=== PATIENT | female | born 1930 | race Caucasian/White ===

== ENCOUNTER 2017-03-09 13:07 | Inpatient (IN) | payer OTHER ==
[~2017-03-09] VITALS: Ht 162.6 cm; Wt 81.3 kg
[2017-03-09] MEDS ORDERED: OPTIRAY 320 IV PRN (14:15)
[2017-03-09 14:27] LABS: BASO % 0.1 %; BASO ABS # 0.01 K/uL (0-0.2); EOS % 1.8 %; EOS ABS # 0.15 K/uL (0-0.5); HEMATOCRIT 40.3 % (37-47); HEMOGLOBIN 13.8 g/dL (12.0-16.0); IG# 0.06 K/uL (0.00-0.02); LYMPH % 21.3 %; LYMPH ABS # 1.73 K/uL (1.2-3.4); MEAN CORPUSCULAR HEMOGLOBIN 32.9 pg (25-34); MEAN CORPUSCULAR HGB CONC 34.2 g/dl (32-36); MEAN PLATELET VOLUME 10.2 fL (7.4-10.4); MONO % 9.1 %; MONO ABS # 0.74 K/uL (0.11-0.59); NEUT ABS # 5.45 K/uL (1.4-6.5); PLATELET COUNT 154 K/uL (130-400); RED CELL DISTRIBUTION WIDTH CV 12.9 % (11.5-14.5); WHITE BLOOD COUNT 8.14 K/uL (4.8-10.8)
--- NOTE | 2017-03-09 14:28 | DIAGNOSTIC IMAGING REPORT ---
CHEST ONE VIEW PORTABLE CLINICAL HISTORY: 86 years-old Female presenting with CHEST PAIN. TECHNIQUE: Portable upright AP view of the chest was obtained. COMPARISON: None. FINDINGS: Atherosclerosis of aortic arch. Cardiac silhouette enlarged. Lungs and pleural spaces clear. Degenerative changes of the thoracic spine. Upper abdomen normal. IMPRESSION: 1. No acute cardiopulmonary disease. Electronically signed by: Andrew Swan M.D. 03/09/2017 2:27 PM Dictated Date/Time: 03/09/2017 2:25 PM
[2017-03-09 14:38] LABS: INR 1.9 (0.9-1.1)
[2017-03-09 14:44] LABS: ALBUMIN 3.9 gm/dl (3.4-5.0); BLOOD UREA NITROGEN 38 mg/dl (7-18); CALCIUM 9.4 mg/dl (8.5-10.1); CARBON DIOXIDE 21 mmol/L (21-32); CREATININE 1.47 mg/dl (0.60-1.20); GLUCOSE 80 mg/dl (70-99); LIPASE 240 U/L (73-393); POTASSIUM 4.1 mmol/L (3.5-5.1); SODIUM 138 mmol/L (136-145)
[2017-03-09 14:59] LABS: ALKALINE PHOSPHATASE 59 U/L (45-117); ALT/SGPT 23 U/L (12-78); AST/SGOT 19 U/L (15-37); TOTAL PROTEIN 7.1 gm/dl (6.4-8.2)
[2017-03-09] MEDS ORDERED: LORA-741 PO ×2 (15:14→17:49)
[2017-03-09] MEDS ORDERED: MISCTAB78 (15:15)
[2017-03-09] MEDS ORDERED: TPRSR/100 (15:15)
[2017-03-09] MEDS ORDERED: LISI40TA PO (15:15)
[2017-03-09] MEDS ORDERED: AMLO-114 PO (15:15)
[2017-03-09] MEDS ORDERED: METO100T14 PO (15:15)
[2017-03-09] MEDS ORDERED: HYDR12.55 PO (15:15)
[2017-03-09] MEDS ORDERED: WARF4TAB8 PO (15:15)
[2017-03-09] MEDS ORDERED: OMEG10007 PO (15:15)
--- NOTE | 2017-03-09 15:34 | DIAGNOSTIC IMAGING REPORT ---
HEAD CT NONCONTRAST CT DOSE: HISTORY: syncope, TIA left weakness TECHNIQUE: Multiaxial CT images of the head were performed without the use of intravenous contrast. Automated exposure control was utilized for this study. A dose lowering technique was utilized adhering to the principles of ALARA. Comparison: None. Findings: The paranasal sinuses and mastoid air cells are clear. The calvarium and skull base are intact. There is no mass, hematoma, midline shift, acute infarct. White matter hypodensity is nonspecific but suggestive of microvascular ischemic change. The ventricles and sulci demonstrate mild age-related involutional changes. Impression: No acute intracranial abnormality. Atrophy and microvascular ischemic changes. Electronically signed by: Hardeep Moe M.D. 03/09/2017 3:33 PM Dictated Date/Time: 03/09/2017 3:30 PM
--- NOTE | 2017-03-09 15:45 | DIAGNOSTIC IMAGING REPORT ---
CT ANGIOGRAM OF THE BRAIN; CT ANGIOGRAM OF THE NECK CLINICAL HISTORY: Syncope. COMPARISON STUDY: Unenhanced CT scan of the brain dated 03/09/2017. TECHNIQUE: Following the IV administration of 115 of Optiray 320, CT angiogram of the head and neck was performed from the aortic arch to the vertex. Images are reviewed in the axial, sagittal, and coronal planes. 3-D MIPS images are created and assessed. IV contrast was administered without complication. All measurements were calculated based on NASCET criteria. A dose lowering technique was utilized adhering to the principles of ALARA. CT DOSE: 1044.22 mGy.cm FINDINGS: Brain parenchyma: The brain parenchyma is normal in appearance. There is no hemorrhage, mass effect, or evidence of acute territorial ischemia by CT criteria. There is no evidence of enhancing mass lesion on the angiogram phase images. The ventricles, sulci, and cisterns are normal in configuration. Alvarado-white matter differentiation is preserved. No extra-axial fluid collection is seen. Thoracic aorta: Visualized portions of the thoracic aorta are normal in caliber. The aortic arch demonstrates 4-vessel variant anatomy. Right carotid arterial system: The right common carotid artery is widely patent. There is advanced atherosclerotic calcification of the carotid bulb and proximal internal carotid artery. This causes greater than 90% stenosis of the proximal right common carotid artery which extends at least 1.5 cm. The mid to distal portions of the right internal carotid artery are widely patent, as is the right external carotid artery. Left carotid arterial system: The left common carotid artery is widely patent. There is advanced atherosclerotic plaque seen the carotid bulb and proximal left internal carotid artery. This causes greater than 90% stenosis with near complete occlusion of the proximal left internal carotid artery which extends approximately 2 cm. The mid to distal portions of the left internal carotid artery are widely patent, as is the left external carotid artery. Vertebral arteries: Widely patent bilaterally and codominant. Subclavian arteries: Widely patent bilaterally. Intracranial vasculature: There is origin of the right posterior cerebral artery. The internal carotid arteries are patent at the skull base, as are the anterior and middle cerebral arteries bilaterally. The vertebrobasilar system and posterior cerebral arteries are widely patent. The vertebral arteries are codominant. There is no aneurysm, high-grade stenosis, or focal vessel cut off seen throughout the intracranial circulation. There is diminished flow throughout the left MCA territory as compared to the right. Jugular veins: Widely patent bilaterally. Dural sinuses: Patent. Lung apices: Partially visualized upper lobe lung parenchyma appears clear. Soft tissues: The visualized pharyngeal soft tissues are normal in appearance noting angiographic phase technique. The oropharyngeal airway appears widely patent. The salivary and thyroid glands are normal in appearance. No cervical lymphadenopathy is seen. Skeletal structures: The skeletal structures are osteopenic. The calvarium is within normal limits. The cervical spine appears intact noting multilevel spondylosis. Sinuses and mastoids: Mild mucosal thickening is seen within the maxillary antra bilaterally. The remaining paranasal sinuses are clear. The mastoid air cells are well pneumatized. Orbits: The bony orbits appear intact. Orbital contents are normal in appearance noting a right ocular lens implant. IMPRESSION: 1. There is no hemorrhage, mass effect, or evidence of acute territorial ischemia by CT criteria. 2. 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 Both vessels remain patent. This is slightly worse on the left. 3. The vertebral arteries are widely patent. 4. There is globally and asymmetrically diminished perfusion of the left MCA branches as compared to the right. No high-grade stenosis or focal vessel cut off is seen throughout the intracranial circulation. No aneurysm is identified. Electronically signed by: Geoff Cazares M.D. 03/09/2017 3:43 PM Dictated Date/Time: 03/09/2017 3:32 PM
[2017-03-09] MEDS ORDERED: SODIUM CHLORIDE 0.9% 1000ML 1,000 ML IV STA (16:16)
--- NOTE | 2017-03-09 16:33 | EMERGENCY ROOM VISIT NOTE ---
History Report prepared by Candida: Bennie Valera Under the Supervision of: Dr. Edilson Arango M.D. First contact with patient: 13:40 Chief Complaint: OTHER COMPLAINT History of Present Illness The patient is a 86 year old female who presents to the Emergency Room by EMS with complaints of an unresponsive episode occurring one hour ago. She states that she was out shopping today, and ultimately carried all of her groceries up a flight of stairs. Per family, the patient was speaking on the phone with them after she had brought in her groceries, and suddenly stopped responding. Her family went to check on her, and found her to be unresponsive to verbal or painful stimuli. They state that the patient was unresponsive for about 15 minutes. They note that the patient appeared to be exhibiting left hand weakness , and left sided facial droop after waking up. The patient's symptoms resolved around the time EMS arrived. She does not remember the episode. She has no history of similar symptoms. The patient denies nausea, vomiting, chest pain, SOB, fevers or chills. She notes that her 9 years ago yesterday, and states that she feels sad about this. Source of History: patient, family Onset: One hour ago Symptom Intensity: 15 minutes long Quality: other (unresponsive episode) Timing: other (episode) Associated Symptoms: No fevers, No chills, No chest pain, No SOB, No nausea , No vomiting Review of Systems See HPI for pertinent positives and negatives. A total of ten systems were reviewed and were otherwise negative. Past Medical & Surgical Medical Problems: (1) Cataract (2) CKD (chronic kidney disease), stage III (3) DM II (diabetes mellitus, type II), controlled (4) H/O deep venous thrombosis (5) HLD (hyperlipidemia) (6) HTN (hypertension) Family History No pertinent family history stated. Social History Smoking Status: Former Smoker Housing Status: lives alone Current/Historical Medications Scheduled Amlodipine (Norvasc), 10 MG PO DAILY Cholecalciferol (Vitamin D), 1 TAB PO DAILY Fish Oil (Brigantine-3), 1,000 MG PO BID Flaxseed (Linseed) (Flaxseed Oil 1000 mg), 1 TAB PO DAILY Fluticasone Propionate (Fluticasone Propionate), 2 SPRAYS TORIE DAILY Glimepiride (Glimepiride), 1 TAB PO DAILY@1500 Hydrochlorothiazide (Hctz), 1 TAB PO DAILY Latanoprost (Xalatan 0.005% Oph Tasneem), 1 DROPS OP HS Lisinopril (Zestril), 40 MG PO HS Metformin Hcl (Glucophage), 1 TAB PO TIDM Metoprolol Tartrate (Lopressor) (Lopressor), 1 TAB PO BID Warfarin Sod (Coumadin), 1 TAB PO SuMoWeThFr@1600 Warfarin Sod (Coumadin), 0.5 TAB PO TuSa@1600 Scheduled PRN Lorazepam (Ativan), 0.5 MG PO Q6H PRN for Anxiety/Agitation Allergies Coded Allergies: No Known Allergies (Verified , 03/09/17) Physical Exam Vital Signs Date Time Temp Pulse Resp B/P (MAP) Pulse Ox O2 Delivery O2 Flow Rate FiO2 03/09/17 15:01 84 16 149/64 98 Room Air 03/09/17 14:29 78 03/09/17 14:09 98 Room Air 03/09/17 13:13 37.0 80 16 163/65 98 Room Air Physical Exam GENERAL: Awake, alert, well-appearing, in no distress HENT: Normocephalic, atraumatic. Oropharynx unremarkable. Dry mucous membranes. EYES: Normal conjunctiva. Sclera non-icteric. Left eye disconjugate gaze ( consistent with baseline). NECK: Supple. No nuchal rigidity. FROM. No JVD. RESPIRATORY: Clear to auscultation. CARDIAC: Regular rate, normal rhythm. Extremities warm and well perfused. Pulses equal. ABDOMEN: Soft, non-distended. No tenderness to palpation. No rebound or guarding. No masses. RECTAL: Deferred. MUSCULOSKELETAL: Chest examination reveals no tenderness. The back is symmetrical on inspection without obvious abnormality. There is no CVA tenderness to palpation. No joint edema. LOWER EXTREMITIES: Calves are equal size bilaterally and non-tender. No edema. No discoloration. NEURO: Normal sensorium. No sensory or motor deficits noted. Normal cerebellar function with [id number], alternating palms, [id number] SKIN: No rash or jaundice noted. Medical Decision & Procedures ER Provider Diagnostic Interpretation: Radiology results as stated below per my review and radiologist interpretation: HEAD CT NONCONTRAST Findings: The paranasal sinuses and mastoid air cells are clear. The calvarium and skull base are intact. There is no mass, hematoma, midline shift, acute infarct. White matter hypodensity is nonspecific but suggestive of microvascular ischemic change. The ventricles and sulci demonstrate mild age-related involutional changes. Impression: No acute intracranial abnormality. Atrophy and microvascular ischemic changes. Electronically signed by: Hardeep Moe M.D. 03/09/2017 3:[address] ANGIOGRAM OF THE BRAIN; CT ANGIOGRAM OF THE NECK FINDINGS: Brain parenchyma: The brain parenchyma is normal in appearance. There is no hemorrhage, mass effect, or evidence of acute territorial ischemia by CT criteria. There is no evidence of enhancing mass lesion on the angiogram phase images. The ventricles, sulci, and cisterns are normal in configuration. Alvarado-white matter differentiation is preserved. No extra-axial fluid collection is seen. Thoracic aorta: Visualized portions of the thoracic aorta are normal in caliber. The aortic arch demonstrates 4-vessel variant anatomy. Right carotid arterial system: The right common carotid artery is widely patent. There is advanced atherosclerotic calcification of the carotid bulb and proximal internal carotid artery. This causes greater than 90% stenosis of the proximal right common carotid artery which extends at least 1.5 cm. The mid to distal portions of the right internal carotid artery are widely patent, as is the right external carotid artery. Left carotid arterial system: The left common carotid artery is widely patent. There is advanced atherosclerotic plaque seen the carotid bulb and proximal left internal carotid artery. This causes greater than 90% stenosis with near complete occlusion of the proximal left internal carotid artery which extends approximately 2 cm. The mid to distal portions of the left internal carotid artery are widely patent, as is the left external carotid artery. Vertebral arteries: Widely patent bilaterally and codominant. Subclavian arteries: Widely patent bilaterally. Intracranial vasculature: There is origin of the right posterior cerebral artery. The internal carotid arteries are patent at the skull base, as are the anterior and middle cerebral arteries bilaterally. The vertebrobasilar system and posterior cerebral arteries are widely patent. The vertebral arteries are codominant. There is no aneurysm, high-grade stenosis, or focal vessel cut off seen throughout the intracranial circulation. There is diminished flow throughout the left MCA territory as compared to the right. Jugular veins: Widely patent bilaterally. Dural sinuses: Patent. Lung apices: Partially visualized upper lobe lung parenchyma appears clear. Soft tissues: The visualized pharyngeal soft tissues are normal in appearance noting angiographic phase technique. The oropharyngeal airway appears widely patent. The salivary and thyroid glands are normal in appearance. No cervical lymphadenopathy is seen. Skeletal structures: The skeletal structures are osteopenic. The calvarium is within normal limits. The cervical spine appears intact noting multilevel spondylosis. Sinuses and mastoids: Mild mucosal thickening is seen within the maxillary antra bilaterally. The remaining paranasal sinuses are clear. The mastoid air cells are well pneumatized. Orbits: The bony orbits appear intact. Orbital contents are normal in appearance noting a right ocular lens implant. IMPRESSION: 1. There is no hemorrhage, mass effect, or evidence of acute territorial ischemia by CT criteria. 2. 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 Both vessels remain patent. This is slightly worse on the left. 3. The vertebral arteries are widely patent. 4. There is globally and asymmetrically diminished perfusion of the left MCA branches as compared to the right. No high-grade stenosis or focal vessel cut off is seen throughout the intracranial circulation. No aneurysm is identified. Electronically signed by: Geoff Cazares M.D. 03/09/2017 3:[address] ANGIOGRAM OF THE BRAIN; CT ANGIOGRAM OF THE NECK FINDINGS: Brain parenchyma: The brain parenchyma is normal in appearance. There is no hemorrhage, mass effect, or evidence of acute territorial ischemia by CT criteria. There is no evidence of enhancing mass lesion on the angiogram phase images. The ventricles, sulci, and cisterns are normal in configuration. Alvarado-white matter differentiation is preserved. No extra-axial fluid collection is seen. Thoracic aorta: Visualized portions of the thoracic aorta are normal in caliber. The aortic arch demonstrates 4-vessel variant anatomy. Right carotid arterial system: The right common carotid artery is widely patent. There is advanced atherosclerotic calcification of the carotid bulb and proximal internal carotid artery. This causes greater than 90% stenosis of the proximal right common carotid artery which extends at least 1.5 cm. The mid to distal portions of the right internal carotid artery are widely patent, as is the right external carotid artery. Left carotid arterial system: The left common carotid artery is widely patent. There is advanced atherosclerotic plaque seen the carotid bulb and proximal left internal carotid artery. This causes greater than 90% stenosis with near complete occlusion of the proximal left internal carotid artery which extends approximately 2 cm. The mid to distal portions of the left internal carotid artery are widely patent, as is the left external carotid artery. Vertebral arteries: Widely patent bilaterally and codominant. Subclavian arteries: Widely patent bilaterally. Intracranial vasculature: There is origin of the right posterior cerebral artery. The internal carotid arteries are patent at the skull base, as are the anterior and middle cerebral arteries bilaterally. The vertebrobasilar system and posterior cerebral arteries are widely patent. The vertebral arteries are codominant. There is no aneurysm, high-grade stenosis, or focal vessel cut off seen throughout the intracranial circulation. There is diminished flow throughout the left MCA territory as compared to the right. Jugular veins: Widely patent bilaterally. Dural sinuses: Patent. Lung apices: Partially visualized upper lobe lung parenchyma appears clear. Soft tissues: The visualized pharyngeal soft tissues are normal in appearance noting angiographic phase technique. The oropharyngeal airway appears widely patent. The salivary and thyroid glands are normal in appearance. No cervical lymphadenopathy is seen. Skeletal structures: The skeletal structures are osteopenic. The calvarium is within normal limits. The cervical spine appears intact noting multilevel spondylosis. Sinuses and mastoids: Mild mucosal thickening is seen within the maxillary antra bilaterally. The remaining paranasal sinuses are clear. The mastoid air cells are well pneumatized. Orbits: The bony orbits appear intact. Orbital contents are normal in appearance noting a right ocular lens implant. IMPRESSION: 1. There is no hemorrhage, mass effect, or evidence of acute territorial ischemia by CT criteria. 2. 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 Both vessels remain patent. This is slightly worse on the left. 3. The vertebral arteries are widely patent. 4. There is globally and asymmetrically diminished perfusion of the left MCA branches as compared to the right. No high-grade stenosis or focal vessel cut off is seen throughout the intracranial circulation. No aneurysm is identified. Electronically signed by: Geoff Cazares M.D. 03/09/2017 3:43 PM CHEST ONE VIEW PORTABLE FINDINGS: Atherosclerosis of aortic arch. Cardiac silhouette enlarged. Lungs and pleural spaces clear. Degenerative changes of the thoracic spine. Upper abdomen normal. IMPRESSION: 1. No acute cardiopulmonary disease. Electronically signed by: Andrew Swan M.D. 03/09/2017 2:27 PM Laboratory Results Test 03/09/17 14:16 03/09/17 15:24 Immature Granulocyte % (Auto) 0.7 % White Blood Count 8.14 K/uL (4.8-10.8) Red Blood Count 4.20 M/uL (4.2-5.4) Hemoglobin 13.8 g/dL (12.0-16.0) Hematocrit 40.3 % (37-47) Mean Corpuscular Volume 96.0 fL (80-100) Mean Corpuscular Hemoglobin 32.9 pg (25-34) Mean Corpuscular Hemoglobin Concent 34.2 g/dl (32-36) Platelet Count 154 K/uL (130-400) Mean Platelet Volume 10.2 fL (7.4-10.4) Neutrophils (%) (Auto) 67.0 % Lymphocytes (%) (Auto) 21.3 % Monocytes (%) (Auto) 9.1 % Eosinophils (%) (Auto) 1.8 % Basophils (%) (Auto) 0.1 % Neutrophils # (Auto) 5.45 K/uL (1.4-6.5) Lymphocytes # (Auto) 1.73 K/uL (1.2-3.4) Monocytes # (Auto) 0.74 K/uL (0.11-0.59) Eosinophils # (Auto) 0.15 K/uL (0-0.5) Basophils # (Auto) 0.01 K/uL (0-0.2) Immature Granulocyte # (Auto) 0.06 K/uL (0.00-0.02) Magnesium Level 2.2 mg/dl (1.8-2.4) Total Bilirubin 0.5 mg/dl (0.2-1) Direct Bilirubin 0.1 mg/dl (0-0.2) Aspartate Amino Transf (AST/SGOT) 19 U/L (15-37) Alanine Aminotransferase (ALT/SGPT) 23 U/L (12-78) Alkaline Phosphatase 59 U/L (45-117) Total Protein 7.1 gm/dl (6.4-8.2) Albumin 3.9 gm/dl (3.4-5.0) Lipase 240 U/L (73-393) Urine Color YELLOW Urine Appearance CLEAR (CLEAR) Urine pH 5.5 (4.5-7.5) Urine Specific [place] 1.022 (1.000-1.030) Urine Protein NEG (NEG) Urine Glucose (UA) NEG (NEG) Urine Ketones NEG (NEG) Urine Occult Blood NEG (NEG) Urine Nitrite NEG (NEG) Urine Bilirubin NEG (NEG) Urine Urobilinogen NEG (NEG) Urine Leukocyte Esterase NEG (NEG) Laboratory results reviewed by me Medications Administered Medications (Trade) Dose Ordered Sig/Yobani Route Start Time Stop Time Status Last Admin Dose Admin Sodium Chloride 1,000 ml @ 999 mls/hr Q1H1M STAT IV 03/09/17 16:16 03/09/17 17:16 DC 03/09/17 16:16 999 MLS/HR ECG Indication: other (unresponsive episode) Rate (beats per minute): 78 Rhythm: normal sinus Findings: no acute ischemic change, left axis deviation ED Course 1344: The patient was evaluated in room A4B. A complete history and physical exam was performed. 1620: Upon reexamination, the patient was resting comfortably. I discussed the test results and treatment plan with her. The patient will be evaluated for further management. Medical Decision I reviewed the patient's past medical history, medications, and the nursing notes as described above. The patient's presentation and history were concerning for vasovagal event, infection, hypoglycemia, electrolyte abnormalities, cardiac sources, intracerebral event, toxicologic, neurologic, metabolic, as well as other pathologies were entertained. The patient is a 86-year-old woman a past medical history of hypertension, afib on coumadin who presents emergency Department with syncopal episode per hpi. The patient is in no acute distress, afebrile with stable vital signs. Neuro intact. Labs notable for possible ALIA with creatinine of 1.4 with BUN/Cr > 20 suggesting dehydration. WBC within normal limits. Troponin negative. EKG without ischemia. Chest x-ray negative. CT/CTA without any evidence of ischemia however shows significant vascular disease with high-grade bilateral internal carotid stenosis and impaired flow in the left MCA territory without any occlusion. Symptoms possibly related to the patient's dehydration in the setting of her cerebral vascular disease. However, will admit the patient for full stroke/TIA evaluation. Case d/w Edilia Tabor [facility] who will admit the patient for further management. Medication Reconcilliation Current Medication List: was personally reviewed by me Blood Pressure Screening Patient's blood pressure: Elevated blood pressure Blood pressure disposition: Elevated BP felt to be situational Consults Time Called: 1616 Consulting Physician: Fatimah Yeboah Hospitalist Returned Call: [phone] I discussed the patient with Fatimah Yeboah will evaluate the patient for further treatment. Impression Primary Impression: Syncope Additional Impression: Dehydration Scribe Attestation The scribe's documentation has been prepared under my direction and personally reviewed by me in its entirety. I confirm that the note above accurately reflects all work, treatment, procedures, and medical decision making performed by me. Departure Information Dispostion Being Evaluated By Hospitalist Referrals Brian Avendano III, M.D. (PCP) Patient Instructions [facility] Problem Qualifiers
[2017-03-09] MEDS ORDERED: ONDANSETRON INJ 2 MG/ML 2 ML VIAL IV PRN (17:15)
[2017-03-09] MEDS ORDERED: ACETAMINOPHEN 325 MG TAB PO PRN (17:15)
[2017-03-09 17:48] VITALS: O2SAT 96; Ht 162.6 cm; Wt 81.3 kg
[2017-03-09] MEDS ORDERED: CMD4 PO ×2 (17:49)
[2017-03-09] MEDS ORDERED: LATA0.5S OP (17:49)
[2017-03-09] MEDS ORDERED: GLIM1TAB2 PO (17:49)
[2017-03-09] MEDS ORDERED: FLNIN NAE (17:49)
[2017-03-09] MEDS ORDERED: METF500T PO (17:49)
[2017-03-09] MEDS ORDERED: HYDR25TA4 PO (17:49)
[2017-03-09] MEDS ORDERED: CHOL100010 PO (17:49)
[2017-03-09] MEDS ORDERED: FLAX100019 PO (17:49)
[2017-03-09] MEDS ORDERED: LORAZEPAM 0.5 MG TAB PO PRN (18:00)
[2017-03-09] MEDS ORDERED: ASPIRIN 325 MG ECTAB PO ONE (18:21)
[2017-03-09] MEDS ORDERED: LORAZEPAM INJ 0.5 MG in SYRINGE 0.75 ML IV SCH (20:00)
[2017-03-09] MEDS ORDERED: LORAZEPAM 2 MG/ML 1 ML VIAL IV SCH (20:00)
--- NOTE | 2017-03-09 21:03 | History and Physical ---
History & Physical Date & Time of Service: Mar 09, 2017 at 20:59 Chief Complaint: Alia (Acute Kidney Injury), Syncope Primary Care Physician: Brian Avendano III, M.D. History of Present Illness Source: patient, family (at bedside), clinic records, hospital records This is an 86yo F with a PMH of HTN, CKD III, h/o DVT (on coumadin) and DM II who presents after a syncopal event earlier today. Patient went to the grocery store today and brought groceries up a flight of stairs upon returning home. [place] very fatigued and sat down. Called family member and reportedly spoke 1-2 sentences before she stopped responding. Family went directly to patient's home and found her slumped over in her chair, unresponsive but still breathing. Did no respond to verbal or painful stimuli until EMS arrived, approximately 15 minutes after incident began. States that she becomes extremely tired after shopping and may have even fallen asleep while on the phone. Denies confusion about the events surrounding her coming to the hospital but seems unsure about when she takes her BP medications. Admits that she does not drink enough water. Denies fever, chills, lightheadedness, headache, visual changes, facial droop, slurred speech, palpitations, CP, SOB, abd pain, nausea, vomiting, focal weakness, LE swelling. Denies history of syncope or seizures. Past Medical/Surgical History Medical Problems: (1) Cataract Status: Chronic (2) CKD (chronic kidney disease), stage III Status: Chronic (3) DM II (diabetes mellitus, type II), controlled Status: Chronic (4) H/O deep venous thrombosis Permanent Comment: 2008. On Coumadin. Status: Chronic (5) HLD (hyperlipidemia) Status: Chronic (6) HTN (hypertension) Status: Chronic Social History Smoking Status: Former Smoker Alcohol Use: none Marital Status: Housing status: lives alone Occupational Status: retired Multi-Drug Resistant Organisms History of MDRO: No Allergies Coded Allergies: No Known Allergies (Verified , 03/09/17) Home Medications Scheduled Amlodipine (Norvasc), 10 MG PO DAILY Cholecalciferol (Vitamin D), 1 TAB PO DAILY Fish Oil ([place]-3), 1,000 MG PO BID Flaxseed (Linseed) (Flaxseed Oil 1000 mg), 1 TAB PO DAILY Fluticasone Propionate (Fluticasone Propionate), 2 SPRAYS TORIE DAILY Glimepiride (Glimepiride), 1 TAB PO DAILY@1500 Hydrochlorothiazide (Hctz), 1 TAB PO DAILY Latanoprost (Xalatan 0.005% Oph Tasneem), 1 DROPS OP HS Lisinopril (Zestril), 40 MG PO HS Metformin Hcl (Glucophage), 1 TAB PO TIDM Metoprolol Tartrate (Lopressor) (Lopressor), 1 TAB PO BID Warfarin Sod (Coumadin), 1 TAB PO SuMoWeThFr@1600 Warfarin Sod (Coumadin), 0.5 TAB PO TuSa@1600 Scheduled PRN Lorazepam (Ativan), 0.5 MG PO Q6H PRN for Anxiety/Agitation Review of Systems Ten systems reviewed and negative except as noted in the HPI. Physical Exam Vital Signs Date Time Temp Pulse Resp B/P (MAP) Pulse Ox O2 Delivery O2 Flow Rate FiO2 03/09/17 17:48 96 Room Air 03/09/17 17:29 66 18 168/81 96 Room Air 80 175/83 86 176/80 03/09/17 15:01 84 16 149/64 98 Room Air 03/09/17 14:29 78 03/09/17 14:09 98 Room Air 03/09/17 13:13 37.0 80 16 163/65 98 Room Air General Appearance: WD/WN, no apparent distress, + pertinent finding (Sitting up in bed comfortably) Head: normocephalic, atraumatic Eyes: normal inspection, PERRL ENT: normal ENT inspection, hearing grossly normal, pharynx normal (dry mucous membranes ) Neck: supple, thyroid normal, trachea midline Respiratory/Chest: chest non-tender, lungs clear, normal breath sounds, no respiratory distress, no accessory muscle use Cardiovascular: regular rate, rhythm, no murmur, normal peripheral pulses Abdomen/GI: non tender, soft, no organomegaly Back: normal inspection Extremities/Musculoskelatal: normal inspection, no calf tenderness, no pedal edema Neurologic/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 Cerebellar tests normal. Gait intact. ), alert, normal mood/affect, oriented x 3 Skin: normal color, warm/dry Diagnostics Laboratory Results Results Past 24 Hours Test 03/09/17 14:16 03/09/17 15:24 03/09/17 20:22 Range/Units White Blood Count 8.14 4.8-10.8 K/uL Red Blood Count 4.20 4.2-5.4 M/uL Hemoglobin 13.8 12.0-16.0 g/dL Hematocrit 40.3 37-47 % Mean Corpuscular Volume 96.0 80-100 fL Mean Corpuscular Hemoglobin 32.9 25-34 pg Mean Corpuscular Hemoglobin Concent 34.2 32-36 g/dl Platelet Count 154 130-400 K/uL Mean Platelet Volume 10.2 7.4-10.4 fL Neutrophils (%) (Auto) 67.0 % Lymphocytes (%) (Auto) 21.3 % Monocytes (%) (Auto) 9.1 % Eosinophils (%) (Auto) 1.8 % Basophils (%) (Auto) 0.1 % Neutrophils # (Auto) 5.45 1.4-6.5 K/uL Lymphocytes # (Auto) 1.73 1.2-3.4 K/uL Monocytes # (Auto) 0.74 0.11-0.59 K/uL Eosinophils # (Auto) 0.15 0-0.5 K/uL Basophils # (Auto) 0.01 0-0.2 K/uL RDW Standard Deviation 45.0 36.4-46.3 fL RDW Coefficient of Variation 12.9 11.5-14.5 % Immature Granulocyte % (Auto) 0.7 % Immature Granulocyte # (Auto) 0.06 0.00-0.02 K/uL Prothrombin Time 19.9 9.0-12.0 SECONDS Prothromb Time International Ratio 1.9 0.9-1.1 Sodium Level 138 136-145 mmol/L Potassium Level 4.1 3.5-5.1 mmol/L Chloride Level 105 98-107 mmol/L Carbon Dioxide Level 21 21-32 mmol/L Anion Gap 12.0 3-11 mmol/L Blood Urea Nitrogen 38 7-18 mg/dl Creatinine 1.47 0.60-1.20 mg/dl Est Creatinine Clear Calc Drug Dose 30.1 ml/min Estimated GFR () 37.6 Estimated GFR (Non- 32.4 BUN/Creatinine Ratio 25.8 10-20 Random Glucose 80 70-99 mg/dl Calcium Level 9.4 8.5-10.1 mg/dl Magnesium Level 2.2 1.8-2.4 mg/dl Total Bilirubin 0.5 0.2-1 mg/dl Direct Bilirubin 0.1 0-0.2 mg/dl Aspartate Amino Transf (AST/SGOT) 19 15-37 U/L Alanine Aminotransferase (ALT/SGPT) 23 12-78 U/L Alkaline Phosphatase 59 45-117 U/L Troponin I < 0.015 0-0.045 ng/ml Total Protein 7.1 6.4-8.2 gm/dl Albumin 3.9 3.4-5.0 gm/dl Lipase 240 73-393 U/L Urine Color YELLOW Urine Appearance CLEAR CLEAR Urine pH 5.5 4.5-7.5 Urine Specific [place] 1.022 1.000-1.030 Urine Protein NEG NEG Urine Glucose (UA) NEG NEG Urine Ketones NEG NEG Urine Occult Blood NEG NEG Urine Nitrite NEG NEG Urine Bilirubin NEG NEG Urine Urobilinogen NEG NEG Urine Leukocyte Esterase NEG NEG Diagnostic Radiology CT head: Impression: No acute intracranial abnormality. Atrophy and microvascular ischemic changes. CTA brain and neck: IMPRESSION: 1. There is no hemorrhage, mass effect, or evidence of acute territorial ischemia by CT criteria. 2. 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 Both vessels remain patent. This is slightly worse on the left. 3. The vertebral arteries are widely patent. 4. There is globally and asymmetrically diminished perfusion of the left MCA branches as compared to the right. No high-grade stenosis or focal vessel cut off is seen throughout the intracranial circulation. No aneurysm is identified. CXR: IMPRESSION: 1. No acute cardiopulmonary disease. Normal EKG Impression Assessment and Plan This is an 86yo F with a PMH of HTN, CKD III, h/o DVT (on coumadin) and DM II who presents after a syncopal event earlier today. Syncopal event: -Unwitnessed event, likely vasovagal vs possibly just falling asleep -CT head without acute event. Atrophy and microvascular changes noted -CTA head and neck with high grade stenosis L>R, both still patent Decreased perfusion of left MCA branches. -Discussed with neuro who recommended MRI brain without contrast -Full dose aspirin given. Patient intolerant to statin (leg cramps) -Echo with bubble study -Telemetry overnight -IVF resuscitation Mild ALIA on CKD III: -Cr elevated to 1.47 (from baseline ~1.1) -Pre-renal cause 2/2 poor PO intake in combination with diuretics -IVF resuscitation -Held HCTZ and lisinopril in setting of kidney injury -Repeat BMP in AM HTN: -Slightly elevated 2/2 anxiety -Cont home dose amlodipine, metoprolol succinate -Monitor H/o DVT: -On coumadin -INR 1.9 -Cont home dose DM II: -Hgb a1c of 5.9 in Dec 2016 -Hold home meds -SSI while in-patient -Diabetic diet -BG checks AC HS DVT Ppx: On warfarin Code status: DNR per discussion with patient, family PCP: Juan Alberto Dispo: Admitted to telemetry. Discharge planning ordered (patient lives alone and >80yo) Patient seen in collaboration with Dr. Jose. Please see medical progress note. ADDENDUM: I have seen and examined the patient above and have discussed the case with Fatimah Elliott PA-C. I agree with the assessment and plan as stated. Damon, DO Level of Care Telemetry Advanced Directives Existing Living Will: Yes Existing Power of Audio Technician: Yes Resuscitation Status DO NOT RESUSCITATE VTE Prophylaxis VTE Risk Assessment Done? Y/N: Yes Risk Level: Moderate Given or contraindicated: Warfarin (Coumadin) Social Service Consult >80 yr.& Lives Alone
--- NOTE | 2017-03-09 21:17 | Progress Note ---
Medicine Progress Note Date & Time of Visit: Mar 09, 2017 at 21:09. Subjective 86 yo F who reports being very fatigued after her shopping trip today-as she is normally after shopping--sat down to watch TV and became unresponsive to the person on the phone. Family shilpa over and called EMS. Pt was out for 15 minutes slumped over in chair and breathing. Sugar in 150s on EMS arrival per family. Pt was lucid when EMS arrived and workup is normal in ER except for a mild ALIA. Pt lives alone and admits to not knowing her BP meds well and not drinking enough water. No bowel or bladder incontinence. No stoke symptoms. Objective Last 8 Hrs Date Time Temp Pulse Resp B/P (MAP) Pulse Ox O2 Delivery O2 Flow Rate FiO2 03/09/17 17:48 96 Room Air 03/09/17 17:29 66 18 168/81 96 Room Air 80 175/83 86 176/80 03/09/17 15:01 84 16 149/64 98 Room Air 03/09/17 14:29 78 03/09/17 14:09 98 Room Air 03/09/17 13:13 37.0 80 16 163/65 98 Room Air Physical Exam: GEN: obese, in no acute distress, alert and appropriate HEENT: NC/AT, PERRL, normal sclerae CARDIO: reg rate, S1/2 heard without m/g/r LUNGS: CTA bilaterally, no crackles, rales or wheezes, good diaphragmatic excursion ABD: soft, non-tender, non-distended, no rebound or guarding, +BS EXTREMITY: no LE swelling or edema, extremities are warm and well-perfused NEURO: CN 2-12 intact, sensation intact throughout, coordination intact, no gross focal neuro deficits. MUSC: 5/5 strength throughout, no focal deficits SKIN: warm and dry Laboratory Results: 03/09/17 14:16 Red Blood Count 4.20, Mean Corpuscular Volume 96.0, Mean Corpuscular Hemoglobin 32.9, Mean Corpuscular Hemoglobin Concent 34.2, Mean Platelet Volume 10.2, Neutrophils (%) (Auto) 67.0, Lymphocytes (%) (Auto) 21.3, Monocytes (%) (Auto) 9.1, Eosinophils (%) (Auto) 1.8, Basophils (%) (Auto) 0.1, Neutrophils # (Auto) 5.45, Lymphocytes # (Auto) 1.73, Monocytes # (Auto) 0.74, Eosinophils # (Auto) 0.15, Basophils # (Auto) 0.01 03/09/17 14:16 Test 03/09/17 14:16 03/09/17 15:24 03/09/17 20:22 White Blood Count 8.14 K/uL (4.8-10.8) Red Blood Count 4.20 M/uL (4.2-5.4) Hemoglobin 13.8 g/dL (12.0-16.0) Hematocrit 40.3 % (37-47) Mean Corpuscular Volume 96.0 fL (80-100) Mean Corpuscular Hemoglobin 32.9 pg (25-34) Mean Corpuscular Hemoglobin Concent 34.2 g/dl (32-36) Platelet Count 154 K/uL (130-400) Mean Platelet Volume 10.2 fL (7.4-10.4) Neutrophils (%) (Auto) 67.0 % Lymphocytes (%) (Auto) 21.3 % Monocytes (%) (Auto) 9.1 % Eosinophils (%) (Auto) 1.8 % Basophils (%) (Auto) 0.1 % Neutrophils # (Auto) 5.45 K/uL (1.4-6.5) Lymphocytes # (Auto) 1.73 K/uL (1.2-3.4) Monocytes # (Auto) 0.74 K/uL (0.11-0.59) Eosinophils # (Auto) 0.15 K/uL (0-0.5) Basophils # (Auto) 0.01 K/uL (0-0.2) RDW Standard Deviation 45.0 fL (36.4-46.3) RDW Coefficient of Variation 12.9 % (11.5-14.5) Immature Granulocyte % (Auto) 0.7 % Immature Granulocyte # (Auto) 0.06 K/uL (0.00-0.02) Prothrombin Time 19.9 SECONDS (9.0-12.0) Prothromb Time International Ratio 1.9 (0.9-1.1) Anion Gap 12.0 mmol/L (3-11) Est Creatinine Clear Calc Drug Dose 30.1 ml/min Estimated GFR () 37.6 Estimated GFR (Non- 32.4 BUN/Creatinine Ratio 25.8 (10-20) Calcium Level 9.4 mg/dl (8.5-10.1) Magnesium Level 2.2 mg/dl (1.8-2.4) Total Bilirubin 0.5 mg/dl (0.2-1) Direct Bilirubin 0.1 mg/dl (0-0.2) Aspartate Amino Transf (AST/SGOT) 19 U/L (15-37) Alanine Aminotransferase (ALT/SGPT) 23 U/L (12-78) Alkaline Phosphatase 59 U/L (45-117) Total Protein 7.1 gm/dl (6.4-8.2) Albumin 3.9 gm/dl (3.4-5.0) Lipase 240 U/L (73-393) Urine Color YELLOW Urine Appearance CLEAR (CLEAR) Urine pH 5.5 (4.5-7.5) Urine Specific [place] 1.022 (1.000-1.030) Urine Protein NEG (NEG) Urine Glucose (UA) NEG (NEG) Urine Ketones NEG (NEG) Urine Occult Blood NEG (NEG) Urine Nitrite NEG (NEG) Urine Bilirubin NEG (NEG) Urine Urobilinogen NEG (NEG) Urine Leukocyte Esterase NEG (NEG) Last 24 Hours Test 03/09/17 14:16 03/09/17 15:24 03/09/17 20:22 White Blood Count 8.14 K/uL Red Blood Count 4.20 M/uL Hemoglobin 13.8 g/dL Hematocrit 40.3 % Mean Corpuscular Volume 96.0 fL Mean Corpuscular Hemoglobin 32.9 pg Mean Corpuscular Hemoglobin Concent 34.2 g/dl Platelet Count 154 K/uL Mean Platelet Volume 10.2 fL Neutrophils (%) (Auto) 67.0 % Lymphocytes (%) (Auto) 21.3 % Monocytes (%) (Auto) 9.1 % Eosinophils (%) (Auto) 1.8 % Basophils (%) (Auto) 0.1 % Neutrophils # (Auto) 5.45 K/uL Lymphocytes # (Auto) 1.73 K/uL Monocytes # (Auto) 0.74 K/uL Eosinophils # (Auto) 0.15 K/uL Basophils # (Auto) 0.01 K/uL RDW Standard Deviation 45.0 fL RDW Coefficient of Variation 12.9 % Immature Granulocyte % (Auto) 0.7 % Immature Granulocyte # (Auto) 0.06 K/uL Prothrombin Time 19.9 SECONDS Prothromb Time International Ratio 1.9 Sodium Level 138 mmol/L Potassium Level 4.1 mmol/L Chloride Level 105 mmol/L Carbon Dioxide Level 21 mmol/L Anion Gap 12.0 mmol/L Blood Urea Nitrogen 38 mg/dl Creatinine 1.47 mg/dl Est Creatinine Clear Calc Drug Dose 30.1 ml/min Estimated GFR () 37.6 Estimated GFR (Non- 32.4 BUN/Creatinine Ratio 25.8 Random Glucose 80 mg/dl Calcium Level 9.4 mg/dl Magnesium Level 2.2 mg/dl Total Bilirubin 0.5 mg/dl Direct Bilirubin 0.1 mg/dl Aspartate Amino Transf (AST/SGOT) 19 U/L Alanine Aminotransferase (ALT/SGPT) 23 U/L Alkaline Phosphatase 59 U/L Troponin I < 0.015 ng/ml Total Protein 7.1 gm/dl Albumin 3.9 gm/dl Lipase 240 U/L Urine Color YELLOW Urine Appearance CLEAR Urine pH 5.5 Urine Specific [place] 1.022 Urine Protein NEG Urine Glucose (UA) NEG Urine Ketones NEG Urine Occult Blood NEG Urine Nitrite NEG Urine Bilirubin NEG Urine Urobilinogen NEG Urine Leukocyte Esterase NEG Assessment & Plan 86 yo F with episode of syncope versus falling asleep from severe fatigue Loss of consciousness vs falling asleep from fatigue: will err on the side of caution and treat this as a syncope case which occurred in the setting of a diabetic female who was very fatigued and admitted to not drinking enough water. Poss vasovagal vs orthostatic hypotension playing a role. She is elderly with some stroke risk so pursuing stroke workup with MRI. CTA revealed some vascular stenosis which is likely an incidental finding. TTE w/bubble study. Tele overnight. Neuro consult Likely dc tomorrow after workup complete. The case was discussed with Fatimah Arambula PA-C; please see her documentation for further historical data as well as comprehensive assessment and plan. Consultants: Carter Current Inpatient Medications: Current Inpatient Medications Medications (Trade) Dose Ordered Sig/Yobani Route Start Time Stop Time Status Last Admin Dose Admin Ioversol (Optiray 320) 125 ml UD PRN IV 03/09/17 14:15 03/13/17 14:14 Acetaminophen (Tylenol Tab) 650 mg Q4H PRN PO 1/29/18 17:15 04/08/17 17:14 Ondansetron HCl (Zofran Inj) 4 mg Q6H PRN IV 03/09/17 17:15 04/08/17 17:14 Sodium Chloride 1,000 ml @ 125 mls/hr Q8H IV 03/09/17 20:00 04/08/17 17:29 Amlodipine Besylate (Norvasc Tab) 10 mg DAILY PO 03/10/17 09:00 04/09/17 08:59 Cholecalciferol (Vitamin D Tab) 1,000 inter.unit DAILY PO 03/10/17 09:00 04/09/17 08:59 Fluticasone Propionate (Flonase Nasal [place]) 2 sprays DAILY TORIE 03/10/17 09:00 04/09/17 08:59 Lorazepam (Ativan Tab) 0.5 mg Q6H PRN PO 03/09/17 18:00 04/08/17 17:59 Metoprolol Tartrate (Lopressor Tab) 100 mg BID PO 03/09/17 21:00 04/08/17 20:59 Warfarin Sodium (Coumadin Tab) 2 mg TuSa@1600 PO 03/10/17 16:00 04/09/17 15:59 Warfarin Sodium (Coumadin Tab) 4 mg SuMoWeThFr@1600 PO 03/11/17 16:00 04/10/17 15:59 Lorazepam 0.5 mg/ Syringe 1 ml @ 1 mls/min 1999 IV 03/09/17 20:00 03/09/17 23:00
[2017-03-09] MEDS: METOPROLOL TARTRATE 100 MG TAB PO SCH (21:28)
[2017-03-09] MEDS: SODIUM CHLORIDE 0.9% 1000ML 1,000 ML IV SCH (21:29)
[2017-03-09] MEDS ORDERED: GLUCAGON FOR INJ 1 MG VIAL SQ PRN (22:45)
[2017-03-09] MEDS ORDERED: DEXTROSE 50% 50 ML SYR IV PRN (22:45)
[2017-03-09] MEDS ORDERED: GLUCOSE 10 TABS/TUBE PO PRN (22:45)
[2017-03-09] MEDS ORDERED: GLUCOSE 40% GEL 15 GM TUBE PO PRN (22:45)
[2017-03-09] MEDS ORDERED: CLONIDINE HCL 0.1 MG TAB PO PRN (22:45)
[2017-03-09 23:47] VITALS: BP 152/77; PULSE 69; TEMP 36.6; O2SAT 93
[2017-03-10] VITALS (7 sets, daily range): BP systolic 124–164; BP diastolic 66–81; PULSE 61–72; TEMP 36.4–36.7; O2SAT 95–97
[2017-03-10] MEDS ORDERED: INFLUENZA ADMINISTRATION CHARGE ONE (02:30)
[2017-03-10] MEDS ORDERED: INFLUENZA VIRUS QUAD VACCINE 0.5 ML SYR IM. ONE (02:30)
[2017-03-10] MEDS: SODIUM CHLORIDE 0.9% 1000ML 1,000 ML IV SCH ×2 (03:44→11:49)
[2017-03-10 06:20] LABS: HEMATOCRIT 41.4 % (37-47); HEMOGLOBIN 14.2 g/dL (12.0-16.0); MEAN CELL VOLUME 96.7 fL (80-100); MEAN CORPUSCULAR HEMOGLOBIN 33.2 pg (25-34); MEAN CORPUSCULAR HGB CONC 34.3 g/dl (32-36); PLATELET COUNT 149 K/uL (130-400); RED CELL DISTRIBUTION WIDTH CV 12.9 % (11.5-14.5); RED CELL DISTRIBUTION WIDTH SD 44.7 fL (36.4-46.3); WHITE BLOOD COUNT 6.34 K/uL (4.8-10.8)
[2017-03-10 06:31] LABS: INR 1.8 (0.9-1.1)
[2017-03-10 06:50] LABS: CALCIUM 8.7 mg/dl (8.5-10.1); CREATININE 1.17 mg/dl (0.60-1.20); POTASSIUM 4.2 mmol/L (3.5-5.1)
--- NOTE | 2017-03-10 07:13 | DIAGNOSTIC IMAGING REPORT ---
BRAIN WITHOUT CONTRAST CLINICAL HISTORY: 86 years-old Female presenting with Syncopal episode, CTA with decreased perfusion of L MCA branches. TECHNIQUE: Multisequence, multiplanar MR imaging of the brain was performed without the use of intravenous contrast. IV contrast: None. COMPARISON: CT head from 03/09/2017. FINDINGS: Proportional ventricular and sulcal prominence, likely age-related parenchymal volume loss. Periventricular and subcortical white matter T2/FLAIR hyperintensity, nonspecific but likely indicative of chronic small vessel ischemic change. Old lacunar infarct in the left basal ganglia. Slight upper convexity of the pituitary gland though the overall cranial caudal dimension of the pituitary gland is normal. No mass effect or midline shift. No restricted diffusion to suggest acute ischemia. No hemorrhage. No extra-axial fluid collection. T2 skull base flow voids preserved. Degenerative changes of the atlantodental articulation. Mild mucosal thickening in the left maxillary sinus. Right [place] lens absent. Bone marrow signal intensity within the calvarium within normal limits. IMPRESSION: 1. Chronic small vessel ischemic change. No acute intracranial abnormality. Electronically signed by: Andrew Swan M.D. 03/10/2017 7:12 AM Dictated Date/Time: 03/10/2017 7:08 AM
[2017-03-10] MEDS: FLUTICASONE PROPIONATE NA SPR 16 GM BTL NAE SCH (07:37)
[2017-03-10] MEDS: CHOLECALCIFEROL 1000 INTER.UNIT TAB PO SCH (07:37)
[2017-03-10] MEDS: AMLODIPINE BESYLATE 5 MG TAB PO SCH (07:38)
[2017-03-10] MEDS: METOPROLOL TARTRATE 100 MG TAB PO SCH ×2 (07:38→21:06)
[2017-03-10] MEDS: INSULIN ASPART 100 UNITS/ML 3 ML PEN SC SCH ×2 (08:31→11:56)
--- NOTE | 2017-03-10 13:13 | Discharge Instructions ---
Discharge Instructions Date of Service Mar 10, 2017. Admission Reason for Admission: Kevin (Acute Kidney Injury), Syncope Discharge Discharge Diagnosis / Problem: Syncope?, KEVIN Discharge Goals Goal(s): Prevent Disease Progression Activity Recommendations Activity Limitations: per Instructions/Follow-up section . Instructions / Follow-Up Instructions / Follow-Up Please continue all medications as instructed. You have a hospital follow-up appointment with Dr. Nissa Pinto (at Dr. Avendano's office) on 03/16 @ 12:45pm. It was a pleasure taking care of you! Call if you have any questions or problems. You can reach a [facility] hospitalist on duty at [facility] 24 hours a day by calling [phone]. Take care of yourself. Valentine Jose DO [facility] Hospitalist Current Hospital Diet Patient's current hospital diet: Diabetes Type 2 Diet, AHA Diet (Heart Healthy) Discharge Diet Recommended Diet: AHA Diet (Heart Healthy), Diabetes Type 2 Diet Procedures Procedures Performed: Brain MRI TTE with bubble study Pending Studies Studies pending at discharge: no Medical Emergencies . Who to Call and When: Medical Emergencies: If at any time you feel your situation is an emergency, please call 911 immediately. . Non-Emergent Contact Non-Emergency issues call your: Primary Care Provider . . "Provider Documentation" section prepared by Valentine Jose. . VTE Core Measure Inpt VTE Proph given/why not?: Warfarin (Coumadin)
--- NOTE | 2017-03-10 15:06 | ECHOCARDIOGRAM REPORT ---
*NOTICE TO RECEIVING LIBERTARIAN AGENCY This information is strictly Confidential and protected under [place] law. [place] law prohibits you from making any further disclosure of this information unless further disclosure is expressly permitted by the written consent of the person to whom it pertains or is authorized by law. A general authorization for the release of medical or other information is not sufficient for this purpose. Hospital accepts no responsibility if the information is made available to any other person, INCLUDING THE PATIENT. Interpretation Summary * Name: ISABELLA KAT Study Date: 03/10/2017 01:49 PM BP: 158/75 mmHg * Patient Location: [facility]\S\[id number] HR: 68 * : 1930 (M/d/yyyy) Gender: Female Height: 64 in * Age: 86 yrs Ethnicity: [place] Weight: 187 lb * Ordering Physician: Fatimah Elliott * Referring Physician: Self, Referred * Performed By: Sarah Bryant RCS * * Reason For Study: SYNCOPE * BSA: 1.9 m2 * -- Conclusions -- * Aortic valve sclerosis mild, without significant aortic valvular stenosis. * There is moderate concentric left ventricular hypertrophy. * Left ventricular systolic function is normal. * Ejection Fraction = 50-55%. * The right ventricular systolic function is normal. * Grade I diastolic dysfunction, (abnormal relaxation pattern). * The left atrium is moderately dilated. * The right atrium is mildly dilated. * There is mild mitral regurgitation. * There is mild to moderate tricuspid regurgitation. Procedure Details * A complete two-dimensional transthoracic echocardiogram was performed (2D, M-mode, Doppler and color flow Doppler). Left Ventricle * The left ventricle is normal in size. * There is moderate concentric left ventricular hypertrophy. * Ejection Fraction = 50-55%. * Left ventricular systolic function is normal. * The left ventricular wall motion is normal. Right Ventricle * The right ventricle is normal size. * The right ventricular systolic function is normal. Atria * The left atrium is moderately dilated. * The right atrium is mildly dilated. Mitral Valve * There is severe mitral annular calcification. * There is mild mitral regurgitation. Tricuspid Valve * The tricuspid valve is not well visualized, but is grossly normal. * There is mild to moderate tricuspid regurgitation. Aortic Valve * Aortic valve sclerosis mild, without significant aortic valvular stenosis. * There is no significant aortic regurgitation. Pulmonic Valve * The pulmonic valve is not well seen, but is grossly normal. * Trace pulmonic valvular regurgitation. Great Vessels * The aortic root and proximal ascending aorta are normal sized. Pericardium/Pleural * There is no pericardial effusion. Left Ventricular Diastolic Function * Grade I diastolic dysfunction, (abnormal relaxation pattern). MMode 2D Measurements and Calculations IVSd 1.6 cm IVSs 1.9 cm LVIDd 4.2 cm LVIDs 3.1 cm LVPWd 1.4 cm LVPWs 1.8 cm IVS/LVPW 1.1 FS 26.9 % EDV(Teich) 79.3 ml ESV(Teich) 37.3 ml EF(Teich) 52.9 % EDV(cubed) 75.0 ml ESV(cubed) 29.2 ml EF(cubed) 61.0 % % IVS thick 15.6 % % LVPW thick 26.4 % LV mass(C)d 261.1 grams LV mass(C)dI 137.4 grams/m\S\2 LV mass(C)s 237.2 grams LV mass(C)sI 124.8 grams/m\S\2 SV(Teich) 42.0 ml SI(Teich) 22.1 ml/m\S\2 SV(cubed) 45.7 ml SI(cubed) 24.1 ml/m\S\2 Ao root diam 3.0 cm Ao root area 7.1 cm\S\2 ACS 1.8 cm LA dimension 3.6 cm LA/Ao 1.2 LVOT diam 2.0 cm LVOT area 3.2 cm\S\2 LVAd ap4 21.7 cm\S\2 LVLd ap4 6.2 cm EDV(MOD-sp4) 61.9 ml EDV(sp4-el) 64.1 ml LVAs ap4 14.9 cm\S\2 LVLs ap4 5.1 cm ESV(MOD-sp4) 35.5 ml ESV(sp4-el) 36.7 ml EF(MOD-sp4) 42.7 % EF(sp4-el) 42.8 % LVAd ap2 20.6 cm\S\2 LVLd ap2 6.1 cm EDV(MOD-sp2) 58.6 ml EDV(sp2-el) 59.5 ml LVAs ap2 13.0 cm\S\2 LVLs ap2 5.2 cm ESV(MOD-sp2) 27.6 ml ESV(sp2-el) 27.5 ml EF(MOD-sp2) 52.9 % EF(sp2-el) 53.7 % LVLd %diff -2.85 % EDV(MOD-bp) 60.3 ml LVLs %diff 2.2 % ESV(MOD-bp) 31.4 ml EF(MOD-bp) 47.8 % SV(MOD-sp4) 26.4 ml SI(MOD-sp4) 13.9 ml/m\S\2 SV(MOD-sp2) 31.0 ml SI(MOD-sp2) 16.3 ml/m\S\2 SV(MOD-bp) 28.8 ml SI(MOD-bp) 15.2 ml/m\S\2 SV(sp4-el) 27.4 ml SI(sp4-el) 14.4 ml/m\S\2 SV(sp2-el) 31.9 ml SI(sp2-el) 16.8 ml/m\S\2 Doppler Measurements and Calculations MV E max marc 133.2 cm/sec MV A max marc 171.5 cm/sec MV E/A 0.78 MV dec time 0.17 sec Ao V2 max 137.3 cm/sec Ao max PG 7.6 mmHg Ao max PG (full) 5.3 mmHg JANNY(V,A) 1.8 cm\S\2 JANNY(V,D) 1.8 cm\S\2 LV V1 max PG 2.3 mmHg LV V1 max 75.2 cm/sec MR max marc 529.8 cm/sec MR max PG 112.4 mmHg PA V2 max 74.7 cm/sec PA max PG 2.2 mmHg TR max marc 316.9 cm/sec
[2017-03-10] MEDS ORDERED: WARFARIN SOD 2 MG TAB PO SCH (16:00)
--- NOTE | 2017-03-10 16:58 | Progress Note ---
Medicine Progress Note Date & Time of Visit: Mar 10, 2017 at 16:28. Subjective pt has no issues overnight neurologically intact ambulating at her baseline tolerating PO TTE within normal limits-some aortic sclerosis seen and LVH in setting of known HTN telemetry reviewed and she was sinus rhythm overnight brain MRI normal Objective Last 8 Hrs Date Time Temp Pulse Resp B/P (MAP) Pulse Ox O2 Delivery O2 Flow Rate FiO2 03/10/17 12:00 Room Air 03/10/17 11:04 36.7 61 18 124/66 (85) 95 Room Air Physical Exam: GEN: obese, in no acute distress, alert and appropriate HEENT: NC/AT, PERRL, normal sclerae CARDIO: reg rate, S1/2 heard without m/g/r LUNGS: CTA bilaterally, no crackles, rales or wheezes, good diaphragmatic excursion ABD: soft, non-tender, non-distended, no rebound or guarding, +BS EXTREMITY: no LE swelling or edema, extremities are warm and well-perfused NEURO: CN 2-12 intact, sensation intact throughout, coordination intact, no gross focal neuro deficits. MUSC: 5/5 strength throughout, no focal deficits SKIN: warm and dry Laboratory Results: 03/10/17 05:39 03/10/17 05:39 Test 03/09/17 14:16 03/09/17 15:24 03/09/17 20:22 03/10/17 05:39 Immature Granulocyte % (Auto) 0.7 % White Blood Count 8.14 K/uL (4.8-10.8) Red Blood Count 4.20 M/uL (4.2-5.4) 4.28 M/uL (4.2-5.4) Hemoglobin 13.8 g/dL (12.0-16.0) Hematocrit 40.3 % (37-47) Mean Corpuscular Volume 96.0 fL (80-100) 96.7 fL (80-100) Mean Corpuscular Hemoglobin 32.9 pg (25-34) 33.2 pg (25-34) Mean Corpuscular Hemoglobin Concent 34.2 g/dl (32-36) 34.3 g/dl (32-36) Platelet Count 154 K/uL (130-400) Mean Platelet Volume 10.2 fL (7.4-10.4) 10.0 fL (7.4-10.4) Neutrophils (%) (Auto) 67.0 % Lymphocytes (%) (Auto) 21.3 % Monocytes (%) (Auto) 9.1 % Eosinophils (%) (Auto) 1.8 % Basophils (%) (Auto) 0.1 % Neutrophils # (Auto) 5.45 K/uL (1.4-6.5) Lymphocytes # (Auto) 1.73 K/uL (1.2-3.4) Monocytes # (Auto) 0.74 K/uL (0.11-0.59) Eosinophils # (Auto) 0.15 K/uL (0-0.5) Basophils # (Auto) 0.01 K/uL (0-0.2) Immature Granulocyte # (Auto) 0.06 K/uL (0.00-0.02) Magnesium Level 2.2 mg/dl (1.8-2.4) Total Bilirubin 0.5 mg/dl (0.2-1) Direct Bilirubin 0.1 mg/dl (0-0.2) Aspartate Amino Transf (AST/SGOT) 19 U/L (15-37) Alanine Aminotransferase (ALT/SGPT) 23 U/L (12-78) Alkaline Phosphatase 59 U/L (45-117) Total Protein 7.1 gm/dl (6.4-8.2) Albumin 3.9 gm/dl (3.4-5.0) Lipase 240 U/L (73-393) Urine Color YELLOW Urine Appearance CLEAR (CLEAR) Urine pH 5.5 (4.5-7.5) Urine Specific [place] 1.022 (1.000-1.030) Urine Protein NEG (NEG) Urine Glucose (UA) NEG (NEG) Urine Ketones NEG (NEG) Urine Occult Blood NEG (NEG) Urine Nitrite NEG (NEG) Urine Bilirubin NEG (NEG) Urine Urobilinogen NEG (NEG) Urine Leukocyte Esterase NEG (NEG) Troponin I < 0.015 ng/ml (0-0.045) RDW Standard Deviation 44.7 fL (36.4-46.3) RDW Coefficient of Variation 12.9 % (11.5-14.5) Prothrombin Time 19.1 SECONDS (9.0-12.0) Prothromb Time International Ratio 1.8 (0.9-1.1) Anion Gap 4.0 mmol/L (3-11) Est Creatinine Clear Calc Drug Dose 37.8 ml/min Estimated GFR () 49.6 Estimated GFR (Non- 42.8 BUN/Creatinine Ratio 23.8 (10-20) Calcium Level 8.7 mg/dl (8.5-10.1) Test 03/10/17 11:27 Bedside Glucose 107 mg/dl (70-90) Last 24 Hours Test 03/09/17 20:22 03/10/17 05:39 03/10/17 07:42 03/10/17 11:27 Troponin I < 0.015 ng/ml White Blood Count 6.34 K/uL Red Blood Count 4.28 M/uL Hemoglobin 14.2 g/dL Hematocrit 41.4 % Mean Corpuscular Volume 96.7 fL Mean Corpuscular Hemoglobin 33.2 pg Mean Corpuscular Hemoglobin Concent 34.3 g/dl RDW Standard Deviation 44.7 fL RDW Coefficient of Variation 12.9 % Platelet Count 149 K/uL Mean Platelet Volume 10.0 fL Prothrombin Time 19.1 SECONDS Prothromb Time International Ratio 1.8 Sodium Level 138 mmol/L Potassium Level 4.2 mmol/L Chloride Level 107 mmol/L Carbon Dioxide Level 27 mmol/L Anion Gap 4.0 mmol/L Blood Urea Nitrogen 28 mg/dl Creatinine 1.17 mg/dl Est Creatinine Clear Calc Drug Dose 37.8 ml/min Estimated GFR () 49.6 Estimated GFR (Non- 42.8 BUN/Creatinine Ratio 23.8 Random Glucose 112 mg/dl Calcium Level 8.7 mg/dl Bedside Glucose 113 mg/dl 107 mg/dl Assessment & Plan This is an 86yo F with a PMH of HTN, CKD III, h/o DVT (on coumadin) who presents after an episode of unresponsiveness to family. 1. AMS-difficult to arouse at home 2/2 severe fatigue vs syncope vs seizure vs stroke vs other. Pt was dehydrated per personal reports and as evidenced on labs. She was seen to have vascular disease on CTA performed in the ER. She was completed alert and oriented when she awoke and had no loss of bowel or bladder control, demonstrated no seizure activity in front of family and never exhibited any signs or symptoms of stroke after awakening. It is clear that she has vascular disease and her dehydration is improved. She has had no events on telemetry overnight, no signs/symptoms of stroke or seizure and has no history of either. She is on coumadin for a h/o DVT in her leg. She has been lucid since she awoke at her home until now. TTE was completed revealing aortic valve sclerosis without stenosis, concentric LVH, normal EF and Grade I diastolic dysfunction. Brain MRI is without evidence of acute stroke. Awaiting neurology evaluation and recommendations. Likely a combination of dehydration and fatigue in setting of chronic cerebrovascular disease. ASA given last night but will await Neuro recs to continue this in the setting of coumadin. 2. ALIA-resolved, likely 2/2 prerenal azotemia in setting of dehydration. Will cont to hold ACEI and HCTZ one more day. PRP in am. 3. HTN-controlled, cont norvasc and metoprolol. Holding ACEI and HCTZ as above. 4. h/o remote DVT-on coumadin, daily INR 5. DMII-A1C in Dec 2016 was 5.9. Stopping ISS coverage at this time to avoid hypoglycemia. Stopping BSG fingersticks and will monitor daily fasting sugar with labs. Diabetic diet. DVT Ppx: On warfarin Code status: DNR per discussion with patient, family PCP: Juan Alberto Dispo: cont tele DO Edilia Sotelo Hospitalist Consultants: Carter Current Inpatient Medications: Current Inpatient Medications Medications (Trade) Dose Ordered Sig/Yobani Route Start Time Stop Time Status Last Admin Dose Admin Ioversol (Optiray 320) 125 ml UD PRN IV 03/09/17 14:15 03/13/17 14:14 Acetaminophen (Tylenol Tab) 650 mg Q4H PRN PO 03/09/17 17:15 04/08/17 17:14 Ondansetron HCl (Zofran Inj) 4 mg Q6H PRN IV 03/09/17 17:15 04/08/17 17:14 Sodium Chloride 1,000 ml @ 125 mls/hr Q8H IV 03/09/17 20:00 04/08/17 17:29 03/10/17 11:49 125 MLS/HR Amlodipine Besylate (Norvasc Tab) 10 mg DAILY PO 03/10/17 09:00 04/09/17 08:59 03/10/17 07:38 10 MG Cholecalciferol (Vitamin D Tab) 1,000 inter.unit DAILY PO 03/10/17 09:00 04/09/17 08:59 03/10/17 07:37 1,000 INTER.UNIT Fluticasone Propionate (Flonase Nasal [place]) 2 sprays DAILY TORIE 03/10/17 09:00 04/09/17 08:59 Lorazepam (Ativan Tab) 0.5 mg Q6H PRN PO 03/09/17 18:00 04/08/17 17:59 Metoprolol Tartrate (Lopressor Tab) 100 mg BID PO 03/09/17 21:00 04/08/17 20:59 03/10/17 07:38 100 MG Warfarin Sodium (Coumadin Tab) 2 mg TuSa@1600 PO 03/10/17 16:00 04/09/17 15:59 03/10/17 15:55 2 MG Warfarin Sodium (Coumadin Tab) 4 mg SuMoWeThFr@1600 PO 03/11/17 16:00 04/10/17 15:59 Clonidine HCl (Catapres Tab) 0.1 mg Q6 PRN PO 03/09/17 22:45 04/08/17 22:44 Insulin Aspart (novoLOG ASPART) SLIDING SCALE If C... ACHS SC 03/10/17 06:30 04/09/17 06:29 03/10/17 08:31 3 UNITS Glucose (Glucose 40% Gel) 15-30 GRAMS 15 GRAMS... UD PRN PO 03/09/17 22:45 04/08/17 22:44 Glucose (Glucose Chew Tab) 4-8 Tablets 4 Tabl... UD PRN PO 03/09/17 22:45 04/08/17 22:44 Dextrose (Dextrose 50% 50ML Syringe) 25-50ML OF 50% DW IV FOR... UD PRN IV 03/09/17 22:45 04/08/17 22:44 Glucagon (Glucagon Inj) 1 mg UD PRN SQ 03/09/17 22:45 04/08/17 22:44
--- NOTE | 2017-03-10 17:04 | Neurology Consultation ---
Neurology Consultation Date of Consultation: Mar 10, 2017. Attending Physician: Brian Medrano M.D. Primary Care Physician: Brian Avendano III, M.D. Reason for Consultation: syncope History of Present Illness Source: patient Madeline is a 86 year old female with a PMH HTN, CKD III, h/o DVT (on coumadin ) and DM II who presents after a syncopal event earlier today. She went to the grocery store today and brought groceries up a flight of stairs upon returning home. [place] very fatigued and sat down. Her daughter states she was talking to her on the phone she spoke 1-2 sentences before she stopped responding. Her friend went over to check on her and found her slumped over in her chair, unresponsive but still breathing. She continued to stimulate her but she wouldn' t respond this went on for about 15 minutes. EMS arrived and Madeline states she was wondering why all the people were in her house. She has no history of cardiac disease or stroke. She states she has never had a LOC in the past. She does not drink enough water. discussed the vascular issues and she was unaware she had this but was told earlier today. Denies fever, chills, lightheadedness , headache, visual changes, facial droop, slurred speech, palpitations, CP, SOB , abd pain, nausea, vomiting, focal weakness, LE swelling. Denies history of syncope or seizures. Past Medical/Surgical History Medical Problems: (1) Dehydration Status: Acute (2) Syncope Status: Acute Social History Alcohol Use: none Marital Status: Housing Status: lives alone Occupation Status: retired Allergies Coded Allergies: No Known Allergies (Verified , 03/09/17) Current Inpatient Medications Current Inpatient Medications Medications (Trade) Dose Ordered Sig/Yobani Route Start Time Stop Time Status Last Admin Dose Admin Ioversol (Optiray 320) 125 ml UD PRN IV 03/09/17 14:15 03/13/17 14:14 Acetaminophen (Tylenol Tab) 650 mg Q4H PRN PO 03/09/17 17:15 04/08/17 17:14 Ondansetron HCl (Zofran Inj) 4 mg Q6H PRN IV 03/09/17 17:15 04/08/17 17:14 Sodium Chloride 1,000 ml @ 125 mls/hr Q8H IV 03/09/17 20:00 04/08/17 17:29 03/10/17 11:49 125 MLS/HR Amlodipine Besylate (Norvasc Tab) 10 mg DAILY PO 03/10/17 09:00 04/09/17 08:59 03/10/17 07:38 10 MG Cholecalciferol (Vitamin D Tab) 1,000 inter.unit DAILY PO 03/10/17 09:00 04/09/17 08:59 03/10/17 07:37 1,000 INTER.UNIT Fluticasone Propionate (Flonase Nasal [place]) 2 sprays DAILY TORIE 03/10/17 09:00 04/09/17 08:59 Lorazepam (Ativan Tab) 0.5 mg Q6H PRN PO 03/09/17 18:00 04/08/17 17:59 Metoprolol Tartrate (Lopressor Tab) 100 mg BID PO 03/09/17 21:00 04/08/17 20:59 03/10/17 07:38 100 MG Warfarin Sodium (Coumadin Tab) 2 mg TuSa@1600 PO 03/10/17 16:00 04/09/17 15:59 03/10/17 15:55 2 MG Warfarin Sodium (Coumadin Tab) 4 mg SuMoWeThFr@1600 PO 03/11/17 16:00 04/10/17 15:59 Clonidine HCl (Catapres Tab) 0.1 mg Q6 PRN PO 03/09/17 22:45 04/08/17 22:44 Insulin Aspart (novoLOG ASPART) SLIDING SCALE If C... ACHS SC 03/10/17 06:30 04/09/17 06:29 03/10/17 08:31 3 UNITS Glucose (Glucose 40% Gel) 15-30 GRAMS 15 GRAMS... UD PRN PO 03/09/17 22:45 04/08/17 22:44 Glucose (Glucose Chew Tab) 4-8 Tablets 4 Tabl... UD PRN PO 03/09/17 22:45 04/08/17 22:44 Dextrose (Dextrose 50% 50ML Syringe) 25-50ML OF 50% DW IV FOR... UD PRN IV 03/09/17 22:45 04/08/17 22:44 Glucagon (Glucagon Inj) 1 mg UD PRN SQ 03/09/17 22:45 04/08/17 22:44 Physical Exam Vital Signs (Past 24 Hrs): Date Time Temp Pulse Resp B/P (MAP) Pulse Ox O2 Delivery O2 Flow Rate FiO2 03/10/17 16:10 36.7 61 18 95 Room Air 03/10/17 16:00 Room Air 03/10/17 12:00 Room Air 03/10/17 11:04 36.7 61 18 124/66 (85) 95 Room Air 03/10/17 08:00 Room Air 03/10/17 07:14 36.7 68 18 150/81 (104) 97 Room Air 03/10/17 04:22 36.4 66 18 158/75 (102) 97 Room Air 03/10/17 04:00 Room Air 03/10/17 00:05 96 Room Air 03/09/17 23:47 36.6 69 16 152/77 (102) 93 Room Air 03/09/17 17:48 96 Room Air 03/09/17 17:29 66 18 168/81 96 Room Air 80 175/83 86 176/80 Physical Exam: Constitutional: appearance nourished, healthy and obese Ears, Nose, Mouth and Throat: mucous membranes moist, no injection and skin normal, eyes normal Cardiovascular: normal S-1 and S-2 and regular rate and rhythm Respiratory: clear to auscultation (CTA) and no rales, rhonchi or wheeze Musculoskeletal: no peripheral edema and good distal pulses Skin: no stigmata of neurocutaneous disease noted and normal and intact Eyes: extraocular muscles intact (EOMI) and pupils equal, round and reactive to light (PERRL), left lazy eye with decreased corneal response. NEUROLOGIC EXAMINATION: Mental status: Alert and interactive Oriented to full date and location Oriented to person Speech fluent with no evidence of aphasia Cranial Nerves smile eye brow raise symmetric Reflexes: Deep tendon reflexes were symmetrical and graded 2/5. Sensory: no sensory deficits, cool, light touch and vibration Coordination: Romberg positive with eye closed Gait/Stance: Posture normal. Gait normal: with steady with steps, base, turning, tandem gait. Motor: Negative for pronator drift of out stretched arms with eyes closed. 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, hip flex plantar flex ext 5/5 bilaterally Laboratory Results Past 24 Hours: 03/10/17 05:39 03/10/17 05:39 Test 03/09/17 20:22 03/10/17 05:39 03/10/17 11:27 Troponin I < 0.015 ng/ml (0-0.045) Red Blood Count 4.28 M/uL (4.2-5.4) Mean Corpuscular Volume 96.7 fL (80-100) Mean Corpuscular Hemoglobin 33.2 pg (25-34) Mean Corpuscular Hemoglobin Concent 34.3 g/dl (32-36) RDW Standard Deviation 44.7 fL (36.4-46.3) RDW Coefficient of Variation 12.9 % (11.5-14.5) Mean Platelet Volume 10.0 fL (7.4-10.4) Prothrombin Time 19.1 SECONDS (9.0-12.0) Prothromb Time International Ratio 1.8 (0.9-1.1) Anion Gap 4.0 mmol/L (3-11) Est Creatinine Clear Calc Drug Dose 37.8 ml/min Estimated GFR () 49.6 Estimated GFR (Non- 42.8 BUN/Creatinine Ratio 23.8 (10-20) Calcium Level 8.7 mg/dl (8.5-10.1) Bedside Glucose 107 mg/dl (70-90) Imaging MRI brain- Chronic small vessel ischemic change. No acute intracranial abnormality. CTA head and neck-There is no hemorrhage, mass effect, or evidence of acute territorial ischemia by CT criteria. . 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 Both vessels remain patent. This is slightly worse on the left. The vertebral arteries are widely patent. There is globally and asymmetrically diminished perfusion of the left MCA branches as compared to the right. No high-grade stenosis or focal vessel cut off is seen throughout the intracranial circulation. No aneurysm is identified. CT head- No acute intracranial abnormality. Atrophy and microvascular ischemic changes. TTE- * Aortic valve sclerosis mild, without significant aortic valvular stenosis. * There is moderate concentric left ventricular hypertrophy. * Left ventricular systolic function is normal. * Ejection Fraction = 50-55%. * The right ventricular systolic function is normal. * Grade I diastolic dysfunction, (abnormal relaxation pattern). * The left atrium is moderately dilated. * The right atrium is mildly dilated. * There is mild mitral regurgitation. * There is mild to moderate tricuspid regurgitation. Impression 86 year old with significant PMH with episode of unwitness syncope. Plan 1. vascular consult for evaluation of carotid stenosis 2. continue coumadin for DVT prophy 3. aspirin 81 mg added 4. EEG - unclear what precipitated this episode 5. outpatient cardionet to r/o arrhythmia further recommendations to follow I have seen and discussed above patient with Dr Sneha Srivastava, neurology Pt seen and examined, CTA head,neck MRI reviewed. Unwitnessed, protracted LOC without much hx on pt part. Was not incontinent and did not bite tongue. POC glucose was 80, which may be mildly low for pt. Given severe bl carotid stenosis , any event that could cause drop in bp could cause LOC, ie dehydration, anemia , bradycardia, meds. I cannot exclude a sz, although no supportive evidence. REc vasc consult. Pt indicates that she would not have surgery. I explained high risk of disabling stroke or . Agree with addition of asa to coumadin. would avoid hypotension. SARAH Srivastava,
[2017-03-11 00:29] VITALS: BP 149/71; PULSE 66; TEMP 36.6; O2SAT 95
[2017-03-11 05:44] VITALS: BP 145/73; PULSE 65; TEMP 36.6; O2SAT 94
[2017-03-11 07:24] VITALS: BP 161/74; PULSE 73; TEMP 36.8; O2SAT 99
[2017-03-11] MEDS: CHOLECALCIFEROL 1000 INTER.UNIT TAB PO SCH (07:56)
[2017-03-11] MEDS: FLUTICASONE PROPIONATE NA SPR 16 GM BTL NAE SCH (07:56)
[2017-03-11] MEDS: METOPROLOL TARTRATE 100 MG TAB PO SCH (07:57)
[2017-03-11] MEDS: AMLODIPINE BESYLATE 5 MG TAB PO SCH (07:57)
[2017-03-11 09:19] LABS: CALCIUM 8.9 mg/dl (8.5-10.1); CREATININE 1.12 mg/dl (0.60-1.20); POTASSIUM 4.4 mmol/L (3.5-5.1)
--- NOTE | 2017-03-11 11:24 | Surgery Consultation ---
Consultation Date of Service Mar 11, 2017. 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 Pt states she lives independently and felt very fatigued after arriving home with her groceries and sat down in chair. While on phone with family, she "fell asleep" vs having syncopal event. No prior similar episodes, no lateralizing sx. Was brought in by EMS and thought to be dehydrated/orthostatic. Chem panel consistent with dehydration. Pt denies any sx presently and wants to go home. States not interested in having surgery. CTA neck demonstrates high grade (~90%) stenosis of BL ICA. No acute ischemia of brain on MRI or CT. Vitals Vital Signs Past 12 Hours Date Time Temp Pulse Resp B/P (MAP) Pulse Ox O2 Delivery O2 Flow Rate FiO2 03/11/17 08:00 Room Air 03/11/17 07:24 36.8 73 16 161/74 (103) 99 03/11/17 05:44 36.6 65 20 145/73 (97) 94 Room Air 03/11/17 04:00 Room Air 03/11/17 00:29 36.6 66 20 149/71 (97) 95 Room Air 03/11/17 00:00 Room Air Allergies Coded Allergies: No Known Allergies (Verified , 03/09/17) Home Medications Scheduled Amlodipine (Norvasc), 10 MG PO DAILY Cholecalciferol (Vitamin D), 1 TAB PO DAILY Fish Oil ([place]-3), 1,000 MG PO BID Flaxseed (Linseed) (Flaxseed Oil 1000 mg), 1 TAB PO DAILY Fluticasone Propionate (Fluticasone Propionate), 2 SPRAYS TORIE DAILY Glimepiride (Glimepiride), 1 TAB PO DAILY@1500 Hydrochlorothiazide (Hctz), 1 TAB PO DAILY Latanoprost (Xalatan 0.005% Oph Tasneem), 1 DROPS OP HS Lisinopril (Zestril), 40 MG PO HS Metformin Hcl (Glucophage), 1 TAB PO TIDM Metoprolol Tartrate (Lopressor) (Lopressor), 1 TAB PO BID Warfarin Sod (Coumadin), 1 TAB PO SuMoWeThFr@1600 Warfarin Sod (Coumadin), 0.5 TAB PO TuSa@1600 Scheduled PRN Lorazepam (Ativan), 0.5 MG PO Q6H PRN for Anxiety/Agitation Problem List Medical Problems: (1) Cataract (2) CKD (chronic kidney disease), stage III (3) DM II (diabetes mellitus, type II), controlled (4) H/O deep venous thrombosis (5) HLD (hyperlipidemia) (6) HTN (hypertension) Surgical / Medical History Hx Cardiac Surgery: No Hx Abdominal Surgery: No Hx Cancer Surgery: No Hx Thoracic Surgery: No Hx Orthopedic: No Hx Urinary Tract Surgery: No HX Other Surgery: No Past Medical/Surgical History: Diabetes, High Cholesterol, Hypertension, Kidney Disease Family History + HTN, DMII Social History Smoking Status: Former Smoker Hx Alcohol Use - Type & Amnt: No Hx Substance Use -Type & Amnt: No Review of Systems Constitutional: + malaise, No chills, No fever Skin: No change in color Eyes: No visual changes Respiratory: No cough, No HERNANDEZ, No hemoptysis, No short of breath Cardiovascular: + syncope, No chest pain, No edema, No intermittent claudication Gastrointestinal: No abdominal pain, No nausea, No vomiting Neurologic: No dizziness, No headache, No numbness, No tingling Physical Exam Constitutional: General Apperance: well-nourished, well-developed, obese Level of Distress: NAD, chronically ill (mildly) Psychiatric: Mental Status: active & alert, normal mood, abnormal affect (flat) Orientation: oriented except where noted, to time, to place, to person Memory: recent memory normal, remote memory normal Head: normocephalic, atraumatic Eyes: EOM: EOMI ENMT: normal ENT inspection, hearing grossly normal Neck: supple, trachea midline Lungs: Respiratory effort: no dyspnea Auscultation: no rales/crackles, no rhonchi, decreased breath sounds Cardiovascular: Apical Impulse: not displaced Heart Auscultation: RRR, no rubs, no gallops Peripheral Pulses: Pulses: full and equal, in all extremities except if noted Bruits: none appreciated Carotid Pulse: normal on the left, normal on the right Brachial Pulses: normal on the left, normal on the right Radial Pulse: normal on the left, normal on the right Femoral Pulse: normal on the left, normal on the right Posterior Tibialis Pulse: decreased on the left, decreased on the right Dorsalis Pedis Pulse: decreased on the left, decreased on the right Abdomen: Bowel Sounds: normal Inspection & Palpation: soft, non-distended, no tenderness, guarding & rebound Musculoskeletal: normal strength (5/5 throughout), normal tone Extremities: Upper Right: no cyanosis, no edema, no varicosities Upper Left: no cyanosis, no edema, no varicosities Lower Right: no cyanosis, no edema, no varicosities Lower Left: no cyanosis, no edema, no varicosities Neurologic: Cranial Nerves: grossly intact Sensation: grossly intact Assessment and Plan ASSESSMENT and PLAN: BL ICAS, asymptomatic Pt discussed with Dr Fox, recommends pt to consider carotid endarterectomy to prevent CVA. Long discussion had with pt and family regarding surgery, recovery, risks, etc. Pt currently not agreeable and wishes to discuss further with family/physician. Advised pt and family member present that she can be worked up as outpt for this procedure, however, will need to be seen by local general surgeon vs vascular surgeon at [facility] as outpt if pt agrees, d/t pt having [employer] insurance. Please call if needed.
[2017-03-11] MEDS ORDERED: TPRSR100 PO (12:33)
[2017-03-11] MEDS ORDERED: ASPI81TA21 PO (12:39)
[2017-03-11] MEDS ORDERED: ROSU5TAB PO (12:39)
--- NOTE | 2017-03-11 12:51 | Discharge Instructions ---
Discharge Instructions Date of Service Mar 11, 2017. Admission Reason for Admission: loss of consciousness . Discharge Discharge Diagnosis / Problem: loss of consciousness, dehydration Discharge Goals Goal(s): Improve function, Improve disease control Activity Recommendations Activity Limitations: as noted below Lifting Limitations: gradually increase as tolerated . Instructions / Follow-Up Instructions / Follow-Up APPOINTMENTS: FAMILY MEDICINE 03/16/2017 1:00 PM Nissa Pinto DO (covering for Dr. Avendano) OTHER INSTRUCTIONS: You were dehydrated. This can cause weakness and passing out. Stop hydrochlorothiazide (Hydrodiuril). Drink plenty of fluids. CT angiogram showed blockage in your carotid arteries. You will probably feel better if we allow your blood pressure to run higher and get more blood flow to your brain. Stop lisinopril (Prinivil or Zestril). Start coated aspirin (Ecotrin and other brands) 81 mg daily to help prevent strokes and heart attacks. Stop fish oil and flax seed- they may interact with your blood thinners and increase risk of bleeding. Seek medical attention if you have: * temperature above 101 * chest pain or trouble breathing * abdominal pain, nausea, vomiting * diarrhea, dark stools or bloody stools * unusual headache, extreme weakness, weakness on 1 side, trouble seeing, trouble speaking, trouble swallowing, trouble walking * any unanswered questions or concerns Call [phone] if symptoms are severe. Call if you have any questions or problems. My cell # is [phone]. You can also reach a [facility] hospitalist on duty at [facility] 24 hours a day by calling [phone]. Please take good care of yourself. Brian Medrano . Current Hospital Diet Patient's current hospital diet: Diabetes Type 2 Diet, AHA Diet (Heart Healthy) Discharge Diet Recommended Diet: AHA Diet (Heart Healthy), Diabetes Type 2 Diet Procedures Procedures Performed: brain MRI- no sign of stroke echocardiogram- mild / moderate heart murmurs CT angiogram- narrowing of carotid arteries on both sides Pending Studies Studies pending at discharge: yes List of pending studies: EEG- results pending, will call you if any concerns. Laboratory Results Lipid Panel Test 03/11/17 08:18 Range/Units Triglycerides Level 144 0-150 mg/dl Cholesterol Level 194 0-200 mg/dl HDL Cholesterol 40 mg/dl Cholesterol/HDL Ratio 4.9 LDL Cholesterol, Calculated 125 mg/dl Medical Emergencies . Who to Call and When: Medical Emergencies: If at any time you feel your situation is an emergency, please call 911 immediately. . Non-Emergent Contact Non-Emergency issues call your: Primary Care Provider, Hospital Doctor . . "Provider Documentation" section prepared by Brian Medrano. . VTE Core Measure Inpt VTE Proph given/why not?: Warfarin (Coumadin)
--- NOTE | 2017-03-11 12:58 | Progress Note ---
Medicine Progress Note Date & Time of Visit: Mar 11, 2017 at 12:58 . Subjective Feels well. No headache, lightheadedness, focal neurologic symptoms. No CP, cough, SOB, nausea, vomiting. Ambulating without difficulty. . Objective Last 8 Hrs Date Time Temp Pulse Resp B/P (MAP) Pulse Ox O2 Delivery O2 Flow Rate FiO2 03/11/17 08:00 Room Air 03/11/17 07:24 36.8 73 16 161/74 (103) 99 03/11/17 05:44 36.6 65 20 145/73 (97) 94 Room Air Physical Exam: General- lying in bed, no distress Lungs- clear Heart- RRR, no gallop Abdomen- + BS, soft, nontender Extremities- no pretibial edema or calf tendernes Neuro- alert, oriented; PERRL; left exotropia (chronic); no facial palsy; tongue midline; no dysarthria; motor strength upper and lower extremities 5/5; plantar reflexes downgoing; no difficulty with finger to nose or heel to tolentino . Laboratory Results: Last 24 Hours Test 03/10/17 16:26 03/10/17 20:04 03/11/17 07:38 03/11/17 08:18 Bedside Glucose 101 mg/dl 142 mg/dl 130 mg/dl Sodium Level 138 mmol/L Potassium Level 4.4 mmol/L Chloride Level 106 mmol/L Carbon Dioxide Level 24 mmol/L Anion Gap 8.0 mmol/L Blood Urea Nitrogen 22 mg/dl Creatinine 1.12 mg/dl Est Creatinine Clear Calc Drug Dose 38.6 ml/min Estimated GFR () 52.2 Estimated GFR (Non- 45.1 BUN/Creatinine Ratio 19.8 Random Glucose 158 mg/dl Calcium Level 8.9 mg/dl Triglycerides Level 144 mg/dl Cholesterol Level 194 mg/dl HDL Cholesterol 40 mg/dl LDL Cholesterol, Calculated 125 mg/dl VLDL Cholesterol, Calculated 29 mg/dl Cholesterol/HDL Ratio 4.9 Test 03/11/17 11:56 Bedside Glucose 159 mg/dl Assessment & Plan LOSS OF CONSCIOUSNESS Became unresponsive while speaking to daughter on phone. [id number] reports that EMS noted left facial palsy and weakness of LUE when they arrived. Patient was alert and had a nonfocal exam by the time she arrived at the ED. CT and MRI of brain showed chronic small vessel ischemic changes, no acute vascular events. CT angiogram demonstrated high-grade stenoses of bilateral internal carotid arteries; vertebral arteries were patent. Seen in consultation by Neurology and Vascular Surgery. Patient may have had cerebral hypoperfusion secondary to dehydration with associated bilateral carotid artery stenosis. No further neurologic symptoms. Management of specific problems as outlined below. BILATERAL SEVERE CAROTID ARTERY STENOSIS CTA as noted above. Seen on consultation by Vascular Surgery. Elective surgery discussed; patient is not interested at this time. Started on aspirin. Avoid orthostasis. Allow permissive hypertension to optimize cerebral perfusion. Statin therapy as discussed below. DEHYDRATION BUN and creatinine at time of admission 38 and 1.4, respectively. HCTZ discontinued. Received IV fluids. BUN and creatinine today 22 and 1.2, respectively. HYPERTENSION Permissive hypertension in light of severe carotid artery disease. Tentative sys BP goal 140-160. Stopped HCTZ and lisinopril. Continue metoprolol and amlodipine. Follow and titrate Rx. DM TYPE 2 Well-controlled. Hgb A1C in clinic 2 months ago was 5.9. FBS this morning = 130. Discharge on usual regimen. DYSLIPIDEMIA History of intolerance of statins (experienced leg cramps in past). LDL-c = 125. Benefits of aggressive lipid management in light of carotid disease discussed. Try very low dose rosuvastatin- 2.5 mg daily with up-titration as tolerated. VTE PROPHYLAXIS / HISTORY DVT Warfarin continued. DISPOSITION Discharge to home. Family Medicine follow-up with Dr. Avendano. . Consultants: Henok-Carola Current Inpatient Medications: Current Inpatient Medications Medications (Trade) Dose Ordered Sig/Yobani Route Start Time Stop Time Status Last Admin Dose Admin Ioversol (Optiray 320) 125 ml UD PRN IV 03/09/17 14:15 03/13/17 14:14 Acetaminophen (Tylenol Tab) 650 mg Q4H PRN PO 03/09/17 17:15 04/08/17 17:14 Ondansetron HCl (Zofran Inj) 4 mg Q6H PRN IV 03/09/17 17:15 04/08/17 17:14 Amlodipine Besylate (Norvasc Tab) 10 mg DAILY PO 03/10/17 09:00 04/09/17 08:59 03/11/17 07:57 10 MG Cholecalciferol (Vitamin D Tab) 1,000 inter.unit DAILY PO 03/10/17 09:00 04/09/17 08:59 03/11/17 07:56 1,000 INTER.UNIT Fluticasone Propionate (Flonase Nasal [place]) 2 sprays DAILY TORIE 03/10/17 09:00 04/09/17 08:59 03/11/17 07:56 2 SPRAYS Lorazepam (Ativan Tab) 0.5 mg Q6H PRN PO 03/09/17 18:00 04/08/17 17:59 Metoprolol Tartrate (Lopressor Tab) 100 mg BID PO 03/09/17 21:00 04/08/17 20:59 03/11/17 07:57 100 MG Warfarin Sodium (Coumadin Tab) 2 mg TuSa@1600 PO 03/10/17 16:00 04/09/17 15:59 03/10/17 15:55 2 MG Warfarin Sodium (Coumadin Tab) 4 mg SuMoWeThFr@1600 PO 03/11/17 16:00 04/10/17 15:59 Clonidine HCl (Catapres Tab) 0.1 mg Q6 PRN PO 03/09/17 22:45 04/08/17 22:44
[2017-03-11] MEDS ORDERED: WARFARIN SOD 4 MG TAB PO SCH (16:00)
--- NOTE | 2017-03-12 07:55 | ELECTROENCEPHALOGRAPH REPORT ---
REQUESTING PHYSICIAN: Sneha Palmer PA-C, and Sneha Srivastava MD. CLINICAL DIAGNOSIS: Syncopal episodes of uncertain cause, possible seizures. ELECTROENCEPHALOGRAM DIAGNOSIS: Essentially normal during wakefulness. DESCRIPTION OF TRACING: This EEG was done as a bedside recording and is of excellent technical quality with few or no muscle or movement artifacts. Simultaneous video of patient movement and behavior was obtained. Photic stimulation was not performed. Drowsiness and light sleep were not recorded. Under these conditions, there is evidence for normal appearing background rhythm in the alpha range of up to 9-10 Hz of maximum frequency and 30 microvolts of maximum amplitude. This is maximum in posterior head regions and bilaterally symmetrical. Polymorphic mid frequency theta activity is seen over all head regions without clear focal or regional predominance. Anterior head region maximum bilaterally symmetrical low voltage fast activity in the beta range is present. At no time during the waking tracing is there evidence for potentially epileptogenic activity in the form of polyspike or spike wave bursts, focal sharp waves or focal spikes. INTERPRETATION: This EEG is essentially normal during wakefulness without evidence for focal or generalized encephalopathy and without evidence for potentially epileptogenic activity.
--- NOTE | 2017-03-13 05:37 | Discharge Summary ---
Discharge Summary Date of Service Mar 13, 2017. Discharge Summary Admission Date: Mar 09, 2017 at 17:10 Discharge Date: Mar 10, 2017 Discharge Disposition: Home Principal Diagnosis: altered mental status / loss of consciousness OTHER ACUTE / NEW DIAGNOSES: dehydration high-grade stenoses bilateral internal carotid arteries . Secondary Diagnoses/Problems: Chronic and Resolved Medical Problems: (1) Cataract Status: Chronic (2) CKD (chronic kidney disease), stage III Status: Chronic (3) DM II (diabetes mellitus, type II), controlled Status: Chronic (4) H/O deep venous thrombosis Permanent Comment: 2008. On Coumadin. Status: Chronic (5) HLD (hyperlipidemia) Status: Chronic (6) HTN (hypertension) Status: Chronic . Procedures: cardiac monitoring IV fluids CT head CTA head and neck MRI brain echo EEG . Consultations: Neurology Vascular Surgery . Medication Reconciliation New Medications: Aspirin Enteric Coated (Ecotrin Or Generic) 81 Mg Tab 81 MG PO DAILY, #30 TAB 12 Refills No prescription necessary. Rosuvastatin Calcium (Crestor) 5 Mg Tab 2.5 MG PO DAILY, #15 TAB 12 Refills Take 1/2 pill (2.5 mg) daily. Continued Medications: Amlodipine (Norvasc) 10 Mg Tab 10 MG PO DAILY, TAB Cholecalciferol (Vitamin D) 1,000 Unit Tab 1 TAB PO DAILY Fluticasone Propionate (Fluticasone Propionate) 50 Mcg/Act Spr 2 SPRAYS TORIE DAILY Glimepiride (Glimepiride) 1 Mg Tab 1 TAB PO DAILY@1500 for 30 Days, TAB 5 Refills Latanoprost (Xalatan 0.005% Oph Tasneem) 0.005 % Tasneem 1 DROPS OP HS, #7.5 ML 3 Refills Lorazepam (Ativan) 0.5 Mg Tab 0.5 MG PO Q6H PRN for Anxiety/Agitation, TAB Metformin Hcl (Glucophage) 500 Mg Tab 500 MG PO TIDM for 90 Days, TAB 1 Refill Metoprolol Succinate (Toprol Xl) 100 Mg Tabcr 100 MG PO DAILY for 90 Days, #90 TAB 3 Refills Warfarin Sod (Coumadin) 4 Mg Tab 1 TAB PO SuMoWeThFr@1600 Warfarin Sod (Coumadin) 4 Mg Tab 0.5 TAB PO TuSa@1600 Discontinued Medications: Fish Oil ([place]-3) 1 Ea Cap 1000 MG PO BID, CAP Flaxseed (Linseed) (Flaxseed Oil 1000 mg) 1 Cap Cap 1 TAB PO DAILY Hydrochlorothiazide (Hctz) 25 Mg Tab 1 TAB PO DAILY, TAB Lisinopril (Zestril) 40 Mg Tab 40 MG PO HS, TAB Admission Information HPI (per Admitting provider): This is an 86yo F with a PMH of HTN, CKD III, h/o DVT (on coumadin) and DM II who presents after a syncopal event earlier today. Patient went to the grocery store today and brought groceries up a flight of stairs upon returning home. [place] very fatigued and sat down. Called family member and reportedly spoke 1-2 sentences before she stopped responding. Family went directly to patient's home and found her slumped over in her chair, unresponsive but still breathing. Did no respond to verbal or painful stimuli until EMS arrived, approximately 15 minutes after incident began. States that she becomes extremely tired after shopping and may have even fallen asleep while on the phone. Denies confusion about the events surrounding her coming to the hospital but seems unsure about when she takes her BP medications. Admits that she does not drink enough water. Denies fever, chills, lightheadedness, headache, visual changes, facial droop, slurred speech, palpitations, CP, SOB, abd pain, nausea, vomiting, focal weakness, LE swelling. Denies history of syncope or seizures. . Physical Exam (per Admitting): General Appearance: WD/WN, no apparent distress, + pertinent finding ( Sitting up in bed comfortably) Head: normocephalic, atraumatic Eyes: normal inspection, PERRL ENT: normal ENT inspection, hearing grossly normal, pharynx normal (dry mucous membranes ) Neck: supple, thyroid normal, trachea midline Respiratory/Chest: chest non-tender, lungs clear, normal breath sounds, no respiratory distress, no accessory muscle use Cardiovascular: regular rate, rhythm, no murmur, normal peripheral pulses Abdomen/GI: non tender, soft, no organomegaly Back: normal inspection Extremities/Musculoskelatal: normal inspection, no calf tenderness, no pedal edema Neurologic/Psych: 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 Cerebellar tests normal. Gait intact. ), alert, normal mood/affect, oriented x 3 Skin: normal color, warm/dry Hospital Course LOSS OF CONSCIOUSNESS Became unresponsive while speaking to daughter on phone. [id number] reports that EMS noted left facial palsy and weakness of LUE when they arrived. Patient was alert and had a nonfocal exam by the time she arrived at the ED. CT and MRI of brain showed chronic small vessel ischemic changes, no acute vascular events. CT angiogram demonstrated high-grade stenoses of bilateral internal carotid arteries; vertebral arteries were patent. Seen in consultation by Neurology and Vascular Surgery. Patient may have had cerebral hypoperfusion secondary to dehydration with associated bilateral carotid artery stenosis. No further neurologic symptoms. Management of specific problems as outlined below. BILATERAL SEVERE CAROTID ARTERY STENOSIS CTA as noted above. Seen on consultation by Vascular Surgery. Elective surgery discussed; patient is not interested at this time. Started on aspirin. Avoid orthostasis. Allow permissive hypertension to optimize cerebral perfusion. Statin therapy as discussed below. DEHYDRATION BUN and creatinine at time of admission 38 and 1.4, respectively. HCTZ discontinued. Received IV fluids. BUN and creatinine day of discharge 22 and 1.2, respectively. HYPERTENSION Permissive hypertension in light of severe carotid artery disease. Tentative sys BP goal 140-160. Stopped HCTZ and lisinopril. Continue metoprolol and amlodipine. Follow and titrate Rx. DM TYPE 2 Well-controlled. Hgb A1C in clinic 2 months ago was 5.9. FBS day of discharge = 130. Discharge on usual regimen. DYSLIPIDEMIA History of intolerance of statins (experienced leg cramps in past). LDL-c = 125. Benefits of aggressive lipid management in light of carotid disease discussed. Try very low dose rosuvastatin- 2.5 mg daily with up-titration as tolerated. VTE PROPHYLAXIS / HISTORY DVT Warfarin continued. DISPOSITION Discharge to home. Family Medicine follow-up with Dr. Avendano. . Total time spent on discharge = 45 min. This includes examination of the patient, discharge planning, medication reconciliation, and communication with other providers. . Discharge Instructions Date of Service Mar 11, 2017. Admission Reason for Admission: loss of consciousness . Discharge Discharge Diagnosis / Problem: loss of consciousness, dehydration Discharge Goals Goal(s): Improve function, Improve disease control Activity Recommendations Activity Limitations: as noted below Lifting Limitations: gradually increase as tolerated . Instructions / Follow-Up Instructions / Follow-Up APPOINTMENTS: FAMILY MEDICINE 03/16/2017 1:00 PM Nissa Pinto, (covering for Dr. Avendano) OTHER INSTRUCTIONS: You were dehydrated. This can cause weakness and passing out. Stop hydrochlorothiazide (Hydrodiuril). Drink plenty of fluids. CT angiogram showed blockage in your carotid arteries. You will probably feel better if we allow your blood pressure to run higher and get more blood flow to your brain. Stop lisinopril (Prinivil or Zestril). Start coated aspirin (Ecotrin and other brands) 81 mg daily to help prevent strokes and heart attacks. Stop fish oil and flax seed- they may interact with your blood thinners and increase risk of bleeding. Seek medical attention if you have: * temperature above 101 * chest pain or trouble breathing * abdominal pain, nausea, vomiting * diarrhea, dark stools or bloody stools * unusual headache, extreme weakness, weakness on 1 side, trouble seeing, trouble speaking, trouble swallowing, trouble walking * any unanswered questions or concerns Call 911 if symptoms are severe. Call if you have any questions or problems. My cell # is [phone]. You can also reach a [facility] hospitalist on duty at [facility] 24 hours a day by calling [phone]. Please take good care of yourself. Brian Medrano . Current Hospital Diet Patient's current hospital diet: Diabetes Type 2 Diet, AHA Diet (Heart Healthy) Discharge Diet Recommended Diet: AHA Diet (Heart Healthy), Diabetes Type 2 Diet Procedures Procedures Performed: brain MRI- no sign of stroke echocardiogram- mild / moderate heart murmurs CT angiogram- narrowing of carotid arteries on both sides Pending Studies Studies pending at discharge: yes List of pending studies: EEG- results pending, will call you if any concerns. Laboratory Results Lipid Panel Test 03/11/17 08:18 Range/Units Triglycerides Level 144 0-150 mg/dl Cholesterol Level 194 0-200 mg/dl HDL Cholesterol 40 mg/dl Cholesterol/HDL Ratio 4.9 LDL Cholesterol, Calculated 125 mg/dl Medical Emergencies . Who to Call and When: Medical Emergencies: If at any time you feel your situation is an emergency, please call 911 immediately. . Non-Emergent Contact Non-Emergency issues call your: Primary Care Provider, Hospital Doctor . . "Provider Documentation" section prepared by Brian Medrano. . VTE Core Measure Inpt VTE Proph given/why not?: Warfarin (Coumadin) . Additional Copies To Brian Avendano III, M.D.
== END 2017-03-11 14:14 | disposition home or self-care (01) | DRG 641 ==
LOC: EDBD 13:07 → C.EDA 13:08 → C.MED 17:10 → ENRESERV 17:23
PROVIDERS: ADMIT Hospitalist; ATTEND Hospitalist
DX: E86.0 Dehydration (principal); N17.9 Acute kidney failure, unspecified; I65.23 Occlusion and stenosis of bilateral carotid arteries; N18.3 Chronic kidney disease, stage 3 (moderate); E11.9 Type 2 diabetes mellitus without complications; E78.5 Hyperlipidemia, unspecified; I12.9 Hypertensive chronic kidney disease with stage 1 through stage 4 chronic kidney disease, or unspecified chronic kidney disease; Z79.01 Long term (current) use of anticoagulants; Z79.84 Long term (current) use of oral hypoglycemic drugs; Z86.718 Personal history of other venous thrombosis and embolism; Z87.891 Personal history of nicotine dependence; H26.9 Unspecified cataract

== ENCOUNTER 2017-04-05 13:02 | Emergency (ER) | payer OTHER ==
[~2017-04-05] VITALS: Ht 162.6 cm; Wt 83.8 kg
[~2017-04-05 13:02] MED LIST: AMLO-114 PO; ASPI81TA21 PO; CHOL100010 PO; CMD4 PO; FLNIN NAE; GLIM1TAB2 PO; LATA0.5S OP; LORA-741 PO; METF500T PO; ROSU5TAB PO; TPRSR100 PO
[2017-04-05 13:16] VITALS: TEMP 36.7; Ht 162.6 cm; Wt 83.8 kg
[2017-04-05 13:34] VITALS: O2SAT 95
--- NOTE | 2017-04-05 13:51 | EMERGENCY ROOM VISIT NOTE ---
History Report prepared by Candida: Negro Espinosa Under the Supervision of: Dr. Kwadwo Carcamo M.D. First contact with patient: 13:31 Chief Complaint: ARM PAIN Stated Complaint: PAIN IN RIGHT ARM BT SHOULDER AND ELBOW, History of Present Illness The patient is a 86 year old white female with a past medical history of CKD, bilateral ICA stenosis, DM, DVT on Coumadin, HLD, HTN who presents to the ED with a cc of resolved right upper arm pain that started last night. She reports she woke up with the pain, but states the pain resolved at 1200. The patient reports she believes she pulled a muscle. Positive Coumadin use. Negative numbness, tingling, medication use, nausea, vomiting, abdominal pain. She reports she was recently discharged from the ED at the beginning of the month for dehydration. Source of History: patient Onset: last night Position: arm (right) Timing: resolved Associated Symptoms: No nausea, No vomiting, No abdominal pain, No numbness Review of Systems See HPI for pertinent positives and negatives. A total of ten systems were reviewed and were otherwise negative. Past Medical & Surgical Medical Problems: (1) Carotid artery disease (2) Cataract (3) CKD (chronic kidney disease), stage III (4) DM II (diabetes mellitus, type II), controlled (5) H/O deep venous thrombosis (6) HLD (hyperlipidemia) (7) HTN (hypertension) Family History Patient reports no known family medical history. Social History Smoking Status: Never Smoker Marital Status: Housing Status: lives alone Occupation Status: retired Current/Historical Medications Scheduled Amlodipine (Norvasc), 10 MG PO DAILY Aspirin Enteric Coated (Ecotrin Or Generic), 81 MG PO DAILY Cholecalciferol (Vitamin D), 1,000 UNITS PO DAILY Glimepiride (Glimepiride), 1 MG PO DAILY@1500 Latanoprost (Xalatan 0.005% Oph Tasneem), 1 DROPS OP HS Metformin Hcl (Glucophage), 500 MG PO TIDM Metoprolol Succinate (Toprol Xl), 100 MG PO DAILY Rosuvastatin Calcium (Crestor), 2.5 MG PO HS Warfarin Sod (Coumadin), 4 MG PO 5XWK Warfarin Sod (Coumadin), 2 MG PO HS Scheduled PRN Fluticasone Propionate (Fluticasone Propionate), 2 SPRAYS TORIE DAILY PRN for Seasonal Allergies Lorazepam (Ativan), 0.25 MG PO Q6H PRN for Anxiety/Agitation Allergies Coded Allergies: Atorvastatin (Unverified Adverse Reaction, Severe, RIDGID MUSCLES, 04/05/17 ) Ezetimibe (Unverified Adverse Reaction, Severe, RIGID MUSCLES, 04/05/17) Physical Exam Vital Signs Date Time Temp Pulse Resp B/P (MAP) Pulse Ox O2 Delivery O2 Flow Rate FiO2 04/05/17 16:46 68 16 165/84 97 04/05/17 16:00 69 18 168/79 95 Room Air 04/05/17 14:05 73 04/05/17 13:59 71 18 174/83 96 Room Air 04/05/17 13:34 95 Room Air 04/05/17 13:16 36.7 73 20 147/70 96 Room Air Physical Exam GENERAL: Awake, alert, well-appearing, NAD HENT: Normocephalic, atraumatic. EYES: Normal conjunctiva. Sclera non-icteric. NECK: Supple. No nuchal rigidity. FROM. RESPIRATORY: CTAB, no rhonchi, wheezing, crackles CARDIAC: RRR, no MRG ABDOMEN: Soft, NTND, BS+ MSK: No chest wall TTP, no LE edema, Mild pain in mid arm with extension of the elbow. No swelling. Compartment soft. NVI distally. No pain with abduction or adduction of her shoulder. NEURO: GCS 15, CN 2-12 intact, moves all 4s on command SKIN: No rash or jaundice noted. Medical Decision & Procedures ER Provider Diagnostic Interpretation: X-ray: Per my interpretation, radiologist review. R HUMERUS MIN 2 VIEWS ROUTINE CLINICAL HISTORY: Right arm pain COMPARISON: None. DISCUSSION: No fractures or dislocations are visualized. No destructive lesions are visualized. IMPRESSION: No significant bony abnormalities Electronically signed by: Brett Thompson M.D. 04/05/2017 2:40 PM Dictated Date/Time: 04/05/2017 2:40 PM Laboratory Results 04/05/17 13:35 Red Blood Count 4.40, Mean Corpuscular Volume 95.0, Mean Corpuscular Hemoglobin 33.2, Mean Corpuscular Hemoglobin Concent 34.9, Mean Platelet Volume 9.8, Neutrophils (%) (Auto) 67.4, Lymphocytes (%) (Auto) 17.6, Monocytes (%) (Auto) 11.4, Eosinophils (%) (Auto) 3.1, Basophils (%) (Auto) 0.1, Neutrophils # (Auto ) 4.98, Lymphocytes # (Auto) 1.30, Monocytes # (Auto) 0.84, Eosinophils # (Auto ) 0.23, Basophils # (Auto) 0.01 04/05/17 13:35 Test 04/05/17 13:35 04/05/17 15:15 White Blood Count 7.39 K/uL (4.8-10.8) Red Blood Count 4.40 M/uL (4.2-5.4) Hemoglobin 14.6 g/dL (12.0-16.0) Hematocrit 41.8 % (37-47) Mean Corpuscular Volume 95.0 fL (80-100) Mean Corpuscular Hemoglobin 33.2 pg (25-34) Mean Corpuscular Hemoglobin Concent 34.9 g/dl (32-36) Platelet Count 169 K/uL (130-400) Mean Platelet Volume 9.8 fL (7.4-10.4) Neutrophils (%) (Auto) 67.4 % Lymphocytes (%) (Auto) 17.6 % Monocytes (%) (Auto) 11.4 % Eosinophils (%) (Auto) 3.1 % Basophils (%) (Auto) 0.1 % Neutrophils # (Auto) 4.98 K/uL (1.4-6.5) Lymphocytes # (Auto) 1.30 K/uL (1.2-3.4) Monocytes # (Auto) 0.84 K/uL (0.11-0.59) Eosinophils # (Auto) 0.23 K/uL (0-0.5) Basophils # (Auto) 0.01 K/uL (0-0.2) RDW Standard Deviation 44.2 fL (36.4-46.3) RDW Coefficient of Variation 12.9 % (11.5-14.5) Immature Granulocyte % (Auto) 0.4 % Immature Granulocyte # (Auto) 0.03 K/uL (0.00-0.02) Prothrombin Time 21.3 SECONDS (9.0-12.0) Prothromb Time International Ratio 2.1 (0.9-1.1) Anion Gap 11.0 mmol/L (3-11) Est Creatinine Clear Calc Drug Dose 32.0 ml/min Estimated GFR () 40.9 Estimated GFR (Non- 35.3 BUN/Creatinine Ratio 17.7 (10-20) Calcium Level 9.2 mg/dl (8.5-10.1) Phosphorus Level 3.4 mg/dl (2.5-4.9) Magnesium Level 2.1 mg/dl (1.8-2.4) Troponin I < 0.015 ng/ml (0-0.045) Laboratory results reviewed by me ECG Per My Interpretation Indication: other (arm pain) Rate (beats per minute): 70 Rhythm: normal sinus Findings: Q waves (Anterior, Inferior), T-wave inversion (Lead 3), left axis deviation, other (Normal interval) Comparison ECG Date: 03/09/17 Change: no significant change ED Course 1339: The patient was evaluated in room A12B. A complete history and physical exam was performed. 1635: I reevaluated the patient. Discussed results and discharge instructions: She verbalized understanding and agreement. The patient is ready for discharge. Medical Decision Triage Nursing notes reviewed. The patient is a 86 year old white female with a past medical history of CKD, bilateral ICA stenosis, DM, DVT on Coumadin, HLD, HTN who presents to the ED with a cc of resolved upper arm pain that started last night. The patient's presentation and history were concerning for etiologies such as fracture, dislocation, neurovascular compromise, compartment syndrome, soft tissue injury, atypical chest pain as well as others were entertained. Patient was seen and evaluated the bedside. Patient was complaining of some right upper extremity pain. Patient has no deficits and no swelling. Patient has good pulses. Patient did have a humerus film as well as some blood work completed along with an EKG and troponin. Patient troponin negative. Patient EKG fairly unchanged from prior. Patient may have additional Q-wave in the anterior lead. Also was a questionably subtle elevation in V2 however is not present in any contiguous leads. Given that the patient denies any active chest pain, and has negative troponins 2, I believe this less likely to be ACS. I believe this is most likely musculoskeletal or even a strain and not referred atypical chest pain, especially as the patient denies any chest pain and has not had any chest pains only right arm pain. Patient denies any active pains. Patient was informed of all findings. Patient was deemed suitable for outpatient follow-up treatment at this time. Patient's INR is therapeutic. I do not believe that she has a DVT in the upper extremity given her soft compartments and the lack of swelling. Patient was given strict follow-up, discharge, and return precautions. All questions were answered. Patient was deemed suitable for outpatient follow-up at this time. Patient agreed with the plan of care and was safely discharged home. Medication Reconcilliation Current Medication List: was personally reviewed by me Blood Pressure Screening Patient's blood pressure: Elevated blood pressure Blood pressure disposition: Referred to PCP Impression Primary Impression: Arm pain, right Scribe Attestation The scribe's documentation has been prepared under my direction and personally reviewed by me in its entirety. I confirm that the note above accurately reflects all work, treatment, procedures, and medical decision making performed by me. Departure Information Dispostion Home / Self-Care Referrals Brian Avendano III, M.D. (PCP) Patient Instructions ED [facility], ED [facility], [facility] Additional Instructions Please return to the emergency department if you have worsening or recurrent symptoms not amenable to at-home treatment. Please call for a follow-up appointment with her primary care physician. Please take your medications as prescribed. If you have other concerns and/or complaints please feel free to also call your primary care physician's office or return the ED for further evaluation, management, and treatment. You were found to have an elevated blood pressure today (>120 sytolic or >90 diastolic). Per medicare guidelines, you need to follow up with this blood pressure screening with your Primary Care Physician (PCP). For a new PCP call [phone]. You received narcotic or benzodiazepene medication while in the emergency room today. This is an addictive medication that may cause drowziness as well as constipation. Do not drive, operate heavy machinery, or drink alcohol under the influence of this medication. You may take tylenol 650 mg every 6 hours as needed for pain. Your INR was 2.1 today. Take your medications as prescribed. You have been examined and treated today on an emergency basis only. This is not a substitute for, or an effort to provide, complete comprehensive medical care. It is impossible to recognize and treat all injuries or illnesses in a single emergency department visit. It is therefore important that you follow up closely with [facility], your PCP, and/or your specialist(s). Call as soon as possible for an appointment. Thank you for your time and consideration. I look forward to speaking with you again soon. Please don't hesitate to call us if you have any questions.
[2017-04-05 14:03] LABS: BASO % 0.1 %; BASO ABS # 0.01 K/uL (0-0.2); EOS % 3.1 %; EOS ABS # 0.23 K/uL (0-0.5); HEMATOCRIT 41.8 % (37-47); HEMOGLOBIN 14.6 g/dL (12.0-16.0); IG# 0.03 K/uL (0.00-0.02); LYMPH % 17.6 %; MEAN CORPUSCULAR HEMOGLOBIN 33.2 pg (25-34); MEAN CORPUSCULAR HGB CONC 34.9 g/dl (32-36); MEAN PLATELET VOLUME 9.8 fL (7.4-10.4); MONO % 11.4 %; MONO ABS # 0.84 K/uL (0.11-0.59); NEUT % 67.4 %; NEUT ABS # 4.98 K/uL (1.4-6.5); PLATELET COUNT 169 K/uL (130-400); RED CELL DISTRIBUTION WIDTH CV 12.9 % (11.5-14.5); RED CELL DISTRIBUTION WIDTH SD 44.2 fL (36.4-46.3); WHITE BLOOD COUNT 7.39 K/uL (4.8-10.8)
[2017-04-05 14:10] LABS: BLOOD UREA NITROGEN 24 mg/dl (7-18); CALCIUM 9.2 mg/dl (8.5-10.1); CARBON DIOXIDE 21 mmol/L (21-32); CREATININE 1.37 mg/dl (0.60-1.20); GLUCOSE 162 mg/dl (70-99); POTASSIUM 4.2 mmol/L (3.5-5.1); SODIUM 138 mmol/L (136-145)
[2017-04-05 14:15] LABS: PHOSPHORUS 3.4 mg/dl (2.5-4.9)
[2017-04-05 14:21] LABS: INR 2.1 (0.9-1.1)
--- NOTE | 2017-04-05 14:42 | DIAGNOSTIC IMAGING REPORT ---
R HUMERUS MIN 2 VIEWS ROUTINE CLINICAL HISTORY: Right arm pain COMPARISON: None. DISCUSSION: No fractures or dislocations are visualized. No destructive lesions are visualized. IMPRESSION: No significant bony abnormalities Electronically signed by: Brett Thompson M.D. 04/05/2017 2:40 PM Dictated Date/Time: 04/05/2017 2:40 PM
[2017-04-05] MEDS ORDERED: ROSU5TAB PO (16:16)
[2017-04-05 16:46] VITALS: BP 165/84; PULSE 68; O2SAT 97
== END 2017-04-05 16:49 | disposition home or self-care (01) ==
LOC: C.EDB 13:03 → C.EDA 16:49
DX: M79.621 Pain in right upper arm (principal); I65.23 Occlusion and stenosis of bilateral carotid arteries; N18.3 Chronic kidney disease, stage 3 (moderate); I12.9 Hypertensive chronic kidney disease with stage 1 through stage 4 chronic kidney disease, or unspecified chronic kidney disease; E11.22 Type 2 diabetes mellitus with diabetic chronic kidney disease; E78.5 Hyperlipidemia, unspecified; H26.9 Unspecified cataract; Z79.01 Long term (current) use of anticoagulants; Z86.718 Personal history of other venous thrombosis and embolism; Z79.82 Long term (current) use of aspirin; Z79.84 Long term (current) use of oral hypoglycemic drugs

== ENCOUNTER 2018-08-21 11:47 | Inpatient (IN) ==
--- OUTSIDE RECORDS SUMMARY | 2018-08-21 11:51 | External Medical Summary | Continuity of Care Document ---
:1930 External Reference #:[id number] Author Name Jayden Vasques Address Unavailable Unavailable , Care Team Providers Name Role Phone Reagan DOMÍNGUEZ Unavailable [email or web address] Unavailable Unavailable Unavailable Unavailable Unavailable Assessments Assessed Problems:HypertensionDiabetes mellitusBilateral impacted cerumen Problems Hypertension (401.9) (I10) Diabetes mellitus (250.00) (E11.9) Bilateral impacted cerumen (380.4) (H61.23) Allergies and Adverse Reactions No Known Drug Allergies (Allergy) Medications Medications not documented Procedures Procedures not documented Immunizations Immunizations not documented Family History natural daughter Family history of deafness or hearing loss (V19.2) (Z82.2) S tatus: Active Social History - Smoking Status Never smoker Interventions Follow-ups/ReferralsFollow-up as needed; Done: 20 May 2018 Plan of Treatment Planned Observations Planned Goals not documented Results No Known Results Results not documented Encounters Appointment; Nicol Kirk PA-C 20-May-2018 15:20 Encounter Diagnosis: Problem not documented
[2018-08-21] MEDS ORDERED: SODIUM CHLORIDE 0.9% 1000ML 1,000 ML IV SCH ×2 (12:30→18:51)
--- NOTE | 2018-08-21 12:47 | XRay Report ---
XR chest 1V portable CLINICAL HISTORY: 87 years-old Female presenting with weakness. TECHNIQUE: Portable upright AP view of the chest was obtained. COMPARISON: 03/16/2018. FINDINGS: Atherosclerosis of the aortic arch. Cardiac silhouette mildly enlarged. Mitral annular calcification noted. Mildly low lung volumes. Minimal right basilar opacity. No large effusion or pneumothorax. Deg enerative changes of the thoracic spine. Upper abdomen normal. IMPRESSION: 1. Minimal right basilar opacity, either atelectasis or focal infiltrate. PA and lateral views recom mended for better assessment. Electronically signed by: Andrew Swan M.D. 08/21/2018 12:46 PM
[2018-08-21 13:10] LABS: Eosinophils # (auto) 0.13 K/uL (0-0.5); Eosinophils % (auto) 2.1 %; Hematocrit (blood only) 42.2 % (37-47); Hemoglobin 14.5 g/dL (12.0-16.0); Immature Granulocytes # (auto) 0.04 K/uL (0.00-0.02); Immature Granulocytes % (auto) 0.6 %; Lymphocytes # (auto) 0.93 K/uL (1.2-3.4); Mean Corpuscular Hgb Conc 34.4 g/dL (32-36); Mean Corpuscular Volume 94.4 fL (80-100); Mean Platelet Volume 10.7 fL (7.4-10.4); Monocytes # (auto) 0.79 K/uL (0.11-0.59); Monocytes % (auto) 12.7 %; Neutrophils # (auto) 4.33 K/uL (1.4-6.5); Neutrophils % (auto) 69.6 %; Platelet Count 135 K/uL (130-400); RDW Coefficient of Variation 13.5 % (11.5-14.5); RDW Standard Deviation 46.5 fL (36.4-46.3); Red Blood Count 4.47 M/uL (4.2-5.4); White Blood Count 6.22 K/uL (4.8-10.8)
[2018-08-21 13:26] LABS: Alanine Aminotransferase 20 U/L (12-78); Albumin Level 3.5 gm/dl (3.4-5.0); Aspartate Aminotransferase 15 U/L (15-37); BUN Creatinine Ratio 17.6 (10-20); Blood Urea Nitrogen 25 mg/dl (7-18); Calcium 8.9 mg/dl (8.5-10.1); Carbon Dioxide 23 mmol/L (21-32); Chloride 105 mmol/L (98-107); Creatinine Clr Calc Pharmacy 29.1 ml/min; Est GFR (Non-African American) 34.5; Glucose 267 mg/dl (70-99); Magnesium 2.2 mg/dl (1.8-2.4); Potassium 4.8 mmol/L (3.5-5.1); Sodium 136 mmol/L (136-145)
[2018-08-21 13:37] LABS: Albumin Globulin Ratio 1.1 (0.9-2); Alkaline Phosphatase 74 U/L (45-117); Bilirubin,Total 0.6 mg/dl (0.2-1); Globulin 3.2 gm/dl (2.5-4.0); Total Protein 6.7 gm/dl (6.4-8.2); Troponin I < 0.015 ng/ml (0-0.045)
--- NOTE | 2018-08-21 13:45 | CT Scan Report ---
CT head/brain wo con CLINICAL HISTORY: 87 years-old Female presenting with fall, syncope. TECHNIQUE: Multidetector CT imaging of the head was performed without the use of intravenous contrast . IV contrast: None. One or more dose lowering techniques were used consistent with the principles of ALARA (as low as reasonably achievable), including automatic exposure control, mA or kV adjustment t o individual patient size, and/or use of iterative reconstruction. COMPARISON: 03/16/2018. CT DOSE (mGy.cm): The estimated cumulative dose is 537.48 mGy.cm. 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 Proportional ventricular and sulcal prominence, likely age-related parenchymal volume loss. No hemorr anselmo. Periventricular and subcortical white matter hypoattenuation, nonspecific but likely indicative of chronic small vessel ischemic change. No acute territorial infarct. No mass effect or midline jose juan ft. No extra-axial fluid collection. Mucosal thickening in the left maxillary sinus. Calvarium intact . IMPRESSION: 1. Chronic small vessel ischemic change. No acute intracranial abnormality. Electronically signed by: Andrew Swan M.D. 08/21/2018 1:43 PM
[2018-08-21 14:23] LABS: Appearance Urine Clear (Clear); Bacteria Urine Automated Negative (Negative); Bilirubin Urine Negative (Negative); Color Urine Yellow; Glucose Urine UA 3+ (Negative); Ketones Urine Negative (Negative); Leukocyte Esterase Urine Negative (Negative); Nitrite Urine Negative (Negative); Protein Urine Negative (Negative); Specific Gravity Urine 1.019 (1.000-1.030); Urobilinogen Urine Negative (Negative)
--- NOTE | 2018-08-21 15:37 | XRay Report ---
XR chest 2V routine CLINICAL HISTORY: 87 years-old Female presenting with eval for infiltrate on portable. TECHNIQUE: PA and lateral views of the chest were obtained. COMPARISON: 08/21/2018 at 12:34 PM. FINDINGS: Atherosclerosis of the aortic arch. Cardiac silhouette mildly enlarged. Mitral annular calcification. Lungs and pleural spaces clear. Degenerative changes of the thoracic spine. Upper abdomen normal. IMPRESSION: 1. No convincing evidence of an infiltrate at the right lung base. No acute cardiopulmonary disease. 2. Mild cardiomegaly. Electronically signed by: Andrew Swan M.D. 08/21/2018 3:36 PM
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
[2018-08-21] MEDS ORDERED: GLUCAGON FOR INJ 1 MG VIAL SQ PRN (18:51)
[2018-08-21] MEDS ORDERED: GLUCOSE 40% GEL 15 GM TUBE PO PRN (18:51)
[2018-08-21] MEDS ORDERED: DEXTROSE 50% 50 ML SYRINGE IV PRN (18:51)
[2018-08-21] MEDS ORDERED: GLUCOSE 10 TABS/TUBE PO PRN (18:51)
[2018-08-21] MEDS ORDERED: POLYETHYLENE (MIRALAX) 17 GM PACK PO PRN (18:51)
[2018-08-21] MEDS ORDERED: CARBOHYDRATES FOR HYPOGLYCEMIA PO PRN (18:51)
[2018-08-21] MEDS ORDERED: MAGNESIUM HYDROXIDE SUSP 30 ML UDC PO PRN (18:51)
[2018-08-21] MEDS ORDERED: ALUMINUM/MAGNESIUM SUSP 30 ML UDC PO PRN (18:51)
[2018-08-21] MEDS ORDERED: ONDANSETRON INJ 2 MG/ML 2 ML VIAL IV PRN (18:51)
[2018-08-21] MEDS ORDERED: NITROGLYCERIN SL 0.4 MG/TAB TAB SL PRN (18:51)
[2018-08-21] MEDS ORDERED: ACETAMINOPHEN 325 MG TAB PO PRN (18:51)
[2018-08-21] MEDS ORDERED: AMLODIPINE BESYLATE 5 MG TAB PO ONE (18:56)
--- NOTE | 2018-08-21 18:58 | Ultrasound Report ---
US carotid doppler BI CLINICAL HISTORY: 87 years-old Female presenting with syncope /carotid stenosis. TECHNIQUE: Real-time grayscale and color and spectral Doppler ultrasound imaging of the bilateral car otid arteries was performed. Stenosis measurements were based on NASCET-like criteria (distal lumen d iameter as the denominator for stenosis measurement). COMPARISON: None. FINDINGS: RIGHT: Common carotid artery (CCA): Atherosclerosis at the carotid bulb. Peak systolic velocity (PSV) 69 cm/ s. Internal carotid artery (ICA): Atherosclerosis of the proximal ICA with spectral broadening of wavefo tania in the proximal to midportion and parvus et tardus waveforms in the distal portion. PSV 337 cm/s. End diastolic velocity (EDV) 76 cm/s. ICA/CCA (systolic) ratio: 5.7. External carotid artery (ECA): Atherosclerosis. PSV 123 cm/s. LEFT: CCA: Atherosclerosis at the carotid bulb. PSV 74 cm/s. ICA: Severe atherosclerosis of the proximal to mid ICA with spectral broadening of waveforms in the p roximal to midportion and parvus et tardus waveforms in the distal portion. PSV 453 cm/s. EDV 167 cm/ s. ICA/CCA (systolic) ratio: 6.1. ECA: Atherosclerosis. PSV 120 cm/s. Bilateral antegrade flow within the vertebral arteries. Blood pressure: Brachial: Right: 207/87 mmHg, Left: 198/80 mmHg. Reference ranges: Stenosis measurements are compared to reference velocity parameters by the Society of Radiologists in Ultrasound (SRU) consensus and Sonographic NASCET index (S-NASCET). * SRU Primary parameters: ICA PSV <125 cm/s = normal or less than 50% stenosis; ICA PSV 125-230 cm/s = 50-69% stenosis; ICA PSV >230 cm/s = greater than or equal to 70% stenosis. * SRU Additional parameters: ICA/CCA PSV ratio <2 = normal or less than 50% stenosis; ratio 2-4 = 5 0-69% stenosis; ratio >4 = greater than or equal to 70% stenosis. ICA EDV <40 cm/s = normal or less t paredes 50% stenosis; ICA EDV 40-100 cm/s = 50-69% stenosis; ICA EDV >100 cm/s = greater than or equal to 70% stenosis. * S-NASCET parameters: Deceleration spectral broadening + PSV <125 cm/s = less than 50% stenosis; pa nsystolic spectral broadening + PSV <125 cm/s = 16-49% stenosis; pansystolic spectral broadening + PS V >125 cm/s + EDV <110 cm/s or ICA/CCA PSV ratio 2-4 = 50-69% stenosis; pansystolic spectral broadeni ng + PSV >270 cm/s OR EDV >110 cm/s OR ICA/CCA PSV ratio >4 = 70-79% stenosis; EDV >140 cm/s = 80-99% stenosis. IMPRESSION: 1. 70-79% stenosis of the proximal to mid right internal carotid artery. 2. 80-99% stenosis of the proximal to mid left internal carotid artery. 3. Severe systemic hypertension. Electronically signed by: Andrew Swan M.D. 08/21/2018 6:57 PM
[2018-08-21] MEDS: LATANOPROST 0.005% OP SOLN 2.5 ML BTL OPB SCH (19:54)
[2018-08-21 19:58] LABS: Prothrombin Time 19.4 Seconds (9.0-12.0)
[2018-08-21] MEDS ORDERED: Nursing to Pharmacy Communication ONE (20:27)
[2018-08-21] MEDS: INSULIN ASPART 100 UNITS/ML 3 ML PEN SC SCH (20:30)
[2018-08-21] MEDS: WARFARIN SOD 2 MG TAB PO SCH (21:12)
[2018-08-22 05:51] LABS: INR 2.2 (0.9-1.1); Prothrombin Time 20.9 Seconds (9.0-12.0)
[2018-08-22 06:09] LABS: BUN Creatinine Ratio 16.4 (10-20); Calcium 8.5 mg/dl (8.5-10.1); Creatinine Clr Calc Pharmacy 37.8 ml/min; Est GFR (African American) 54.8; Est GFR (Non-African American) 47.3; Potassium 4.5 mmol/L (3.5-5.1)
[2018-08-22] MEDS ORDERED: PERFLUTREN LIPID MICROSPHERE (DEFINITY) IV ONE (07:38)
[2018-08-22] MEDS: AMLODIPINE BESYLATE 5 MG TAB PO SCH (07:40)
[2018-08-22] MEDS: LISINOPRIL 5 MG TAB PO SCH (07:40)
[2018-08-22] MEDS: ASPIRIN 81 MG ECTAB PO SCH (07:41)
[2018-08-22] MEDS: METOPROLOL SUCC 50MG EXT REL TAB PO SCH (07:42)
[2018-08-22] MEDS: ROSUVASTATIN CALCIUM 5 MG TAB PO SCH (07:42)
[2018-08-22] MEDS: CHOLECALCIFEROL 1,000 UNITS TAB PO SCH (07:42)
[2018-08-22] MEDS: INSULIN ASPART 100 UNITS/ML 3 ML PEN SC SCH ×4 (07:48→20:45)
[2018-08-22] MEDS ORDERED: ASPIRIN 81 MG ECTAB PO SCH (09:00)
[2018-08-22] MEDS ORDERED: CLOPIDOGREL BISULFATE 75 MG TAB PO ONE (14:15)
[2018-08-22] MEDS ORDERED: Nursing to Pharmacy Communication ONE (14:15)
[2018-08-22] MEDS ORDERED: LISINOPRIL 5 MG TAB PO ONE (14:30)
[2018-08-22] MEDS: WARFARIN SOD 2 MG TAB PO SCH (15:12)
--- NOTE | 2018-08-22 17:57 | Hospitalist Progress Note ---
Date of Service August 22, 2018 Assessment & Plan (1) Syncope: Presented with recurrent syncope-third episode Cardiac arrhythmia noted on telemetry Echocardiogram shows no evidence of valvular disease Carotid Doppler shows critical carotid stenosis possible reason for syncopal episode Patient initially was reluctant to have a consult with vascular surgery After multiple discussions with family members agreeable for vascular consult Dr. Fox consulted Orthostatic vital signs-shows no change orthostatically Patient will benefit from ZIO Patch as outpatient (2) Skin tear of left hand without complication: Continue local wound care Wound nurse consulted (3) Abrasion of left ear: Continue local wound care Wound nurse consulted (4) Carotid artery disease: Prior CTA of head and neck revealed bilateral severe carotid stenosis On low-dose rosuvastatin/unable to tolerate statin Bilateral carotid ultrasound showed critical area narrowing stenosis possible reason for recurrent syncope /Surgery consulted (5) DM II (diabetes mellitus, type II), controlled: Last A1c 6.6 on 07/03/2018 Currently on metformin Placed on NovoLog sliding scale while inpatient (6) HTN (hypertension): BP remains significantly elevated Lisinopril dose increased Continue Norvasc metoprolol (7) HLD (hyperlipidemia): Heart healthy diet On low-dose rosuvastatin/history of statin intolerance (8) CKD (chronic kidney disease), stage III: Presented with acute renal failure with dehydration with mild elevation of creatinine from baseline Renal function improved with IV fluids, Encouraged for oral intake IV fluid discontinued (9) History of DVT (deep vein thrombosis): Continue warfarin, INR therapy Home regimen is 4 mg Thursday and Thursday, 2 mg all other days Disposition: PT OT evaluation requested Plan of care updated to daughter present at bedside Follow-up: PCP Dr. Mai upon discharge Subjective Episode of syncope no dizzy spells no lightheadedness Arrhythmia noted on telemetry Patient denies of any shortness of breath no fever chills Physical Exam Physical Exam: GENERAL: No sign of distress, HEENT: Sclera nonicteric, pink-purple bilateral equal reactive to light extraocular muscle intact Normal oral mucosa, neck: No JVD, no thyromegaly, trachea midline Lungs: Clear to auscultate, no wheeze or rales Cardiovascular: Regular S1 and S2, no murmur or gallop, no JVD, no lower extremity edema Abdomen: Soft, nontender, bowel sounds active, no hepatosplenomegaly Extremities: No rash or deformity, normal joint, Neuro: No focal neurological deficit, no dysarthria, no facial droop Psych: Alert awake oriented x3: Euthymic Skin: No rash LYMPH NODES: No cervical lymphadenopathy Results & Data Vital Signs (Past 12 Hours) Vital Signs Temp Pulse Resp BP Pulse Ox 08/22/18 15:05 36.5 C 57 L 20 138/78 96 08/22/18 10:20 36.5 C 20 96 08/22/18 07:48 36.5 C 65 18 170/81 H 94 (1) Abrasion of left ear Encounter type: initial encounter Qualified Code(s): S00.412A - Abrasion of left ear, initial encounter (2) Skin tear of left hand without complication Encounter type: initial encounter Qualified Code(s): S61.412A - Laceration without foreign body of left hand, initial encounter (3) Syncope Syncope type: unspecified Qualified Code(s): R55 - Syncope and collapse
[2018-08-22] MEDS: LATANOPROST 0.005% OP SOLN 2.5 ML BTL OPB SCH (20:45)
[2018-08-23 07:07] LABS: INR 2.2 (0.9-1.1); Prothrombin Time 21.4 Seconds (9.0-12.0)
[2018-08-23] MEDS: INSULIN ASPART 100 UNITS/ML 3 ML PEN SC SCH ×4 (07:54→21:01)
[2018-08-23] MEDS: AMLODIPINE BESYLATE 5 MG TAB PO SCH (07:57)
[2018-08-23] MEDS: METOPROLOL SUCC 50MG EXT REL TAB PO SCH (07:57)
[2018-08-23] MEDS: ROSUVASTATIN CALCIUM 5 MG TAB PO SCH (07:58)
[2018-08-23] MEDS: LISINOPRIL 5 MG TAB PO SCH (07:58)
[2018-08-23] MEDS: CHOLECALCIFEROL 1,000 UNITS TAB PO SCH (08:00)
[2018-08-23] MEDS: CLOPIDOGREL BISULFATE 75 MG TAB PO SCH (08:00)
[2018-08-23] MEDS: ASPIRIN 81 MG ECTAB PO SCH (08:00)
[2018-08-23] MEDS ORDERED: PHARMACY GLYCEMIC MGMT CONSULT PRN (11:39)
[2018-08-23] MEDS ORDERED: INSULIN GLARGINE SOLOSTAR 100 UNITS/ML 3 ML PEN SC ONE (12:00)
[2018-08-23 12:27] LABS: Estimated Average Glucose 169 mg/dl
--- NOTE | 2018-08-23 13:13 | Pharmacy Report ---
Glycemic Control Consultation - Date of Service August 23, 2018 - Scope Scope: Glycemic Pharmacist consulted by Dr Sarkar on 08/23/18 for glycemic control and to write orders per [facility] inpatient glycemic control protocol - Objective Weight: 71.7 kg Accuchecks BSG (last 24hrs): 08/22/18 08/22/18 08/23/18 16:03 20:07 07:07 POC Glucose 196 H 177 H 189 H 08/23/18 08/23/18 10:59 11:00 POC Glucose 323 H* 323 H* HbA1c: Hemoglobin A1c 7.5 % (4.5-5.6) H 08/23/18 11:47 - Recent Pertinent Medications Outpatient Anti-diabetic Regimen: * Metformin 500mg BIDM * A1c = 7.5 % 08/23/18 - Assessment & Plan Assessment & Plan: ASSESSMENT: * Ms. Gonzales is an 87yo F p/w recurrent syncopal episodes. PMHx consistent with h/o DVT, HTN, HLD, clinical ASCVD, CKDIII, among others. She is maintained on metformin as an outpt. Today's A1C of 7.5% is within goal range per latest ADA recommendations. A1C of 6.6% back in June. * Consult placed due to some lunch time hyperglycemia, BSGs in the 300s. Likely etiology is carb heavy breakfast this AM. PLAN FOR INPATIENT GLYCEMIC CONTROL: * Holding outpatient oral diabetes medications * Basal insulin * Lantus 12 units STAT then a lantus scale this evening, please see MAR for further details * Bolus insulin - tightened * NovoLog per scale ACHS or Q6hrs while NPO * Goal Range: Low 100 mg/dL - High 140 mg/dL * Correction Factor: 25 mg/dL/unit * Nutritional / Prandial insulin per carb ratio of 1 unit per 8 grams CHO consumed * 00,04 checks * Please note that the plan above was derived based on current level of insulin resistance and hospital stress. These recommendations are appropriate for inpatient admission only. Plan of care upon discharge will need to be reassessed to avoid potential outpatient hypo/hyperglycemia. Thank you.
--- NOTE | 2018-08-23 14:51 | Hospitalist Progress Note ---
Date of Service August 23, 2018 Assessment & Plan (1) Syncope: No further episodes since admission Presented with recurrent syncope-third episode No cardiac arrhythmia noted on telemetry Echocardiogram shows no evidence of valvular disease Carotid Doppler shows critical carotid stenosis possible reason for syncopal episode Patient initially was reluctant to have a consult with vascular surgery After multiple discussions with family members agreeable for vascular consult Vascular surgery consulted, appreciate input Patient can be scheduled for left carotid endarterectomy, on end of this week, patient was to think overnight prior to giving the consent Orthostatic vital signs-shows no change orthostatically Patient will benefit from ZIO Patch as outpatient (2) Skin tear of left hand without complication: Continue local wound care Wound nurse consulted (3) Abrasion of left ear: Continue local wound care Wound nurse consulted (4) Carotid artery disease: Prior CTA of head and neck revealed bilateral severe carotid stenosis On low-dose rosuvastatin/unable to tolerate statin Aspirin 81 mg daily, added Plavix Bilateral carotid ultrasound showed critical area narrowing stenosis possible reason for recurrent syncope Vascular surgery, Input appreciated, (5) Pain of left great toe: Left grade 2 showed marked erythema, swelling increased tenderness and warmth Acute gout arthritis, history of prior gout attack Possible causing hyper glycemic episode NSAIDs could not be ordered secondary to chronic kidney disease/recovering from recent acute renal failure Ordered low-dose prednisone Pharmacy following for glycemic management, will need further titration of basal Lantus and insulin sliding scale: We will update (6) DM II (diabetes mellitus, type II), controlled: Last A1c 6.6 on 07/03/2018 Currently on metformin BSG markedly elevated today-possible secondary to acute gout arthritis of left great toe Added basal Lantus insulin sliding scale, appreciate input from pharmacy glycemic management (7) HTN (hypertension): BP improved after Lisinopril dose increased Continue Norvasc metoprolol (8) HLD (hyperlipidemia): Heart healthy diet On low-dose rosuvastatin/history of statin intolerance (9) CKD (chronic kidney disease), stage III: Presented with acute renal failure with dehydration with mild elevation of cre atinine from baseline Renal function improved with IV fluids, Encouraged for oral intake IV fluid discontinued (10) History of DVT (deep vein thrombosis): Hold Coumadin for anticipation of vascular surgery/left carotid endarterectomy at the end of the week Disposition: PT OT evaluation requested-patient input patient is functionally stable to return home when medically stable Plan of care updated to daughter present at bedside Follow-up: PCP Dr. Mai upon discharge Subjective No further episode of dizzy spell, syncope or lightheadedness Reports of redness swelling of left great toe since yesterday, prior history of gout, last episode of approximately 2 weeks ago No headache, Patient is evaluated at bedside by vascular surgery team, for discussion of possible left carotid endarterectomy Patient was initially reluctant, later wanted to think over for 1 day If patient is agreeable tentative vascular surgery can be scheduled for , 08/26/2018 Physical Exam Constitutional: WD/WN, vitals as above no acute distress Eyes: PERRL, conjunctivae normal, anicteric sclerae ENMT: Ears: + hearing impairment Uses hearing aid Neck: trachea midline, no thyromegaly Ecchymosis/left side of neck secondary to recent fall healing well Respiratory: normal respiratory effort, lungs clear to auscultation Cardiovascular: RRR, no murmur, no edema Gastrointestinal (Abdomen): normal bowel sounds, soft, nontender, no hepatosplenomegaly Musculoskeletal: no cyanosis or clubbing, extremities motor strength 5/5 Skin: Trauma: + evidence of skin trauma (On left arm secondary to recent fall), + abrasion and + laceration Skin tear on left hand elbow and arm secondary to recent fall Neurologic: PERRL, EOMI, accommodation nl, no face palsy, no dysarthria Alert awake and oriented, with forgetfulness, very poor short-term memory Psychiatric: Orientation: alert and oriented x 3 Affect: + flat affect Cognition: + recent memory not intact (Short-term memory loss) Insight: + poor insight Results & Data Vital Signs (Past 12 Hours) Vital Signs Temp Pulse Pulse Resp BP BP Pulse Ox 08/23/18 11:37 36.5 C 65 18 126/78 97 08/23/18 07:59 37.0 C 74 19 139/75 98 08/23/18 07:15 82 08/23/18 03:46 36.4 C L 69 20 162/71 H 98 (1) Syncope Syncope type: unspecified Qualified Code(s): R55 - Syncope and collapse (2) Skin tear of left hand without complication Encounter type: initial encounter Qualified Code(s): S61.412A - Laceration without foreign body of left hand, initial encounter (3) Abrasion of left ear Encounter type: initial encounter Qualified Code(s): S00.412A - Abrasion of left ear, initial encounter
[2018-08-23] MEDS ORDERED: NovoLIN-N (NPH) PER UNIT CHARGE SQ STA (14:57)
[2018-08-23] MEDS: predniSONE 10 MG TABLET PO SCH (15:56)
[2018-08-23] MEDS ORDERED: WARFARIN SOD 4 MG TAB PO SCH (16:00)
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
[2018-08-23] MEDS: LATANOPROST 0.005% OP SOLN 2.5 ML BTL OPB SCH (21:04)
[2018-08-23] MEDS: INSULIN GLARGINE SOLOSTAR 100 UNITS/ML 3 ML PEN SC SCH (21:04)
[2018-08-24] MEDS: INSULIN ASPART 100 UNITS/ML 3 ML PEN SC SCH ×6 (01:06→20:22)
--- NOTE | 2018-08-24 06:25 | Surgery Progress Note ---
Date of Service August 24, 2018 Assessment & Plan (1) Carotid artery disease: 08/24/18 will discuss with family members reg potential car surgery if pt still agreeable will need cardiology evaluation preop tentatively plan surgery for left car syncopal episodes unlikely related to car stenosis INR 2.2 on coumadin on plavix rec stopping coumadin continue plavix bridge with Lovenox 1. 70-79% stenosis of the proximal to mid right internal carotid artery. 2. 80-99% stenosis of the proximal to mid left internal carotid artery. Discussed left carotid endarterectomy and recovery with the patient and her daughter. She is reluctant to proceed, but seems more likely to consider during this admission. She wants to think about it overnight, will see her again tomorrow with Dr. Aguirre. Supervising Physician Co-Signing Physician Notes ATTENDING ADDENDUM : pt seen and examined , care co-ordinated with Iza HOFF this is 87 yo F with past medical hx of HTN , DVT on coumadin, INR theraputic , presented to ER with episode for syncope , unresponsiveness this is pt's 3 rd episode no focal neurological deficit CT head negative for acute change monitor in Tele for possible cardiac arrythmia carotid Doppler ordered please refer to further documentaion by Iza Lund PA-C for dicussion of other chronic issues Gayle Sarkar MD Subjective no complaints now leaning towards carotid surgery No further episode of dizzy spell, syncope or lightheadedness Reports of redness swelling of left great toe since yesterday, prior history of gout, last episode of approximately 2 weeks ago No headache, Patient is evaluated at bedside by vascular surgery team, for discussion of possible left carotid endarterectomy Patient was initially reluctant, later wanted to think over for 1 day If patient is agreeable tentative vascular surgery can be scheduled for , 08/26/2018 Physical Exam Physical Exam: alert coherent extremely hard of hearing Results & Data Vital Signs (Past 12 Hours) Vital Signs Temp Pulse Resp BP Pulse Ox 08/24/18 03:56 36.4 C L 69 18 161/74 H 95 08/23/18 23:43 36.7 C 74 19 131/66 99 08/23/18 19:48 36.6 C 71 18 157/83 H 96
[2018-08-24 06:44] LABS: INR 1.9 (0.9-1.1); Prothrombin Time 18.8 Seconds (9.0-12.0)
[2018-08-24] MEDS: ROSUVASTATIN CALCIUM 5 MG TAB PO SCH (07:51)
[2018-08-24] MEDS: AMLODIPINE BESYLATE 5 MG TAB PO SCH (07:52)
[2018-08-24] MEDS: ASPIRIN 81 MG ECTAB PO SCH (07:52)
[2018-08-24] MEDS: CLOPIDOGREL BISULFATE 75 MG TAB PO SCH (07:53)
[2018-08-24] MEDS: METOPROLOL SUCC 50MG EXT REL TAB PO SCH (07:54)
[2018-08-24] MEDS: CHOLECALCIFEROL 1,000 UNITS TAB PO SCH (07:54)
[2018-08-24] MEDS: predniSONE 10 MG TABLET PO SCH (07:54)
[2018-08-24] MEDS: LISINOPRIL 5 MG TAB PO SCH (07:55)
[2018-08-24] MEDS: INSULIN GLARGINE SOLOSTAR 100 UNITS/ML 3 ML PEN SC SCH ×3 (07:56→20:20)
[2018-08-24] MEDS ORDERED: NovoLIN-N (NPH) PER UNIT CHARGE SQ SCH (09:00)
--- NOTE | 2018-08-24 17:48 | Hospitalist Progress Note ---
Date of Service August 24, 2018 Assessment & Plan (1) Syncope: No further episodes since admission Presented with recurrent syncope-third episode No cardiac arrhythmia noted on telemetry Echocardiogram shows no evidence of valvular disease Carotid Doppler shows critical carotid stenosis possible reason for syncopal episode Patient initially was reluctant to have a consult with vascular surgery After multiple discussions with family members agreeable for vascular consult Vascular surgery consulted, appreciate input Patient is scheduled for left carotid endarterectomy, on end of this week-pt is willing to proceed for the surgery Cardiology consulted for preop cardiac risk evaluation Orthostatic vital signs-shows no change orthostatically Patient will benefit from ZIO Patch as outpatient (2) Skin tear of left hand without complication: Continue local wound care Wound nurse consulted (3) Abrasion of left ear: Continue local wound care Wound nurse consulted (4) Carotid artery disease: Prior CTA of head and neck revealed bilateral severe carotid stenosis On low-dose rosuvastatin/unable to tolerate statin Aspirin 81 mg daily, added Plavix Bilateral carotid ultrasound showed critical area narrowing stenosis possible reason for recurrent syncope Vascular surgery, Input appreciated, Continue to hold Coumadin for possible carotid artery surgery on (5) Pain of left great toe: Left grade 2 showed marked erythema, swelling increased tenderness and warmth Acute gout arthritis, history of prior gout attack Possible causing hyper glycemic episode NSAIDs could not be ordered secondary to chronic kidney disease/recovering from recent acute renal failure Ordered low-dose prednisone Pharmacy following for glycemic management, will need further titration of basal Lantus and insulin sliding scale: We will update (6) DM II (diabetes mellitus, type II), controlled: Last A1c 6.6 on 07/03/2018 Currently on metformin BSG markedly elevated today-possible secondary to acute gout arthritis of left great toe Added basal Lantus insulin sliding scale, appreciate input from pharmacy glycemic management (7) HTN (hypertension): BP improved after Lisinopril dose increased Continue Norvasc metoprolol (8) HLD (hyperlipidemia): Heart healthy diet On low-dose rosuvastatin/history of statin intolerance (9) CKD (chronic kidney disease), stage III: Presented with acute renal failure with dehydration with mild elevation of creatinine from baseline Renal function improved with IV fluids, Encouraged for oral intake IV fluid discontinued (10) History of DVT (deep vein thrombosis): Hold Coumadin for anticipation of vascular surgery/left carotid endarterectomy on 08/26/18 Disposition: PT OT evaluation requested-patient input patient is functionally stable to return home when medically stable Plan of care updated to daughter present at bedside Follow-up: PCP Dr. Mai upon discharge Subjective No further episode of syncope no dizzy spell, no arrhythmia noted on telemetry Evaluated by vascular surgery, Patient will benefit with left carotid endarterectomy which is tentatively scheduled for , 08/26/2018 Patient is willing to proceed for the surgery cont to hold Coumadin Cardiology consulted for pre op eval -high risk surgery with multiple risk factors Physical Exam Constitutional: WD/WN, vitals as above no acute distress Eyes: PERRL, conjunctivae normal, anicteric sclerae ENMT: Ears: + hearing impairment Neck: trachea midline, no thyromegaly Respiratory: normal respiratory effort, lungs clear to auscultation Cardiovascular: RRR, no murmur, no edema Gastrointestinal (Abdomen): normal bowel sounds, soft, nontender, no hepatosplenomegaly Musculoskeletal: no cyanosis or clubbing, extremities motor strength 5/5 Skin: Trauma: + evidence of skin trauma (On left arm secondary to recent fall), + abrasion and + laceration Neurologic: PERRL, EOMI, accommodation nl, no face palsy, no dysarthria Psychiatric: Orientation: alert and oriented x 3 Affect: + flat affect Cognition: + recent memory not intact (Short-term memory loss) Insight: + poor insight Results & Data Vital Signs (Past 12 Hours) Vital Signs Temp Pulse Pulse Resp BP BP Pulse Ox 08/24/18 16:22 61 08/24/18 15:30 36.6 C 63 18 128/71 98 08/24/18 11:42 36.6 C 61 18 132/70 95 08/24/18 07:35 36.3 C L 74 18 193/88 H 185/78 H 92 08/24/18 07:25 66 (1) Abrasion of left ear Encounter type: initial encounter Qualified Code(s): S00.412A - Abrasion of left ear, initial encounter (2) Skin tear of left hand without complication Encounter type: initial encounter Qualified Code(s): S61.412A - Laceration w ithout foreign body of left hand, initial encounter (3) Syncope Syncope type: unspecified Qualified Code(s): R55 - Syncope and collapse
[2018-08-24] MEDS: LATANOPROST 0.005% OP SOLN 2.5 ML BTL OPB SCH (20:15)
[2018-08-25] MEDS: INSULIN ASPART 100 UNITS/ML 3 ML PEN SC SCH ×6 (00:07→20:55)
[2018-08-25 07:01] LABS: INR 1.6 (0.9-1.1); Prothrombin Time 16.1 Seconds (9.0-12.0)
--- NOTE | 2018-08-25 07:12 | Surgery Progress Note ---
Date of Service August 25, 2018 Assessment & Plan (1) Carotid artery disease: 08/25/18 plan for left car endarterectomy with angioplasty for tomorrow(pt marked) r and c including possible stroke explained to pt and wants to proceed all questions answered including whether or not it will help her dizziness(unlikely but hope so) cardiology to see preop permit in chart will talk to daughter today to surgical ICU post op 08/24/18 will discuss with family members reg potential car surgery if pt still agreeable will need cardiology evaluation preop tentatively plan surgery for left car syncopal episodes unlikely related to car stenosis INR 2.2 on coumadin on plavix rec stopping coumadin continue plavix bridge with Lovenox 1. 70-79% stenosis of the proximal to mid right internal carotid artery. 2. 80-99% stenosis of the proximal to mid left internal carotid artery. Discussed left carotid endarterectomy and recovery with the patient and her daughter. She is reluctant to proceed, but seems more likely to consider during this admission. She wants to think about it overnight, will see her again tomorrow with Dr. Aguirre. Subjective 08/25/18 no complaints No further episode of syncope no dizzy spell, no arrhythmia noted on telemetry Evaluated by vascular surgery, Patient will benefit with left carotid endarterectomy which is tentatively scheduled for , 08/26/2018 Patient is willing to proceed for the surgery cont to hold Coumadin Cardiology consulted for pre op eval -high risk surgery with multiple risk factors Physical Exam Physical Exam: alert coherent asking pily questions wants to proceed with surgery on carotid neuro grossly intact slight ecchymotic area 2cm x 4 cm no hematoma left supraclavicular area Results & Data Vital Signs (Past 12 Hours) Vital Signs Temp Pulse Pulse Resp BP BP Pulse Ox 08/25/18 04:00 36.5 C 64 18 160/70 H 97 08/25/18 00:00 62 08/24/18 23:20 36.5 C 63 18 146/78 H 97 08/24/18 19:30 36.2 C L 63 20 147/75 H 96
[2018-08-25 07:16] LABS: BUN Creatinine Ratio 24.7 (10-20); Calcium 8.8 mg/dl (8.5-10.1); Creatinine Clr Calc Pharmacy 37.3 ml/min; Est GFR (African American) 51.3; Est GFR (Non-African American) 44.3; Potassium 3.9 mmol/L (3.5-5.1)
[2018-08-25] MEDS: ROSUVASTATIN CALCIUM 5 MG TAB PO SCH (08:01)
[2018-08-25] MEDS: ASPIRIN 81 MG ECTAB PO SCH (08:02)
[2018-08-25] MEDS: AMLODIPINE BESYLATE 5 MG TAB PO SCH (08:02)
[2018-08-25] MEDS: LISINOPRIL 5 MG TAB PO SCH (08:02)
[2018-08-25] MEDS: predniSONE 5 MG TAB PO SCH (08:03)
[2018-08-25] MEDS: CLOPIDOGREL BISULFATE 75 MG TAB PO SCH (08:03)
[2018-08-25] MEDS: METOPROLOL SUCC 50MG EXT REL TAB PO SCH (08:03)
[2018-08-25] MEDS: CHOLECALCIFEROL 1,000 UNITS TAB PO SCH (08:03)
[2018-08-25] MEDS: INSULIN GLARGINE SOLOSTAR 100 UNITS/ML 3 ML PEN SC SCH ×2 (08:06→20:53)
[2018-08-25] MEDS ORDERED: NovoLIN-N (NPH) PER UNIT CHARGE SQ SCH ×2 (09:00)
--- NOTE | 2018-08-25 15:05 | Cardiology Consultation ---
Date of Consultation August 25, 2018 Assessment & Plan (1) Preoperative cardiovascular examination: 87-year-old female seen in preoperative assessment prior to left carotid endarterectomy. She has a history of hypertension and dyslipidemia. Her telemetry reveals sinus rhythm in the 60 bpm range, and I see no arrhythmia to explain her presentation with syncope. When she had been seen as an outpatient in 2018, this was in the setting of exertional shortness of breath as well as a loss of consciousness episode. Patient describes unchanged chronic shortness of breath without recent angina. She does have an abnormal EKG, but this is unchanged compared to February 2017. At this time I would estimate that she is at moderate to high risk of perioperative cardiac complication given her age and comorbidities, but she is well optimized without any unstable cardiac signs or symptoms necessitating further work-up or delay in her vascular surgery. I agree with that which is already been documented in her chart that I am not very optimistic that carotid enterectomy will prevent further loss of consciousness episodes, and it is being performed for the purpose of stroke prophylaxis. Will follow the patient with you. Thank you for the consultation. History of Present Illness Attending Physician: Nickolas Hollis MD History of Present Illness Madeline Gonzales is an 87 year old female seen in preoperative cardiology consultation per the request of Dr Sarkar for cardiac risk stratification prior to proposed left carotid endarterectomy. The patient was initially admitted on 08/21/2018 after a loss of consciousness event. This is her third such event over the last few years. Carotid duplex revealed evidence of a 70-79% stenosis of the proximal to mid right internal carotid artery and an 80-99% stenosis of the proximal to mid left internal carotid artery. Left carotid endarterectomy is tentatively planned for tomorrow. The patient is on chronic anticoagulation with Coumadin due to a history of DVT. In July, she had been seen in outpatient cardiology consultation by Dr. Palomino of our practice for complaint of exertional shortness of breath. An echocardiogram had been performed as an outpatient on March 10, 2017 revealing normal LVEF in the range of 50 to 55%, moderate concentric left ventricular hypertrophy with mild aortic valve sclerosis without stenosis. Grade 1 diastolic dysfunction was noted. Mild mitral regurgitation was present and mild to moderate tricuspid regurgitation. 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 Ongoing surveillance was recommended. The patient states that she has ongoing stable exertional shortness of breath which is unchanged compared to 2018. She denies any recent chest pain symptoms. Allergies Allergy/AdvReac Type Severity Reaction Status Date / Time atorvastatin AdvReac Severe RIDGID Unverified 08/21/18 12:13 MUSCLES ezetimibe AdvReac Severe RIGID Unverified 08/21/18 12:13 MUSCLES Home Medications Home Medications Medication Instructions Recorded Confirmed Type amlodipine 10 mg PO DAILY 03/16/18 08/21/18 History aspirin [Aspir-81] 81 mg PO DAILY 03/16/18 08/21/18 History lisinopril 5 mg PO DAILY 03/16/18 08/21/18 History metformin 500 mg PO BID 03/16/18 08/21/18 History metoprolol succinate 100 mg PO DAILY 03/16/18 08/21/18 History rosuvastatin 2.5 mg PO DAILY 03/16/18 08/21/18 History warfarin 4 mg PO MOFR 03/16/18 08/21/18 History cholecalciferol (vitamin D3) 1,000 unit PO DAILY 08/21/18 08/21/18 History latanoprost 1 drp OPB HS 08/21/18 08/21/18 History warfarin 2 mg PO SUTUWETHSA 08/21/18 08/21/18 History Patient History Medical History History of DVT (deep vein thrombosis) (Chronic) Glaucoma (Chronic) Blind left eye (Chronic) HTN (hypertension) (Chronic) Cataract (Chronic) HLD (hyperlipidemia) (Chronic) DM II (diabetes mellitus, type II), controlled (Chronic) CKD (chronic kidney disease), stage III (Chronic) Carotid artery disease (Chronic) "CTA 03/09/17: high-grade stenoses bilat ICA's" H/O deep venous thrombosis (Chronic) "2008. On Coumadin. " DM type 2 (diabetes mellitus, type 2) (Chronic) HTN (hypertension) (Chronic) Surgical History History of appendectomy (Chronic) History of (Chronic) History of colonoscopy (Chronic) Family History Mother Diabetes Parkinson disease Father , age 94 CHF (congestive heart failure) Brother Myocardial infarction Social History Preferred Language: Ukrainian Communication Ability: Effective Communication Ability Comment: [place], h/a are not charged Color Printer Operator Required: No Beliefs That Will Affect Care: Hoahaoism Hoahaoism Beliefs: Scientologist marital status: / Current Living Situation: Alone Feels Safe at Home: Yes Safety Concerns: Feels Safe At This Time Smoking Status: Never smoker Do You Dip or Chew Tobacco: No Hx Alcohol Use: No Hx Substance Use: No Review of Systems Review of Systems: All systems reviewed & are unremarkable except as noted in HPI & below Physical Exam Physical Exam: Temp Pulse Resp BP Pulse Ox 36.3 C L 59 L 22 146/70 H 98 08/25/18 10:58 08/25/18 10:58 08/25/18 10:58 08/25/18 10:58 08/25/18 10:58 Constitutional: WD/WN, vitals as above Respiratory: normal respiratory effort, lungs clear to auscultation Cardiovascular: RRR, no murmur, no edema Heart Sounds: + murmur (1/6 systolic murmur) Vessels: no JVD Extremities: no edema Gastrointestinal (Abdomen): normal bowel sounds, soft, nontender, no hepatosplenomegaly Neurologic: PERRL, EOMI, accommodation nl, no face palsy, no dysarthria Results & Data Vital Signs (Past 12 Hours) Vital Signs Temp Pulse Resp BP BP Pulse Ox 08/25/18 10:58 36.3 C L 59 L 22 146/70 H 98 08/25/18 08:00 67 20 96 08/25/18 07:54 36.4 C L 64 18 169/74 H 95 08/25/18 04:00 36.5 C 64 18 160/70 H 97 Diagnostic Findings EKG performed 08/23/2018 revealed normal sinus rhythm at 63 bpm feels poor R wave progression in lead V2 and V3. This is relatively unchanged compared to prior tracings dating back to 03/09/2017 Medications Administered Current Inpatient Medications Acetaminophen (Tylenol) 650 mg PO Q4H PRN PRN Reason: Pain or Fever Stop: 09/20/18 18:50 Al Hydrox/Mg Hydrox/Simethicone (Maalox) 15 ml PO Q4H PRN PRN Reason: Dyspepsia Stop: 09/20/18 18:50 Amlodipine Besylate (Norvasc) 10 mg PO DAILY [facility] Stop: 09/21/18 08:59 Last Admin: 08/25/18 08:02 Dose: 10 mg Documented by: Aspirin (Ecotrin Ectab) 81 mg PO DAILY [facility] Stop: 09/21/18 08:59 Last Admin: 08/25/18 08:02 Dose: 81 mg Documented by: Clopidogrel Bisulfate (Plavix) 75 mg PO QAM [facility] Stop: 09/22/18 08:59 Last Admin: 08/25/18 08:03 Dose: 75 mg Documented by: Dextrose (Dextrose 50%) 25 - 50 ml IV UD PRN; Protocol PRN Reason: Hypoglycemia Protocol Stop: 09/20/18 18:50 Glucagon (Glucagen) 1 mg SQ UD PRN; Protocol PRN Reason: Hypoglycemia Protocol Stop: 09/20/18 18:50 Glucose (Dex4 Glucose) 4 - 8 tabs PO UD PRN; Protocol PRN Reason: Hypoglycemia Protocol Stop: 09/20/18 18:50 Glucose (Glucose 40%) 15 - 30 gm PO UD PRN; Protocol PRN Reason: Hypoglycemia Protocol Stop: 09/20/18 18:50 Insulin Aspart (Novolog Flexpen) 0 units SC ACHS [facility]; Protocol Stop: 09/20/18 20:59 Last Admin: 08/25/18 12:16 Dose: 6 units Documented by: Insulin Glargine (Lantus Solostar Pen) 0 units SC BID [facility]; Protocol Stop: 09/22/18 20:59 Last Admin: 08/25/18 08:06 Dose: 5 units Documented by: Latanoprost (Xalatan Oph) 1 drops OPB HS [facility] Stop: 09/20/18 20:59 Last Admin: 08/24/18 20:15 Dose: 1 drops Documented by: Lisinopril (Zestril) 5 mg PO DAILY [facility] Stop: 09/21/18 08:59 Last Admin: 08/25/18 08:02 Dose: 5 mg Documented by: Magnesium Hydroxide (Milk Of Magnesia) 30 ml PO Q12H PRN PRN Reason: Constipation Stop: 09/20/18 18:50 Metoprolol Succinate (Toprol Xl) 100 mg PO DAILY [facility] Stop: 09/21/18 08:59 Last Admin: 08/25/18 08:03 Dose: 100 mg Documented by: Miscellaneous (Carbohydrates For Hypoglycemia) 15 - 30 gm PO UD PRN PRN Reason: Hypoglycemia Treatment Stop: 09/20/18 18:50 Miscellaneous Information (Consult Glycemic Management Pharmacy) 1 ea N/A UD PRN PRN Reason: Consult Stop: 09/22/18 11:38 Nitroglycerin (Nitrostat) 0.4 mg SL UD PRN PRN Reason: Chest Pain Stop: 09/20/18 18:50 Ondansetron HCl (Zofran) 4 mg IV Q6H PRN PRN Reason: Nausea Stop: 09/20/18 18:50 Polyethylene Glycol (Miralax Powder Packet) 17 gm PO DAILY PRN PRN Reason: Constipation Stop: 09/20/18 18:50 Prednisone (Prednisone) 5 mg PO DAILY [facility] Stop: 08/26/18 09:01 Last Admin: 08/25/18 08:03 Dose: 5 mg Documented by: Rosuvastatin Calcium (Crestor) 2.5 mg PO DAILY [facility] Stop: 09/21/18 08:59 Last Admin: 08/25/18 08:01 Dose: 2.5 mg Documented by: Vitamin D (Vitamin D3) 1,000 units PO DAILY [facility] Stop: 09/21/18 08:59 Last Admin: 08/25/18 08:03 Dose: 1,000 units Documented by:
--- NOTE | 2018-08-25 15:06 | Pharmacy Report ---
Pharmacy Glycemic Short Note 2 - Date of Service August 25, 2018 - Glycemic Short BSG Results (Last 24 hours): 08/24/18 08/24/18 08/24/18 16:26 20:21 23:54 Glucose POC Glucose 212 H 176 H 183 H 08/25/18 08/25/18 08/25/18 03:48 04:09 06:37 Glucose 98 POC Glucose 72 84 08/25/18 08/25/18 07:37 11:13 Glucose POC Glucose 87 208 H OUTPATIENT ANTIDIABETIC REGIMEN: * METFORMIN 500mg BID ASSESSMENT: * Patient with hyperglycemia, likely contributed by steroids. BSGs, much improved today. Total basal dose was decreased ~30% this morning given prednisone dose was decreased from 10mg to 5mg. A lantus scale is ordered for this evening. PLAN FOR INPATIENT GLYCEMIC CONTROL: * Hold outpatient oral diabetes medications * Basal insulin * Lantus 5 units SQ this morning * Lantus scale this evening (5,12,18 units based on BSG-see MAR for details) * NPH 10 units X 1 this morning with prednisone * Bolus insulin * NovoLog per scale ACHS or Q6hrs while NPO * Goal Range: Low 110 mg/dL - High 140 mg/dL * Correction Factor: 25 mg/dL/unit * Nutritional / Prandial insulin per carb ratio of 1 unit per 7 grams CHO consumed
--- NOTE | 2018-08-25 16:16 | Anesthesiology Consultation ---
Date of Service August 25, 2018 Assessment & Plan (1) Encounter for pre-operative examination: Chart Review Chart Review: Acceptable Risk for Surgery and Patient NOT seen in Pre Admission Testing Consults Requested none patient is being followed by medicine and cardiology History Surgery Operation Date: 08/26/18 08:15 Proposed Procedures p Left Carotid Endarterectomy - Farhad Aguirre MD Height/Weight Height: 5 ft 4 in Weight: 67 kg Allergies Allergy/AdvReac Type Severity Reaction Status Date / Time atorvastatin AdvReac Severe RIDGID Unverified 08/21/18 12:13 MUSCLES ezetimibe AdvReac Severe RIGID Unverified 08/21/18 12:13 MUSCLES Medications Home Medications Medication Instructions Recorded Confirmed Last Taken amlodipine 10 mg PO DAILY 03/16/18 08/21/18 08/20/18 aspirin [Aspir-81] 81 mg PO DAILY 03/16/18 08/21/18 08/21/18 lisinopril 5 mg PO DAILY 03/16/18 08/21/18 08/21/18 metformin 500 mg PO BID 03/16/18 08/21/18 08/20/18 metoprolol succinate 100 mg PO DAILY 03/16/18 08/21/18 08/20/18 rosuvastatin 2.5 mg PO DAILY 03/16/18 08/21/18 08/20/18 warfarin 4 mg PO MOFR 03/16/18 08/21/18 08/20/18 cholecalciferol (vitamin D3) 1,000 unit PO DAILY 08/21/18 08/21/18 Unknown latanoprost 1 drp OPB HS 08/21/18 08/21/18 08/21/18 warfarin 2 mg PO SUTUWETHSA 08/21/18 08/21/18 Unknown Active Medications Generic Name Dose Route Start Last Admin Trade Name Freq PRN Reason Stop Dose Admin Amlodipine Besylate 10 mg 08/22/18 09:00 08/25/18 08:02 Norvasc PO 09/21/18 08:59 10 mg DAILY ESTEBAN Administration Aspirin 81 mg 08/22/18 09:00 08/25/18 08:02 Ecotrin Ectab PO 09/21/18 08:59 81 mg DAILY ESTEBAN Administration Clopidogrel Bisulfate 75 mg 08/23/18 09:00 08/25/18 08:03 Plavix PO 09/22/18 08:59 75 mg QAM ESTEBAN Administration Insulin Aspart 0 units 08/21/18 21:00 08/25/18 12:16 Novolog Flexpen SC 09/20/18 20:59 6 units ACHS ESTEBAN Administration Protocol Insulin Glargine 0 units 08/23/18 21:00 08/25/18 08:06 Lantus Solostar Pen SC 09/22/18 20:59 5 units BID ESTEBAN Administration Protocol Latanoprost 1 drops 08/21/18 21:00 08/24/18 20:15 Xalatan Oph OPB 09/20/18 20:59 1 drops HS ESTEBAN Administration Lisinopril 5 mg 08/22/18 09:00 08/25/18 08:02 Zestril PO 09/21/18 08:59 5 mg DAILY ESTEBAN Administration Metoprolol Succinate 100 mg 08/22/18 09:00 08/25/18 08:03 Toprol Xl PO 09/21/18 08:59 100 mg DAILY ESTEBAN Administration Prednisone 5 mg 08/25/18 09:00 08/25/18 08:03 Prednisone PO 08/26/18 09:01 5 mg DAILY ESTEBAN Administration Rosuvastatin Calcium 2.5 mg 08/22/18 09:00 08/25/18 08:01 Crestor PO 09/21/18 08:59 2.5 mg DAILY ESTEBAN Administration Vitamin D 1,000 units 08/22/18 09:00 08/25/18 08:03 Vitamin D3 PO 09/21/18 08:59 1,000 units DAILY ESTEBAN Administration Past Medical History Medical History History of DVT (deep vein thrombosis) (Chronic) Glaucoma (Chronic) Blind left eye (Chronic) HTN (hypertension) (Chronic) Cataract (Chronic) HLD (hyperlipidemia) (Chronic) DM II (diabetes mellitus, type II), controlled (Chronic) CKD (chronic kidney disease), stage III (Chronic) Carotid artery disease (Chronic) "CTA 03/09/17: high-grade stenoses bilat ICA's" H/O deep venous thrombosis (Chronic) "2008. On Coumadin. " DM type 2 (diabetes mellitus, type 2) (Chronic) HTN (hypertension) (Chronic) Past Family History Family History Mother Diabetes Parkinson disease Father , age 94 CHF (congestive heart failure) Brother Myocardial infarction Past Surgical History Surgical History History of appendectomy (Chronic) History of (Chronic) History of colonoscopy (Chronic) Social History Smoking Status: Never smoker Do You Dip or Chew Tobacco: No Hx Alcohol Use: No Hx Substance Use: No Physical Exam Vital Signs Last Vital Signs Temp 36.3 C L 08/25/18 10:58 Pulse 59 L 08/25/18 10:58 Resp 22 08/25/18 10:58 BP 146/70 H 08/25/18 10:58 Pulse Ox 98 08/25/18 10:58 Testing Laboratory Results 08/21/18 13:00 08/25/18 06:37 PT 16.1 Seconds (9.0-12.0) H 08/25/18 06:36 INR 1.6 (0.9-1.1) H 08/25/18 06:36 Hemoglobin A1c 7.5 % (4.5-5.6) H 08/23/18 11:47 Urine Color Yellow 08/21/18 13:50 Urine Appearance Clear (Clear) 08/21/18 13:50 Urine pH 5.0 (4.5-7.5) 08/21/18 13:50 Ur Specific [place] 1.019 (1.000-1.030) 08/21/18 13:50 Urine Protein Negative (Negative) 08/21/18 13:50 Urine Glucose (UA) 3+ (Negative) H 08/21/18 13:50 Urine Ketones Negative (Negative) 08/21/18 13:50 Urine Nitrite Negative (Negative) 08/21/18 13:50 Ur Leukocyte Esterase Negative (Negative) 08/21/18 13:50 Urine WBC (Auto) 1-5 /hpf (0-5) 08/21/18 13:50 Urine RBC (Auto) 0-4 /hpf (0-4) 08/21/18 13:50 U Hyaline Cast (Auto) 1-5 /lpf (0-5) 08/21/18 13:50 U Epithel Cells (Auto) 5-10 /lpf (0-5) H 08/21/18 13:50 Urine Bacteria (Auto) Negative (Negative) 08/21/18 13:50 Blood Type A Negative 08/25/18 14:31 Antibody Screen NEGATIVE 08/25/18 14:31 08/25/18 08/25/18 08/25/18 16:08 11:13 07:37 POC Glucose 210 H 208 H 87 Electrocardiogram Date: 08/23/18 Findings: + NSR @ (63), + poor R wave progression, + RBBB (incomplete) and + FL (anterior) Chest X-Ray Date: 08/21/18 XR chest 2V routine CLINICAL HISTORY: 87 years-old Female presenting with eval for infiltrate on por table. TECHNIQUE: PA and lateral views of the chest were obtained. COMPARISON: 08/21/2018 at 12:34 PM. FINDINGS: Atherosclerosis of the aortic arch. Cardiac silhouette mildly enlarged. Mitral annular calcification. Lungs and pleural spaces clear. Degenerative changes of the thoracic spine. Upper abdomen normal. IMPRESSION: 1. No convincing evidence of an infiltrate at the right lung base. No acute cardiopulmonary disease. 2. Mild cardiomegaly. Electronically signed by: Andrew Swan M.D. 08/21/2018 3:36 PM Echocardiogram Date: 08/22/18 EF: 60-65 Other Findings: + atrial enlargement (L atrium) and + diastolic dysfunction (gra de 1) Valvular Disease: + MR (mild) Other Testing [place] [phone] Ultrasound Report Patient: ZULY KATdmkevin Date: 08/21/18 MR#: [id number] Acct ID:[id number]: Date: 1930ity Zip: [place] [address] Age: 87Location: 2S Sex: F Room/Bed: [facility] Att Phy: Gayle Sarkar, MDDiagnosis: SYNCOPE Mariam Phy: Samir Mai, DOService Date: 08/21/18 Fam Phy: Interpreting Phy: Andrew Swan MD Admit Phy: Gayle Sarkar MD Ordering Phy: Gayle Sarkar MD cc: ~ US carotid doppler BI CLINICAL HISTORY: 87 years-old Female presenting with syncope /carotid stenosis. TECHNIQUE: Real-time grayscale and color and spectral Doppler ultrasound imaging of the bilateral carotid arteries was performed. Stenosis measurements were based on NASCET-like criteria (distal lumen diameter as the denominator for stenosis measurement). COMPARISON: None. FINDINGS: RIGHT: Common carotid artery (CCA): Atherosclerosis at the carotid bulb. Peak systolic velocity (PSV) 69 cm/s. Internal carotid artery (ICA): Atherosclerosis of the proximal ICA with spectral broadening of waveforms in the proximal to midportion and parvus et tardus waveforms in the distal portion. PSV 337 cm/s. End diastolic velocity (EDV) 76 cm/s. ICA/CCA (systolic) ratio: 5.7. External carotid artery (ECA): Atherosclerosis. PSV 123 cm/s. LEFT: CCA: Atherosclerosis at the carotid bulb. PSV 74 cm/s. ICA: Severe atherosclerosis of the proximal to mid ICA with spectral broadening of waveforms in the proximal to midportion and parvus et tardus waveforms in the distal portion. PSV 453 cm/s. EDV 167 cm/s. ICA/CCA (systolic) ratio: 6.1. ECA: Atherosclerosis. PSV 120 cm/s. Bilateral antegrade flow within the vertebral arteries. Blood pressure: Brachial: Right: 207/87 mmHg, Left: 198/80 mmHg. Reference ranges: Stenosis measurements are compared to reference velocity parameters by the Society of Radiologists in Ultrasound (SRU) consensus and Sonographic NASCET index (S-NASCET). * SRU Primary parameters: ICA PSV <125 cm/s = normal or less than 50% stenosis; ICA PSV 125-230 cm/s = 50-69% stenosis; ICA PSV >230 cm/s = greater than or equal to 70% stenosis. * SRU Additional parameters: ICA/CCA PSV ratio <2 = normal or less than 50% stenosis; ratio 2-4 = 50-69% stenosis; ratio >4 = greater than or equal to 70% stenosis. ICA EDV <40 cm/s = normal or less than 50% stenosis; ICA EDV 40-100 cm/s = 50-69% stenosis; ICA EDV >100 cm/s = greater than or equal to 70% stenosis. * S-NASCET parameters: Deceleration spectral broadening + PSV <125 cm/s = less than 50% stenosis; pansystolic spectral broadening + PSV <125 cm/s = 16-49% stenosis; pansystolic spectral broadening + PSV >125 cm/s + EDV <110 cm/s or IC A/CCA PSV ratio 2-4 = 50-69% stenosis; pansystolic spectral broadening + PSV >270 cm/s OR EDV >110 cm/s OR ICA/CCA PSV ratio >4 = 70-79% stenosis; EDV >140 cm/s = 80-99% stenosis. IMPRESSION: 1. 70-79% stenosis of the proximal to mid right internal carotid artery. 2. 80-99% stenosis of the proximal to mid left internal carotid artery. 3. Severe systemic hypertension. Electronically signed by: Andrew Swan M.D. 08/21/2018 6:57 PM Dictated: 08/21/181852 Transcribed: 08/21/181852
--- NOTE | 2018-08-25 17:37 | Hospitalist Progress Note ---
Date of Service August 25, 2018 Assessment & Plan (1) Syncope: Present on admission with syncope (third events) No cardiac arrhythmia noted on telemetry Echocardiogram shows no evidence of valvular disease Carotid Doppler showed 70-79% stenosis of the proximal to mid right internal carotid artery. 80-99% stenosis of the proximal to mid left internal carotid artery. CT head showed no intracranial abnormality Vascular on board plan for left carotid endarterectomy tomorrow Cardiology consulted for preop cardiac risk evaluation Continue monitor in tele (2) Skin tear of left hand without complication: (3) Abrasion of left ear: Continue local wound care Wound nurse consulted Stable (4) Carotid artery disease: Carotid Doppler showed 70-79% stenosis of the proximal to mid right internal carotid artery. 80-99% stenosis of the proximal to mid left internal carotid artery. On low-dose rosuvastatin since pt unable to tolerate statin Continue Aspirin 81 mg and Plavix Continue holding Coumadin for procedure in am NPO after midnight (5) Pain of left great toe: Possible related to acute gout was starting on prednisone 5 mg Pain improves Stable (6) DM II (diabetes mellitus, type II), controlled: Last A1c 6.6 on 07/03/2018 Metformin on hold Pharmacy on board for glycemic management (7) HTN (hypertension): BP stable Continue Norvasc, Lisinopril and metoprolol (8) HLD (hyperlipidemia): Heart healthy diet On low-dose rosuvastatin/history of statin intolerance (9) CKD (chronic kidney disease), stage III: Presented with acute renal failure with dehydration with mild elevation of creatinine from baseline Renal function improved with IV fluids, Monitor BMP Stable (10) History of DVT (deep vein thrombosis): Coumadin on hold for anticipation of vascular surgery/left carotid endarterectomy on Thrus08/26/18 Disposition Continue monitor in tele Subjective Pt was seen and examined Sitting in chair with no distress Pt said that she feels fine Denies any chest pain, palpitation, dizziness and SOB Physical Exam Physical Exam: General- No acute distress Head- atraumatic Eyes- PERRL, EOMI, ENT- oropharynx clear, decrease hearing function Neck- supple, no JVD Lungs- clear to auscultation Heart- regular rhythm; +murmur Abdomen- normal bowel sounds, soft, nontender Extremities- no calf tenderness Neuro- alert, oriented x 3; PERRL, EOMI; no facial palsy; no dysarthria Skin- warm & dry Results & Data Vital Signs (Past 12 Hours) Vital Signs Temp Pulse Resp BP BP Pulse Ox 08/25/18 16:00 65 08/25/18 15:59 36.6 C 59 L 18 137/86 95 08/25/18 15:00 63 08/25/18 10:58 36.3 C L 59 L 22 146/70 H 98 08/25/18 08:00 67 20 96 08/25/18 07:54 36.4 C L 64 18 169/74 H 95 (1) Abrasion of left ear Encounter type: initial encounter Qualified Code(s): S00.412A - Abrasion of left ear, initial encounter (2) Skin tear of left hand without complication Encounter type: initial encounter Qualified Code(s): S61.412A - Laceration without foreign body of left hand, initial encounter (3) Syncope Syncope type: unspecified Qualified Code(s): R55 - Syncope and collapse
[2018-08-25] MEDS: LATANOPROST 0.005% OP SOLN 2.5 ML BTL OPB SCH (20:58)
[2018-08-26 06:48] LABS: INR 1.3 (0.9-1.1); Prothrombin Time 13.2 Seconds (9.0-12.0)
[2018-08-26] MEDS ORDERED: HEPARIN (PORCINE) 1000 UNIT/ML 10 ML (CATH LAB USE ONLY) ONE (06:53)
[2018-08-26] MEDS ORDERED: BACITRACIN INJ 50,000 UNIT VIAL ONE (06:54)
[2018-08-26] MEDS ORDERED: LIDOCAINE/EPINEPHRINE 1% 20 ML VIAL ONE (06:54)
[2018-08-26 07:11] LABS: BUN Creatinine Ratio 24.7 (10-20); Calcium 8.7 mg/dl (8.5-10.1); Creatinine Clr Calc Pharmacy 33.4 ml/min; Est GFR (African American) 48.2; Est GFR (Non-African American) 41.6; Potassium 4.1 mmol/L (3.5-5.1)
[2018-08-26] MEDS ORDERED: SUCCINYLCHOLINE CHLORIDE 20 MG/ML 10 ML VIAL ONE (07:26)
[2018-08-26] MEDS ORDERED: ePHEDrine sulfate 50 MG/ML AMP ONE (07:26)
[2018-08-26] MEDS ORDERED: PHENYLEPHRINE HCL 10 MG/ML VIAL ONE ×2 (07:26→07:28)
[2018-08-26] MEDS ORDERED: GLYCOPYRROLATE 0.2 MG/ML VIAL ONE (07:26)
[2018-08-26] MEDS ORDERED: ONDANSETRON INJ 2 MG/ML 2 ML VIAL ONE (07:26)
[2018-08-26] MEDS ORDERED: PROPOFOL IV EMULSION 10 MG/ML 20 ML VIAL IV ONE (07:26)
[2018-08-26] MEDS ORDERED: LIDOCAINE HCL 2% 2 ML VIAL/AMP(20MG/ML) INFIL ONE (07:26)
[2018-08-26] MEDS ORDERED: DEXAMETHASONE SOD INJ 4 MG/ML VIAL ONE (07:26)
[2018-08-26] MEDS ORDERED: NEOSTIGMINE METHYLSULFATE 5 MG/5 ML SYR ONE (07:26)
[2018-08-26] MEDS ORDERED: fentaNYL citrate 100 MCG/2 ML VIAL ONE (07:26)
[2018-08-26] MEDS ORDERED: NITROGLYCERIN 5 MG/ML 10 ML VIAL ONE (07:28)
--- NOTE | 2018-08-26 08:10 | History & Physical Bridge Note ---
Date of Service August 26, 2018 History & Physical Bridge Note I have examined the patient, reviewed the History & Physical and in the interval since the performance of the History & Physical I have noted the following changes of clinical significance: no changes noted pt marked again all questions answered
[2018-08-26] MEDS ORDERED: ePHEDrine sulfate 50 MG/ML AMP IV PRN (08:43)
[2018-08-26] MEDS ORDERED: fentaNYL citrate 100 MCG/2 ML VIAL IV PRN (08:43)
[2018-08-26] MEDS ORDERED: ONDANSETRON INJ 2 MG/ML 2 ML VIAL IV PRN (08:43)
[2018-08-26] MEDS ORDERED: ATROPINE SULFATE 0.1 MG/ML 10ML SYR IV PRN (08:43)
[2018-08-26] MEDS ORDERED: PROTAMINE SULFATE 10 MG/ML 5 ML VIAL ONE ×2 (10:10→10:16)
--- NOTE | 2018-08-26 10:16 | Post Operative Brief Note ---
Immediate Post Op Note v1 Date of Surgery August 26, 2018 Pre & Post Diagnosis Operation Date: 08/26/18 08:15 Pre-Op Diagnosis: Carotid Artery Disease Post-Op Diagnosis: Carotid Artery Disease Procedure Operation Date: 08/26/18 08:15 Actual Procedures p Left Carotid Endarterectomy with Patch(Left) - Farhad Aguirre MD Surgeon Farhad Aguirre MD [employer] zach sparks Estimated Blood Loss 100 Findings Consistent with Post-Op Diagnosis Drains [place] Catheter and [place] Drain (1/4in)
--- NOTE | 2018-08-26 10:48 | Critical Care Consultation ---
Date of Consultation August 26, 2018 Assessment & Plan (1) Carotid artery disease: Reason critically ill: 87yo female with PMHx of HTN, HLD, DMII, > 70% bilateral carotid artery stenosis and recurrent syncopal events who is s/p left carotid endarterectomy 08/26. PLAN: NEURO: -[facility] ICU NEGATIVE -Hx of recurrent syncopal episodes, likely secondary to significant carotid stenosis. -S/p LEFT carotid endarterectomy 08/26. Will monitor overnight in ICU -Continue pain medications per primary team CARDS/VASCULAR -Pt with Hx of HTN, HLD, DMII, DVT Hx currently on warfarin. Carotid occlusion -Doppler shows >80% on left, >70% on right. -s/p left endarterectomy 08/26. will monitor overnight in ICU -continue aspirin, plavix, restart warfarin >12hrs postop HTN -continue home norvasc, lisinopril, toprol HLD -Pt with Hx of statin intolerance -continue home crestor 2.5mg History of DVT -In 2008, currently on warfarin though held for surgery. -INR currently 1.3, consider restart >12hrs postop. RESPIRATORY -currently on 3L nasal cannula, saturating well. -no Hx of home use of O2. -chest xray with no evidence of lung infection -will continue to wean off oxygen and monitor GI -will advance diet as tolerated -Heart healthy, diabetic diet -continue PRN Zofran, maalox, milk of mag, miralax RENAL//LYTES -Pt with Hx of CKD -however, normal cr function currently -no electrolyte abnormalities -urine cath culture pending from primary team -will continue to monitor postop ENDO -PT with Hx of DMII -Hgba1c on 08/23 >7, sugars elevated -hold home metformin -Appreciate pharmacy consult already placed for glycemic control -ICU protocol for hyperglycemia otherwise HEME -No concerns, hematology labs unremarkable -will continue to monitor postop ID -No concerns currently -urine cath culture pending -will continue to monitor postop PIVs intact DVT Prophylaxis: SCDs, consider restart of warfarin Code status: FULL Dispo: ICU for postop monitoring Supervising Physician Co-Signing Physician Notes Dr. Stephens was resident physician during care of patient. I separately evaluated patient for salomon portions of the history and the exam. I was present during the critical portion of medical decision making, and I discussed the case with the resident. I generally agree with the findings and plan. Left carotid endarterectomy for symptomatic stenosis. Patient speaking in full sentences no difficulty swallowing, equal electrician locomotive strength. History of Present Illness Attending Physician: Nickolas Hollis MD History of Present Illness Pt is an 87yo with a PMHx significant for DMII, HTN, HLD, bilateral carotid stenosis >70% and recurrent syncopal episodes who is s/p left carotid endarterectomy 08/26. Pt is currently being monitored post-op in the ICU. States she feels her pain is well controlled currently but has a dry mouth. Denies current RICHARDS, dizziness, blurry vision, chest pain, SOB, abd pain, N/V, diarrhea or constipation. Allergies Allergy/AdvReac Type Severity Reaction Status Date / Time atorvastatin AdvReac Severe RIDGID Verified 08/26/18 07:27 MUSCLES ezetimibe AdvReac Severe RIGID Verified 08/26/18 07:27 MUSCLES Home Medications Home Medications Medication Instructions Recorded Confirmed Type amlodipine 10 mg PO DAILY 03/16/18 08/21/18 History aspirin [Aspir-81] 81 mg PO DAILY 03/16/18 08/21/18 History lisinopril 5 mg PO DAILY 03/16/18 08/21/18 History metformin 500 mg PO BID 03/16/18 08/21/18 History metoprolol succinate 100 mg PO DAILY 03/16/18 08/21/18 History rosuvastatin 2.5 mg PO DAILY 03/16/18 08/21/18 History warfarin 4 mg PO MOFR 03/16/18 08/21/18 History cholecalciferol (vitamin D3) 1,000 unit PO DAILY 08/21/18 08/21/18 History latanoprost 1 drp OPB HS 08/21/18 08/21/18 History warfarin 2 mg PO SUTUWETHSA 08/21/18 08/21/18 History Patient History Medical History History of DVT (deep vein thrombosis) (Chronic) Glaucoma (Chronic) Blind left eye (Chronic) HTN (hypertension) (Chronic) Cataract (Chronic) HLD (hyperlipidemia) (Chronic) DM II (diabetes mellitus, type II), controlled (Chronic) CKD (chronic kidney disease), stage III (Chronic) Carotid artery disease (Chronic) "CTA 03/09/17: high-grade stenoses bilat ICA's" H/O deep venous thrombosis (Chronic) "2009. On Coumadin. " DM type 2 (diabetes mellitus, type 2) (Chronic) HTN (hypertension) (Chronic) Surgical History History of appendectomy (Chronic) History of (Chronic) History of colonoscopy (Chronic) Family History Mother Diabetes Parkinson disease Father , age 94 CHF (congestive heart failure) Brother Myocardial infarction Social History Preferred Language: Hebrew Communication Ability: Effective Communication Ability Comment: [place], h/a are not charged Noc Analyst Required: No Beliefs That Will Affect Care: Religion Religion Beliefs: Hinduism marital status: / Current Living Situation: Alone Feels Safe at Home: Yes Safety Concerns: Feels Safe At This Time Smoking Status: Never smoker Do You Dip or Chew Tobacco: No Hx Alcohol Use: No Hx Substance Use: No Review of Systems Review of Systems: All systems reviewed & are unremarkable except as noted in HPI & below Physical Exam Physical Exam: General: Alert, resting comfortably in bed. HEENT: NC/AT, NC in nares. Chest: Nontender to palpation. CV: RRR, Normal s1, s2. Resp: Breath sounds clear bilaterally on front, no increased effort of breathing. Abdomen: Soft, nontender. No guarding. Extremities: SCDs on lower extremities. Results & Data Vital Signs (Past 12 Hours) Vital Signs Temp Pulse Resp BP Pulse Ox 08/26/18 07:41 36.5 C 64 20 180/77 H 96 08/26/18 04:00 36.5 C 61 18 165/75 H 96 08/25/18 23:30 36.8 C 67 19 149/71 H 98 Laboratory Results Laboratory Results - last 24 hr 08/25/18 08/25/18 08/25/18 14:31 16:08 20:30 PT INR Sodium Potassium Chloride Carbon Dioxide Anion Gap BUN Creatinine Est Cr Clr Drug Dosing Est GFR ( Amer) Est GFR (Non-Af Amer) BUN/Creatinine Ratio Glucose POC Glucose 210 H 207 H Calcium Blood Type A Negative Antibody Screen NEGATIVE 08/26/18 08/26/18 08/26/18 06:01 06:01 08:05 PT 13.2 H INR 1.3 H Sodium 141 Potassium 4.1 Chloride 109 H Carbon Dioxide 27 Anion Gap 5.0 BUN 29 H Creatinine 1.19 Est Cr Clr Drug Dosing 33.4 Est GFR ( Amer) 48.2 Est GFR (Non-Af Amer) 41.6 BUN/Creatinine Ratio 24.7 H Glucose 120 H POC Glucose 124 H Calcium 8.7 Blood Type Antibody Screen 08/26/18 10:55 PT INR Sodium Potassium Chloride Carbon Dioxide Anion Gap BUN Creatinine Est Cr Clr Drug Dosing Est GFR ( Amer) Est GFR (Non-Af Amer) BUN/Creatinine Ratio Glucose POC Glucose 144 H Calcium Blood Type Antibody Screen Medications Administered Home Medications amlodipine 10 mg PO DAILY 03/16/18 [History Confirmed 08/21/18] aspirin [Aspir-81] 81 mg PO DAILY 03/16/18 [History Confirmed 08/21/18] lisinopril 5 mg PO DAILY 03/16/18 [History Confirmed 08/21/18] metformin 500 mg PO BID 03/16/18 [History Confirmed 08/21/18] metoprolol succinate 100 mg PO DAILY 03/16/18 [History Confirmed 08/21/18] rosuvastatin 2.5 mg PO DAILY 03/16/18 [History Confirmed 08/21/18] warfarin 4 mg PO MOFR 03/16/18 [History Confirmed 08/21/18] cholecalciferol (vitamin D3) 1,000 unit PO DAILY 08/21/18 [History Confirmed 08/21/18] latanoprost 1 drp OPB HS 08/21/18 [History Confirmed 08/21/18] warfarin 2 mg PO SUTUWETHSA 08/21/18 [History Confirmed 08/21/18] Active Medications Acetaminophen (Tylenol) 650 mg PO Q4H PRN PRN Reason: Pain or Fever Stop: 09/20/18 18:50 Al Hydrox/Mg Hydrox/Simethicone (Maalox) 15 ml PO Q4H PRN PRN Reason: Dyspepsia Stop: 09/20/18 18:50 Amlodipine Besylate (Norvasc) 10 mg PO DAILY ESTEBAN Stop: 09/21/18 08:59 Last Admin: 08/25/18 08:02 Dose: 10 mg Documented by: Aspirin (Ecotrin Ectab) 81 mg PO DAILY [facility] Stop: 09/21/18 08:59 Last Admin: 08/25/18 08:02 Dose: 81 mg Documented by: Clopidogrel Bisulfate (Plavix) 75 mg PO QAM [facility] Stop: 09/22/18 08:59 Last Admin: 08/25/18 08:03 Dose: 75 mg Documented by: Dextrose (Dextrose 50%) 25 - 50 ml IV UD PRN; Protocol PRN Reason: Hypoglycemia Protocol Stop: 09/20/18 18:50 Glucagon (Glucagen) 1 mg SQ UD PRN; Protocol PRN Reason: Hypoglycemia Protocol Stop: 09/20/18 18:50 Glucose (Dex4 Glucose) 4 - 8 tabs PO UD PRN; Protocol PRN Reason: Hypoglycemia Protocol Stop: 09/20/18 18:50 Glucose (Glucose 40%) 15 - 30 gm PO UD PRN; Protocol PRN Reason: Hypoglycemia Protocol Stop: 09/20/18 18:50 Lactated Ringer's (Lr) 1,000 mls @ 50 mls/hr IV .Q20H ESTEBAN Stop: 09/25/18 11:49 Nitroglycerin/Dextrose (Nitroglycerin/D5w 100 Mcg/Ml) 250 mls @ 3 mls/hr IV .Q24H [facility]; Protocol Stop: 09/25/18 11:49 Insulin Aspart (Novolog Flexpen) 0 units SC ACHS [facility]; Protocol Stop: 09/20/18 20:59 Last Admin: 08/25/18 20:55 Dose: 3 units Documented by: Insulin Glargine (Lantus Solostar Pen) 0 units SC BID [facility]; Protocol Stop: 09/22/18 20:59 Last Admin: 08/25/18 20:53 Dose: 12 units Documented by: Latanoprost (Xalatan Oph) 1 drops OPB HS [facility] Stop: 09/20/18 20:59 Last Admin: 08/25/18 20:58 Dose: 1 drops Documented by: Lisinopril (Zestril) 5 mg PO DAILY [facility] Stop: 09/21/18 08:59 Last Admin: 08/25/18 08:02 Dose: 5 mg Documented by: Magnesium Hydroxide (Milk Of Magnesia) 30 ml PO Q12H PRN PRN Reason: Constipation Stop: 09/20/18 18:50 Metoprolol Succinate (Toprol Xl) 100 mg PO DAILY [facility] Stop: 09/21/18 08:59 Last Admin: 08/25/18 08:03 Dose: 100 mg Documented by: Miscellaneous (Carbohydrates For Hypoglycemia) 15 - 30 gm PO UD PRN PRN Reason: Hypoglycemia Treatment Stop: 09/20/18 18:50 Miscellaneous Information (Consult Glycemic Management Pharmacy) 1 ea N/A UD PRN PRN Reason: Consult Stop: 09/22/18 11:38 Morphine Sulfate (Morphine Sulfate) 2 mg IV Q2H PRN PRN Reason: Pain Stop: 09/09/18 11:49 Nitroglycerin (Nitrostat) 0.4 mg SL UD PRN PRN Reason: Chest Pain Stop: 09/20/18 18:50 Ondansetron HCl (Zofran) 4 mg IV Q6H PRN PRN Reason: Nausea Stop: 09/20/18 18:50 Polyethylene Glycol (Miralax Powder Packet) 17 gm PO DAILY PRN PRN Reason: Constipation Stop: 09/20/18 18:50 Rosuvastatin Calcium (Crestor) 2.5 mg PO DAILY [facility] Stop: 09/21/18 08:59 Last Admin: 08/25/18 08:01 Dose: 2.5 mg Documented by: Vitamin D (Vitamin D3) 1,000 units PO DAILY ESTEBAN Stop: 09/21/18 08:59 Last Admin: 08/25/18 08:03 Dose: 1,000 units Documented by: PG Care Time/CCT Total # of Minutes Spent Total Time Spent with Patient: Total time spent is greater than 50% in coordination of care (as documented) at patient's floor/unit and/or counseling patient:
--- NOTE | 2018-08-26 10:55 | Operative Report ---
Post Operative Report Pre & Post Diagnosis Operation Date: 08/26/18 08:15 Pre-Op Diagnosis: Carotid Artery Disease Post-Op Diagnosis: Carotid Artery Disease Procedure Operation Date: 08/26/18 08:15 Actual Procedures p Left Carotid Endarterectomy with Patch(Left) - Farhad Aguirre MD Surgeon Farhad Aguirre MD Patient was brought into the operating theater supine position roll placed underneath her shoulders left neck and chest was prepped Betadine solution properly draped general endotracheal anesthesia systemic antibiotics given a timeout was had patient has been percent Xylocaine with epi was used to infiltrate anterior to the sternocleido muscle approximately 3-1/2 to 4 inches incision was made deepened to subcutaneous tissue on to through the platysma onto the medial aspect of the sternocleido which was retracted laterally we then identified the facial vein which was low with doubly ligated divided the carotid was deep in his neck there was quite significant and could not be limited over operating extended the common carotid was then identified first we encircled that with a vessel loop in a Mihir fashion that we would probably try to put a shunt in the patient. We then continued up the superior thyroid which was encircled Mihir tie of 2-0 silk the external carotid was identified which was small and vessel loop was placed the internal carotid was carried out dissection we actually needed to extend the incision rubber process hand significant amount of subcutaneous fat was appreciated onto the before we got deep into the neck we identified some fibers which was initially thought that it was the hypoglossal nerve but as we dissected up and needed more exposure since the internal carotid as we dissected more more had about an inch and a half of plaque still going into the internal area we then identified the structure that was more in the capacity hypoglossal nerve and at that the initial fibers were again sent. A vessel loop was placed on the hypoglossal nerve I did not need to divide the digastric but we were certainly underneath the once we would immobilize this we placed the Mihir vessel loop around the internal carotid with the idea that we would probably need to shunt the patient due to critical stenosis here and on the similar side at this point once we had enough satisfactory mobilization I did divide this up suspensory ligament across for about another centimeter or so bringing the carotid down towards the operative field we have placed a Familia retractor for the exposure. We gave 9000 units of heparin waiting approximately 5 minutes and then we closed clamped the internal carotid with a bulldog clamp internal and the common while we are waiting for the heparin to take effect we have prepped the bovine patch on the field the common carotid was then opened no significant plaque was appreciated but most of the need to be at the takeoff of the internal carotid we cannot find a lumen for we used a knife to go onto the internal carotid area well beyond this plaque we can enter the lumen what artery appeared to be grossly normal once we had performed a history the patient was dated endarterectomy taken her all the way up to the internal carotid for the intima was quite adherent but it stated we were at least 2 inches into the internal carotid by from its takeoff before we found normal vessel we then proximally continue the endarterectomy of the common carotid and inversion endarterectomy through the external carotid at this point the bulldog clamp was taken off and we had feared bleeding retrograde from the internal carotid I placed an [place] shunt small to try to pass into the internal carotid area but that was difficulty it seemed like it was hanging up higher well beyond where we had finished the endarterectomy therefore with this I elected not to force the issue. We then did an ultrasound the patient we took the clamp off again and inferior better perfusion at this time with retrograde bleeding. The patch was brought onto the field and only completed later done with 6-0 Prolene suture prior to completing the patch then I was able to place a #3 bakes dilator and the internal carotid area prior to that backbleeding was excellent again with #3 went up to stop approximately an inch from the end of the patch and I felt some resistant to livestock. Flush the external and the common section on the endarterectomy site and tied down. The wound was then once the patch had been tied down the lead reversed the heparin with 45 mg of protamine waited and allocated time the area appeared quite satisfactory just a few areas along the suture line were oversewn 6-0 Prolene suture. Elected to drain the area with 1/4 inch [place] drain that came in incision but printed certain heads of sternocleido is in place along the artery. We placed some Surgicel temporarily hemostasis was excellent. Once we reestablish the flow we then checked the distal to the patch and the internal carotid area there was no thrill appreciated. Hemostasis satisfactorily was closed with 2-0 Dexon interrupted and eladio for skin edges there is still a little bit of oozing by the time we were down there another 25 mg of protamine. The end of procedure the patient was moving all extremities and was coherent there was no neuro deficit. Estimated blood loss approximately 100 cc. Addendum Hernan sparks present throughout the procedure and help with exposure and wound closure and traction on the suture throughout the procedure Sandstone Inspector Repairer majo sparks Estimated Blood Loss 100 Findings Consistent with Post-Op Diagnosis Specimens plaque Description of Procedure merda I attest to the content of the Intraoperative Record and any orders documented therein. Any exceptions are noted below.
--- NOTE | 2018-08-26 11:27 | Anesthesiology Progress Note ---
Date of Service August 26, 2018 Anesthesia Post Procedure Vital Signs Vital Signs: Temp Pulse Pulse Pulse Resp BP BP 08/26/18 11:21 36.1 C L 08/26/18 11:20 58 L 14 135/58 L 08/26/18 11:15 59 L 13 128/63 08/26/18 11:10 57 L 18 128/61 08/26/18 11:05 58 L 19 135/65 08/26/18 11:00 58 L 17 151/70 H 08/26/18 10:58 58 L 18 160/74 H 08/26/18 10:55 59 L 18 08/26/18 10:50 60 14 08/26/18 10:45 62 17 154/69 H 08/26/18 10:43 36.0 C L 59 L 61 17 156/64 H 08/26/18 07:41 36.5 C 64 20 180/77 H 08/26/18 04:00 36.5 C 61 18 165/75 H 08/25/18 23:30 36.8 C 67 19 149/71 H 08/25/18 20:00 36.9 C 66 18 157/75 H 08/25/18 16:00 65 08/25/18 15:59 36.6 C 59 L 18 137/86 08/25/18 15:00 63 BP BP Pulse Ox 08/26/18 11:21 99 08/26/18 11:20 99 08/26/18 11:15 100 08/26/18 11:10 97 08/26/18 11:05 98 08/26/18 11:00 99 08/26/18 10:58 99 08/26/18 10:55 99 08/26/18 10:50 99 08/26/18 10:45 100 08/26/18 10:43 158/50 H 156/69 H 99 08/26/18 07:41 96 08/26/18 04:00 96 08/25/18 23:30 98 08/25/18 20:00 95 08/25/18 16:00 08/25/18 15:59 95 08/25/18 15:00 Pain Intensity Left Neck: Pain Intensity: 0 Transfer of Care Handoff Completed per policy Notes Mental Status: alert / awake / arousable Patient Amnestic to Procedure: Yes Nausea / Vomiting: adequately controlled Pain: adequately controlled Airway Patency, RR, SpO2: stable & adequate BP & HR: stable & adequate Hydration State: stable & adequate Anesthetic Complications: no major complications apparent
[2018-08-26] MEDS: INSULIN ASPART 100 UNITS/ML 3 ML PEN SC SCH ×4 (12:07→21:40)
[2018-08-26] MEDS: AMLODIPINE BESYLATE 5 MG TAB PO SCH ×2 (12:08→17:34)
[2018-08-26] MEDS: ASPIRIN 81 MG ECTAB PO SCH (12:08)
[2018-08-26] MEDS: LACTATED RINGER'S 1,000 ML IV SCH (12:09)
[2018-08-26] MEDS: CHOLECALCIFEROL 1,000 UNITS TAB PO SCH (12:09)
[2018-08-26] MEDS: LISINOPRIL 5 MG TAB PO SCH (12:09)
[2018-08-26] MEDS: INSULIN GLARGINE SOLOSTAR 100 UNITS/ML 3 ML PEN SC SCH ×2 (12:12→21:39)
[2018-08-26] MEDS: METOPROLOL SUCC 50MG EXT REL TAB PO SCH (12:29)
[2018-08-26] MEDS: CLOPIDOGREL BISULFATE 75 MG TAB PO SCH (14:34)
[2018-08-26] MEDS: ROSUVASTATIN CALCIUM 5 MG TAB PO SCH (14:34)
[2018-08-26] MEDS: predniSONE 5 MG TAB PO SCH ×2 (14:34→17:34)
[2018-08-26] MEDS: NITROGLYCERIN/D5W 100MCG/ML 250 ML IV SCH (17:21)
--- NOTE | 2018-08-26 17:45 | Cardiology Progress Note ---
Date of Service August 26, 2018 Assessment & Plan (1) Carotid artery disease: Status post left carotid endarterectomy 08/26/2018. Continue aspirin, clopidogrel, oral lisinopril and oral metoprolol. Agree with IV nitroglycerin as needed to keep systolic blood pressure ideally in the 009432 range. SCDs for DVT prophylaxis. Reassess candidacy for pharmacologic prophylaxis as postoperative course progresses. (2) Syncope: Stable sinus rhythm in the mid 70 be per minute range noted. Continue to monitor cardiac rhythm given history of recurrent syncope. Subjective Chief complaint: Postoperative follow-up Subjective: Patient seen in ICU room 111 post left carotid endarterectomy. She has a radial arterial line in place. Systolic blood pressure has inched up to the upper 150 to lower 160 range and low-dose IV nitroglycerin was recently initiated. She is comfortable. No complaints. She follows commands and moves all 4 extremities. Non-saturated left neck dressing in place. Review of Systems Review of Systems: All systems reviewed & are unremarkable except as noted in HPI & below Physical Exam Physical Exam: Temp Pulse Resp BP Pulse Ox 36.7 C 75 18 147/64 H 97 08/26/18 16:00 08/26/18 17:30 08/26/18 17:30 08/26/18 16:00 08/26/18 17:30 Constitutional: WD/WN, vitals as above Respiratory: normal respiratory effort, lungs clear to auscultation Cardiovascular: RRR, no murmur, no edema Gastrointestinal (Abdomen): normal bowel sounds, soft, nontender, no hepatosplenomegaly Neurologic: PERRL, EOMI, accommodation nl, no face palsy, no dysarthria Results & Data Laboratory Results Coagulation 08/26/18 Range/Units 06:01 PT 13.2 H (9.0-12.0) Seconds Comprehensive Metabolic Panel 08/26/18 Range/Units 06:01 Sodium 141 (136-145) mmol/L Potassium 4.1 (3.5-5.1) mmol/L Chloride 109 H (98-107) mmol/L Carbon Dioxide 27 (21-32) mmol/L BUN 29 H (7-18) mg/dl Creatinine 1.19 (0.6-1.2) mg/dl Glucose 120 H (70-99) mg/dl Calcium 8.7 (8.5-10.1) mg/dl Intake and Output 08/26/18 08/26/18 08/26/18 06:59 14:59 22:59 Intake Total 1300 / 1584.167 284.167 / 1584.167 Output Total 600 / 1000 325 / 400 75 / 400 Balance -600 / 425 975 / 1184.167 209.167 / 1184.167 Intake: IV 184.167 / 184.167 Lr 1,000 ml @ 50 mls/hr IV . 184.167 / 184.167 [facility] Rx#:[id number] IV Perioperative 1300 / 1300 Oral 100 / 100 Output: Urine 600 / 1000 Urine Amount (Catheter) 325 / 400 75 / 400 [place]/Indwelling 325 / 400 75 / 400 Other: Other Intake Source NPO Weight 71 kg 71 kg Patient Weight 08/27/18 06:59 Weight 71 kg (1) Syncope Syncope type: unspecified Qualified Code(s): R55 - Syncope and collapse
--- NOTE | 2018-08-26 20:08 | Hospitalist Progress Note ---
Date of Service August 26, 2018 Assessment & Plan (1) Syncope: Present on admission with syncope (third events) No cardiac arrhythmia noted on telemetry Echocardiogram shows no evidence of valvular disease Carotid Doppler showed 70-79% stenosis of the proximal to mid right internal carotid artery. 80-99% stenosis of the proximal to mid left internal carotid artery. CT head showed no intracranial abnormality Vascular on board S/P left carotid endarterectomy performed today by Dr. Aguirre No Post op complication Hold coumadin for now Monitor in the ICU (2) Skin tear of left hand without complication: Continue local wound care Wound nurse consulted (3) Abrasion of left ear: Continue local wound care Wound nurse consulted Stable (4) Carotid artery disease: Carotid Doppler showed 70-79% stenosis of the proximal to mid right internal carotid artery. 80-99% stenosis of the proximal to mid left internal carotid artery. S/P left carotid endarterectomy performed today by Dr. Aguirre No Post op complication Continue Aspirin 81 mg and Plavix and low dose statin Will resume coumadin tomorrow (5) Pain of left great toe: Possible related to acute gout was starting on prednisone 5 mg Pain improves Stable (6) DM II (diabetes mellitus, type II), controlled: Last A1c 6.6 on 07/03/2018 Metformin on hold Pharmacy on board for glycemic management (7) HTN (hypertension): BP stable Continue Norvasc, Lisinopril and metoprolol (8) HLD (hyperlipidemia): Heart healthy diet On low-dose rosuvastatin/history of statin intolerance (9) CKD (chronic kidney disease), stage III: Presented with acute renal failure with dehydration with mild elevation of creatinine from baseline Renal function improved with IV fluids, Monitor BMP Stable (10) History of DVT (deep vein thrombosis): Coumadin on hold recent left carotid endarterectomy done today Disposition Continue monitor in ICU Subjective Pt was seen and examined Lying in bed with no distress Pt said that she having pain in her left side neck area around the incision area Denies any chest pain, palpitation, dizziness and SOB Physical Exam Physical Exam: General- No acute distress Head- atraumatic Eyes- PERRL, EOMI, ENT- oropharynx clear Neck- supple, no JVD, Left-sided CEA surgical dressing Lungs- clear to auscultation Heart- regular rhythm; no murmur Abdomen- normal bowel sounds, soft, nontender Extremities- no calf tenderness Neuro- alert, oriented x 3; PERRL, EOMI; no facial palsy; no dysarthria Skin- warm & dry Results & Data Vital Signs (Past 12 Hours) Vital Signs Temp Pulse Pulse Resp BP BP BP 08/26/18 18:00 68 12 146/69 H 08/26/18 17:30 75 18 08/26/18 17:00 67 14 08/26/18 16:30 66 16 08/26/18 16:27 58 L 08/26/18 16:00 36.7 C 58 L 12 147/64 H 08/26/18 15:30 57 L 14 08/26/18 15:00 57 L 18 08/26/18 14:30 52 L 14 08/26/18 14:01 58 L 15 08/26/18 14:00 36.7 C 63 16 135/66 08/26/18 13:30 59 L 15 08/26/18 13:00 57 L 14 08/26/18 12:30 56 L 14 08/26/18 12:00 36.4 C L 54 L 12 122/67 08/26/18 11:30 56 L 16 08/26/18 11:25 57 L 12 128/62 08/26/18 11:21 36.1 C L 08/26/18 11:20 58 L 14 135/58 L 08/26/18 11:15 59 L 13 128/63 08/26/18 11:10 57 L 18 128/61 08/26/18 11:05 58 L 19 135/65 08/26/18 11:00 58 L 17 151/70 H 08/26/18 10:58 58 L 18 160/74 H 08/26/18 10:55 59 L 18 08/26/18 10:50 60 14 08/26/18 10:45 62 17 154/69 H 08/26/18 10:43 36.0 C L 59 L 61 17 156/64 H 158/50 H 156/69 H Pulse Ox 08/26/18 18:00 96 08/26/18 17:30 97 08/26/18 17:00 97 08/26/18 16:30 97 08/26/18 16:27 08/26/18 16:00 94 08/26/18 15:30 100 08/26/18 15:00 99 08/26/18 14:30 99 08/26/18 14:01 98 08/26/18 14:00 98 08/26/18 13:30 97 08/26/18 13:00 98 08/26/18 12:30 98 08/26/18 12:00 97 08/26/18 11:30 97 08/26/18 11:25 97 08/26/18 11:21 99 08/26/18 11:20 99 08/26/18 11:15 100 08/26/18 11:10 97 08/26/18 11:05 98 08/26/18 11:00 99 08/26/18 10:58 99 08/26/18 10:55 99 08/26/18 10:50 99 08/26/18 10:45 100 08/26/18 10:43 99 (1) Abrasion of left ear Encounter type: initial encounter Qualified Code(s): S00.412A - Abrasion of left ear, initial encounter (2) Skin tear of left hand without complication Encounter type: initial encounter Qualified Code(s): S61.412A - Laceration without foreign body of left hand, initial encounter (3) Syncope Syncope type: unspecified Qualified Code(s): R55 - Syncope and collapse
[2018-08-26] MEDS: MoRPHine SULFATE 2 MG/ML CARP IV PRN (21:34)
[2018-08-26] MEDS: LATANOPROST 0.005% OP SOLN 2.5 ML BTL OPB SCH (21:36)
[2018-08-27] MEDS: MoRPHine SULFATE 2 MG/ML CARP IV PRN (03:53)
[2018-08-27 04:48] LABS: Basophils # (auto) 0.01 K/uL (0-0.2); Basophils % (auto) 0.1 %; Hematocrit (blood only) 38.5 % (37-47); Hemoglobin 12.8 g/dL (12.0-16.0); Immature Granulocytes # (auto) 0.05 K/uL (0.00-0.02); Immature Granulocytes % (auto) 0.5 %; Lymphocytes # (auto) 1.08 K/uL (1.2-3.4); Lymphocytes % (auto) 11.6 %; Mean Corpuscular Hgb Conc 33.2 g/dL (32-36); Mean Corpuscular Volume 95.5 fL (80-100); Mean Platelet Volume 10.1 fL (7.4-10.4); Monocytes # (auto) 0.95 K/uL (0.11-0.59); Monocytes % (auto) 10.2 %; Neutrophils # (auto) 7.26 K/uL (1.4-6.5); Neutrophils % (auto) 77.6 %; Platelet Count 141 K/uL (130-400); RDW Coefficient of Variation 13.5 % (11.5-14.5); RDW Standard Deviation 47.4 fL (36.4-46.3); Red Blood Count 4.03 M/uL (4.2-5.4); White Blood Count 9.35 K/uL (4.8-10.8)
[2018-08-27 05:06] LABS: INR 1.2 (0.9-1.1); Prothrombin Time 12.5 Seconds (9.0-12.0)
[2018-08-27 05:09] LABS: BUN Creatinine Ratio 22.2 (10-20); Calcium 8.4 mg/dl (8.5-10.1); Creatinine Clr Calc Pharmacy 44.2 ml/min; Est GFR (African American) 67.6; Est GFR (Non-African American) 58.3; Potassium 4.6 mmol/L (3.5-5.1)
--- NOTE | 2018-08-27 06:23 | Surgery Progress Note ---
Date of Service August 27, 2018 Assessment & Plan (1) Carotid artery disease: 08/27/18 POD #1 left carotid endarterectomy will d/c lima, hopefully get off nitro drip harry from incision removed increase activity leave a- line in until off drip suspect keep in hospital another 24-48 hours 08/25/18 plan for left car endarterectomy with angioplasty for tomorrow(pt marked) r and c including possible stroke explained to pt and wants to proceed all questions answered including whether or not it will help her dizziness(unlikely but hope so) cardiology to see preop permit in chart will talk to daughter today to surgical ICU post op 08/24/18 will discuss with family members reg potential car surgery if pt still agreeable will need cardiology evaluation preop tentatively plan surgery for left car syncopal episodes unlikely related to car stenosis INR 2.2 on coumadin on plavix rec stopping coumadin continue plavix bridge with Lovenox 1. 70-79% stenosis of the proximal to mid right internal carotid artery. 2. 80-99% stenosis of the proximal to mid left internal carotid artery. Discussed left carotid endarterectomy and recovery with the patient and her daughter. She is reluctant to proceed, but seems more likely to consider during this admission. She wants to think about it overnight, will see her again tomorrow with Dr. Aguirre. Subjective feels fine no nausea minimal pain Physical Exam Physical Exam: alert coherent neuro intact incision without hematoma minimal bruising good left sup temp pulse Results & Data Vital Signs (Past 12 Hours) bp under control with low drip nitro
[2018-08-27] MEDS ORDERED: OXYCODONE/ACETAMINOPHEN 5mg/325mg TAB PO PRN (06:27)
[2018-08-27] MEDS: ASPIRIN 81 MG ECTAB PO SCH (08:02)
[2018-08-27] MEDS: ROSUVASTATIN CALCIUM 5 MG TAB PO SCH (08:03)
[2018-08-27] MEDS: METOPROLOL SUCC 50MG EXT REL TAB PO SCH (08:06)
[2018-08-27] MEDS: CHOLECALCIFEROL 1,000 UNITS TAB PO SCH (08:06)
[2018-08-27] MEDS: CLOPIDOGREL BISULFATE 75 MG TAB PO SCH (08:06)
[2018-08-27] MEDS: LISINOPRIL 5 MG TAB PO SCH (08:07)
[2018-08-27] MEDS: AMLODIPINE BESYLATE 5 MG TAB PO SCH (08:07)
[2018-08-27] MEDS: INSULIN GLARGINE SOLOSTAR 100 UNITS/ML 3 ML PEN SC SCH ×2 (08:08→21:44)
[2018-08-27] MEDS: INSULIN ASPART 100 UNITS/ML 3 ML PEN SC SCH ×4 (08:13→21:45)
[2018-08-27] MEDS: LACTATED RINGER'S 1,000 ML IV SCH (08:16)
--- NOTE | 2018-08-27 08:54 | Critical Care Progress Note ---
Date of Service August 27, 2018 Assessment & Plan (1) Carotid artery disease: Reason critically ill: 87yo female with PMHx of HTN, HLD, DMII, > 70% bilateral carotid artery stenosis and recurrent syncopal events who is s/p left carotid endarterectomy 08/26. PLAN: NEURO: -[facility] NEGATIVE -Hx of recurrent syncopal episodes, likely secondary to significant carotid stenosis. -S/p LEFT carotid endarterectomy 08/26. -Continue pain medications per primary team CARDS/VASCULAR -Pt with Hx of HTN, HLD, DMII, DVT Hx currently on warfarin. Carotid occlusion -Doppler shows >80% on left, >70% on right. -s/p left endarterectomy 08/26. will monitor overnight in ICU -continue aspirin, plavix, restart warfarin 08/28 HTN -weaning off of nitroglycerin -continue home norvasc, lisinopril, toprol HLD -Pt with Hx of statin intolerance -continue home crestor 2.5mg History of DVT -In 2008, currently on warfarin though held for surgery. -INR currently 1.2, consider restart 08/27 RESPIRATORY -currently on room air, saturating well. -no Hx of home use of O2. -chest xray with no evidence of lung infection -will continue to wean off oxygen and monitor GI -will advance diet as tolerated -Heart healthy, diabetic diet -continue PRN Zofran, maalox, milk of mag, miralax RENAL//LYTES -Pt with Hx of CKD -however, normal cr function currently -no electrolyte abnormalities -urine cath culture pending from primary team -will continue to monitor postop ENDO -PT with Hx of DMII -Hgba1c on 08/23 >7, sugars elevated -hold home metformin -Appreciate pharmacy consult already placed for glycemic control -ICU protocol for hyperglycemia otherwise HEME -No concerns, hematology labs unremarkable -will continue to monitor postop ID -No concerns currently -urine cath culture pending -will continue to monitor postop PIVs intact DVT Prophylaxis: SCDs, consider restart of warfarin Code status: FULL Dispo: stable for downgrade from ICU Supervising Physician Co-Signing Physician Notes Dr. Stephens was resident physician during care of patient. I separately evaluated patient for salomon portions of the history and the exam. I was present during the critical portion of medical decision making, and I discussed the case with the resident. I generally agree with the findings and plan. History of DVT, this was in 2008, unclear patient had subsequent DVT or if this was provoked DVT, as the evidence is not clear that she requires extended anticoagulation will defer Coumadin 1 additional day cover with regular DVT p rophylaxis and start Coumadin tomorrow. Decreasing nitroglycerin requirement, restarting antihypertensive home meds. Stable for downgrade out of ICU later today. Subjective Ms. Gonzales states she has some mild pain in her neck that she received pain medication for this AM. Otherwise feels she's doing well. Currently denies RICHARDS, dizziness, chest pain, SOB, palps, abd pain. Review of Systems Review of Systems: All systems reviewed & are unremarkable except as noted in HPI & below Physical Exam Physical Exam: General: Alert, resting comfortably in bed. HEENT: NC/AT, NC in nares. Left sided surgical scar stapled, no evidence of drainage. Chest: Nontender to palpation. CV: RRR, Normal s1, s2. Resp: Breath sounds clear bilaterally , no increased effort of breathing. Abdomen: Soft, nontender. No guarding. Extremities: SCDs on lower extremities. Results & Data Vital Signs (Past 12 Hours) Vital Signs Temp Pulse Resp BP Pulse Ox 08/27/18 06:01 69 9 L 94 08/27/18 06:00 73 10 L 140/61 94 08/27/18 05:30 67 19 92 08/27/18 05:01 72 6 L 95 08/27/18 05:00 78 4 L 157/71 H 93 08/27/18 04:30 81 4 L 92 08/27/18 04:00 36.7 C 84 4 L 134/64 95 08/27/18 03:30 71 2 L 93 08/27/18 03:01 82 12 182/76 H 96 08/27/18 03:00 86 15 08/27/18 02:30 73 16 94 08/27/18 02:01 71 13 95 08/27/18 02:00 75 12 143/65 H 92 08/27/18 01:30 77 6 L 96 08/27/18 01:01 68 16 96 08/27/18 01:00 74 18 147/67 H 95 08/27/18 00:30 73 15 94 08/27/18 00:01 36.4 C L 72 4 L 96 08/27/18 00:00 73 3 L 151/70 H 94 08/26/18 23:30 74 8 L 95 08/26/18 23:01 64 2 L 94 08/26/18 23:00 70 8 L 134/66 94 08/26/18 22:30 71 5 L 95 08/26/18 22:01 77 0 L 96 08/26/18 22:00 73 0 L 143/62 H 96 08/26/18 21:30 77 9 L 95 08/26/18 21:01 76 0 L 95 08/26/18 21:00 77 0 L 132/70 94 Laboratory Results Laboratory Results - last 24 hr 08/26/18 08/26/18 08/26/18 10:55 11:45 12:01 WBC RBC Hgb Hct MCV MCH MCHC RDW Std Deviation RDW Coeff of Basil Plt Count MPV Immature Gran % (Auto) Neut % (Auto) Lymph % (Auto) [place] % (Auto) Eos % (Auto) Baso % (Auto) Immature Gran # (Auto) Neut # (Auto) Lymph # (Auto) [place] # (Auto) Eos # (Auto) Baso # (Auto) PT INR Sodium Potassium Chloride Carbon Dioxide Anion Gap BUN Creatinine Est Cr Clr Drug Dosing Est GFR ( Amer) Est GFR (Non-Af Amer) BUN/Creatinine Ratio Glucose POC Glucose 144 H 163 H Calcium Nasal Screen MRSA (PCR) Negative 08/26/18 08/26/18 08/27/18 17:10 21:38 04:31 WBC 9.35 RBC 4.03 L Hgb 12.8 Hct 38.5 MCV 95.5 MCH 31.8 MCHC 33.2 RDW Std Deviation 47.4 H RDW Coeff of Basil 13.5 Plt Count 141 MPV 10.1 Immature Gran % (Auto) 0.5 Neut % (Auto) 77.6 Lymph % (Auto) 11.6 [place] % (Auto) 10.2 Eos % (Auto) 0.0 Baso % (Auto) 0.1 Immature Gran # (Auto) 0.05 H Neut # (Auto) 7.26 H Lymph # (Auto) 1.08 L [place] # (Auto) 0.95 H Eos # (Auto) 0.00 Baso # (Auto) 0.01 PT INR Sodium Potassium Chloride Carbon Dioxide Anion Gap BUN Creatinine Est Cr Clr Drug Dosing Est GFR ( Amer) Est GFR (Non-Af Amer) BUN/Creatinine Ratio Glucose POC Glucose 208 H 207 H Calcium Nasal Screen MRSA (PCR) 08/27/18 08/27/18 08/27/18 04:31 04:31 07:30 WBC RBC Hgb Hct MCV MCH MCHC RDW Std Deviation RDW Coeff of Basil Plt Count MPV Immature Gran % (Auto) Neut % (Auto) Lymph % (Auto) [place] % (Auto) Eos % (Auto) Baso % (Auto) Immature Gran # (Auto) Neut # (Auto) Lymph # (Auto) [place] # (Auto) Eos # (Auto) Baso # (Auto) PT 12.5 H INR 1.2 H Sodium 137 Potassium 4.6 Chloride 106 Carbon Dioxide 25 Anion Gap 6.0 BUN 20 H Creatinine 0.90 Est Cr Clr Drug Dosing 44.2 Est GFR ( Amer) 67.6 Est GFR (Non-Af Amer) 58.3 BUN/Creatinine Ratio 22.2 H Glucose 156 H POC Glucose 124 H Calcium 8.4 L Nasal Screen MRSA (PCR) Medications Administered Home Medications amlodipine 10 mg PO DAILY 03/16/18 [History Confirmed 08/21/18] aspirin [Aspir-81] 81 mg PO DAILY 03/16/18 [History Confirmed 08/21/18] lisinopril 5 mg PO DAILY 03/16/18 [History Confirmed 08/21/18] metformin 500 mg PO BID 03/16/18 [History Confirmed 08/21/18] metoprolol succinate 100 mg PO DAILY 03/16/18 [History Confirmed 08/21/18] rosuvastatin 2.5 mg PO DAILY 03/16/18 [History Confirmed 08/21/18] warfarin 4 mg PO MOFR 03/16/18 [History Confirmed 08/21/18] cholecalciferol (vitamin D3) 1,000 unit PO DAILY 08/21/18 [History Confirmed 08/21/18] latanoprost 1 drp OPB HS 08/21/18 [History Confirmed 08/21/18] warfarin 2 mg PO SUTUWETHSA 08/21/18 [History Confirmed 08/21/18] Active Medications Acetaminophen (Tylenol) 650 mg PO Q4H PRN PRN Reason: Pain or Fever Stop: 09/20/18 18:50 Al Hydrox/Mg Hydrox/Simethicone (Maalox) 15 ml PO Q4H PRN PRN Reason: Dyspepsia Stop: 09/20/18 18:50 Amlodipine Besylate (Norvasc) 10 mg PO DAILY [facility] Stop: 09/21/18 08:59 Last Admin: 08/27/18 08:07 Dose: 10 mg Documented by: Aspirin (Ecotrin Ectab) 81 mg PO DAILY [facility] Stop: 09/21/18 08:59 Last Admin: 08/27/18 08:02 Dose: 81 mg Documented by: Clopidogrel Bisulfate (Plavix) 75 mg PO QAM [facility] Stop: 09/22/18 08:59 Last Admin: 08/27/18 08:06 Dose: 75 mg Documented by: Dextrose (Dextrose 50%) 25 - 50 ml IV UD PRN; Protocol PRN Reason: Hypoglycemia Protocol Stop: 09/20/18 18:50 Enoxaparin Sodium (Lovenox) [facility] [place] Stop: 09/26/18 10:29 Last Admin: 08/27/18 10:58 Dose: 40 mg Documented by: Glucagon (Glucagen) 1 mg SQ UD PRN; Protocol PRN Reason: Hypoglycemia Protocol Stop: 09/20/18 18:50 Glucose (Dex4 Glucose) 4 - 8 tabs PO UD PRN; Protocol PRN Reason: Hypoglycemia Protocol Stop: 09/20/18 18:50 Glucose (Glucose 40%) 15 - 30 gm PO UD PRN; Protocol PRN Reason: Hypoglycemia Protocol Stop: 09/20/18 18:50 Lactated Ringer's (Lr) 1,000 mls @ 50 mls/hr IV .Q20H [facility] Stop: 09/25/18 11:49 Last Admin: 08/27/18 08:16 Dose: 50 mls/hr Documented by: Nitroglycerin/Dextrose (Nitroglycerin/D5w 100 Mcg/Ml) 250 mls @ 3 mls/hr IV .Q24H [facility]; Protocol Stop: 09/25/18 11:49 Last Titration: 08/26/18 21:20 Dose: 5 mcg/min, 3 mls/hr Documented by: Insulin Aspart (Novolog Flexpen) 0 units SC ACHS [facility]; Protocol Stop: 09/20/18 20:59 Last Admin: 08/27/18 08:13 Dose: 6 units Documented by: Insulin Glargine (Lantus Solostar Pen) 0 units SC BID [facility]; Protocol Stop: 09/22/18 20:59 Last Admin: 08/27/18 08:08 Dose: 12 units Documented by: Latanoprost (Xalatan Oph) 1 drops OPB HS [facility] Stop: 09/20/18 20:59 Last Admin: 08/26/18 21:36 Dose: 1 drops Documented by: Lisinopril (Zestril) 5 mg PO DAILY [facility] Stop: 09/21/18 08:59 Last Admin: 08/27/18 08:07 Dose: 5 mg Documented by: Magnesium Hydroxide (Milk Of Magnesia) 30 ml PO Q12H PRN PRN Reason: Constipation Stop: 09/20/18 18:50 Metoprolol Succinate (Toprol Xl) 100 mg PO DAILY [facility] Stop: 09/21/18 08:59 Last Admin: 08/27/18 08:06 Dose: 100 mg Documented by: Miscellaneous (Carbohydrates For Hypoglycemia) 15 - 30 gm PO UD PRN PRN Reason: Hypoglycemia Treatment Stop: 09/20/18 18:50 Miscellaneous Information (Consult Glycemic Management Pharmacy) 1 ea N/A UD PRN PRN Reason: Consult Stop: 09/22/18 11:38 Nitroglycerin (Nitrostat) 0.4 mg SL UD PRN PRN Reason: Chest Pain Stop: 09/20/18 18:50 Ondansetron HCl (Zofran) 4 mg IV Q6H PRN PRN Reason: Nausea Stop: 09/20/18 18:50 Last Admin: 08/26/18 12:51 Dose: 4 mg Documented by: Oxycodone/Acetaminophen (Percocet 5mg/325mg) 1 tab PO Q4H PRN PRN Reason: Pain Stop: 09/10/18 06:26 Polyethylene Glycol (Miralax Powder Packet) 17 gm PO DAILY PRN PRN Reason: Constipation Stop: 09/20/18 18:50 Rosuvastatin Calcium (Crestor) 2.5 mg PO DAILY [facility] Stop: 09/21/18 08:59 Last Admin: 08/27/18 08:03 Dose: 2.5 mg Documented by: Vitamin D (Vitamin D3) 1,000 units PO DAILY [facility] Stop: 09/21/18 08:59 Last Admin: 08/27/18 08:06 Dose: 1,000 units Documented by:
--- NOTE | 2018-08-27 09:04 | Anesthesiology Progress Note ---
Date of Service August 27, 2018 Anesthesia Post Procedure Vital Signs Vital Signs: Temp Pulse Pulse Resp BP BP BP 08/27/18 06:01 69 9 L 08/27/18 06:00 73 10 L 140/61 08/27/18 05:30 67 19 08/27/18 05:01 72 6 L 08/27/18 05:00 78 4 L 157/71 H 08/27/18 04:30 81 4 L 08/27/18 04:00 36.7 C 84 4 L 134/64 08/27/18 03:30 71 2 L 08/27/18 03:01 82 12 182/76 H 08/27/18 03:00 86 15 08/27/18 02:30 73 16 08/27/18 02:01 71 13 08/27/18 02:00 75 12 143/65 H 08/27/18 01:30 77 6 L 08/27/18 01:01 68 16 08/27/18 01:00 74 18 147/67 H 08/27/18 00:30 73 15 08/27/18 00:01 36.4 C L 72 4 L 08/27/18 00:00 73 3 L 151/70 H 08/26/18 23:30 74 8 L 08/26/18 23:01 64 2 L 08/26/18 23:00 70 8 L 134/66 08/26/18 22:30 71 5 L 08/26/18 22:01 77 0 L 08/26/18 22:00 73 0 L 143/62 H 08/26/18 21:30 77 9 L 08/26/18 21:01 76 0 L 08/26/18 21:00 77 0 L 132/70 08/26/18 20:30 82 17 08/26/18 20:01 80 18 08/26/18 20:00 36.5 C 87 17 172/75 H 08/26/18 19:30 62 15 08/26/18 19:00 67 12 08/26/18 18:45 75 11 L 08/26/18 18:00 68 12 146/69 H 08/26/18 17:30 75 18 08/26/18 17:00 67 14 08/26/18 16:30 66 16 08/26/18 16:27 58 L 08/26/18 16:00 36.7 C 58 L 12 147/64 H 07/18/19 15:30 57 L 14 08/26/18 15:00 57 L 18 08/26/18 14:30 52 L 14 08/26/18 14:01 58 L 15 08/26/18 14:00 36.7 C 63 16 135/66 08/26/18 13:30 59 L 15 08/26/18 13:00 57 L 14 08/26/18 12:30 56 L 14 08/26/18 12:00 36.4 C L 54 L 12 122/67 08/26/18 11:30 56 L 16 08/26/18 11:25 57 L 12 128/62 08/26/18 11:21 36.1 C L 08/26/18 11:20 58 L 14 135/58 L 08/26/18 11:15 59 L 13 128/63 08/26/18 11:10 57 L 18 128/61 08/26/18 11:05 58 L 19 135/65 08/26/18 11:00 58 L 17 151/70 H 08/26/18 10:58 58 L 18 160/74 H 08/26/18 10:55 59 L 18 08/26/18 10:50 60 14 08/26/18 10:45 62 17 154/69 H 08/26/18 10:43 36.0 C L 59 L 61 17 156/64 H 158/50 H 156/69 H Pulse Ox 08/27/18 06:01 94 08/27/18 06:00 08/27/18 05:30 08/27/18 05:01 08/27/18 05:00 08/27/18 04:30 92 08/27/18 04:00 08/27/18 03:30 93 08/27/18 03:01 96 08/27/18 03:00 08/27/18 02:30 94 08/27/18 02:01 08/27/18 02:00 08/27/18 01:30 96 08/27/18 01:01 96 08/27/18 01:00 08/27/18 00:30 94 08/27/18 00:01 08/27/18 00:00 94 08/26/18 23:30 95 08/26/18 23:01 94 08/26/18 23:00 94 08/26/18 22:30 95 08/26/18 22:01 96 08/26/18 22:00 96 08/26/18 21:30 95 08/26/18 21:01 95 08/26/18 21:00 94 08/26/18 20:30 96 08/26/18 20:01 97 08/26/18 20:00 97 08/26/18 19:30 96 08/26/18 19:00 97 08/26/18 18:45 97 08/26/18 18:00 96 08/26/18 17:30 97 08/26/18 17:00 97 08/26/18 16:30 97 08/26/18 16:27 08/26/18 16:00 94 08/26/18 15:30 100 08/26/18 15:00 99 08/26/18 14:30 99 08/26/18 14:01 98 08/26/18 14:00 98 08/26/18 13:30 97 08/26/18 13:00 98 08/26/18 12:30 98 08/26/18 12:00 97 08/26/18 11:30 97 08/26/18 11:25 97 08/26/18 11:21 99 08/26/18 11:20 99 08/26/18 11:15 100 08/26/18 11:10 97 08/26/18 11:05 98 08/26/18 11:00 99 08/26/18 10:58 99 08/26/18 10:55 99 08/26/18 10:50 99 08/26/18 10:45 100 08/26/18 10:43 99 Pain Intensity Left Neck: Pain Intensity: 0 Notes Mental Status: alert / awake / arousable and participated in evaluation Nausea / Vomiting: adequately controlled Pain: adequately controlled Airway Patency, RR, SpO2: stable & adequate BP & HR: stable & adequate Hydration State: stable & adequate
[2018-08-27] MEDS: ENOXAPARIN INJ 40 MG/0.4 ML SYR SQ SCH (10:58)
--- NOTE | 2018-08-27 11:45 | Pharmacy Report ---
Pharmacy Glycemic Short Note 2 - Date of Service August 27, 2018 - Glycemic Short BSG Results (Last 24 hours): 08/26/18 08/26/18 08/26/18 12:01 17:10 21:38 Glucose POC Glucose 163 H 208 H 207 H 08/27/18 08/27/18 04:31 07:30 Glucose 156 H POC Glucose 124 H OUTPATIENT ANTIDIABETIC REGIMEN: * Metformin 500 mg po BID * HbA1c 7.5% on 08/23/18 Stressors * Steroids: Prednisone 5 mg po daily discontinued (last dose on 08/26), and dexamethasone 4 mg IV x1 overridden in OR on 08/26 * IVF: nitroglycerin in D5W @ 3 mL/hr (attempting to wean/discontinue today) * Surgery: POD 1 s/p carotid endarterectomy * Diet ASSESSMENT: * 87 yo F admitted on 08/21 for syncopal event(s) who is s/p left carotid endarterectomy 08/26. * BSG's ranged 124-208 mg/dL yesterday, with two BSG's >180 mg/dL which both occurred in the post-op period * AM fasting BSG in goal range today at 124 mg/dL - will continue Lantus this AM as effects of dexamethasone from yesterday will likely persist 24-48 hours. However, will adjust dose this PM based on BSG. Patient will likely require a reduction in dose either tonight or tomorrow AM and will therefore refrain from scheduling dose for 08/28 AM at this time * Patient with minimal po intake yesterday, but ate 40 g CHO with breakfast this AM - current Novolog parameters managing BSG's well as BSG trended 124 to 152 mg/dL from breakfast to lunch. Will not loosen now 2nd persistent effects of dexamethasone on post-prandial elevations today, but will loosen starting at HS tonight to prevent overnight/AM hypoglycemia as effects wear off PLAN FOR INPATIENT GLYCEMIC CONTROL: * Hold outpatient oral diabetes medications * Basal insulin: Lantus 12 units this AM then x1 this PM based on BSG as follows: * 0 units for BSG < 140 mg/dL * 5 units for BSG 140-180 mg/dL * 10 units for BSG greater than 180 mg/dL * Bolus insulin * NovoLog per scale ACHS or Q6hrs while NPO * Goal Range: Low 110 mg/dL - High 140 mg/dL * Correction Factor: 25 mg/dL/unit (loosen to 30 mg/dL/unit at HS) * CHO ratio: 7 g CHO/unit (loosen to 10 g CHO/unit at HS)
--- NOTE | 2018-08-27 12:49 | Cardiology Progress Note ---
Date of Service August 27, 2018 Assessment & Plan (1) Carotid artery disease: Status post left carotid endarterectomy 08/26/2018. Intravenous nitroglycerin weaned off. Continue aspirin, clopidogrel, lisinopril, amlodipine, and oral metoprolol. Patient may be transferred to the progressive care unit. SCDs for DVT prophylaxis. Reassess candidacy for pharmacologic prophylaxis as postoperative course progresses. (2) Syncope: No dysrhythmias on telemetry. Continue to monitor. Subjective Patient seen and examined at the bedside. Mild left sided neck discomfort improving. Blood pressure improved. Controlled overnight via arterial line. Mildly elevated systolic blood pressures into the 150 to 160 mmHg range noted with minimal activity. Denies headache or chest discomfort. No slurred speech, visual changes, or focal weakness. Received a.m. oral antihypertensive medications. IV nitroglycerin weaned off. Daughter present at bedside. She offers no additional concerns/complaints at this time. Review of Systems Review of Systems: All systems reviewed & are unremarkable except as noted in HPI & below Physical Exam Physical Exam: General: NAD, AAO x3, well nourished. HEENT: Normocephalic. Atraumatic. Conjunctiva pink, no scleral icterus. Neck: Left-sided CEA surgical eladio intact, mildly swollen. No drainage or significant erythema. Heart: Regular normal S-1 and S-2 no S-3 or S-4 gallop. No murmurs or rub appreciated. PMI is not displaced. No RV heave. Lungs: Clear bilateral without rales , rhonchi, or wheeze. Abdomen: Normal bowel sounds. Soft. Nontender. No masses or organomegaly. No abdominal bruits. Extremities: No clubbing, cyanosis, or edema. Pulses: radial=2/4. Neuro: Cranial nerves grossly intact. No focal motor deficit. Results & Data Vital Signs (Past 12 Hours) Vital Signs Temp Pulse Resp BP Pulse Ox 08/27/18 12:01 81 19 137/72 96 08/27/18 12:00 85 16 84 L 08/27/18 11:30 72 9 L 93 08/27/18 11:01 76 23 96 08/27/18 11:00 74 17 134/97 96 08/27/18 10:30 78 7 L 94 08/27/18 10:00 74 19 143/63 H 94 08/27/18 09:30 90 15 97 07/19/19 09:01 91 H 12 102/86 93 08/27/18 09:00 95 H 13 94 08/27/18 08:30 105 H 19 94 08/27/18 08:01 110 H 23 103/83 94 08/27/18 08:00 113 H 21 93 08/27/18 07:30 36.7 C 85 17 94 08/27/18 07:01 77 0 L 92 08/27/18 07:00 77 16 151/66 H 90 08/27/18 06:01 69 9 L 94 08/27/18 06:00 73 10 L 140/61 94 08/27/18 05:30 67 19 92 08/27/18 05:01 72 6 L 95 08/27/18 05:00 78 4 L 157/71 H 93 08/27/18 04:30 81 4 L 92 08/27/18 04:00 36.7 C 84 4 L 134/64 95 08/27/18 03:30 71 2 L 93 08/27/18 03:01 82 12 182/76 H 96 08/27/18 03:00 86 15 08/27/18 02:30 73 16 94 08/27/18 02:01 71 13 95 08/27/18 02:00 75 12 143/65 H 92 08/27/18 01:30 77 6 L 96 08/27/18 01:01 68 16 96 08/27/18 01:00 74 18 147/67 H 95 (1) Syncope Syncope type: unspecified Qualified Code(s): R55 - Syncope and collapse
[2018-08-27] MEDS: NITROGLYCERIN/D5W 100MCG/ML 250 ML IV SCH (18:28)
--- NOTE | 2018-08-27 18:58 | Hospitalist Progress Note ---
Date of Service August 27, 2018 Assessment & Plan (1) Syncope: Present on admission with syncope (third events) No cardiac arrhythmia noted on telemetry Echocardiogram shows no evidence of valvular disease Carotid Doppler showed 70-79% stenosis of the proximal to mid right internal carotid artery. 80-99% stenosis of the proximal to mid left internal carotid artery. CT head showed no intracranial abnormality Vascular on board S/P left carotid endarterectomy performed yesterday by Dr. Aguirre No Post op complication Will resume coumadin today Stable (2) Skin tear of left hand without complication: (3) Abrasion of left ear: Continue local wound care Wound nurse consulted Stable (4) Carotid artery disease: Carotid Doppler showed 70-79% stenosis of the proximal to mid right internal carotid artery. 80-99% stenosis of the proximal to mid left internal carotid artery. S/P day #1 left carotid endarterectomy performed by Dr. Aguirre No Post op complication Continue Aspirin 81 mg and Plavix and low dose statin Case discussed with Surgery Dr. Aguirre and ok to resume coumadin today (5) Pain of left great toe: Possible related to acute gout Received 3 days prednisone Resolved (6) DM II (diabetes mellitus, type II), controlled: Last A1c 6.6 on 07/03/2018 Metformin on hold Pharmacy on board for glycemic management Stable (7) HTN (hypertension): Nitro drip discontinued Continue Norvasc, Lisinopril and metoprolol Continue monitor BP (8) HLD (hyperlipidemia): Heart healthy diet On low-dose rosuvastatin/history of statin intolerance (9) CKD (chronic kidney disease), stage III: Presented with acute renal failure with dehydration with mild elevation of creatinine from baseline Renal function improved with IV fluids, Monitor BMP Stable (10) History of DVT (deep vein thrombosis): On Lovenox sub Coumadin resumed today Disposition Will transfer to telemetry Will discharge once stable from surgery standpoint Subjective Pt was seen and examined Sitting in bed with no distress Pt said that she feels much better She said that she does not have any pain in her neck today Denies any chest pain, palpitation, dizziness and SOB Physical Exam Physical Exam: General- No acute distress Head- atraumatic Eyes- PERRL, EOMI, ENT- oropharynx clear, decrease hearing function Neck- supple, no JVD, Left sided surgical scar stapled with no drainage. Lungs- clear to auscultation Heart- regular rhythm; +murmur Abdomen- normal bowel sounds, soft, nontender Extremities- no calf tenderness Neuro- alert, oriented x 3; PERRL, EOMI; no facial palsy; no dysarthria Skin- warm & dry Results & Data Vital Signs (Past 12 Hours) Vital Signs Temp Pulse Resp BP Pulse Ox 08/27/18 18:00 79 16 165/82 H 91 08/27/18 17:30 78 17 94 08/27/18 17:19 82 16 164/76 H 96 08/27/18 17:01 82 16 164/76 H 94 08/27/18 17:00 81 26 H 90 08/27/18 16:30 80 16 93 08/27/18 16:01 76 16 166/71 H 93 08/27/18 16:00 36.7 C 78 22 170/78 H 94 08/27/18 15:30 74 19 94 08/27/18 15:01 75 2 L 91 08/27/18 15:00 75 9 L 160/80 H 93 08/27/18 14:30 94 H 13 93 08/27/18 14:01 69 4 L 91 08/27/18 14:00 67 15 150/82 H 92 08/27/18 13:30 72 16 93 08/27/18 13:00 69 23 143/58 H 94 08/27/18 12:30 74 17 96 08/27/18 12:02 82 20 96 08/27/18 12:01 81 19 137/72 96 08/27/18 12:00 85 16 84 L 08/27/18 11:30 72 9 L 93 08/27/18 11:01 76 23 96 08/27/18 11:00 74 17 134/97 96 08/27/18 10:30 78 7 L 94 08/27/18 10:00 74 19 143/63 H 94 08/27/18 09:30 90 15 97 08/27/18 09:01 91 H 12 102/86 93 08/27/18 09:00 95 H 13 94 08/27/18 08:30 105 H 19 94 08/27/18 08:01 110 H 23 103/83 94 08/27/18 08:00 113 H 21 93 08/27/18 07:30 36.7 C 85 17 94 08/27/18 07:01 77 0 L 92 08/27/18 07:00 77 16 151/66 H 90 (1) Abrasion of left ear Encounter type: initial encounter Qualified Code(s): S00.412A - Abrasion of left ear, initial encounter (2) Skin tear of left hand without complication Encounter type: initial encounter Qualified Code(s): S61.412A - Laceration without foreign body of left hand, initial encounter (3) Syncope Syncope type: unspecified Qualified Code(s): R55 - Syncope and collapse
[2018-08-27] MEDS ORDERED: WARFARIN SOD 5 MG TAB PO ONE (19:15)
[2018-08-27] MEDS: LATANOPROST 0.005% OP SOLN 2.5 ML BTL OPB SCH (21:46)
[2018-08-28 07:31] LABS: INR 1.2 (0.9-1.1); Prothrombin Time 12.6 Seconds (9.0-12.0)
[2018-08-28] MEDS ORDERED: cloNIDine HCl 0.1 MG TAB PO ONE (07:44)
[2018-08-28] MEDS: CHOLECALCIFEROL 1,000 UNITS TAB PO SCH (08:47)
[2018-08-28] MEDS: ROSUVASTATIN CALCIUM 5 MG TAB PO SCH (08:47)
[2018-08-28] MEDS: CLOPIDOGREL BISULFATE 75 MG TAB PO SCH (08:47)
[2018-08-28] MEDS: ASPIRIN 81 MG ECTAB PO SCH (08:47)
[2018-08-28] MEDS: METOPROLOL SUCC 50MG EXT REL TAB PO SCH (08:48)
[2018-08-28] MEDS: INSULIN GLARGINE SOLOSTAR 100 UNITS/ML 3 ML PEN SC SCH (08:49)
[2018-08-28] MEDS: INSULIN ASPART 100 UNITS/ML 3 ML PEN SC SCH ×4 (08:50→21:25)
[2018-08-28] MEDS: LISINOPRIL 10 MG TAB PO SCH (09:19)
--- NOTE | 2018-08-28 10:05 | Surgery Progress Note ---
Date of Service August 28, 2018 Assessment & Plan (1) Carotid artery disease: 08/28/2018 POD #2 s/p Left Carotid Endarterectomy. Pt seen and examined with Dr. Aguirre. Patient doing well- incision with eladio in place. Tolerating heart healthy diet. Encouraged to increase activity. Voiding without issue. Doing well from surgical standpoint. Ok for discharge from surgical standpoint. Discharge per primary team- home medications to be finalized by hospitalist. Patient to follow-up with Dr. Aguirre in the General Surgery clinic in 1 week. 08/27/18 POD #1 left carotid endarterectomy will d/c lima, hopefully get off nitro drip harry from incision removed increase activity leave a- line in until off drip suspect keep in hospital another 24-48 hours Subjective Patient sitting at side of bed- doing well. Tolerating heart healthy diet. Denies pain. Would like to go home today. Physical Exam Skin: surgical incision with eladio in place- clean, dry, intact. Bruising near incision site as expected. Results & Data Vital Signs (Past 12 Hours) Vital Signs Temp Pulse Resp BP Pulse Ox 08/28/18 08:41 37.0 C 86 18 95 08/28/18 04:00 36.8 C 90 18 181/69 H 95 08/27/18 23:55 37.1 C 85 18 174/69 H 96
[2018-08-28] MEDS: ENOXAPARIN INJ 40 MG/0.4 ML SYR SQ SCH (10:43)
[2018-08-28] MEDS: AMLODIPINE BESYLATE 5 MG TAB PO SCH (10:43)
--- NOTE | 2018-08-28 14:44 | Cardiology Progress Note ---
Date of Service August 28, 2018 Assessment & Plan (1) Carotid artery disease: Status post left carotid endarterectomy 08/26/2018. Intravenous nitroglycerin weaned off. Blood pressure intermittently elevated. Agree with titration of lisinopril to 10 mg daily. Continue aspirin, clopidogrel, amlodipine, and oral metoprolol. Patient stable from a cardiovascular perspective for rehab. SCDs for DVT prophylaxis. (2) Syncope: No dysrhythmias on telemetry. Continue to monitor. Subjective Patient seen and examined at the bedside. Denies chest pain or shortness of breath. Leg pressure elevated this morning however trending downward. Lisinopril titrated to 10 mg daily. Tolerating diet and medications. Offers no concerns/complaints at this time. Review of Systems Review of Systems: All systems reviewed & are unremarkable except as noted in HPI & below Physical Exam 2 Physical Exam: General: NAD, AAO x3, well nourished. HEENT: Normocephalic. Atraumatic. Conjunctiva pink, no scleral icterus. Neck: Left-sided CEA surgical eladio intact, mildly swollen. No drainage. + Erythema. Heart: Regular normal S-1 and S-2 no S-3 or S-4 gallop. No murmurs or rub appreciated. PMI is not displaced. No RV heave. Lungs: Clear bilateral without rales , rhonchi, or wheeze. Abdomen: Normal bowel sounds. Soft. Nontender. No masses or organomegaly. No abdominal bruits. Extremities: No clubbing, cyanosis, or edema. Pulses: radial=2/4. Neuro: Cranial nerves grossly intact. No focal motor deficit. Results & Data Vital Signs (Past 12 Hours) Vital Signs Temp Pulse Pulse Resp BP Pulse Ox 08/28/18 13:05 36.8 C 68 18 152/77 H 98 08/28/18 12:00 79 08/28/18 08:41 37.0 C 86 18 95 08/28/18 08:00 79 08/28/18 04:00 36.8 C 90 18 181/69 H 95 (1) Syncope Syncope type: unspecified Qualified Code(s): R55 - Syncope and collapse
[2018-08-28] MEDS: WARFARIN SOD 4 MG TAB PO SCH (17:21)
--- NOTE | 2018-08-28 19:44 | Hospitalist Progress Note ---
Date of Service August 28, 2018 Assessment & Plan (1) Syncope: Present on admission with syncope (third events) No cardiac arrhythmia noted on telemetry Echocardiogram shows no evidence of valvular disease Carotid Doppler showed 70-79% stenosis of the proximal to mid right internal carotid artery. 80-99% stenosis of the proximal to mid left internal carotid artery. CT head showed no intracranial abnormality Vascular on board S/P day#2 left carotid endarterectomy performed by Dr. Aguirre No Post op complication Stable (2) Carotid artery disease: Carotid Doppler showed 70-79% stenosis of the proximal to mid right internal carotid artery. 80-99% stenosis of the proximal to mid left internal carotid artery. S/P day #2 left carotid endarterectomy performed by Dr. Aguirre No Post op complication Continue Aspirin 81 mg and Plavix and low dose statin Coumadin resumed Ok from surgery standpoint to discharge home Follow up with surgery Dr. Aguirre in the General Surgery clinic in 1 week. (3) Weakness: Ambulatory dysfunction Lives alone OT recommended inpatient rehab Fall precaution Waiting for placement to rehab (4) Skin tear of left hand without complication: (5) Abrasion of left ear: Continue local wound care Wound nurse consulted Stable (6) Pain of left great toe: Possible related to acute gout Received 3 days prednisone Resolved (7) DM II (diabetes mellitus, type II), controlled: Last A1c 6.6 on 07/03/2018 Metformin on hold Pharmacy on board for glycemic management Stable (8) HTN (hypertension): Nitro drip discontinued BP improved Continue Norvasc and metoprolol Lisinopril increased to 10mg daily Continue monitor BP (9) HLD (hyperlipidemia): Heart healthy diet On low-dose rosuvastatin/history of statin intolerance (10) CKD (chronic kidney disease), stage III: Presented with acute renal failure with dehydration with mild elevation of creatinine from baseline Renal function improved with IV fluids Monitor BMP Stable (11) History of DVT (deep vein thrombosis): On Lovenox sub Continue Coumadin Disposition OK from surgery standpoint to discharge Waiting for placement to rehab Subjective Pt was seen and examined Lying in bed with no distress with family at bedside Pt said that she feels good She wants to discharge home family said that pt lives alone and not safe to go back home to stay alone She is very weak to transfer herself from the bed to chair She said that she feels fine She said that she does not have any pain in her neck area Denies any chest pain, palpitation, dizziness and SOB Physical Exam Physical Exam: General- No acute distress Head- atraumatic Eyes- PERRL, EOMI, ENT- oropharynx clear, decrease hearing function Neck- supple, no JVD, Left sided surgical scar stapled with no drainage. Lungs- clear to auscultation Heart- regular rhythm; +murmur Abdomen- normal bowel sounds, soft, nontender Extremities- no calf tenderness Neuro- alert, oriented x 3; PERRL, EOMI; no facial palsy; no dysarthria Skin- warm & dry Results & Data Vital Signs (Past 12 Hours) Vital Signs Temp Pulse Pulse Resp BP BP Pulse Ox 08/28/18 16:00 79 08/28/18 15:40 36.8 C 67 17 132/72 96 08/28/18 13:05 36.8 C 68 18 152/77 H 98 08/28/18 12:00 79 08/28/18 08:41 37.0 C 86 18 95 08/28/18 08:00 79 (1) Abrasion of left ear Encounter type: initial encounter Qualified Code(s): S00.412A - Abrasion of left ear, initial encounter (2) Skin tear of left hand without complication Encounter type: initial encounter Qualified Code(s): S61.412A - Laceration without foreign body of left hand, initial encounter (3) Syncope Syncope type: unspecified Qualified Code(s): R55 - Syncope and collapse
[2018-08-28] MEDS: LATANOPROST 0.005% OP SOLN 2.5 ML BTL OPB SCH (21:24)
[2018-08-29 07:17] LABS: INR 1.3 (0.9-1.1); Prothrombin Time 12.8 Seconds (9.0-12.0)
[2018-08-29 07:25] LABS: BUN Creatinine Ratio 17.7 (10-20); Calcium 8.8 mg/dl (8.5-10.1); Creatinine Clr Calc Pharmacy 40.8 ml/min; Est GFR (African American) 56.7; Potassium 4.2 mmol/L (3.5-5.1)
--- NOTE | 2018-08-29 08:37 | Surgery Progress Note ---
Date of Service August 29, 2018 Assessment & Plan (1) Carotid artery disease: POD 3 left CEA seen with Dr. Aguirre no new issues d/c planning Subjective tolerating diet, anxious for discharge Physical Exam Neck: incision dry, ecchymosis expected Results & Data Vital Signs (Past 12 Hours) Vital Signs Temp Pulse Resp BP Pulse Ox 08/29/18 06:37 36.5 C 72 16 148/71 H 98 08/29/18 04:03 36.8 C 69 16 145/69 H 93 08/28/18 23:00 36.9 C 66 16 148/77 H 96
[2018-08-29] MEDS: CHOLECALCIFEROL 1,000 UNITS TAB PO SCH (08:57)
[2018-08-29] MEDS: AMLODIPINE BESYLATE 5 MG TAB PO SCH (08:57)
[2018-08-29] MEDS: CLOPIDOGREL BISULFATE 75 MG TAB PO SCH (08:57)
[2018-08-29] MEDS: ENOXAPARIN INJ 40 MG/0.4 ML SYR SQ SCH (08:57)
[2018-08-29] MEDS: METOPROLOL SUCC 50MG EXT REL TAB PO SCH (08:57)
[2018-08-29] MEDS: ROSUVASTATIN CALCIUM 5 MG TAB PO SCH (08:58)
[2018-08-29] MEDS: ASPIRIN 81 MG ECTAB PO SCH (08:58)
[2018-08-29] MEDS: LISINOPRIL 10 MG TAB PO SCH (08:59)
[2018-08-29] MEDS: INSULIN GLARGINE SOLOSTAR 100 UNITS/ML 3 ML PEN SC SCH (09:01)
[2018-08-29] MEDS: INSULIN ASPART 100 UNITS/ML 3 ML PEN SC SCH ×4 (09:05→20:10)
--- NOTE | 2018-08-29 13:51 | Pharmacy Report ---
Pharmacy Glycemic Short Note 2 - Date of Service August 29, 2018 - Glycemic Short BSG Results (Last 24 hours): 08/28/18 08/28/18 08/29/18 16:29 20:45 06:43 Glucose 134 H POC Glucose 158 H 201 H 08/29/18 08/29/18 07:44 11:04 Glucose POC Glucose 137 H 246 H OUTPATIENT ANTIDIABETIC REGIMEN: * Metformin 500 mg po BID * HbA1c 7.5% on 08/23/18 Stressors * Steroids: Prednisone 5 mg po daily discontinued (last dose on 08/26), and dexamethasone 4 mg IV x1 overridden in OR on 08/26 * Surgery: POD 3 carotid endarterectomy * Diet: PO ASSESSMENT: 08/29/18 * Blood sugars rising with meals, tighten CF and CR further (slight tightening already done yesterday) * Started patient on once daily Lantus AM yesterday, fasting BSG at goal, continue. 08/27/18 * 87 yo F admitted on 08/21 for syncopal event(s) who is s/p left carotid endarterectomy 08/26. * BSG's ranged 124-208 mg/dL yesterday, with two BSG's >180 mg/dL which both occurred in the post-op period * AM fasting BSG in goal range today at 124 mg/dL - will continue Lantus this AM as effects of dexamethasone from yesterday will likely persist 24-48 hours. However, will adjust dose this PM based on BSG. Patient will likely require a reduction in dose either tonight or tomorrow AM and will therefore refrain from scheduling dose for 08/28 AM at this time * Patient with minimal po intake yesterday, but ate 40 g CHO with breakfast this AM - current Novolog parameters managing BSG's well as BSG trended 124 to 152 mg/dL from breakfast to lunch. Will not loosen now 2nd persistent effects of dexamethasone on post-prandial elevations today, but will loosen starting at HS tonight to prevent overnight/AM hypoglycemia as effects wear off PLAN FOR INPATIENT GLYCEMIC CONTROL: * Hold outpatient oral diabetes medications * Basal insulin: Lantus 15 units daily * Bolus insulin * NovoLog per scale ACHS or Q6hrs while NPO * Goal Range: Low 110 mg/dL - High 140 mg/dL * tighten: Correction Factor: 20 mg/dL/unit * tighten: CHO ratio: 7 g CHO/unit
--- NOTE | 2018-08-29 14:29 | Cardiology Progress Note ---
Date of Service August 29, 2018 Assessment & Plan (1) Carotid artery disease: Status post left carotid endarterectomy 08/26/2018. Blood pressure control improved with titration of lisinopril to 10 mg daily. Continue aspirin, clopidogrel, amlodipine, and oral metoprolol. Patient stable from a cardiovascular perspective for rehab. SCDs for DVT prophylaxis. (2) Syncope: Subjective Patient seen and examined at the bedside. Blood pressure improved with titration of lisinopril. Denies chest pain or shortness of breath. Mild post surgical neck discomfort noted. No purulent drainage. Mild erythema unchanged. Denies orthopnea or PND. Review of Systems Review of Systems: All systems reviewed & are unremarkable except as noted in HPI & below Physical Exam Physical Exam: General: NAD, AAO x3, well nourished. HEENT: Normocephalic. Atraumatic. Conjunctiva pink, no scleral icterus. Neck: Left-sided CEA surgical eladio intact, mildly swollen. No drainage. + Erythema. Heart: Regular normal S-1 and S-2 no S-3 or S-4 gallop. No murmurs or rub appreciated. PMI is not d isplaced. No RV heave. Lungs: Clear bilateral without rales , rhonchi, or wheeze. Abdomen: Normal bowel sounds. Soft. Nontender. No masses or organomegaly. No abdominal bruits. Extremities: No clubbing, cyanosis, or edema. Pulses: radial=2/4. Neuro: Cranial nerves grossly intact. No focal motor deficit. Results & Data Vital Signs (Past 12 Hours) Vital Signs Temp Pulse Pulse Resp BP Pulse Ox 08/29/18 12:00 79 08/29/18 08:00 79 08/29/18 06:37 36.5 C 72 16 148/71 H 98 08/29/18 04:03 36.8 C 69 16 145/69 H 93 (1) Syncope Syncope type: unspecified Qualified Code(s): R55 - Syncope and collapse
[2018-08-29] MEDS: WARFARIN SOD 4 MG TAB PO SCH (17:00)
--- NOTE | 2018-08-29 19:03 | Hospitalist Progress Note ---
Date of Service August 29, 2018 Assessment & Plan (1) Syncope: Present on admission with syncope (third events) No cardiac arrhythmia noted on telemetry Echocardiogram shows no evidence of valvular disease Carotid Doppler showed 70-79% stenosis of the proximal to mid right internal carotid artery. 80-99% stenosis of the proximal to mid left internal carotid artery. CT head showed no intracranial abnormality Vascular on board S/P day#3 left carotid endarterectomy performed by Dr. Aguirre No Post op complication Stable (2) Carotid artery disease: Carotid Doppler showed 70-79% stenosis of the proximal to mid right internal carotid artery. 80-99% stenosis of the proximal to mid left internal carotid artery. S/P day #2 left carotid endarterectomy performed by Dr. Aguirre No Post op complication Continue Aspirin 81 mg and Plavix and low dose statin Coumadin resumed Ok from surgery standpoint to discharge home Follow up with surgery Dr. Aguirre in the General Surgery clinic in 1 week. (3) Weakness: Ambulatory dysfunction Lives alone OT recommended inpatient rehab Fall precaution Waiting for placement to rehab (4) Skin tear of left hand without complication: (5) Abrasion of left ear: Continue local wound care Wound nurse consulted Stable (6) Pain of left great toe: Possible related to acute gout Received 3 days prednisone Resolved (7) DM II (diabetes mellitus, type II), controlled: Last A1c 6.6 on 07/03/2018 Metformin on hold Pharmacy on board for glycemic management Stable (8) HTN (hypertension): Nitro drip discontinued BP improved Continue Norvasc and metoprolol Continue Lisinopril 10mg daily Continue monitor BP (9) HLD (hyperlipidemia): Heart healthy diet On low-dose rosuvastatin/history of statin intolerance (10) CKD (chronic kidney disease), stage III: Presented with acute renal failure with dehydration with mild elevation of creatinine from baseline Renal function improved with IV fluids Monitor BMP Stable (11) History of DVT (deep vein thrombosis): On Lovenox sub Continue Coumadin (INR 1.3 today) Disposition OK from surgery standpoint to discharge Waiting for placement to rehab Subjective Pt was seen and examined Lying in bed with no distress Physical Exam Physical Exam: General- No acute distress Head- atraumatic Eyes- PERRL, EOMI, ENT- oropharynx clear, decrease hearing function Neck- supple, no JVD, Left sided surgical scar stapled with no drainage. Lungs- clear to auscultation Heart- regular rhythm; +murmur Abdomen- normal bowel sounds, soft, nontender Extremities- no calf tenderness Neuro- alert, oriented x 3; PERRL, EOMI; no facial palsy; no dysarthria Skin- warm & dry Results & Data Vital Signs (Past 12 Hours) Vital Signs Temp Pulse Pulse Resp BP Pulse Ox 08/29/18 15:48 36.6 C 80 18 149/63 H 96 08/29/18 12:00 79 08/29/18 08:00 79 (1) Abrasion of left ear Encounter type: initial encounter Qualified Code(s): S00.412A - Abrasion of left ear, initial encounter (2) Skin tear of left hand without complication Encounter type: initial encounter Qualified Code(s): S61.412A - Laceration without foreign body of left hand, initial encounter (3) Syncope Syncope type: unspecified Qualified Code(s): R55 - Syncope and collapse
[2018-08-29] MEDS: LATANOPROST 0.005% OP SOLN 2.5 ML BTL OPB SCH (20:11)
[2018-08-30 05:49] LABS: Hematocrit (blood only) 38.3 % (37-47); Hemoglobin 12.5 g/dL (12.0-16.0); Mean Corpuscular Hgb Conc 32.6 g/dL (32-36); Mean Corpuscular Volume 96.5 fL (80-100); Mean Platelet Volume 10.6 fL (7.4-10.4); Platelet Count 126 K/uL (130-400); RDW Coefficient of Variation 13.8 % (11.5-14.5); RDW Standard Deviation 48.9 fL (36.4-46.3); Red Blood Count 3.97 M/uL (4.2-5.4); White Blood Count 6.98 K/uL (4.8-10.8)
[2018-08-30 05:53] LABS: INR 1.5 (0.9-1.1); Prothrombin Time 14.8 Seconds (9.0-12.0)
[2018-08-30 06:13] LABS: Creatinine Clr Calc Pharmacy 40.5 ml/min; Est GFR (African American) 56.1; Est GFR (Non-African American) 48.4
[2018-08-30] MEDS: INSULIN ASPART 100 UNITS/ML 3 ML PEN SC SCH ×4 (07:51→21:00)
[2018-08-30] MEDS: ROSUVASTATIN CALCIUM 5 MG TAB PO SCH (07:55)
[2018-08-30] MEDS: LISINOPRIL 10 MG TAB PO SCH (07:57)
[2018-08-30] MEDS: AMLODIPINE BESYLATE 5 MG TAB PO SCH (07:58)
[2018-08-30] MEDS: CHOLECALCIFEROL 1,000 UNITS TAB PO SCH (07:58)
[2018-08-30] MEDS: CLOPIDOGREL BISULFATE 75 MG TAB PO SCH (07:58)
[2018-08-30] MEDS: ASPIRIN 81 MG ECTAB PO SCH (07:59)
[2018-08-30] MEDS: ENOXAPARIN INJ 40 MG/0.4 ML SYR SQ SCH (07:59)
[2018-08-30] MEDS: METOPROLOL SUCC 50MG EXT REL TAB PO SCH (07:59)
[2018-08-30] MEDS: INSULIN GLARGINE SOLOSTAR 100 UNITS/ML 3 ML PEN SC SCH (09:02)
[2018-08-30] MEDS: WARFARIN SOD 4 MG TAB PO SCH (16:23)
--- NOTE | 2018-08-30 18:25 | Hospitalist Progress Note ---
Date of Service August 30, 2018 Assessment & Plan (1) Syncope: Present on admission with syncope (third events) No cardiac arrhythmia noted on telemetry Echocardiogram shows no evidence of valvular disease Carotid Doppler showed 70-79% stenosis of the proximal to mid right internal carotid artery. 80-99% stenosis of the proximal to mid left internal carotid artery. CT head showed no intracranial abnormality Vascular on board S/P day#4 left carotid endarterectomy performed by Dr. Aguirre No Post op complication Stable (2) Carotid artery disease: Carotid Doppler showed 70-79% stenosis of the proximal to mid right internal carotid artery. 80-99% stenosis of the proximal to mid left internal carotid artery. S/P day 4 left carotid endarterectomy performed by Dr. Aguirre No Post op complication Continue Aspirin 81 mg and Plavix and low dose statin Coumadin resumed Ok from surgery standpoint to discharge home Follow up with surgery Dr. Aguirre in the General Surgery clinic in 1 week. (3) Weakness: Ambulatory dysfunction Lives alone OT recommended inpatient rehab Fall precaution Waiting for placement to rehab (4) Skin tear of left hand without complication: (5) Abrasion of left ear: Continue local wound care Wound nurse consulted Stable (6) Pain of left great toe: Possible related to acute gout Received 3 days prednisone Resolved (7) DM II (diabetes mellitus, type II), controlled: Last A1c 6.6 on 07/03/2018 Metformin on hold Pharmacy on board for glycemic management Stable (8) HTN (hypertension): Nitro drip discontinued BP improved Continue Norvasc and metoprolol Continue Lisinopril 10mg daily Continue monitor BP (9) HLD (hyperlipidemia): Heart healthy diet On low-dose rosuvastatin/history of statin intolerance (10) CKD (chronic kidney disease), stage III: Presented with acute renal failure with dehydration with mild elevation of creatinine from baseline Renal function improved with IV fluids Monitor BMP Stable (11) History of DVT (deep vein thrombosis): On Lovenox sub Continue Coumadin (INR 1.5 today) Disposition OK from surgery standpoint to discharge Waiting for placement to rehab Subjective Pt was seen and examined Lying in bed with no distress Pt said that she feels OK Denies any chest pain, palpitation and SOB Physical Exam Physical Exam: General- No acute distress Head- atraumatic Eyes- PERRL, EOMI, ENT- oropharynx clear, decrease hearing function Neck- supple, no JVD, Left sided surgical scar stapled with no drainage. Lungs- clear to auscultation Heart- regular rhythm; +murmur Abdomen- normal bowel sounds, soft, nontender Extremities- no calf tenderness Neuro- alert, oriented x 3; PERRL, EOMI; no facial palsy; no dysarthria Skin- warm & dry Results & Data Vital Signs (Past 12 Hours) Vital Signs Temp Pulse Pulse Resp BP BP Pulse Ox 08/30/18 15:53 36.4 C L 71 18 156/72 H 96 08/30/18 14:50 82 08/30/18 11:22 36.4 C L 65 18 144/73 H 97 08/30/18 07:22 77 08/30/18 07:14 37.0 C 19 94 (1) Abrasion of left ear Encounter type: initial encounter Qualified Code(s): S00.412A - Abrasion of left ear, initial encounter (2) Skin tear of left hand without complication Encounter type: initial encounter Qualified Code(s): S61.412A - Laceration without foreign body of left hand, initial encounter (3) Syncope Syncope type: unspecified Qualified Code(s): R55 - Syncope and collapse
[2018-08-30] MEDS: LATANOPROST 0.005% OP SOLN 2.5 ML BTL OPB SCH (19:18)
[2018-08-31 07:34] LABS: INR 1.7 (0.9-1.1); Prothrombin Time 16.7 Seconds (9.0-12.0)
[2018-08-31] MEDS: INSULIN ASPART 100 UNITS/ML 3 ML PEN SC SCH ×4 (08:02→20:19)
[2018-08-31] MEDS: INSULIN GLARGINE SOLOSTAR 100 UNITS/ML 3 ML PEN SC SCH (08:03)
[2018-08-31] MEDS: ROSUVASTATIN CALCIUM 5 MG TAB PO SCH (08:18)
[2018-08-31] MEDS: ASPIRIN 81 MG ECTAB PO SCH (08:19)
[2018-08-31] MEDS: AMLODIPINE BESYLATE 5 MG TAB PO SCH (08:19)
[2018-08-31] MEDS: CLOPIDOGREL BISULFATE 75 MG TAB PO SCH (08:20)
[2018-08-31] MEDS: LISINOPRIL 10 MG TAB PO SCH (08:20)
[2018-08-31] MEDS: CHOLECALCIFEROL 1,000 UNITS TAB PO SCH (08:20)
[2018-08-31] MEDS: METOPROLOL SUCC 50MG EXT REL TAB PO SCH (08:21)
[2018-08-31] MEDS: ENOXAPARIN INJ 40 MG/0.4 ML SYR SQ SCH (09:31)
[2018-08-31] MEDS: WARFARIN SOD 4 MG TAB PO SCH (17:16)
--- NOTE | 2018-08-31 19:21 | Hospitalist Progress Note ---
Date of Service August 31, 2018 Assessment & Plan (1) Syncope: Present on admission with syncope (third events) No cardiac arrhythmia noted on telemetry Echocardiogram shows no evidence of valvular disease Carotid Doppler showed 70-79% stenosis of the proximal to mid right internal carotid artery. 80-99% stenosis of the proximal to mid left internal carotid artery. CT head showed no intracranial abnormality Vascular on board S/P day#5 left carotid endarterectomy performed by Dr. Aguirre No Post op complication Stable (2) Carotid artery disease: Carotid Doppler showed 70-79% stenosis of the proximal to mid right internal carotid artery. 80-99% stenosis of the proximal to mid left internal carotid artery. S/P day 5 left carotid endarterectomy performed by Dr. Aguirre No Post op complication Continue Aspirin 81 mg and Plavix and low dose statin Coumadin resumed Ok from surgery standpoint to discharge home Follow up with surgery Dr. Aguirre in the General Surgery clinic in 1 week. (3) Weakness: Ambulatory dysfunction Lives alone OT recommended inpatient rehab Fall precaution Insurance denied inpatient rehab to [facility], but approved for SNF (4) Skin tear of left hand without complication: (5) Abrasion of left ear: Continue local wound care Wound nurse consulted Stable (6) Pain of left great toe: Possible related to acute gout Received 3 days prednisone Resolved (7) DM II (diabetes mellitus, type II), controlled: Last A1c 6.6 on 07/03/2018 Metformin on hold Pharmacy on board for glycemic management Stable (8) HTN (hypertension): Nitro drip discontinued BP improved Continue Norvasc and metoprolol Continue Lisinopril 10mg daily Continue monitor BP (9) HLD (hyperlipidemia): Heart healthy diet On low-dose rosuvastatin/history of statin intolerance (10) CKD (chronic kidney disease), stage III: Presented with acute renal failure with dehydration with mild elevation of creatinine from baseline Renal function improved with IV fluids Monitor BMP Stable (11) History of DVT (deep vein thrombosis): On Lovenox sub Continue Coumadin (INR 1.7 today) Disposition OK from surgery standpoint to discharge Approved for SNF, but family will rather him to go to [facility] waiting for placement Will transfer to medical Subjective Pt was seen and examined Lying in bed with no distress Pt said that he feels much better Insurance denied inpatient rehab to [facility] Denies any chest pain, palpitation and SOB Physical Exam Physical Exam: General- No acute distress Head- atraumatic Eyes- PERRL, EOMI, ENT- oropharynx clear, decrease hearing function Neck- supple, no JVD, Left sided surgical scar stapled with no drainage. Lungs- clear to auscultation Heart- regular rhythm; +murmur Abdomen- normal bowel sounds, soft, nontender Extremities- no calf tenderness Neuro- alert, oriented x 3; PERRL, EOMI; no facial palsy; no dysarthria Skin- warm & dry Results & Data Vital Signs (Past 12 Hours) Vital Signs Temp Pulse Pulse Resp BP BP BP 08/31/18 15:42 37.1 C 69 18 144/75 H 08/31/18 11:20 36.7 C 61 20 117/67 08/31/18 07:35 65 08/31/18 07:33 36.7 C 77 20 183/74 H Pulse Ox 08/31/18 15:42 97 08/31/18 11:20 98 08/31/18 07:35 08/31/18 07:33 96 (1) Syncope Syncope type: unspecified Qualified Code(s): R55 - Syncope and collapse (2) Skin tear of left hand without complication Encounter type: initial encounter Qualified Code(s): S61.412A - Laceration without foreign body of left hand, initial encounter (3) Abrasion of left ear Encounter type: initial encounter Qualified Code(s): S00.412A - Abrasion of left ear, initial encounter
[2018-08-31] MEDS: LATANOPROST 0.005% OP SOLN 2.5 ML BTL OPB SCH (20:19)
[2018-09-01 06:21] LABS: INR 1.8 (0.9-1.1); Prothrombin Time 17.7 Seconds (9.0-12.0)
[2018-09-01] MEDS: CLOPIDOGREL BISULFATE 75 MG TAB PO SCH (08:28)
[2018-09-01] MEDS: CHOLECALCIFEROL 1,000 UNITS TAB PO SCH (08:28)
[2018-09-01] MEDS: AMLODIPINE BESYLATE 5 MG TAB PO SCH (08:28)
[2018-09-01] MEDS: LISINOPRIL 10 MG TAB PO SCH (08:32)
[2018-09-01] MEDS: INSULIN GLARGINE SOLOSTAR 100 UNITS/ML 3 ML PEN SC SCH (08:33)
[2018-09-01] MEDS: ASPIRIN 81 MG ECTAB PO SCH (08:33)
[2018-09-01] MEDS: ROSUVASTATIN CALCIUM 5 MG TAB PO SCH (08:33)
[2018-09-01] MEDS: ENOXAPARIN INJ 40 MG/0.4 ML SYR SQ SCH (08:34)
[2018-09-01] MEDS: INSULIN ASPART 100 UNITS/ML 3 ML PEN SC SCH ×2 (08:36→13:02)
[2018-09-01] MEDS: METOPROLOL SUCC 50MG EXT REL TAB PO SCH (08:57)
--- NOTE | 2018-09-01 14:41 | Hospitalist Progress Note ---
Date of Service September 01, 2018 Assessment & Plan (1) Syncope: Present on admission with syncope (third events) No cardiac arrhythmia noted on telemetry Echocardiogram shows no evidence of valvular disease Carotid Doppler showed 70-79% stenosis of the proximal to mid right internal carotid artery. 80-99% stenosis of the proximal to mid left internal carotid artery. CT head showed no intracranial abnormality Vascular on board S/P day#6 left carotid endarterectomy performed by Dr. Aguirre No Post op complication Stable To be transferred to [facility] for rehab Follow-up with vascular surgery Dr. Bales in 1 week (2) Carotid artery disease: Carotid Doppler showed 70-79% stenosis of the proximal to mid right internal carotid artery. 80-99% stenosis of the proximal to mid left internal carotid artery. S/P day 5 left carotid endarterectomy performed by Dr. Aguirre No Post op complication Continue Aspirin 81 mg and low dose statin Crestor 2.5 mg daily(History of statin intolerance) Coumadin resumed Ok from surgery standpoint to discharge home Follow up with surgery Dr. Aguirre in the General Surgery clinic in 1 week. (3) Weakness: Ambulatory dysfunction Lives alone OT recommended inpatient rehab Fall precaution Patient approved for SNF at [facility], stable to be transferred to rehab (4) Skin tear of left hand without complication: Continue local wound care Wound nurse consulted (5) Abrasion of left ear: Continue local wound care Wound nurse consulted Stable (6) Pain of left great toe: Possible related to acute gout Received 3 days prednisone Resolved (7) DM II (diabetes mellitus, type II), controlled: Last A1c 6.6 on 07/03/2018 Metformin Resumed on discharge Pharmacy on board for glycemic management Stable (8) HTN (hypertension): Continue Norvasc and metoprolol Continue Lisinopril 10mg daily BP improved after adjustment of meds (9) HLD (hyperlipidemia): Heart healthy diet On low-dose rosuvastatin/history of statin intolerance (10) CKD (chronic kidney disease), stage III: Renal function stable at baseline Presented with acute renal failure with dehydration with mild elevation of creatinine from baseline Renal function improved with IV fluids Monitor BMP Stable (11) History of DVT (deep vein thrombosis): Continue Coumadin/Lovenox bridge, INR 1.8 today Disposition Stable to be discharged to skilled rehab at [facility] today Subjective Patient sitting up on chair, denies of any dizzy spell, no lightheadedness No pain or discomfort on left carotid artery surgery site No shortness of breath, no cough no fever chills Stable to be transferred to [facility] for rehab today Physical Exam Constitutional: WD/WN, vitals as above no acute distress Eyes: PERRL, conjunctivae normal, anicteric sclerae ENMT: Ears: + hearing impairment Neck: Neck:Left carotid endarterectomy done: Surgical eladio present, no drainage, no erythema noted Respiratory: normal respiratory effort, lungs clear to auscultation Cardiovascular: RRR, no murmur, no edema Gastrointestinal (Abdomen): normal bowel sounds, soft, nontender, no hepatosplenomegaly Musculoskeletal: no cyanosis or clubbing, extremities motor strength 5/5 Skin: Trauma: + evidence of skin trauma (On left arm secondary to recent fall), + abrasion and + laceration Neurologic: PERRL, EOMI, accommodation nl, no face palsy, no dysarthria Psychiatric: Orientation: alert and oriented x 3 Affect: + flat affect Cognition: + recent memory not intact (Short-term memory loss) Insight: + poor insight Results & Data Vital Signs (Past 12 Hours) Vital Signs Temp Pulse Resp BP BP Pulse Ox 09/01/18 14:15 71 101/64 09/01/18 07:06 37.1 C 77 19 182/90 H 95 (1) Abrasion of left ear Encounter type: initial encounter Qualified Code(s): S00.412A - Abrasion of left ear, initial encounter (2) Skin tear of left hand without complication Encounter type: initial encounter Qualified Code(s): S61.412A - Laceration without foreign body of left hand, initial encounter (3) Syncope Syncope type: unspecified Qualified Code(s): R55 - Syncope and collapse
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
== END 2018-09-01 15:28 | DRG 39 ==
LOC: 2S 11:47 → ED 11:47 → 2S 17:49 → SUATTDRO 08-23 14:51 → 1E 08-26 11:43 → 2S 08-27 19:54 → 4W 08-31 19:28
DX: S61.402A Unspecified open wound of left hand, initial encounter; N18.3 Chronic kidney disease, stage 3 (moderate); I65.23 Occlusion and stenosis of bilateral carotid arteries; E11.9 Type 2 diabetes mellitus without complications; E78.5 Hyperlipidemia, unspecified; I12.9 Hypertensive chronic kidney disease with stage 1 through stage 4 chronic kidney disease, or unspecified chronic kidney disease; Z86.718 Personal history of other venous thrombosis and embolism; S00.412A Abrasion of left ear, initial encounter; R55 Syncope and collapse; M1A.9XX0 Chronic gout, unspecified, without tophus (tophi)

== ENCOUNTER 2018-11-04 16:16 | Observation (INO) ==
--- NOTE | 2018-11-04 17:29 | XRay Report ---
XR knee RT 2V routine CLINICAL HISTORY: Right knee pain. COMPARISON: None FINDINGS: Alignment of the right knee is anatomic. No acute fracture is present. There is moderate l ateral compartment joint space narrowing with osteophytosis. There is also osteophytosis within the m edial patellofemoral compartment. No osseous lesion is noted. A moderate joint effusion is present. T here is extensive vascular calcification. IMPRESSION: 1. No acute fracture. 2. Moderate right knee osteoarthritis, most severe within the lateral compartment. 3. Moderate right knee joint effusion. Electronically signed by: Maximino Larson M.D. 11/04/2018 5:27 PM
--- NOTE | 2018-11-04 17:31 | XRay Report ---
XR chest 1V portable CLINICAL HISTORY: 87 years-old Female presenting with Sepsis. TECHNIQUE: Portable upright AP view of the chest was obtained. COMPARISON: 08/21/2018. FINDINGS: Atherosclerosis of the aortic arch. Cardiac silhouette enlarged. No focal opacity. No large effusion or pneumothorax. Degenerative changes of the thoracic spine. Upper abdomen normal. IMPRESSION: 1. Cardiomegaly. No other convincing evidence of acute cardiopulmonary disease. Electronically signed by: Andrew Swan M.D. 11/04/2018 5:30 PM
[2018-11-04 18:21] LABS: Basophils # (auto) 0.01 K/uL (0-0.2); Basophils % (auto) 0.2 %; Eosinophils # (auto) 0.11 K/uL (0-0.5); Eosinophils % (auto) 1.7 %; Hemoglobin 12.5 g/dL (12.0-16.0); Immature Granulocytes # (auto) 0.04 K/uL (0.00-0.02); Immature Granulocytes % (auto) 0.6 %; Lymphocytes # (auto) 1.55 K/uL (1.2-3.4); Lymphocytes % (auto) 23.8 %; Mean Corpuscular Hemoglobin 31.2 pg (25-34); Mean Corpuscular Hgb Conc 32.9 g/dL (32-36); Mean Corpuscular Volume 94.8 fL (80-100); Mean Platelet Volume 10.8 fL (7.4-10.4); Monocytes # (auto) 0.98 K/uL (0.11-0.59); Neutrophils # (auto) 3.83 K/uL (1.4-6.5); Neutrophils % (auto) 58.7 %; Platelet Count 129 K/uL (130-400); RDW Coefficient of Variation 13.9 % (11.5-14.5); RDW Standard Deviation 48.4 fL (36.4-46.3); Red Blood Count 4.01 M/uL (4.2-5.4); White Blood Count 6.52 K/uL (4.8-10.8)
[2018-11-04 18:26] LABS: Appearance Urine Clear (Clear); Bacteria Urine Automated Negative (Negative); Bilirubin Urine Negative (Negative); Blood Urine Negative (Negative); Color Urine Yellow; Glucose Urine UA Negative (Negative); Ketones Urine Trace (Negative); Leukocyte Esterase Urine Negative (Negative); Nitrite Urine Negative (Negative); Protein Urine Trace (Negative); RBC Urine Automated 0-4 /hpf (0-4); Specific Gravity Urine 1.023 (1.000-1.030); Urobilinogen Urine Negative (Negative)
[2018-11-04 18:39] LABS: Albumin Level 3.3 gm/dl (3.4-5.0); BUN Creatinine Ratio 20.7 (10-20); Calcium 9.2 mg/dl (8.5-10.1); Creatinine Clr Calc Pharmacy 31.3 ml/min; Est GFR (African American) 39.3; Est GFR (Non-African American) 33.9
[2018-11-04 18:40] LABS: Partial Thromboplastin Ratio 1.7; Prothrombin Time 36.1 Seconds (9.0-12.0)
[2018-11-04 18:42] LABS: Albumin Globulin Ratio 0.9 (0.9-2); Bilirubin,Total 0.5 mg/dl (0.2-1); C Reactive Protein 12.5 mg/dl (0-0.29); Globulin 3.7 gm/dl (2.5-4.0)
--- NOTE | 2018-11-04 18:47 | CT Scan Report ---
CT OF THE HEAD WITHOUT CONTRAST CLINICAL HISTORY: altered loc COMPARISON STUDY: Head CT August 21, 2018. CT DOSE: 537.48 mGy.cm TECHNIQUE: Helical axial images of the head were obtained without IV contrast. Automated exposure con trol was utilized for the study. A dose lowering technique was utilized adhering to the principles o f ALARA. FINDINGS: No acute intracranial hemorrhage, midline shift or mass effect is present. The ventricular system is unremarkable. The basilar cisterns are patent. No extra-axial collections are present. Ther e are no findings to suggest acute dural sinus thrombosis or acute territorial infarct. No significan t calvarial abnormalities are present. Visualized portions of the sinuses and mastoid air cells are c lear. White matter hypodensities are unchanged. These suggest small vessel disease. 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 This is unchanged. IMPRESSION: No acute intracranial findings. No change in appearance of the brain. Electronically signed by: Maximino Larson M.D. 11/04/2018 6:46 PM
--- NOTE | 2018-11-04 19:17 | Ultrasound Report ---
RIGHT LOWER EXTREMITY VENOUS DOPPLER CLINICAL HISTORY: Right leg pain. COMPARISON STUDY: No previous studies for comparison. TECHNIQUE: Sonography of the deep venous system of the right lower extremity was performed. Compress ion and augmentation were evaluated. FINDINGS: The right common femoral, superficial femoral and popliteal veins were compressible. Augme ntation was normal. Flow was shown within the deep calf vessels. Note is made of a 7.3 x 4.4 x 1.4 cm complex the long gated abnormality within the right popliteal fossa without color flow. IMPRESSION: 1. No evidence of deep venous thrombus within the right lower extremity. 2. 7.3 x 4.4 x 1.4 cm complex elongated abnormality within the right popliteal fossa which may reflec t a complex popliteal cyst or hematoma. A mass is considered much less likely however a follow-up ult rasound in 3 months is recommended. Electronically signed by: Maximino Larson M.D. 11/04/2018 7:16 PM
[2018-11-04 19:49] LABS: INR 3.9 (0.9-1.1)
[2018-11-04 19:50] LABS: Partial Thromboplastin Time 47.1 Seconds (21.0-31.0)
[2018-11-04] MEDS ORDERED: SODIUM CHLORIDE 0.9% 1000ML 1,000 ML IV ONE (19:57)
[2018-11-04 21:53] LABS: Hematocrit (blood only) 38.7 % (37-47); Hemoglobin 12.8 g/dL (12.0-16.0)
--- NOTE | 2018-11-04 21:53 | History & Physical Report ---
Date of Service November 04, 2018 Assessment & Plan (1) Effusion of right knee: (2) Supratherapeutic INR: This is an 87 old female from [facility] with a past medical history of DM II, hypertension, CKD III, carotid stenosis s/p left endarterectomy in August 2018, history of DVT on chronic anticoagulation, HLD and other medical problems listed below who presents with right knee pain and swelling x3 days and was found to have a joint effusion and supratherapeutic INR. -R knee painful, with edema and ambulatory dysfunction x 3 days -Seen in clinic yesterday- XR with evidence of joint effusion, uric acic normal, started on 5 day prednisone 20mg course -In ED, R XR with moderate joint effusion. RLE venous doppler with 7.3 x 4.4 x 1.4 cm complex elongated abnormality within the right popliteal fossa which may reflect a complex popliteal cyst or hematoma -In setting of supratherapeutic INR of 3.9, likely a hematoma -Orthopedics consult (3) Altered mental status: Disoriented to situation since yesterday -CT head without acute abnormality, urinalysis normal -Possibly due to prednisone, although likely only received 1 dose today -Patient is only received Tylenol for pain control -Continue to monitor closely (4) HTN (hypertension): Currently elevated at 180/86 in setting of acute pain -Optimize pain control -Continue amlodipine, lisinopril (5) DM type 2 (diabetes mellitus, type 2): A1c of 6.6 in June 2018 -Hold home agents -SSI while in-patient -BSG AC HS (6) History of DVT (deep vein thrombosis): History of DVT in 2008, has been on Coumadin since -Holding Coumadin in setting of supratherapeutic INR (7) Carotid artery disease: S/p left endarterectomy by Dr. Aguirre in August 2018 -Has been taking baby aspirin, plavix, statin (8) CKD (chronic kidney disease), stage III: Cr upper limit of normal at 1.4 (baseline Cr recently ~ 1.2, per outpatient records) -Continue to monitor with daily INR (9) HLD (hyperlipidemia): Continue statin DVT Ppx: Holding coumadin in setting of supratherapeutic INR PCP: Derick Mai Patient seen in collaboration with Dr. Antoine. Please see addendum. History of Present Illness Chief Complaint: Knee pain, altered mental status Primary Care Provider: Kerri Cueva at [facility] This is an 87 old female from [facility] with a past medical history of DM II, hypertension, CKD III, carotid stenosis s/p left endarterectomy in August 2018, history of DVT on chronic anticoagulation, HLD and other medical problems listed below who presents with right knee pain and swelling x3 days. At baseline, patient ambulates with walker and can transfer independently. History primarily obtained by daughter at bedside due to patient's altered mental status. Daughter states that as of Thursday, patient was unable to bear weight on right leg and required wheelchair for ambulation. Was seen by SANG Baldwin and x-rays were performed as well as uric acid level. Knee x-ray revealed joint ef fusion without acute osseous abnormality. Uric acid level is normal. Today, patient was started on 5-day course of 20 mg prednisone daily due to continued pain. According to daughter, patient also became disoriented since yesterday. Is forgetting that she is requiring a wheelchair to ambulate and seems to be forgetful about situation regarding knee pain. Still oriented to person, place and time. Denies any fever, chills, lightheadedness, visual changes, chest pain, shortness of breath, nausea, vomiting, abdominal pain, dysuria, diarrhea or constipation. Right knee is painful with bending or any type of ambulation but pain is resolved at rest. Allergies Allergy/AdvReac Type Severity Reaction Status Date / Time bacitracin Allergy Unknown Unknown Verified 11/04/18 18:08 [From Neosporin ([id number])] neomycin Allergy Unknown Unknown Verified 11/04/18 18:08 [From Neosporin ([id number])] polymyxin B Allergy Unknown Unknown Verified 11/04/18 18:08 [From Neosporin ([id number])] atorvastatin AdvReac Severe RIGID Verified 11/04/18 18:08 MUSCLES ezetimibe AdvReac Severe RIGID Verified 11/04/18 18:08 MUSCLES Home Medications Home Medications Medication Instructions Recorded Confirmed Type amlodipine 10 mg PO QAM 03/16/18 11/04/18 History metoprolol succinate 100 mg PO QAM 03/16/18 11/04/18 History rosuvastatin 2.5 mg PO QAM 03/16/18 11/04/18 History warfarin 4 mg PO HS 03/16/18 11/04/18 History cholecalciferol (vitamin D3) 1,000 unit PO QAM 08/21/18 11/04/18 History latanoprost 1 drp OPB HS 08/21/18 11/04/18 History acetaminophen 650 mg PO Q4H PRN MDD 3 GM APAP/11/04/18 11/04/18 History HOURS aspirin 81 mg PO QAM 11/04/18 11/04/18 History clopidogrel 75 mg PO QAM 11/04/18 11/04/18 History lisinopril 30 mg PO QAM 11/04/18 11/04/18 History menthol [[place] Cough Drops] 7 mg PO Q4H PRN 11/04/18 11/04/18 History metformin 1,000 mg PO QAM 11/04/18 11/04/18 History metformin 500 mg PO QPM 11/04/18 11/04/18 History prednisone 20 mg PO DAILY 11/04/18 11/04/18 History sertraline 25 mg PO DAILY 11/04/18 11/04/18 History sodium chloride [[place] Nasal] 2 spray INTRANASAL Q8H PRN 11/04/18 11/04/18 History Past Med/Surg History Surgical History History of appendectomy (Chronic) History of (Chronic) History of colonoscopy (Chronic) Family History Mother Diabetes Parkinson disease Father , age 94 CHF (congestive heart failure) Brother Myocardial infarction Social History Preferred Language: Monegasque Communication Ability: Effective Medical Advisor Required: No Beliefs That Will Affect Care: None marital status: / Current Living Situation: Personal Care Facility Current Living Situation Comment: [facility] Other Information That Helps Us Care for You: No Feels Safe at Home: Yes Safety Concerns: Feels Safe At This Time Smoking Status: Never smoker Hx Alcohol Use: No Hx Substance Use: No Review of Systems Review of Systems: At least ten systems reviewed and negative except as noted in the HPI. 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 Normal insp/exp effort, no accessory muscle use Cardiovascular: regular rate, rhythm, no murmur appreciated, normal peripheral pulses. Vessels: no JVD or carotid bruit Chest: normal inspection of chest Abdomen/GI: normal bowel sounds, soft, nontender, no hepatosplenomegaly Extremities/Musculoskelatal: no cyanosis or clubbing, extremities motor strength 5/5 . R knee tender to palpation of patella. Painful to move. Surrounding edema Neurologic: PERRL, EOMI, accommodation nl, no face palsy, no dysarthria, CN's II-XI intact bilaterally and moves all extremities Psychiatric: A+Ox person, place & time but not to situation, euthymic affect Skin: no rashes, normal color, warm/dry Results & Data Vital Signs (Past 12 Hours) Vital Signs Temp Pulse Pulse Resp BP BP Pulse Ox 11/04/18 21:00 79 15 180/86 H 95 11/04/18 20:30 71 19 159/75 H 93 11/04/18 20:00 73 18 160/72 H 96 11/04/18 19:30 74 14 156/78 H 94 11/04/18 19:19 71 72 17 149/75 H 96 11/04/18 19:15 72 20 149/79 H 94 11/04/18 18:05 36.7 C 75 20 139/75 96 11/04/18 16:56 97 11/04/18 16:29 36.7 C 70 20 158/80 H 97 Laboratory Results Short CBC 11/04/18 Range/Units 18:00 WBC 6.52 (4.8-10.8) K/uL Hgb 12.5 (12.0-16.0) g/dL Hct 38.0 (37-47) % Plt Count 129 L (130-400) K/uL BMP 11/04/18 18:00 Sodium 136 Potassium 4.0 Chloride 104 Carbon Dioxide 26 BUN 29 H Creatinine 1.41 H Glucose 136 H Calcium 9.2 Liver Function 11/04/18 Range/Units 18:00 Total Bilirubin 0.5 (0.2-1) mg/dl AST 13 L (15-37) U/L ALT 19 (12-78) U/L Alkaline Phosphatase 67 (45-117) U/L Albumin 3.3 L (3.4-5.0) gm/dl Urine 11/04/18 Range/Units 18:00 Urine Color Yellow Urine Appearance Clear (Clear) Urine pH 5.0 (4.5-7.5) Ur Specific [place] 1.023 (1.000-1.030) Urine Protein Trace H (Negative) Urine Glucose (UA) Negative (Negative) Diagnostic Findings Head CT: IMPRESSION: No acute intracranial findings. No change in appearance of the brain. CXR: IMPRESSION: 1. Cardiomegaly. No other convincing evidence of acute cardiopulmonary disease. R knee XR: IMPRESSION: 1. No acute fracture. 2. Moderate right knee osteoarthritis, most severe within the lateral compartmen t. 3. Moderate right knee joint effusion. Venous doppler RLE: IMPRESSION: 1. No evidence of deep venous thrombus within the right lower extremity. 2. 7.3 x 4.4 x 1.4 cm complex elongated abnormality within the right popliteal fossa which may reflect a complex popliteal cyst or hematoma. A mass is considered much less likely however a follow-up ultrasound in 3 months is re commended. Supervising Physician Co-Signing Physician Notes IM ATTENDING : Patient seen and examined. History obtained from patient, family, and records. Patient is a fair historian. Preceding documentation by Ms. Fatimah Elliott PA-C reviewed. FINAL ASSESSMENT AND PLAN as follows : RLE hematoma/R knee hemarthrosis secondary to Coumadin coagulopathy, hx anticoagulation for one episode of extensive superficial thrombus LLE 06/2008 Antiplatelet Rx, hx bilateral carotid artery disease status post L CEA 08/2018 Episodic confusion as per family account Multifactorial : ARF, clinical dehydration Recent outpatient prednisone Rx for RLE swelling Uncontrolled BP DM2, on oral meds, reasonable control as of recent inpatient hemoglobin A1c of 7.5 last August 2018 OBS Medical telemetry given uncontrolled BP Vitamin K to reverse coagulopathy, stop Coumadin on discharge given absence of indication for lifetime anti-coagulation Appropriate to hold antiplatelet Rx for now given RLE hematoma Trend H&H, transfuse PRBC if hemoglobin less than 8 (hx PVD) Orthopedics consult RE RLE hematoma continue home BP meds except for lisinopril given kidney dysfunction, may need dose titration monitor creatinine response to IV fluids ISS BG goal 1 40-1 80 PT OT eval DVT prophylaxis. SCDs while Coumadin on hold RE RLE hematoma Full code as per son/POA, Mr. Judah Gonzales. Patient's [id number] requesting updates from providers. Lesley Terence, contact #[phone]. (1) Altered mental status Altered mental status type: unspecified Qualified Code(s): R41.82 - Altered mental status, unspecified
--- NOTE | 2018-11-04 22:04 | Emergency Department Note ---
Entered by Kalli Strange acting as a scribe for Ramon Aguilar MD History of Present Illness General Chief complaint: Knee Injury/Pain Time Seen by Provider: 11/04/18 16:44 Source: patient and family Mode of arrival: wheelchair Limitations: altered mental status History of Present Illness Provider complaint: Confusion Onset (ago): day(s) 3 Location: head Severity: moderate Pain Consistency: + intermittent Relieved By: + none Exacerbated By: + other (Standing) Associated symptoms: + weakness; no chest pain, no fever/chills, no headaches and no shortness of breath Treatments prior to arrival: none The patient is an 87 year old female who presents to the Emergency Department with her family having confusion this morning. Per the patients family, symptoms began 3 days ago when she could not stand, the family then had her using a wheelchair. The patient denies headache, fever, chills, shortness of breath, chest pain, or abdominal pain. She is diabetic, and is also on blood thinners. Per the family, the patient still seems confused. Home Medications Home Medications Medication Instructions Recorded Confirmed Type amlodipine 10 mg PO QAM 03/16/18 11/04/18 History metoprolol succinate 100 mg PO QAM 03/16/18 11/04/18 History rosuvastatin 2.5 mg PO QAM 03/16/18 11/04/18 History warfarin 4 mg PO HS 03/16/18 11/04/18 History cholecalciferol (vitamin D3) 1,000 unit PO QAM 08/21/18 11/04/18 History latanoprost 1 drp OPB 08/21/18 11/04/18 History acetaminophen 650 mg PO Q4H PRN MDD 3 GM APAP/11/04/18 11/04/18 History HOURS aspirin 81 mg PO QAM 11/04/18 11/04/18 History clopidogrel 75 mg PO QAM 11/04/18 11/04/18 History lisinopril 30 mg PO QAM 11/04/18 11/04/18 History menthol [Mcgregor Cough Drops] 7 mg PO Q4H PRN 11/04/18 11/04/18 History metformin 1,000 mg PO QAM 11/04/18 11/04/18 History metformin 500 mg PO QPM 11/04/18 11/04/18 History prednisone 20 mg PO DAILY 11/04/18 11/04/18 History sertraline 25 mg PO DAILY 11/04/18 11/04/18 History sodium chloride [[place] Nasal] 2 spray INTRANASAL Q8H PRN 11/04/18 11/04/18 History Allergies Allergy/AdvReac Type Severity Reaction Status Date / Time bacitracin Allergy Unknown Unknown Verified 11/04/18 18:08 [From Neosporin ([id number])] neomycin Allergy Unknown Unknown Verified 11/04/18 18:08 [From Neosporin ([id number])] polymyxin B Allergy Unknown Unknown Verified 11/04/18 18:08 [From Neosporin ([id number])] atorvastatin AdvReac Severe RIGID Verified 11/04/18 18:08 MUSCLES ezetimibe AdvReac Severe RIGID Verified 11/04/18 18:08 MUSCLES Past Med/Surg History Medical History HTN (hypertension) (Chronic) DM type 2 (diabetes mellitus, type 2) (Chronic) History of DVT (deep vein thrombosis) (Chronic) Glaucoma (Chronic) Blind left eye (Chronic) Cataract (Chronic) HLD (hyperlipidemia) (Chronic) CKD (chronic kidney disease), stage III (Chronic) Carotid artery disease (Chronic) "CTA 03/09/17: high-grade stenoses bilat ICA's" S/p L endarterectomy in August 2018 at [facility] Surgical History History of appendectomy (Chronic) History of (Chronic) History of colonoscopy (Chronic) Family History Mother Diabetes Parkinson disease Father , age 94 CHF (congestive heart failure) Brother Myocardial infarction Social History Preferred Language: Rwandan Communication Ability: Effective Manager Office Required: No Beliefs That Will Affect Care: Yazdanism Yazdanism Beliefs: Yarsanism marital status: / Current Living Situation: [facility] Feels Safe at Home: Yes Smoking Status: Never smoker Hx Alcohol Use: No Hx Substance Use: No Review of Systems See HPI for pertinent positives & negatives. and A total of 10 systems reviewed and were otherwise negative Physical Exam Vital Signs Vital Signs - 24 hr 11/04/18 16:29 11/04/18 16:56 11/04/18 18:05 Temperature 36.7 C 36.7 C Temperature Source Oral Oral Sepsis Recent Fever Within 48 Hours No Sepsis New/Unexplained Change in Mental Status No Sepsis Action Taken by Nursing No Action Required Pulse Rate 70 Pulse Rate [Apical] 75 Pulse Rate from SpO2 Sensor Pulse Rhythm [Apical] Regular Pulse Strength [Apical] Normal Respiratory Rate 20 20 Respiratory Effort / Characteristics Non-Labored Spontaneous Respiratory Depth Normal Respiratory Pattern Regular Blood Pressure 158/80 H Blood Pressure [Right Arm] 139/75 Blood Pressure Mean 106 Blood Pressure Mean [Right Arm] 96 Pulse Oximetry 97 97 96 Oxygen Delivery Method Room Air Room Air Room Air 11/04/18 19:15 11/04/18 19:19 11/04/18 19:30 Temperature Temperature Source Sepsis Recent Fever Within 48 Hours Sepsis New/Unexplained Change in Mental Status Sepsis Action Taken by Nursing Pulse Rate 72 71 74 Pulse Rate [Apical] 72 Pulse Rate from SpO2 Sensor 73 71 74 Pulse Rhythm [Apical] Regular Pulse Strength [Apical] Normal Respiratory Rate 20 17 14 Respiratory Effort / Characteristics Non-Labored Spontaneous Respiratory Depth Normal Respiratory Pattern Regular Blood Pressure 149/79 H 156/78 H Blood Pressure [Right Arm] 149/75 H Blood Pressure Mean 102 104 Blood Pressure Mean [Right Arm] 99 Pulse Oximetry 94 96 94 Oxygen Delivery Method Room Air 11/04/18 20:00 11/04/18 20:30 11/04/18 21:00 Temperature Temperature Source Sepsis Recent Fever Within 48 Hours Sepsis New/Unexplained Change in Mental Status Sepsis Action Taken by Nursing Pulse Rate 73 71 79 Pulse Rate [Apical] Pulse Rate from SpO2 Sensor 73 71 81 Pulse Rhythm [Apical] Pulse Strength [Apical] Respiratory Rate 18 19 15 Respiratory Effort / Characteristics Respiratory Depth Respiratory Pattern Blood Pressure 160/72 H 159/75 H 180/86 H Blood Pressure [Right Arm] Blood Pressure Mean 101 103 117 Blood Pressure Mean [Right Arm] Pulse Oximetry 96 93 95 Oxygen Delivery Method 11/04/18 21:30 11/04/18 22:00 11/04/18 22:30 Temperature Temperature Source Sepsis Recent Fever Within 48 Hours Sepsis New/Unexplained Change in Mental Status Sepsis Action Taken by Nursing Pulse Rate 75 73 72 Pulse Rate [Apical] Pulse Rate from SpO2 Sensor Pulse Rhythm [Apical] Pulse Strength [Apical] Respiratory Rate 26 H 16 18 Respiratory Effort / Characteristics Respiratory Depth Respiratory Pattern Blood Pressure 174/88 H 158/83 H 169/54 H Blood Pressure [Right Arm] Blood Pressure Mean 116 108 92 Blood Pressure Mean [Right Arm] Pulse Oximetry Oxygen Delivery Method General: Non-ill appearing older female in no acute distress. Alert x3, seems to answer questions appropriately but her family thinks she has mild confusion at times. HEENT: Normal cephalic atraumatic. Pupils are round and reactive to light. Baseline disconjugate gaze. Extraocular movements are intact. Oropharynx is pink with moist mucous membranes. No swelling of the mouth lips or tongue. Neck: Supple with a midline trachea. No meningeal signs or stiffness, no JVD or bruits. No Stridor. Chest: Clear to auscultation bilaterally. No wheezes or rhonchi. No increased work of breathing. Heart: regular rate and rhythm. Abdomen: Soft nontender, nondistended without rebound guarding or rigidity. Extremities: No cyanosis clubbing. No calf tenderness or asymmetry Brace on right knee. Spine/Back. Non tender to palpation. No CVA tenderness Skin: Good turgor without rashes. Neurologic exam: Cranial nerves two through 12 are intact. Motor and sensation are intact and symmetrical throughout. Course 1650: Medical records reviewed. The patient was seen in room B3A, a physical examination was performed. 1815: I spoke with the patient's family, she is going to get a CT scan. 1944: I reevaluated the patient who is feeling better, I ordered her more IV fluids. She will be observed. 2027: I spoke with Dr. Antoine, [facility] Hospitalist, about the patients case and he agreed to accept the patient for further evaluation. 2036: The patient was admitted for further evaluation. Administered Medications Discontinued Medications Sodium Chloride (Nss 1000ml) 1,000 mls @ 999 mls/hr IV .Q1H1M ONE Stop: 11/04/18 20:57 Last Infusion: 11/04/18 21:07 Dose: 0 mls/hr Documented by: [id number] Admin: 11/04/18 20:05 Dose: 999 mls/hr Documented by: [id number] Phytonadione 10 mg/ Sodium (Chloride) 51 mls @ 102 mls/hr IV ONE ONE Stop: 11/04/18 23:13 Last Admin: 11/04/18 23:19 Dose: 102 mls/hr Documented by: [id number] Medical Decision Making Differential Diagnosis Differential Diagnosis: UTI, sepsis, intracranial processes, infection, DVT, joint arthritis. Medical Records Attestation: I reviewed the patient's medical records. Home Medications Current Medication List: was personally reviewed by me Laboratory Data Attestation: I reviewed the patient's lab results. Result diagrams: 11/04/18 21:13 11/04/18 18:00 Lab Results 11/04/18 11/04/18 11/04/18 Range/Units 18:00 18:00 18:00 WBC 6.52 (4.8-10.8) K/uL RBC 4.01 L (4.2-5.4) M/uL Hgb 12.5 (12.0-16.0) g/dL Hct 38.0 (37-47) % MCV 94.8 (80-100) fL MCH 31.2 (25-34) pg MCHC 32.9 (32-36) g/dL RDW Std Deviation 48.4 H (36.4-46.3) fL RDW Coeff of Basil 13.9 (11.5-14.5) % Plt Count 129 L (130-400) K/uL MPV 10.8 H (7.4-10.4) fL Immature Gran % (Auto) 0.6 % Neut % (Auto) 58.7 % Lymph % (Auto) 23.8 % Harvey % (Auto) 15.0 % Eos % (Auto) 1.7 % Baso % (Auto) 0.2 % Immature Gran # (Auto) 0.04 H (0.00-0.02) K/uL Neut # (Auto) 3.83 (1.4-6.5) K/uL Lymph # (Auto) 1.55 (1.2-3.4) K/uL Harvey # (Auto) 0.98 H (0.11-0.59) K/uL Eos # (Auto) 0.11 (0-0.5) K/uL Baso # (Auto) 0.01 (0-0.2) K/uL ESR 58 H (0-21) mm/hr PT (9.0-12.0) Seconds INR (0.9-1.1) APTT (21.0-31.0) Seconds PTT Ratio Sodium (136-145) mmol/L Potassium (3.5-5.1) mmol/L Chloride (98-107) mmol/L Carbon Dioxide (21-32) mmol/L Anion Gap (3-11) BUN (7-18) mg/dl Creatinine (0.6-1.2) mg/dl Est Cr Clr Drug Dosing ml/min Est GFR ( Amer) Est GFR (Non-Af Amer) BUN/Creatinine Ratio (10-20) Glucose (70-99) mg/dl Lactate (0.4-2.0) mmol/L Calcium (8.5-10.1) mg/dl Total Bilirubin (0.2-1) mg/dl AST (15-37) U/L ALT (12-78) U/L Alkaline Phosphatase (45-117) U/L C-Reactive Protein (0-0.29) mg/dl Total Protein (6.4-8.2) gm/dl Albumin (3.4-5.0) gm/dl Globulin (2.5-4.0) gm/dl Albumin/Globulin Ratio (0.9-2) Procalcitonin < 0.05 (0-0.5) ng/ml Urine Color Urine Appearance (Clear) Urine pH (4.5-7.5) Ur Specific Mahomet (1.000-1.030) Urine Protein (Negative) Urine Glucose (UA) (Negative) Urine Ketones (Negative) Urine Blood (Negative) Urine Nitrite (Negative) Urine Bilirubin (Negative) Urine Urobilinogen (Negative) Ur Leukocyte Esterase (Negative) Urine WBC (Auto) (0-5) /hpf Urine RBC (Auto) (0-4) /hpf U Hyaline Cast (Auto) (0-5) /lpf U Epithel Cells (Auto) (0-5) /lpf Urine Bacteria (Auto) (Negative) Granular Casts (0) /lpf Blood Type Antibody Screen 11/04/18 11/04/18 11/04/18 Range/Units 18:00 18:00 18:00 WBC (4.8-10.8) K/uL RBC (4.2-5.4) M/uL Hgb (12.0-16.0) g/dL Hct (37-47) % MCV (80-100) fL MCH (25-34) pg MCHC (32-36) g/dL RDW Std Deviation (36.4-46.3) fL RDW Coeff of Basil (11.5-14.5) % Plt Count (130-400) K/uL MPV (7.4-10.4) fL Immature Gran % (Auto) % Neut % (Auto) % Lymph % (Auto) % Harvey % (Auto) % Eos % (Auto) % Baso % (Auto) % Immature Gran # (Auto) (0.00-0.02) K/uL Neut # (Auto) (1.4-6.5) K/uL Lymph # (Auto) (1.2-3.4) K/uL Harvey # (Auto) (0.11-0.59) K/uL Eos # (Auto) (0-0.5) K/uL Baso # (Auto) (0-0.2) K/uL ESR (0-21) mm/hr PT 36.1 H (9.0-12.0) Seconds INR 3.9 H (0.9-1.1) APTT 47.1 H* (21.0-31.0) Seconds PTT Ratio 1.7 Sodium 136 (136-145) mmol/L Potassium 4.0 (3.5-5.1) mmol/L Chloride 104 (98-107) mmol/L Carbon Dioxide 26 (21-32) mmol/L Anion Gap 6.0 (3-11) BUN 29 H (7-18) mg/dl Creatinine 1.41 H (0.6-1.2) mg/dl Est Cr Clr Drug Dosing 31.3 ml/min Est GFR ( Amer) 39.3 Est GFR (Non-Af Amer) 33.9 BUN/Creatinine Ratio 20.7 H (10-20) Glucose 136 H (70-99) mg/dl Lactate (0.4-2.0) mmol/L Calcium 9.2 (8.5-10.1) mg/dl Total Bilirubin 0.5 (0.2-1) mg/dl AST 13 L (15-37) U/L ALT 19 (12-78) U/L Alkaline Phosphatase 67 (45-117) U/L C-Reactive Protein 12.50 H (0-0.29) mg/dl Total Protein 7.0 (6.4-8.2) gm/dl Albumin 3.3 L (3.4-5.0) gm/dl Globulin 3.7 (2.5-4.0) gm/dl Albumin/Globulin Ratio 0.9 (0.9-2) Procalcitonin (0-0.5) ng/ml Urine Color Yellow Urine Appearance Clear (Clear) Urine pH 5.0 (4.5-7.5) Ur Specific Mahomet 1.023 (1.000-1.030) Urine Protein Trace H (Negative) Urine Glucose (UA) Negative (Negative) Urine Ketones Trace H (Negative) Urine Blood Negative (Negative) Urine Nitrite Negative (Negative) Urine Bilirubin Negative (Negative) Urine Urobilinogen Negative (Negative) Ur Leukocyte Esterase Negative (Negative) Urine WBC (Auto) 1-5 (0-5) /hpf Urine RBC (Auto) 0-4 (0-4) /hpf U Hyaline Cast (Auto) 10-30 H (0-5) /lpf U Epithel Cells (Auto) 10-20 H (0-5) /lpf Urine Bacteria (Auto) Negative (Negative) Granular Casts 1-5 H (0) /lpf Blood Type Antibody Screen 11/04/18 11/04/18 11/04/18 Range/Units 18:10 21:13 21:13 WBC (4.8-10.8) K/uL RBC (4.2-5.4) M/uL Hgb 12.8 (12.0-16.0) g/dL Hct 38.7 (37-47) % MCV (80-100) fL MCH (25-34) pg MCHC (32-36) g/dL RDW Std Deviation (36.4-46.3) fL RDW Coeff of Basil (11.5-14.5) % Plt Count (130-400) K/uL MPV (7.4-10.4) fL Immature Gran % (Auto) % Neut % (Auto) % Lymph % (Auto) % Harvey % (Auto) % Eos % (Auto) % Baso % (Auto) % Immature Gran # (Auto) (0.00-0.02) K/uL Neut # (Auto) (1.4-6.5) K/uL Lymph # (Auto) (1.2-3.4) K/uL Harvey # (Auto) (0.11-0.59) K/uL Eos # (Auto) (0-0.5) K/uL Baso # (Auto) (0-0.2) K/uL ESR (0-21) mm/hr PT (9.0-12.0) Seconds INR (0.9-1.1) APTT (21.0-31.0) Seconds PTT Ratio Sodium (136-145) mmol/L Potassium (3.5-5.1) mmol/L Chloride (98-107) mmol/L Carbon Dioxide (21-32) mmol/L Anion Gap (3-11) BUN (7-18) mg/dl Creatinine (0.6-1.2) mg/dl Est Cr Clr Drug Dosing ml/min Est GFR ( Amer) Est GFR (Non-Af Amer) BUN/Creatinine Ratio (10-20) Glucose (70-99) mg/dl Lactate 1.4 (0.4-2.0) mmol/L Calcium (8.5-10.1) mg/dl Total Bilirubin (0.2-1) mg/dl AST (15-37) U/L ALT (12-78) U/L Alkaline Phosphatase (45-117) U/L C-Reactive Protein (0-0.29) mg/dl Total Protein (6.4-8.2) gm/dl Albumin (3.4-5.0) gm/dl Globulin (2.5-4.0) gm/dl Albumin/Globulin Ratio (0.9-2) Procalcitonin (0-0.5) ng/ml Urine Color Urine Appearance (Clear) Urine pH (4.5-7.5) Ur Specific Mahomet (1.000-1.030) Urine Protein (Negative) Urine Glucose (UA) (Negative) Urine Ketones (Negative) Urine Blood (Negative) Urine Nitrite (Negative) Urine Bilirubin (Negative) Urine Urobilinogen (Negative) Ur Leukocyte Esterase (Negative) Urine WBC (Auto) (0-5) /hpf Urine RBC (Auto) (0-4) /hpf U Hyaline Cast (Auto) (0-5) /lpf U Epithel Cells (Auto) (0-5) /lpf Urine Bacteria (Auto) (Negative) Granular Casts (0) /lpf Blood Type A Negative Antibody Screen NEGATIVE Imaging Data Radiologist's Impression: Radiology results as stated below per my review and the radiologist's interpretation: XR chest 1V portable CLINICAL HISTORY: 87 years-old Female presenting with Sepsis. TECHNIQUE: Portable upright AP view of the chest was obtained. COMPARISON: 08/21/2018. FINDINGS: Atherosclerosis of the aortic arch. Cardiac silhouette enlarged. No focal opacity. No large effusion or pneumothorax. Degenerative changes of the thoracic spine. Upper abdomen normal. IMPRESSION: 1. Cardiomegaly. No other convincing evidence of acute cardiopulmonary disease. Electronically signed by: Andrew Swan M.D. 11/04/2018 5:30 PM RIGHT LOWER EXTREMITY VENOUS DOPPLER CLINICAL HISTORY: Right leg pain. COMPARISON STUDY: No previous studies for comparison. TECHNIQUE: Sonography of the deep venous system of the right lower extremity was performed. Compression and augmentation were evaluated. FINDINGS: The right common femoral, superficial femoral and popliteal veins were compressible. Augmentation was normal. Flow was shown within the deep calf vessels. Note is made of a 7.3 x 4.4 x 1.4 cm complex the long gated abnormality within the right popliteal fossa without color flow. IMPRESSION: 1. No evidence of deep venous thrombus within the right lower extremity. 2. 7.3 x 4.4 x 1.4 cm complex elongated abnormality within the right popliteal fossa which may reflect a complex popliteal cyst or hematoma. A mass is c onsidered much less likely however a follow-up ultrasound in 3 months is recommended. Electronically signed by: Maximino Larson M.D. 11/04/2018 7:16 PM XR knee RT 2V routine CLINICAL HISTORY: Right knee pain. COMPARISON: None FINDINGS: Alignment of the right knee is anatomic. No acute fracture is present. There is moderate lateral compartment joint space narrowing with osteophytosis. There is also osteophytosis within the medial patellofemoral co mpartment. No osseous lesion is noted. A moderate joint effusion is present. There is extensive vascular calcification. IMPRESSION: 1. No acute fracture. 2. Moderate right knee osteoarthritis, most severe within the lateral compartment. 3. Moderate right knee joint effusion. Electronically signed by: Maximino Larson M.D. 11/04/2018 5:[address] OF THE HEAD WITHOUT CONTRAST CLINICAL HISTORY: altered loc COMPARISON STUDY: Head CT August 21, 2018. CT DOSE: 537.48 mGy.cm TECHNIQUE: Helical axial images of the head were obtained without IV contrast. Automated exposure control was utilized for the study. A dose lowering technique was utilized adhering to the principles of ALARA. FINDINGS: No acute intracranial hemorrhage, midline shift or mass effect is present. The ventricular system is unremarkable. The basilar cisterns are patent. No extra-axial collections are present. There are no findings to suggest acute dural sinus thrombosis or acute territorial infarct. No significant calvarial abnormalities are present. Visualized portions of the sinuses and mastoid air cells are clear. White matter hypodensities are unchanged. These suggest small vessel disease. 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 This is unchanged. IMPRESSION: No acute intracranial findings. No change in appearance of the brain. Electronically signed by: Maximino Larson M.D. 11/04/2018 6:46 PM ECG Data Attestation: I personally reviewed and interpreted this ECG as follows: Indication: other (Knee injury) Rate (beats per minute): 70 Rhythm: normal sinus Findings: + other (+poor R wave progression) and + left axis deviation; no acute ischemic change and no ectopy Comparison ECG Date: from (August 23, 2018) Change: no significant change Blood Pressure Blood Pressure Findings: Elevated blood pressure Blood Pressure Disposition: further management by hospitalist [facility] Narrative This patient comes in as described above. She has been having knee pain with that got acutely worse over the last couple days. She saw her regular doctor was started on prednisone for presumed arthritis. she is also on Coumadin and they held the dose yesterday. Her daughter feels that she is much more confused than normal. she is forgetful and this is all atypical for her. she has not fallen. She has had no fever or chills. No chest pain or shortness of breath. No focal numbness or weakness. On exam, the knee is mildly swollen but is not red or warm. she has full range of motion clinically and she does not examine like a septic knee. She has normal distal pulses. IV access established and blood work was obtained. She was reassessed frequently. She has no white count or fever to suggest infection. Her lactic acid and procalcitonin are also negative which would also go against sepsis. Her CRP and sed rate are elevated which are nonspecific inflammatory markers which could be from arthritis or other etiologies. EKG was unremarkable nonischemic appearing. she was given a liter IV fluid bolus while she was in the ER. Her BUN and creatinine are mildly elevated and I think she could be a little dry. CAT scan of her head is unremarkable. Ultrasound of her leg shows no DVT. she does however have a Mccann's cyst. Given the fact that if she is more confused than normal and is on Coumadin and has ambulatory dysfunction, I do think she should be admitted/observed. I have discussed this with the family and the hospitalist and she will be admitted/observed. Impression & Plan Altered mental status, Effusion of right knee, Knee pain, right, Supratherapeut ic INR, Mccann's cyst Discharge Plan Visit Data Chief Complaint: Knee Injury/Pain ED Provider: Ramon Aguilar Discharge Problem: Altered mental status, Effusion of right knee, Knee pain, right, Supratherapeutic INR, Mccann's cyst Patient Disposition: Being Evaluated by Hospitalist Discharge Instructions Interventions: ED Discharge Assessment Last Done: 11/04/18 23:21 Discharge Problem: Altered mental status Qualifiers: Altered mental status type: unspecified Qualified Code(s): R41.82 - Altered mental status, unspecified Knee pain, right Qualifiers: Chronicity: unspecified Qualified Code(s): M25.561 - Pain in right knee Mccann's cyst Qualifiers: Laterality: right Qualified Code(s): M71.21 - Synovial cyst of popliteal space [Mccann], right knee The scribe's documentation has been prepared under my direction and personally reviewed by me in its entirety. I confirm that the note above accurately reflects all work, treatment, procedures, and medical decision making performed by me.
[2018-11-04] MEDS ORDERED: PHYTONADIONE 10 MG in SODIUM CHLORIDE 0.9% 50 ML IV ONE (22:44)
[2018-11-04] MEDS ORDERED: AMLODIPINE BESYLATE 5 MG TAB PO SCH (23:41)
[2018-11-04] MEDS ORDERED: GLUCAGON FOR INJ 1 MG VIAL SQ PRN (23:55)
[2018-11-04] MEDS ORDERED: SODIUM CHLORIDE 0.9% 1000ML 1,000 ML IV STA (23:55)
[2018-11-04] MEDS ORDERED: CARBOHYDRATES FOR HYPOGLYCEMIA PO PRN (23:55)
[2018-11-04] MEDS ORDERED: GLUCOSE 10 TABS/TUBE PO PRN (23:55)
[2018-11-04] MEDS ORDERED: DEXTROSE 50% 50 ML SYRINGE IV PRN (23:55)
[2018-11-04] MEDS ORDERED: ACETAMINOPHEN 325 MG TAB PO PRN ×2 (23:55)
[2018-11-04] MEDS ORDERED: NITROGLYCERIN SL 0.4 MG/TAB TAB SL PRN (23:55)
[2018-11-04] MEDS ORDERED: GLUCOSE 40% GEL 15 GM TUBE PO PRN (23:55)
[2018-11-05] MEDS: INSULIN ASPART 100 UNITS/ML 3 ML PEN SC SCH ×5 (00:43→17:23)
[2018-11-05] MEDS ORDERED: INSULIN GLARGINE SOLOSTAR 100 UNITS/ML 3 ML PEN SQ STA (01:56)
[2018-11-05 06:06] LABS: Eosinophils # (auto) 0.03 K/uL (0-0.5); Eosinophils % (auto) 0.3 %; Hematocrit (blood only) 35.9 % (37-47); Hemoglobin 11.8 g/dL (12.0-16.0); Immature Granulocytes # (auto) 0.08 K/uL (0.00-0.02); Immature Granulocytes % (auto) 0.8 %; Lymphocytes # (auto) 0.84 K/uL (1.2-3.4); Lymphocytes % (auto) 8.8 %; Mean Corpuscular Hemoglobin 31.7 pg (25-34); Mean Corpuscular Hgb Conc 32.9 g/dL (32-36); Mean Corpuscular Volume 96.5 fL (80-100); Mean Platelet Volume 10.7 fL (7.4-10.4); Monocytes # (auto) 0.85 K/uL (0.11-0.59); Monocytes % (auto) 8.9 %; Neutrophils # (auto) 7.71 K/uL (1.4-6.5); Neutrophils % (auto) 81.2 %; Platelet Count 130 K/uL (130-400); RDW Coefficient of Variation 13.8 % (11.5-14.5); RDW Standard Deviation 47.6 fL (36.4-46.3); Red Blood Count 3.72 M/uL (4.2-5.4); White Blood Count 9.51 K/uL (4.8-10.8)
[2018-11-05 06:19] LABS: INR 1.6 (0.9-1.1); Prothrombin Time 15.6 Seconds (9.0-12.0)
[2018-11-05 06:40] LABS: BUN Creatinine Ratio 24.2 (10-20); Calcium 8.2 mg/dl (8.5-10.1); Creatinine Clr Calc Pharmacy 38.9 ml/min; Est GFR (African American) 54.2; Est GFR (Non-African American) 46.8; Potassium 4.2 mmol/L (3.5-5.1)
[2018-11-05] MEDS ORDERED: INFLUENZA ADMINISTRATION CHARGE ONE (08:00)
[2018-11-05] MEDS ORDERED: INFLUENZA VIRUS QUAD VACCINE 0.5 ML SYR IM ONE (08:00)
[2018-11-05] MEDS ORDERED: PNEUMOCOCCAL POLYSACCHARIDES 25 MCG/0.5 ML VIAL/SYR IM ONE (08:30)
[2018-11-05] MEDS ORDERED: PNEUMOCOCCAL ADMINISTRATION CHARGE ONE (08:30)
[2018-11-05] MEDS ORDERED: SERTRALINE HCL 50 MG TABLET PO SCH (09:00)
[2018-11-05] MEDS ORDERED: METOPROLOL SUCC 50MG EXT REL TAB PO SCH (09:00)
[2018-11-05] MEDS ORDERED: ROSUVASTATIN CALCIUM 5 MG TAB PO SCH (09:00)
[2018-11-05] MEDS ORDERED: [UNRECOGNIZED DRUG - OTHER] PRN (09:05)
--- NOTE | 2018-11-05 13:10 | Orthopedic Consultation ---
Date of Consultation November 05, 2018 Assessment & Plan (1) Osteoarthritis of right knee: Discussed the findings with the patient and her gaqiqunr-vw-vuf. At this time, we will continue her conservative tx. Will continue to monitor her INR and if she has persistent pain and her INR is normal (if her coumadin has been stopped), we may consider corticosteroid injection vs. viscosupplement injections in the right knee. We also discussed possible MRI of the right knee if what appears to be a Mccann's cyst becomes symptomatic. WBAT RLE F/U in 2-[address] Denise's clinic for re-evaluation and possible injection. We also discussed possible bracing to off load her lateral c ompartment, particularly if she would like to continue conservative management of the knee DJD. Thank you for the consultation. (2) Acquired genu valgum of right knee: (3) Effusion of right knee: (4) Mccann's cyst: History of Present Illness Reason for Consultation: right knee pain Attending Physician: Valentine Jose, History of Present Illness This is a patient who has had a multi-year hx of right knee pain that was controlled with conservative care. She was ambulating well up until 3-4 days ago. Then, she started having significant increase in pain in the right knee and she was unable to bear weight on the right lower extremity. She was brought to [facility] ER and eventually admitted for gait abnormality and pain. Her INR was noted to be elevated. She was kept NWB. X-rays of the right knee and U/S of the RLE was performed. We were consulted to evaluate the cause of her knee pain and to recommend tx options. The patient and her subrepqi-gy-nlm state she's been on coumadin since a DVT in 2008. She does not recall any other reason to be on the medication. 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 The coumadin is currently being held. Allergies Allergy/AdvReac Type Severity Reaction Status Date / Time bacitracin Allergy Unknown Unknown Verified 11/04/18 18:08 [From Neosporin ([id number])] neomycin Allergy Unknown Unknown Verified 11/04/18 18:08 [From Neosporin ([id number])] polymyxin B Allergy Unknown Unknown Verified 11/04/18 18:08 [From Neosporin ([id number])] atorvastatin AdvReac Severe RIGID Verified 11/04/18 18:08 MUSCLES ezetimibe AdvReac Severe RIGID Verified 11/04/18 18:08 MUSCLES Home Medications Home Medications Medication Instructions Recorded Confirmed Type amlodipine 10 mg PO QAM 03/16/18 11/04/18 History metoprolol succinate 100 mg PO QAM 03/16/18 11/04/18 History rosuvastatin 2.5 mg PO QAM 03/16/18 11/04/18 History warfarin 4 mg PO HS 03/16/18 11/04/18 History cholecalciferol (vitamin D3) 1,000 unit PO QAM 08/21/18 11/04/18 History latanoprost 1 drp OPB HS 08/21/18 11/04/18 History acetaminophen 650 mg PO Q4H PRN MDD 3 GM APAP/11/04/18 11/04/18 History HOURS aspirin 81 mg PO QAM 11/04/18 11/04/18 History clopidogrel 75 mg PO QAM 11/04/18 11/04/18 History lisinopril 30 mg PO QAM 11/04/18 11/04/18 History menthol [[place] Cough Drops] 7 mg PO Q4H PRN 11/04/18 11/04/18 History metformin 1,000 mg PO QAM 11/04/18 11/04/18 History metformin 500 mg PO QPM 11/04/18 11/04/18 History prednisone 20 mg PO DAILY 11/04/18 11/04/18 History sertraline 25 mg PO DAILY 11/04/18 11/04/18 History sodium chloride [[place] Nasal] 2 spray INTRANASAL Q8H PRN 11/04/18 11/04/18 History Patient History Surgical History History of appendectomy (Chronic) History of (Chronic) History of colonoscopy (Chronic) Family History Mother Diabetes Parkinson disease Father , age 94 CHF (congestive heart failure) Brother Myocardial infarction Social History Preferred Language: Fijian Communication Ability: Effective Wine Maker Required: No Beliefs That Will Affect Care: None marital status: / Current Living Situation: Personal Care Facility Current Living Situation Comment: [facility] Other Information That Helps Us Care for You: No Feels Safe at Home: Yes Safety Concerns: Feels Safe At This Time Smoking Status: Never smoker Hx Alcohol Use: No Hx Substance Use: No Physical Exam Constitutional: WD/WN, vitals as above ENMT: external ear and nose normal, oropharynx normal Neck: trachea midline, no thyromegaly Musculoskeletal: Gait: + antalgic gait (right side) Knee: + effusion (mild right knee effusion), + joint line tenderness (right lateral joint line mild. No obvious tenderness posteriorly.) and + valgus alignment (right knee on x-ray); no skin erythema and no ecchymosis Right knee: ROM -5 degrees to 95 degrees. Pain at the terminal flexion point. Skin: no rashes, warm and dry Neurologic: normal touch/pain/proprioception Psychiatric: A+Ox3, euthymic affect Results & Data Vital Signs (Past 12 Hours) Vital Signs Temp Pulse Pulse Resp BP BP Pulse Ox 11/05/18 11:09 36.7 C 69 17 128/71 96 11/05/18 07:37 69 11/05/18 07:23 36.7 C 77 16 123/70 94 11/05/18 02:24 69 Laboratory Results INR was 3.9 yesterday, today is 1.6. Diagnostic Findings 2 views of the right knee: No fx's noted. Severe lateral joint space narrowing, DJD, of the right knee with near complete joint space loss. Valgus deformity noted. 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
--- NOTE | 2018-11-05 16:27 | Discharge Summary ---
Date of Service November 05, 2018 Admission HPI Per Admitting Provider This is an 87 old female from [facility] with a past medical history of DM II, hypertension, CKD III, carotid stenosis s/p left endarterectomy in August 2018, history of DVT on chronic anticoagulation, HLD and other medical problems listed below who presents with right knee pain and swelling x3 days. At baseline, patient ambulates with walker and can transfer independently. History primarily obtained by daughter at bedside due to patient's altered mental status. Daughter states that as of Thursday, patient was unable to bear weight on right leg and required wheelchair for ambulation. Was seen by SANG Baldwin and x-rays were performed as well as uric acid level. Knee x-ray revealed joint effusion without acute osseous abnormality. Uric acid level is normal. Today, patient was started on 5-day course of 20 mg prednisone daily due to continued pain. According to daughter, patient also became disoriented since yesterday. Is forgetting that she is requiring a wheelchair to ambulate and seems to be forgetful about situation regarding knee pain. Still oriented to person, place and time. Denies any fever, chills, lightheadedness, visual changes, chest pain, shortness of breath, nausea, vomiting, abdominal pain, dysuria, diarrhea or constipation. Right knee is painful with bending or any type of ambulation but pain is resolved at rest. 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 Normal insp/exp effort, no accessory muscle use Cardiovascular: regular rate, rhythm, no murmur appreciated, normal peripheral pulses. Vessels: no JVD or carotid bruit Chest: normal inspection of chest Abdomen/GI: normal bowel sounds, soft, nontender, no hepatosplenomegaly Extremities/Musculoskelatal: no cyanosis or clubbing, extremities motor strength 5/5 . R knee tender to palpation of patella. Painful to move. Surrounding edema Neurologic: PERRL, EOMI, accommodation nl, no face palsy, no dysarthria, CN's II-XI intact bilaterally and moves all extremities Psychiatric: A+Ox person, place & time but not to situation, euthymic affect Skin: no rashes, normal color, warm/dry Principal Diagnosis Osteoarthritis of right knee Supratherapeutic INR Discharge Data Allergies Allergy/AdvReac Type Severity Reaction Status Date / Time bacitracin Allergy Unknown Unknown Verified 11/04/18 18:08 [From Neosporin ([id number])] neomycin Allergy Unknown Unknown Verified 11/04/18 18:08 [From Neosporin ([id number]-qrk-[id number])] polymyxin B Allergy Unknown Unknown Verified 11/04/18 18:08 [From Neosporin ([id number]-wxm-gzrzg)] atorvastatin AdvReac Severe RIGID Verified 11/04/18 18:08 MUSCLES ezetimibe AdvReac Severe RIGID Verified 11/04/18 18:08 MUSCLES Consultations 11/04/18 22:35 ED Decision to Admit Stat 11/04/18 23:55 Consult Case Management - Discharge Planning Routine Consult Orthopedic Surgery Routine Ordered Studies 11/04/18 16:55 CT head/brain wo con Stat US venous doppler LE RT Stat Hospital Course (1) Effusion of right knee: (2) Mccann's cyst of knee: (3) Supratherapeutic INR: 87[facility] in [facility] right [facility] and difficulty ambulating for the last 3 days. She was seen in the clinic one day prior to arrival with an x-ray showing evidence of joint effusion. A short course of prednisone 20mg daily was prescribed. In the ER, INR was supratherapeutic at 3.9. She was on coumadin for h/o DVT in 2008, and took ASA and Plavix regularly for h/o peripheral vascular disease. A right lower extremity venous Doppler revealed a 7.3 x 4.4 x 1.4 cm complex elongated abnormality within the right popliteal fossa which was thought to possibly reflect a complex popliteal cyst versus hematoma. She was admitted to the Hospitalist service and Orthopedics was consulted. Findings were consistent with osteoarthritis of the right knee and conservative treatment was recommended. Outpatient corticosteroid injection versus viscosupplement injections to the right knee were considered and discussed with the patient and her family. MRI of the right knee was also considered if the cyst became symptomatic, which was not the case during this hospitalization. The cyst was consistent with a Mccann's cyst. She was cleared to ambulate weightbearing as tolerated on the right lower extremity and a close follow-up in 2 to 4 weeks as outpatient and Dr. Simon Troncoso's clinic at [facility] was recommended. At that time they will perform reevaluation and possible injection therapy. At time of discharge a fxxj-zz-lgto examination was performed reve aling a hemodynamically stable and afebrile patient who was in minimal pain. There was a clear right knee effusion present however, the patient had full range of motion of her knee was able to bear weight and ambulate. Physical exam was otherwise unremarkable revealing an oriented patient with normal respiratory effort and clear lungs auscultation. Cardiac exam was normal. Strength and sensation were intact to lower extremities bilaterally. She was discharged with Coumadin discontinued as the indication for Coumadin was a one time history of DVT which was several years ago. Further use of Coumadin should be discussed with her primary care doctor moving forward. If Coumadin is not on board she is able to use NSAIDs such as ibuprofen for her clear issues with arthritis, currently recommended for any pain or swelling. Additionally of note she was reversed with vitamin K during this admission. She was discharged in stable condition with close primary care follow-up recommended. Total Time Total Time Spent Total Time Spent (In Minutes): 60 Discharge Plan Discharge Items Patient Disposition: Personal Residential Reason For Visit: HTN URGENCY,COAGULOPATHY Discharge Diagnosis: Osteoarthritis of right knee Supratherapeutic INR Condition on Discharge: Good Health Concerns: Need to follow-up with primary care physician regarding the need for continued coumadin at this point. If you are off the coumadin, you may use Ibuprofen regularly for your chronic knee pain. Activity: Resume your previous activity Non-emergency contact: Primary Care Provider Call non-emergency contact if: you have any medication questions, your symptoms worsen, your pain is not controlled, your pain is worsening, your pain is unusual for you, your pain is concerning for you and you have a fever Follow-up/Referrals: Gab Denise DO [Surgeon] - (Call to follow up with Dr. Denise's clinic in 2-4 weeks for re-evaluation of the right knee.) Samir Mai DO [Physician] - [facility]ay [facility] [Primary Care Provider] - Diet: Carb Consistent or DM2 and Heart Healthy Addtl Attending Provider Instructions: Please continue all medications as instructed on discharge list below. Continue to take the steroid course that was recently prescribed to you until this is complete. A new prescription is being sent for continued physical therapy and occupational therapy for you at home. Your coumadin has been stopped, and the need for further coumadin should be di scussed with your primary care physician (PCP) at follow-up. Please continue Tylenol use intermittently for knee pain. It can be helpful to schedule this to stay ahead of pain, for example, taking 500mg every 6-8 hours for a few days until pain improves. Alternatively, it would be appropriate to use Ibuprofen products such as Advil, Aleve, Naproxen or Motrin for symptoms as these are anti-inflammatory drugs and you are now off the coumadin for the time being. As recommended by Orthopedics, please follow-up with them in the clinic in 2-4 weeks for re-evaluation of your knee. At that time, they may take additional x- rays of your knee. They will also discuss further treatment options with you at this visit. Please contact [facility] to set this up if not already scheduled. Please follow-up with your PCP within one week of discharge. You are scheduled as follows: 11/10/2018 1:20 PM Samir Mai DO [facility] A repeat right lower extremity venous Doppler is recommended in 3 months time to evaluate the complex cystic area in the posterior right knee. This can be ordered by your primary care doctor. It was a pleasure taking care of you! Please call if you have any questions or problems. You can reach a [facility] hospitalist on duty at [facility] 24 hours a day by calling [phone]. Take care of yourself. Valentine Jose DO [facility] Hospitalist Pending Studies at Discharge: No Stand-Alone Forms: My [facility] Skilled Items Patient informed of condition?: Yes DNR: No Discharge Level of Care: Other Communicable Disease: No Discharge Prognosis: Stable Lines: None Urinary Catheter: No Medications and DC Order Prescriptions: Continued metformin 500 mg Tablet 500 mg PO QPM RF: 0 metformin 500 mg Tablet 1,000 mg PO QAM RF: 0 acetaminophen 325 mg Tablet 650 mg PO Q4H MDD 3 GM APAP/24 HOURS PRN (Reason: Fever Or Pain) RF: 0 prednisone 10 mg Tablet 20 mg PO DAILY RF: 0 clopidogrel 75 mg Tablet 75 mg PO QAM RF: 0 aspirin 81 mg Tablet,Delayed Release (Dr/Ec) 81 mg PO QAM RF: 0 lisinopril 10 mg Tablet 30 mg PO QAM RF: 0 sertraline 25 mg Tablet 25 mg PO DAILY RF: 0 sodium chloride [[place] Nasal] 0.65 % Aerosol,[place] 2 spray INTRANASAL Q8H PRN (Reason: Nasal Dryness) RF: 0 [place] Cough Drops 7.5 mg Lozenge 7 mg PO Q4H PRN (Reason: Laryngitis) RF: 0 metoprolol succinate 100 mg tablet extended release 24 hr 100 mg PO QAM RF: 0 amlodipine 10 mg tablet 10 mg PO QAM RF: 0 rosuvastatin 5 mg tablet 2.5 mg PO QAM RF: 0 latanoprost 0.005 % drops 1 drp OPB HS RF: 0 cholecalciferol (vitamin D3) 1,000 unit Tablet 1,000 unit PO QAM RF: 0 Discontinued warfarin 4 mg tablet 4 mg PO HS RF: 0 Discharge Orders: Discharge Order (Routine); Ordered 11/05/18 Ordered By: Valentine Jose Admission Data Admit Date/Time: 11/04/18 22:31 Attending Provider: Valentine Jose Admit Provider: Raheel Antoine Primary Care Provider: Anay Manning Gilmer Other Interventions: Discharge Summary Assessment (RN) Last Done: 11/05/18 16:51 DC Date/Time DO NOT enter until pt leaves facility: 11/05/18 18:11
[2018-11-05] MEDS ORDERED: LATANOPROST 0.005% OP SOLN 2.5 ML BTL OPB SCH (21:00)
[2018-11-06] MEDS ORDERED: INSULIN GLARGINE SOLOSTAR 100 UNITS/ML 3 ML PEN SQ SCH (09:00)
== END 2018-11-05 18:11 | disposition home or self-care (01) ==
LOC: ED 16:16 → 2N 16:16 → SUATTDRO 22:31 → 2N 23:21

== ENCOUNTER 2020-05-24 08:49 | Inpatient (IN) ==
[2020-05-24 09:36] LABS: Basophils # (auto) 0.01 K/uL (0-0.2); Basophils % (auto) 0.1 %; Eosinophils # (auto) 0.18 K/uL (0-0.5); Hematocrit (blood only) 39.2 % (37-47); Immature Granulocytes # (auto) 0.04 K/uL (0.00-0.02); Immature Granulocytes % (auto) 0.4 %; Lymphocytes # (auto) 1.23 K/uL (1.2-3.4); Lymphocytes % (auto) 13.8 %; Mean Corpuscular Hemoglobin 30.7 pg (25-34); Mean Corpuscular Hgb Conc 33.2 g/dL (32-36); Mean Corpuscular Volume 92.7 fL (80-100); Mean Platelet Volume 9.8 fL (7.4-10.4); Monocytes # (auto) 0.28 K/uL (0.11-0.59); Monocytes % (auto) 3.1 %; Neutrophils # (auto) 7.16 K/uL (1.4-6.5); Neutrophils % (auto) 80.6 %; Platelet Count 197 K/uL (130-400); RDW Coefficient of Variation 14.9 % (11.5-14.5); RDW Standard Deviation 50.2 fL (36.4-46.3); Red Blood Count 4.23 M/uL (4.2-5.4)
--- NOTE | 2020-05-24 09:45 | XRay Report ---
XR chest 1V portable CLINICAL HISTORY: Sepsis. COMPARISON STUDY: Chest radiograph November 04, 2018. FINDINGS: Lung volumes are normal. There is no pneumothorax. There are small bilateral pleural effusi ons with bibasilar opacities. Left midlung opacity is noted. There is also interstitial thickening. C ardiomegaly is noted with mitral annular calcification. IMPRESSION: 1. Small bilateral pleural effusions with bibasilar opacities, greater on the left. The findings may reflect pneumonia or atelectasis. Left midlung opacity favors an infectious process. 2. Suspected pulmonary edema. ACT 112: Negative or not required by law. Electronically signed by: Maximino Larson M.D. 05/24/2020 9:44 AM
[2020-05-24 09:50] LABS: Partial Thromboplastin Ratio 0.9; Partial Thromboplastin Time 24.7 Seconds (21.0-31.0); Prothrombin Time 10.2 Seconds (9.0-12.0)
[2020-05-24 09:55] LABS: Alanine Aminotransferase 18 U/L (12-78); Albumin Level 3.3 gm/dl (3.4-5.0); Aspartate Aminotransferase 11 U/L (15-37); BUN Creatinine Ratio 21.5 (10-20); Bilirubin Direct 0.3 mg/dl (0-0.2); Blood Urea Nitrogen 23 mg/dl (7-18); Calcium 8.5 mg/dl (8.5-10.1); Carbon Dioxide 28 mmol/L (21-32); Chloride 105 mmol/L (98-107); Creatinine Clr Calc Pharmacy 40.6 ml/min; Est GFR (African American) 55.3; Est GFR (Non-African American) 47.7; Glucose 280 mg/dl (70-99); Potassium 4.7 mmol/L (3.5-5.1); Sodium 138 mmol/L (136-145)
[2020-05-24] MEDS ORDERED: OPTIRAY 320 125ml IV ONE (10:01)
[2020-05-24 10:09] LABS: Albumin Globulin Ratio 0.9 (0.9-2); Alkaline Phosphatase 66 U/L (45-117); Bilirubin,Total 0.8 mg/dl (0.2-1); Globulin 3.5 gm/dl (2.5-4.0); NT Pro B Type Natriuretic Pept 1036 pg/ml (0-1800); Phosphorus 3.4 mg/dl (2.5-4.9); Total Protein 6.8 gm/dl (6.4-8.2); Troponin I < 0.015 ng/ml (0-0.045)
[2020-05-24 10:20] LABS: Base Excess VBG -1.5 mEq/L; Oxygen Saturation VBG 76.9 %; pH VBG 7.38 (7.36-7.41)
--- NOTE | 2020-05-24 10:27 | CT Scan Report ---
CHEST CTA for PULMONARY ARTERIES CT DOSE: 574.68 mGy.cm HISTORY: hypoxia, h/o dvt, r/o PE TECHNIQUE: Multiaxial CT images of the chest were performed following the intravenous administration of contrast to evaluate the pulmonary arteries. Maximal intensity projection images were also obtaine d. A dose lowering technique was utilized adhering to the principles of ALARA. COMPARISON STUDY: None. FINDINGS: Normal caliber thoracic aorta with no evidence for dissection. The heart is mildly enlarged . There are small bilateral pleural effusions. Nondiagnostic evaluation of the subsegmental branches of the bilateral lower lobes and right upper lobe due to the respiratory motion artifact. Otherwise, no filling defects within the remaining pulmonary arteries to suggest pulmonary embolus. Retrograde o pacification of the hepatic veins. Limited views the upper abdomen demonstrate a normal liver and spl een. Tiny hiatus hernia. There are few mildly enlarged right hilar lymph nodes and a single enlarged upper right paratracheal lymph node. The upper right paratracheal lymph node measures 15 x 10 mm. Dom inant right hilar lymph node measures 2.3 x 1.5 cm. There are small bilateral pleural effusions. No s uspicious lytic or blastic osseous lesions. No pneumothorax. The central airways are patent. A few sc attered patchy groundglass airspace opacities seen within the lungs. There are areas of consolidation within the lower lobes likely represent a combination of atelectasis and pneumonia. Scattered nodula r densities also likely represent an infectious process. Dominant nodule within the right upper lobe on image 130 measures 7 mm. IMPRESSION: 1. No evidence for pulmonary embolus with limitations as described above. 2. Small bilateral pleural effusions. 3. Scattered patchy groundglass and consolidative airspace opacities consistent with a mild multifoca l pneumonia. 4. Mild right paratracheal and right hilar lymphadenopathy. This could be reactive. 5. Additional findings as described above. ACT 112: Negative or not required by law. Electronically signed by: Hardeep Moe M.D. 05/24/2020 10:25 AM
[2020-05-24 10:28] LABS: Influenza A virus by PCR Negative (Neg); Influenza B virus by PCR Negative (Neg); RSV by PCR Negative (Neg); SARS CoV2 RNA(COVID-19) InHosp NEGATIVE (Negative)
[2020-05-24] MEDS ORDERED: ALBUTEROL HFA 8 GM INHALER INH ONE (10:51)
[2020-05-24] MEDS ORDERED: SODIUM CHLORIDE 0.9% 500 ML IV ONE (10:51)
[2020-05-24] MEDS ORDERED: PIPERACILL/TAZOBAC CONSULT ACTIVE PRN (10:51)
[2020-05-24] MEDS ORDERED: PIPERACILLIN/TAZOBACTAM 4.5 GM/120 ML BAG IV ONE (10:51)
--- NOTE | 2020-05-24 12:12 | History & Physical Report ---
Date of Service May 24, 2020 Assessment & Plan (1) Acute respiratory failure with hypoxia: (2) Multifocal pneumonia: (3) Diabetic ulcer of right heel: (4) Venous stasis ulcers of both lower extremities: (5) Peripheral arterial disease: (6) HTN (hypertension): (7) DM type 2 (diabetes mellitus, type 2): (8) CKD (chronic kidney disease), stage III: (9) Carotid artery disease: This is an 89yo F resident from [facility] with PMH of DM II, HTN, CKD III, carotid stenosis s/p left endarterectomy in August 2018, HLD, chronic venous stasis wounds following with wound care and vascular and other medical problems listed below who presents from wound care clinic with acute hypoxic respiratory failure and evidence of mild multifocal pneumonia. Acute respiratory failure with hypoxia Multifocal pneumonia Lactic acidosis Acute dyspnea on exertion and hypoxia 81% on room air since morning. Now saturating at 95% on 2 L Chest CTA without evidence of pulmonary embolus. Small bilateral pleural effusions. Scattered patchy groundglass and consolidative airspace opacities consistent with a mild multifocal pneumonia Does not meet sepsis criteria and is nontoxic in appearance. Initial lactic acid elevated at 2.6, likely due to Metformin use. Repeat lactic acid within normal limits Negative Covid, flu A/B and RSV test Continue empiric Zosyn. Added doxycycline. MRSA nasal screen pending Follow blood culture Repeat TTE to evaluate for CHF due to atypical clinical presentation for pneumonia, presence of small bilateral pleural effusions on chest CTA Speech evaluation for possible component of aspiration Albuterol nebulizer as needed Continue supplemental oxygen as needed Chronic venous stasis ulcers of bilateral lower extremity Diabetic ulcer right heel Follows with wound care. Place wound care nurse consult during admission Hypertension Continue amlodipine, lisinopril, metoprolol succinate Type 2 diabetes Hold home agents. SSI while in-patient. BSG AC HS Peripheral arterial disease Follows with Dr. Gautam. Continue aspirin, Plavix CKD III Renal function at baseline. Continue monitoring with daily BMP Carotid artery disease S/p left endarterectomy in August 2018. Continue aspirin, plavix DVT Ppx: SQ heparin Code status: DNR per daughter/POA at bedside PCP: Kerri Cueva Dispo: Admitted to [facility]. Discharge planning ordered Patient seen in collaboration with Dr. Galo. Please see addendum. History of Present Illness Primary Care Provider: [facility] This is an 89yo F resident from [facility] with PMH of DM II, HTN, CKD III, carotid stenosis s/p left endarterectomy in August 2018, HLD, chronic venous stasis wounds following with wound care and vascular and other medical problems listed below who presents from wound care clinic with acute hypoxia. Patient began feeling short of breath today. Denies fever, chills, cough or chest pain. No nausea, vomiting, abdominal pain, dysuria, diarrhea or constipation. Denies history of lung disease of chronic oxygen use. Was found to be hypoxic at 81% at wound clinic after walking a short distance from [place]. Was sent to ED for further evaluation. Denies recent aspiration or choking episode. Has remote history of DVT in RLE. Allergies Allergy/AdvReac Type Severity Reaction Status Date / Time bacitracin Allergy Unknown Unknown Verified 05/24/20 09:32 [From Neosporin ([id number])] neomycin Allergy Unknown Unknown Verified 05/24/20 09:32 [From Neosporin ([id number])] polymyxin B Allergy Unknown Unknown Verified 05/24/20 09:32 [From Neosporin ([id number])] atorvastatin AdvReac Severe RIGID Verified 05/24/20 09:32 MUSCLES ezetimibe AdvReac Severe RIGID Verified 05/24/20 09:32 MUSCLES Home Medications Medication Instructions Recorded Confirmed Type amlodipine 10 mg PO QAM 03/16/18 05/24/20 History metoprolol succinate 100 mg PO QAM 03/16/18 05/24/20 History rosuvastatin 2.5 mg PO QAM 03/16/18 05/24/20 History cholecalciferol (vitamin D3) 1,000 unit PO QAM 08/21/18 05/24/20 History latanoprost 1 drp OPB HS 08/21/18 05/24/20 History Hunters Cough Drops 7 mg PO Q4H PRN 11/04/18 05/24/20 History acetaminophen 650 mg PO Q4H PRN MDD 3 GM APAP/11/04/18 05/24/20 History HOURS aspirin 81 mg PO QAM 11/04/18 05/24/20 History clopidogrel 75 mg PO QAM 11/04/18 05/24/20 History sertraline 25 mg PO DAILY 11/04/18 05/24/20 History sodium chloride [Prentiss Nasal] 2 spray INTRANASAL Q8H PRN 11/04/18 05/24/20 History metformin 500 mg tablet 500 mg PO BID tab 01/05/19 05/24/20 History glipizide 5 mg tablet 5 mg PO DAILY 02/06/20 05/24/20 History lisinopril 10 mg tablet 20 mg PO QAM tab 02/17/20 05/24/20 History insulin glargine 100 unit/mL 10 unit SUBCUT HS ml 03/15/20 05/24/20 History subcutaneous solution cadexomer iodine 0.9 % topical gel 10 g TOPICAL Q3D #10 g 04/03/20 05/24/20 Rx Past Med/Surg History Medical History (Updated 05/24/20 @ 13:09 by Fatimah Elliott PA-C) Blind left eye Carotid artery disease "CTA 03/09/17: high-grade stenoses bilat ICA's" S/p L endarterectomy in August 2018 at [facility] Cataract CKD (chronic kidney disease), stage III DM type 2 (diabetes mellitus, type 2) Glaucoma History of DVT (deep vein thrombosis) HLD (hyperlipidemia) HTN (hypertension) Surgical History History of appendectomy History of History of colonoscopy Family History Mother Diabetes Parkinson disease Father , age 94 CHF (congestive heart failure) Brother Myocardial infarction Social History Smoking Status: Never smoker Hx Alcohol Use: No Hx Substance Use: No Preferred Language: Chinese Communication Ability: Effective Drill Rig Operator Required: No Beliefs That Will Affect Care: None marital status: / Current Living Situation: Snf Current Living Situation Comment: daysi Feels Safe at Home: Yes Assistive Devices: Glasses, Hearing Aid - Bilateral and Walker Review of Systems Review of Systems: At least ten systems reviewed and negative except as noted in the HPI. Physical Exam Physical Exam: General Appearance: WD/WN, vitals as above, NAD, sitting up in bed, pleasant, conversing easily Head: normocephalic, atraumatic Eyes: + blind L eye, conjunctivae normal, anicteric sclerae ENT: hard of hearing, external ear and nose normal, oropharynx normal Neck: normal visual inspection, trachea midline, no thyromegaly Respiratory: normal respiratory effort, bibasilar crackles, diminished breath sounds at bases. No wheeze or rhonchi. No accessory muscle use Cardiovascular: regular rate, rhythm, no murmur appreciated, normal peripheral pulses. Vessels: no JVD Chest: normal inspection of chest Abdomen/GI: normal bowel sounds, soft, nontender, no hepatosplenomegaly Extremities/Musculoskeletal: no cyanosis or clubbing, extremities motor strength 5/5. + BLE with multiple small well-circumscribed venous stasis lesions on medial aspect of BLE. No purulent drainage. Erythema and trace edema noted bilaterally Neurologic: PERRL, EOMI, accommodation nl, no face palsy, no dysarthria, CN's II-XI intact bilaterally and moves all extremities Psychiatric: A+Ox3, euthymic affect Skin: no rashes, normal color, warm/dry Results & Data Results & Data ([facility]) Vital Signs (Past 12 Hours) Vital Signs Temp Pulse Pulse Resp BP BP Pulse Ox 05/24/20 10:51 72 30 H 149/85 H 95 05/24/20 09:23 76 24 141/62 H 97 05/24/20 09:15 81 L 05/24/20 09:14 76 28 H 96 05/24/20 08:58 36.9 C 80 24 170/77 H 81 L Laboratory Results Short CBC 05/24/20 05/24/20 05/24/20 Range/Units 09:11 09:11 09:11 WBC 8.90 (4.8-10.8) K/uL Hgb 13.0 (12.0-16.0) g/dL Hct 39.2 (37-47) % Plt Count 197 (130-400) K/uL INR 1.0 (0.9-1.1) Creatinine 1.05 (0.6-1.2) mg/dl BMP 05/24/20 09:11 Sodium 138 Potassium 4.7 Chloride 105 Carbon Dioxide 28 BUN 23 H Creatinine 1.05 Glucose 280 H Calcium 8.5 Cardiac Enzymes 05/24/20 Range/Units 09:11 Troponin I < 0.015 (0-0.045) ng/ml Liver Function 05/24/20 Range/Units 09:11 Total Bilirubin 0.8 (0.2-1) mg/dl Direct Bilirubin 0.3 H (0-0.2) mg/dl AST 11 L (15-37) U/L ALT 18 (12-78) U/L Alkaline Phosphatase 66 (45-117) U/L Albumin 3.3 L (3.4-5.0) gm/dl Diagnostic Findings CXR: IMPRESSION: 1. Small bilateral pleural effusions with bibasilar opacities, greater on the left. The findings may reflect pneumonia or atelectasis. Left midlung opacity favors an infectious process. 2. Suspected pulmonary edema. Chest CTA: IMPRESSION: 1. No evidence for pulmonary embolus with limitations as described above. 2. Small bilateral pleural effusions. 3. Scattered patchy groundglass and consolidative airspace opacities consistent with a mild multifocal pneumonia. 4. Mild right paratracheal and right hilar lymphadenopathy. This could be reactive. 5. Additional findings as described above. Code Status & VTE Plan VTE Prophylaxis Plan VTE Prophylaxis will be ordered: Yes Supervising Physician Co-Signing Physician Notes Patient is an 89-year-old female with history of hypertension, diabetes mellitus, CKD stage III, carotid artery stenosis, chronic venous stasis wounds and other medical problems presents with history of shortness of breath on exertion and was found to be hypoxic while visiting wound clinic today. She denies any cough, fever, chills, chest pain, sick contact, aspiration issues. Her Covid screen is negative while in ED. Please review HPI for complete details of presentation. CTA showed no evidence of pulmonary embolism but showed findings suggestive of small bilateral pleural effusions, patchy groundglass and consolidative airspace opacities consistent with mild multifocal pneumonia associated with right paratracheal and right hilar lymphadenopathy. Her saturations improved with 2 L of supplemental oxygen. Also noted lactic acidosis which normalized with IV fluids. Normal procalcitonin levels noted. Prior echo on old records suggestive of normal EF with grade 1 diastolic dysfunction. On exam patient is obese, no apparent distress, normocephalic atraumatic,+ left eye blindness, lungs--decreased breath sounds at bases, bilateral basal crackles noted. S1-S2, no murmur, trace pedal edema with bilateral multiple small lower extremity wounds with erythema, abdomen soft, nontender, normal bowel sounds, alert, awake, oriented, grossly no focal neurological deficits. Patient is admitted for management of acute respiratory failure with hypoxia secondary to multifocal pneumonia, lactic acidosis. Also to rule out diastolic heart failure. Agree with broad-spectrum antibiotics, nebs as needed, blood cultures obtained. Check MRSA screen. Will obtain echo as well. Monitor I's and O's, daily weight. Urine analysis currently pending. Will consult wound care nurse for management of bilateral chronic venous stasis wounds. Aspiration, fall precautions, speech therapy eval. Hold metformin and utilize insulin therapy while hospitalized. I personally reviewed the record. Patient is interviewed and examined at bedside. Patient's care is coordinated with Fatimah Elliott PA-C. Please refer to the documentation above for details of patient's presentation and for discussion of other issues.
[2020-05-24] MEDS ORDERED: SODIUM CHLORIDE 0.65% NA SOLN 45 ML (OCEAN) NAE PRN (13:23)
[2020-05-24] MEDS ORDERED: ACETAMINOPHEN 325 MG TAB PO PRN ×2 (13:23→14:52)
[2020-05-24] MEDS ORDERED: GLUCOSE 40% GEL 15 GM TUBE PO PRN (14:52)
[2020-05-24] MEDS ORDERED: DEXTROSE 50% 50 ML SYRINGE IV PRN (14:52)
[2020-05-24] MEDS ORDERED: GLUCAGON FOR INJ 1 MG VIAL SQ PRN (14:52)
[2020-05-24] MEDS ORDERED: ALBUTEROL 0.083% NEBU SOLN 3 ML VIAL NEB PRN (14:52)
[2020-05-24] MEDS ORDERED: CARBOHYDRATES FOR HYPOGLYCEMIA PO PRN (14:52)
[2020-05-24] MEDS ORDERED: POLYETHYLENE (MIRALAX) 17 GM PACK PO PRN (14:52)
[2020-05-24] MEDS ORDERED: ONDANSETRON INJ 2 MG/ML 2 ML VIAL IV PRN (14:52)
[2020-05-24] MEDS ORDERED: GLUCOSE 10 TABS/TUBE PO PRN (14:52)
[2020-05-24] MEDS ORDERED: COUGH DROP (SUGAR FREE) LOZ 24 LOZ/1 BOX BUCCAL PRN (15:19)
--- NOTE | 2020-05-24 15:24 | Emergency Department Note ---
Impression & Plan Multifocal pneumonia, Acute respiratory failure with hypoxia, Elevated lactic acid level ED Provider Note NAME: ISABELLA KAT AGE: 89 SEX: F ARRIVES VIA: Ambulance INFORMANT: Patient, ED PROVIDER(S): Edilson Arango MD CHIEF COMPLAINT: Shortness of breath, hypoxia. PLAN: Disposition: Home. MEDICAL DECISION MAKING: The patient is a pleasant 89 y/o woman [facility] resident with a pmhx of dementia, CKD, CAD, IDDM2, HTN, HLD, chronic venous insufficiency who presents to the emergency department accompanied by her beyyozrm-ys-bmq from the wound clinic for evaluation after she presented to her routine weekly visit for radha chaidez of lower extremity ulcers and was found to be SOB with hypoxia to 81% on RA improved to low-mid 90s with 2L NC by EMS. Patient is a poor historian in the setting of her dementia as she stated initially that she was surprised they wanted her to come to the ED as she felt fine an had no shortness of breath, however after several minutes she states that she "could not believe how short of breath she was". The patient's migsipbc-iw-mim also reported that the patient was much more short of breath than she had ever been before and was only noticed today. They deny fevers, cough, nausea, vomiting, diarrhea, urinary sx. They report her ulcers having been making progress/improving. They report a report history of DVT but is no longer on warfarin/AC. On arrival the patient is mildly dyspneic but in NAD, AF, hypoxic to 81%RA improving to low-mid 90s on 2L NC and otherwise VSS. Abdomen is benign. Lungs with wheezes and rhonchi of lower lung humphrey bilaterally. Abdomen is benign. EKG without overt acute ischemia. CXR most c/w multifocal pna with bibasilar opacities left > right, further characterized on CTA of the chest. No PE. WBC, H/H, platelets wnl. VBG unremarkable. Chemistry without acidosis. Electrolytes unremarkable. LFTs without significant abnormality. Troponin negative/undetectable. BNP wnl. Procalcitonin is not elevated. TSH wnl. Covid-19 PCR negative. Influenza and RSV PCR negative. Given hypoxia related to multi- focal PNA reasonable to admit for further management. The patient and tifehjav-un-qzx were in agreement. Treatment initiated with Zosyn given possibility for aspiration given h/o dementia. Case was discussed with Edilia Tabor PAC, with Dr. Iraj Yeboah hospitalist who will evaluate the patient for admission. Triage Nursing notes reviewed and agree them. Additional history obtained from EMS Prior medical records reviewed Vital Signs: reviewed and remarkable for Hypoxia. Differential diagnosis: Reactive airway disease, pneumonia, pneumothorax, COPD, CHF, infections, cardiac ischemia, pulmonary embolism, musculoskeletal, gastrointestinal, as well as other pathologies. ER treatment provided: See below. Diagnostics interpreted by me: ECG: Sinus rhythm, 75 bpm, PACs, no overt ST elevation or depression. Cardiac Monitoring: An order for continuous cardiac monitoring was placed and demonstrated Sinus rhythm, 75 bpm, PACs. Laboratory studies: See below Imaging studies: See below Consultation(s): Case was discussed with Edilia Tabor PAC, with Dr. Iraj Yeboah hospitalist who will evaluate the patient for admission. HPI: The patient is a pleasant 89 y/o woman [facility] resident with a pmhx of dementia, CKD, CAD, IDDM2, HTN, HLD, chronic venous insufficiency who presents to the emergency department accompanied by her btzhxvba-bq-jat from the wound clinic for evaluation after she presented to her routine weekly visit for management of lower extremity ulcers and was found to be SOB with hypoxia to 81% on RA improved to low-mid 90s with 2L NC by EMS. Patient is a poor historian in the setting of her dementia as she stated initially that she was surprised they wanted her to come to the ED as she felt fine an had no shortness of breath, however after several minutes she states that she "could not believe how short of breath she was". The patient's dpqaucqg-pp-jus also reported that the patient was much more short of breath than she had ever been before and was only noticed today. They deny fevers, cough, nausea, vomiting, diarrhea, urinary sx. They report her ulcers having been making progress/improving. They report a report history of DVT but is no longer on warfarin/AC. ROS: See above HPI for pertinent positives & negatives. A total of 10 systems reviewed and were otherwise negative. PAST MEDICAL HISTORY:See Below PAST SURGICAL HISTORY:See Below FAMILY HISTORY:See Below SOCIAL HISTORY:See Below HOME MEDICATIONS:See Below ALLERGIES:See Below VITALS:See Below PHYSICAL EXAMINATION: GENERAL: Awake, alert, mildly dyspneic-appearing, in no distress. BMI 33.5 HENT: Normocephalic, atraumatic. Oropharynx with dry mucous membranes and otherwise unremarkable. EYES: Normal conjunctiva. Sclera non-icteric. NECK: Supple. No nuchal rigidity. FROM. No JVD. RESPIRATORY: Wheezes and rhonchi of lower lung humphrey bilaterally. Mild increased WOB, in NAD. CARDIAC: Regular rate, normal rhythm. Extremities warm and well perfused. Pulses equal. ABDOMEN: Soft, non-distended. No tenderness to palpation. No rebound or guarding. No masses. RECTAL: Deferred. MUSCULOSKELETAL: Chest examination reveals no tenderness. The back is symmetrical on inspection without obvious abnormality. There is no CVA tenderness to palpation. No joint edema. LOWER EXTREMITIES: Calves are equal size bilaterally and non-tender. 1+ BLE edema. Mild erythema without significant warmth or tenderness. Superficial ulcerations of right lateral hind foot, bilateral anterior distal lower leg without overt infection. NEURO: Normal sensorium. No sensory or motor deficits noted. SKIN: No rash or jaundice noted. ED COURSE: Critical Care: I have personally spent greater than 35 minutes of critical care time in the direct management of this patient. This includes bedside care, interpretation of diagnostic studies, and testing, discussion with consultants, patient, and family members, and other required patient management activities. This 35 minutes is in excess of all separately billable procedures. Edilson Arango MD Past Med/Surg History Medical History Blind left eye Carotid artery disease "CTA 03/09/17: high-grade stenoses bilat ICA's" S/p L endarterectomy in August 2018 at [facility] Cataract Chronic venous insufficiency CKD (chronic kidney disease), stage III DM type 2 (diabetes mellitus, type 2) Glaucoma History of DVT (deep vein thrombosis) HLD (hyperlipidemia) HTN (hypertension) Surgical History History of appendectomy History of History of colonoscopy Family History Mother Diabetes Parkinson disease Father , age 94 CHF (congestive heart failure) Brother Myocardial infarction Social History Smoking Status: Never smoker Hx Alcohol Use: No Hx Substance Use: No Preferred Language: German Communication Ability: Effective Pole Cutter Required: No Beliefs That Will Affect Care: None marital status: / Current Living Situation: Personal Care Facility Current Living Situation Comment: [facility] Other Information That Helps Us Care for You: No Feels Safe at Home: Yes Safety Concerns: Feels Safe At This Time Assistive Devices: Oxygen - Continuous and Walker Allergies Allergies Allergy/AdvReac Type Severity Reaction Status Date / Time bacitracin Allergy Unknown Unknown Verified 05/24/20 09:32 [From Neosporin ([id number])] neomycin Allergy Unknown Unknown Verified 05/24/20 09:32 [From Neosporin ([id number])] polymyxin B Allergy Unknown Unknown Verified 05/24/20 09:32 [From Neosporin ([id number])] atorvastatin AdvReac Severe RIGID Verified 05/24/20 09:32 MUSCLES ezetimibe AdvReac Severe RIGID Verified 05/24/20 09:32 MUSCLES Home Meds Home Medications Medication Instructions Recorded Confirmed amlodipine 10 mg PO QAM 03/16/18 05/24/20 metoprolol succinate 100 mg PO QAM 03/16/18 05/24/20 rosuvastatin 2.5 mg PO 03/16/18 05/24/20 cholecalciferol (vitamin D3) 1,000 unit PO QAM 08/21/18 05/24/20 latanoprost 1 drp OPB 08/21/18 05/24/20 [place] Cough Drops 7 mg PO Q4H PRN 11/04/18 05/24/20 acetaminophen 650 mg PO Q4H PRN MDD 3 GM APAP/11/04/18 05/24/20 HOURS aspirin 81 mg PO QAM 11/04/18 05/24/20 clopidogrel 75 mg PO QAM 11/04/18 05/24/20 sertraline 25 mg PO DAILY 11/04/18 05/24/20 sodium chloride [[place] Nasal] 2 spray INTRANASAL Q8H PRN 11/04/18 05/24/20 metformin 500 mg tablet 500 mg PO BID tab 01/05/19 05/24/20 glipizide 5 mg tablet 5 mg PO DAILY 02/06/20 05/24/20 lisinopril 10 mg tablet 20 mg PO QAM tab 02/17/20 05/24/20 insulin glargine 100 unit/mL 10 unit SUBCUT HS ml 03/15/20 05/24/20 subcutaneous solution Previous Rx's Medication Instructions Recorded cadexomer iodine 0.9 % topical gel 10 g TOPICAL Q3D #10 g 04/03/20 Results & Data (ED) Vital Signs Vital Signs - 24 hr 05/24/20 08:58 05/24/20 09:14 05/24/20 09:15 Temperature 36.9 C Temperature Source Oral Pulse Rate 80 76 Pulse Rate [Right Finger] Pulse Rate from SpO2 Sensor Respiratory Rate 24 28 H Respiratory Pattern Blood Pressure 170/77 H Blood Pressure [Right Arm] Blood Pressure Mean 108 Blood Pressure Mean [Right Arm] Pulse Oximetry 81 L 96 81 L Oxygen Delivery Method Room Air Nasal Cannula Nasal Cannula Oxygen Flow Rate 2 0 Sepsis Recent Fever Within 48 Hours No Sepsis New/Unexplained Change in Mental Status N/A Sepsis Action Taken by Nursing No Action Required Oxygen Flow Rate - Titration 2 Pulse Oximetry Post Tiitration 97 05/24/20 09:23 05/24/20 09:25 05/24/20 10:51 Temperature Temperature Source Pulse Rate Pulse Rate [Right Finger] 76 72 Pulse Rate from SpO2 Sensor Respiratory Rate 24 30 H Respiratory Pattern Regular Blood Pressure Blood Pressure [Right Arm] 141/62 H 149/85 H Blood Pressure Mean Blood Pressure Mean [Right Arm] 88 106 Pulse Oximetry 97 95 Oxygen Delivery Method Nasal Cannula Nasal Cannula Oxygen Flow Rate 2 2 Sepsis Recent Fever Within 48 Hours Sepsis New/Unexplained Change in Mental Status Sepsis Action Taken by Nursing Oxygen Flow Rate - Titration Pulse Oximetry Post Tiitration 05/24/20 11:00 05/24/20 11:30 Temperature Temperature Source Pulse Rate 72 70 Pulse Rate [Right Finger] Pulse Rate from SpO2 Sensor 71 70 Respiratory Rate 25 H 24 Respiratory Pattern Blood Pressure 142/70 H 136/70 Blood Pressure [Right Arm] Blood Pressure Mean 94 92 Blood Pressure Mean [Right Arm] Pulse Oximetry 96 96 Oxygen Delivery Method Oxygen Flow Rate Sepsis Recent Fever Within 48 Hours Sepsis New/Unexplained Change in Mental Status Sepsis Action Taken by Nursing Oxygen Flow Rate - Titration Pulse Oximetry Post Tiitration Laboratory Data Attestation: I reviewed the patient's lab results. Result diagrams: 05/24/20 09:11 05/24/20 09:11 Lab Results 05/24/20 05/24/20 05/24/20 Range/Units 09:11 09:11 09:11 WBC 8.90 (4.8-10.8) K/uL RBC 4.23 (4.2-5.4) M/uL Hgb 13.0 (12.0-16.0) g/dL Hct 39.2 (37-47) % MCV 92.7 (80-100) fL MCH 30.7 (25-34) pg MCHC 33.2 (32-36) g/dL RDW Std Deviation 50.2 H (36.4-46.3) fL RDW Coeff of Basil 14.9 H (11.5-14.5) % Plt Count 197 (130-400) K/uL MPV 9.8 (7.4-10.4) fL Immature Gran % (Auto) 0.4 % Neut % (Auto) 80.6 % Lymph % (Auto) 13.8 % Coles % (Auto) 3.1 % Eos % (Auto) 2.0 % Baso % (Auto) 0.1 % Neut # (Auto) 7.16 H (1.4-6.5) K/uL Lymph # (Auto) 1.23 (1.2-3.4) K/uL Coles # (Auto) 0.28 (0.11-0.59) K/uL Eos # (Auto) 0.18 (0-0.5) K/uL Baso # (Auto) 0.01 (0-0.2) K/uL Immature Gran # (Auto) 0.04 H (0.00-0.02) K/uL PT (9.0-12.0) Seconds INR (0.9-1.1) APTT (21.0-31.0) Seconds PTT Ratio VBG pH (7.36-7.41) VBG pCO2 (38-50) mmHg VBG pO2 mmHg VBG HCO3 mmol/L VBG O2 Saturation % VBG Base Excess mEq/L Barometric Pressure mm/Hg Sodium 138 (136-145) mmol/L Potassium 4.7 (3.5-5.1) mmol/L Chloride 105 (98-107) mmol/L Carbon Dioxide 28 (21-32) mmol/L Anion Gap 5.0 (3-11) BUN 23 H (7-18) mg/dl Creatinine 1.05 (0.6-1.2) mg/dl Est Cr Clr Drug Dosing 40.6 ml/min Est GFR ( Amer) 55.3 Est GFR (Non-Af Amer) 47.7 BUN/Creatinine Ratio 21.5 H (10-20) Glucose 280 H (70-99) mg/dl Lactate (0.4-2.0) mmol/L Calcium 8.5 (8.5-10.1) mg/dl Phosphorus 3.4 (2.5-4.9) mg/dl Magnesium 2.0 (1.8-2.4) mg/dl Total Bilirubin 0.8 (0.2-1) mg/dl Direct Bilirubin 0.3 H (0-0.2) mg/dl AST 11 L (15-37) U/L ALT 18 (12-78) U/L Alkaline Phosphatase 66 (45-117) U/L Troponin I < 0.015 (0-0.045) ng/ml NT-Pro-B Natriuret Pep 1036 (0-1800) pg/ml Total Protein 6.8 (6.4-8.2) gm/dl Albumin 3.3 L (3.4-5.0) gm/dl Globulin 3.5 (2.5-4.0) gm/dl Albumin/Globulin Ratio 0.9 (0.9-2) Procalcitonin < 0.05 (0-0.5) ng/ml TSH 1.560 (0.300-4.500) uIu/ml COVID-19 Eval Order SARS-CoV-2 (PCR) (Negative) Influenza Type A (PCR) (Neg) Influenza Type B (PCR) (Neg) RSV (RT-PCR) (Neg) 05/24/20 05/24/20 05/24/20 Range/Units 09:11 09:11 09:11 WBC (4.8-10.8) K/uL RBC (4.2-5.4) M/uL Hgb (12.0-16.0) g/dL Hct (37-47) % MCV (80-100) fL MCH (25-34) pg MCHC (32-36) g/dL RDW Std Deviation (36.4-46.3) fL RDW Coeff of Basil (11.5-14.5) % Plt Count (130-400) K/uL MPV (7.4-10.4) fL Immature Gran % (Auto) % Neut % (Auto) % Lymph % (Auto) % Coles % (Auto) % Eos % (Auto) % Baso % (Auto) % Neut # (Auto) (1.4-6.5) K/uL Lymph # (Auto) (1.2-3.4) K/uL Coles # (Auto) (0.11-0.59) K/uL Eos # (Auto) (0-0.5) K/uL Baso # (Auto) (0-0.2) K/uL Immature Gran # (Auto) (0.00-0.02) K/uL PT 10.2 (9.0-12.0) Seconds INR 1.0 (0.9-1.1) APTT 24.7 (21.0-31.0) Seconds PTT Ratio 0.9 VBG pH (7.36-7.41) VBG pCO2 (38-50) mmHg VBG pO2 mmHg VBG HCO3 mmol/L VBG O2 Saturation % VBG Base Excess mEq/L Barometric Pressure mm/Hg Sodium (136-145) mmol/L Potassium (3.5-5.1) mmol/L Chloride (98-107) mmol/L Carbon Dioxide (21-32) mmol/L Anion Gap (3-11) BUN (7-18) mg/dl Creatinine (0.6-1.2) mg/dl Est Cr Clr Drug Dosing ml/min Est GFR ( Amer) Est GFR (Non-Af Amer) BUN/Creatinine Ratio (10-20) Glucose (70-99) mg/dl Lactate (0.4-2.0) mmol/L Calcium (8.5-10.1) mg/dl Phosphorus (2.5-4.9) mg/dl Magnesium (1.8-2.4) mg/dl Total Bilirubin (0.2-1) mg/dl Direct Bilirubin (0-0.2) mg/dl AST (15-37) U/L ALT (12-78) U/L Alkaline Phosphatase (45-117) U/L Troponin I (0-0.045) ng/ml NT-Pro-B Natriuret Pep (0-1800) pg/ml Total Protein (6.4-8.2) gm/dl Albumin (3.4-5.0) gm/dl Globulin (2.5-4.0) gm/dl Albumin/Globulin Ratio (0.9-2) Procalcitonin (0-0.5) ng/ml TSH (0.300-4.500) uIu/ml COVID-19 Eval Order CovFluRsv at [facility] SARS-CoV-2 (PCR) NEGATIVE (Negative) Influenza Type A (PCR) Negative (Neg) Influenza Type B (PCR) Negative (Neg) RSV (RT-PCR) Negative (Neg) 05/24/20 05/24/20 05/24/20 Range/Units 09:59 09:59 11:54 WBC (4.8-10.8) K/uL RBC (4.2-5.4) M/uL Hgb (12.0-16.0) g/dL Hct (37-47) % MCV (80-100) fL MCH (25-34) pg MCHC (32-36) g/dL RDW Std Deviation (36.4-46.3) fL RDW Coeff of Basil (11.5-14.5) % Plt Count (130-400) K/uL MPV (7.4-10.4) fL Immature Gran % (Auto) % Neut % (Auto) % Lymph % (Auto) % Coles % (Auto) % Eos % (Auto) % Baso % (Auto) % Neut # (Auto) (1.4-6.5) K/uL Lymph # (Auto) (1.2-3.4) K/uL Coles # (Auto) (0.11-0.59) K/uL Eos # (Auto) (0-0.5) K/uL Baso # (Auto) (0-0.2) K/uL Immature Gran # (Auto) (0.00-0.02) K/uL PT (9.0-12.0) Seconds INR (0.9-1.1) APTT (21.0-31.0) Seconds PTT Ratio VBG pH 7.38 (7.36-7.41) VBG pCO2 41 (38-50) mmHg VBG pO2 43 mmHg VBG HCO3 24 mmol/L VBG O2 Saturation 76.9 % VBG Base Excess -1.5 mEq/L Barometric Pressure 727.1 mm/Hg Sodium (136-145) mmol/L Potassium (3.5-5.1) mmol/L Chloride (98-107) mmol/L Carbon Dioxide (21-32) mmol/L Anion Gap (3-11) BUN (7-18) mg/dl Creatinine (0.6-1.2) mg/dl Est Cr Clr Drug Dosing ml/min Est GFR ( Amer) Est GFR (Non-Af Amer) BUN/Creatinine Ratio (10-20) Glucose (70-99) mg/dl Lactate 2.6 H* 1.4 (0.4-2.0) mmol/L Calcium (8.5-10.1) mg/dl Phosphorus (2.5-4.9) mg/dl Magnesium (1.8-2.4) mg/dl Total Bilirubin (0.2-1) mg/dl Direct Bilirubin (0-0.2) mg/dl AST (15-37) U/L ALT (12-78) U/L Alkaline Phosphatase (45-117) U/L Troponin I (0-0.045) ng/ml NT-Pro-B Natriuret Pep (0-1800) pg/ml Total Protein (6.4-8.2) gm/dl Albumin (3.4-5.0) gm/dl Globulin (2.5-4.0) gm/dl Albumin/Globulin Ratio (0.9-2) Procalcitonin (0-0.5) ng/ml TSH (0.300-4.500) uIu/ml COVID-19 Eval Order SARS-CoV-2 (PCR) (Negative) Influenza Type A (PCR) (Neg) Influenza Type B (PCR) (Neg) RSV (RT-PCR) (Neg) Administered Medications Heparin Sodium (Porcine) (Heparin Sod 5,000 Unit/0.5 Ml Vial) 5,000 units SQ Q8 [facility] Stop: 06/23/20 15:29 Last Admin: 05/24/20 21:02 Dose: 5,000 units Documented by: [id number] Admin: 05/24/20 16:40 Dose: 5,000 units Documented by: [id number] Doxycycline Hyclate 100 mg/ (Dextrose) 110 mls @ 50 mls/hr IV Q12H [facility] Stop: 05/31/20 11:59 Last Infusion: 05/24/20 18:57 Dose: 0 mls/hr Documented by: [id number] Admin: 05/24/20 16:40 Dose: 50 mls/hr Documented by: [id number] Insulin Aspart (Insulin Aspart 100 Units/Ml 3 Ml Pen) 0 units SC [facility] Stop: 06/23/20 16:29 Last Admin: 05/24/20 20:54 Dose: 1 units Documented by: [id number] Cosigned by: [id number] Admin: 05/24/20 17:16 Dose: 4 units Documented by: [id number] Cosigned by: [id number] Insulin Glargine (Insulin Glargine Solostar 100 Units/Ml 3 Ml Pen) 5 units SC [facility] Stop: 06/23/20 20:59 Last Admin: 05/24/20 20:53 Dose: 5 units Documented by: [id number] Cosigned by: [id number] Latanoprost (Latanoprost 0.005% Op Soln 2.5 Ml Btl) 1 drops OPB [facility] Stop: 06/23/20 20:59 Last Admin: 05/24/20 20:47 Dose: 1 drops Documented by: [id number] Rosuvastatin Calcium (Rosuvastatin Calcium 5 Mg Tab) 2.5 mg PO [facility] Stop: 06/23/20 20:59 Last Admin: 05/24/20 20:46 Dose: 2.5 mg Documented by: [id number] Discontinued Medications Albuterol (Albuterol Hfa 8 Gm Inhaler) 2 puffs INH NOW ONE Stop: 05/24/20 10:52 Last Admin: 05/24/20 11:16 Dose: 2 puffs Documented by: [id number] Piperacillin Sod/Tazobactam Sod (Zosyn) 4.5 gm in 120 mls @ 240 mls/hr IV NOW ONE Stop: 05/24/20 11:20 Last Infusion: 05/24/20 12:35 Dose: 0 mls/hr Documented by: [id number] Admin: 05/24/20 11:16 Dose: 240 mls/hr Documented by: [id number] Sodium Chloride (Nss) 500 mls @ 999 mls/hr IV .Q31M ONE Stop: 05/24/20 11:21 Last Infusion: 05/24/20 12:34 Dose: 0 mls/hr Documented by: [id number] Admin: 05/24/20 11:16 Dose: 999 mls/hr Documented by: [id number] Piperacillin Sod/Tazobactam Sod (Zosyn) 4.5 gm in 120 mls @ 240 mls/hr IV NOW STA Stop: 05/24/20 21:02 Last Infusion: 05/24/20 21:14 Dose: 0 mls/hr Documented by: [id number] Admin: 05/24/20 20:44 Dose: 240 mls/hr Documented by: [id number] Ioversol (Optiray 320 125ml) 120 ml IV ONCE ONE Stop: 05/24/20 10:02 Last Admin: 05/24/20 10:02 Dose: 120 ml Documented by: [id number] Non-Formulary Medication (Cadexomer Iodine [Iodosorb]) 10 gm TOP Q3D [facility] Stop: 06/23/20 13:29 Last Admin: 05/24/20 16:49 Dose: Not Given Documented by: [id number] Imaging Data Radiologist's Impression: Chest CTA 05/24/20 09:15 CHEST CTA for PULMONARY ARTERIES CT DOSE: 574.68 mGy.cm HISTORY: hypoxia, h/o dvt, r/o PE TECHNIQUE: Multiaxial CT images of the chest were performed following the intravenous administration of contrast to evaluate the pulmonary arteries. Maximal intensity projection images were also obtained. A dose lowering technique was utilized adhering to the principles of ALARA. COMPARISON STUDY: None. FINDINGS: Normal caliber thoracic aorta with no evidence for dissection. The heart is mildly enlarged. There are small bilateral pleural effusions. Nondiagnostic evaluation of the subsegmental branches of the bilateral lower lobes and right upper lobe due to the respiratory motion artifact. Otherwise, no filling defects within the remaining pulmonary arteries to suggest pulmonary embolus. Retrograde opacification of the hepatic veins. Limited views the upper abdomen demonstrate a normal liver and spleen. Tiny hiatus hernia. There are few mildly enlarged right hilar lymph nodes and a single enlarged upper right paratracheal lymph node. The upper right paratracheal lymph node measures 15 x 10 mm. Dominant right hilar lymph node measures 2.3 x 1.5 cm. There are small bilateral pleural effusions. No suspicious lytic or blastic osseous lesions. No pneumothorax. The central airways are patent. A few scattered patchy groundglass airspace opacities seen within the lungs. There are areas of consolidation within the lower lobes likely represent a combination of atelectasis and pneumonia. Scattered nodular densities also likely represent an infectious process. Dominant nodule within the right upper lobe on image 130 measures 7 mm. IMPRESSION: 1. No evidence for pulmonary embolus with limitations as described above. 2. Small bilateral pleural effusions. 3. Scattered patchy groundglass and consolidative airspace opacities consistent with a mild multifocal pneumonia. 4. Mild right paratracheal and right hilar lymphadenopathy. This could be reactive. 5. Additional findings as described above. ACT 112: Negative or not required by law. Electronically signed by: Hardeep Moe M.D. 05/24/2020 10:25 AM Chest X-Ray 05/24/20 09:16 XR chest 1V portable CLINICAL HISTORY: Sepsis. COMPARISON STUDY: Chest radiograph November 04, 2018. FINDINGS: Lung volumes are normal. There is no pneumothorax. There are small bilateral pleural effusions with bibasilar opacities. Left midlung opacity is noted. There is also interstitial thickening. Cardiomegaly is noted with mitral annular calcification. IMPRESSION: 1. Small bilateral pleural effusions with bibasilar opacities, greater on the left. The findings may reflect pneumonia or atelectasis. Left midlung opacity favors an infectious process. 2. Suspected pulmonary edema. ACT 112: Negative or not required by law. Electronically signed by: Maximino Larson M.D. 05/24/2020 9:44 AM Discharge Plan Visit Data Chief Complaint: Respiratory Problems Stated Complaint: SOB ED Provider: Edilson Arango Discharge Problem: Multifocal pneumonia, Acute respiratory failure with hypoxia, Elevated lactic acid level Patient Disposition: Admitted As Inpatient Discharge Instructions Interventions: ED Discharge Assessment Last Done: 05/24/20 14:19
[2020-05-24] MEDS: DOXYCYCLINE HYCLATE 100 MG in DEXTROSE 5% 100 ML IV SCH ×2 (16:40→23:13)
[2020-05-24] MEDS: HEPARIN SOD 5,000 UNIT/0.5 ML VIAL SQ SCH ×2 (16:40→21:02)
[2020-05-24] MEDS: INSULIN ASPART 100 UNITS/ML 3 ML PEN SC SCH ×2 (17:16→20:54)
[2020-05-24] MEDS ORDERED: PIPERACILLIN/TAZOBACTAM 4.5 GM/120 ML BAG IV STA (20:33)
[2020-05-24] MEDS: ROSUVASTATIN CALCIUM 5 MG TAB PO SCH (20:46)
[2020-05-24] MEDS: LATANOPROST 0.005% OP SOLN 2.5 ML BTL OPB SCH (20:47)
[2020-05-24] MEDS: INSULIN GLARGINE SOLOSTAR 100 UNITS/ML 3 ML PEN SC SCH (20:53)
[2020-05-25] MEDS: PIPERACILLIN/TAZOBACTAM 3.375 GM in DEXTROSE 5% 100 ML IV SCH ×2 (01:21→10:41)
[2020-05-25] MEDS: HEPARIN SOD 5,000 UNIT/0.5 ML VIAL SQ SCH ×3 (05:01→20:28)
--- NOTE | 2020-05-25 06:28 | Electrocardiogram Report ---
Test Reason : Blood Pressure : / mmHG Vent. Rate : 075 BPM Atrial Rate : 075 BPM P-R Int : 166 ms QRS Dur : 080 ms QT Int : 416 ms P-R-T Axes : 047 -16 046 degrees QTc Int : 464 ms Poor data quality, interpretation may be adversely affected Sinus rhythm with Premature atrial complexes Low voltage QRS Septal infarct (cited on or before 04-NOV-2018) Abnormal ECG When compared with ECG of 04-NOV-2018 20:00, Premature atrial complexes are now Present Questionable change in initial forces of Anterior leads Confirmed by Neo Mackenzie ([id number]) on 05/25/2020 6:28:31 AM Referred By: Anay stauffer [facility] Confirmed By:Neo Mackenzie
[2020-05-25 07:15] LABS: Hematocrit (blood only) 36.6 % (37-47); Hemoglobin 12.3 g/dL (12.0-16.0); Mean Corpuscular Hemoglobin 31.2 pg (25-34); Mean Corpuscular Hgb Conc 33.6 g/dL (32-36); Mean Corpuscular Volume 92.9 fL (80-100); Mean Platelet Volume 9.7 fL (7.4-10.4); Platelet Count 168 K/uL (130-400); RDW Coefficient of Variation 14.8 % (11.5-14.5); RDW Standard Deviation 50.4 fL (36.4-46.3); Red Blood Count 3.94 M/uL (4.2-5.4); White Blood Count 5.93 K/uL (4.8-10.8)
[2020-05-25 08:05] LABS: BUN Creatinine Ratio 17.5 (10-20); Calcium 8.3 mg/dl (8.5-10.1); Creatinine Clr Calc Pharmacy 46.7 ml/min; Est GFR (African American) 66.6; Est GFR (Non-African American) 57.5; Potassium 4.3 mmol/L (3.5-5.1)
[2020-05-25] MEDS ORDERED: FUROSEMIDE 40 MG in SYRINGE 0 ML IV ONE (08:30)
[2020-05-25 08:43] LABS: Estimated Average Glucose 143 mg/dl; Hemoglobin A1C 6.6 % (4.5-5.6)
[2020-05-25] MEDS: amLODIPine BESYLATE 5 MG TAB PO SCH (08:53)
[2020-05-25] MEDS: SERTRALINE HCL 50 MG TABLET PO SCH (08:54)
[2020-05-25] MEDS: METOPROLOL SUCC 50MG EXT REL TAB PO SCH (08:54)
[2020-05-25] MEDS: CHOLECALCIFEROL 1,000 UNITS 25 MCG TAB PO SCH (08:54)
[2020-05-25] MEDS: ASPIRIN 81 MG ECTAB PO SCH (08:55)
[2020-05-25] MEDS: CLOPIDOGREL BISULFATE 75 MG TAB PO SCH (08:55)
[2020-05-25] MEDS: lisinopril 20 MG TAB PO SCH (08:55)
[2020-05-25] MEDS: INSULIN ASPART 100 UNITS/ML 3 ML PEN SC SCH ×4 (08:57→20:27)
[2020-05-25 09:09] LABS: Appearance Urine Clear (Clear); Bacteria Urine Automated Negative (Negative); Bilirubin Urine Negative (Negative); Blood Urine Negative (Negative); Cast Urine Automated 0 /lpf (0-5); Color Urine Yellow; Glucose Urine UA Negative (Negative); Ketones Urine Negative (Negative); Leukocyte Esterase Urine Negative (Negative); Nitrite Urine Negative (Negative); Protein Urine Trace (Negative); RBC Urine Automated 0-4 /hpf (0-4); Specific Gravity Urine 1.029 (1.000-1.030); Urobilinogen Urine Negative (Negative)
--- NOTE | 2020-05-25 09:40 | Hospitalist Progress Note ---
Date of Service May 25, 2020 Assessment & Plan (1) Acute respiratory failure with hypoxia: (2) Multifocal pneumonia: (3) Diabetic ulcer of right heel: (4) Venous stasis ulcers of both lower extremities: (5) Peripheral arterial disease: (6) HTN (hypertension): (7) DM type 2 (diabetes mellitus, type 2): (8) CKD (chronic kidney disease), stage III: (9) Carotid artery disease: 89yo F resident from [facility] with PMH of DM II, HTN, CKD III, carotid stenosis s/p left endarterectomy in August 2018, HLD, chronic venous stasis wounds following with wound care and vascular and other medical problems listed below who presents from wound care clinic with acute hypoxic respiratory failure Acute respiratory failure with hypoxia Lactic acidosis Acute dyspnea on exertion and hypoxia 81% on room air on admission Chest CTA without evidence of pulmonary embolus. Small bilateral pleural effusions. Scattered patchy groundglass and consolidative airspace opacities consistent with a mild multifocal pneumonia Does not meet sepsis criteria and is nontoxic in appearance. Initial lactic acid elevated at 2.6, likely due to Metformin use. Repeat lactic acid within normal limits Negative Covid, flu A/B and RSV test Differentials for acute hypoxic respiratory failure include -Acute diastolic heart failure based on history of exertional dyspnea for the past month; CT findings of small bilateral pleural effusion; echo show EF of 60 to 65%, mild concentric LVH, moderate MS, mild to moderate mitral regurgitation, mild TR, estimated systolic pulmonary pressure of 65 and BNP of 1036 -Possible pneumonia CT chest does show scattered patchy groundglass and consolidative opacities with paratracheal lymphadenopathy Initial procalcitonin yesterday was negative. Will check again tomorrow. No fevers, cough per history. No leukocytosis Continue antibiotics for now. However, will change from Zosyn and doxycycline to ceftriaxone and doxycycline Follow blood culture Initial speech eval does not suggest aspiration but planned for vid study Spoke with speech therapist who reports significant esophageal dysmotility on video study and recommends barium swallow Will need to be NPO PMN on thursday for that on thursday Albuterol nebulizer as needed Continue supplemental oxygen as needed and wean as tolerated Incentive spirometry Chronic venous stasis ulcers of bilateral lower extremity Diabetic ulcer right heel Follows with wound care. 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 SSI while in-patient. BSG AC HS Peripheral arterial disease Follows with Dr. Gautam. Continue aspirin, Plavix CKD III Renal function at baseline. Carotid artery disease S/p left endarterectomy in August 2018. Continue aspirin, plavix DVT Ppx: SQ heparin Code status: DNR per daughter/POA PCP: Kerri [facility] Admission and Anticipated Discharge Date Admission Date: May 24, 2020 Subjective Patient seen and examined. Patient reported she has been having exertional dyspnea for the past month. Denied any cough, fevers, chills Reported episodes of shortness of breath at wound care clinic yesterday. Was not on oxygen at home. Patient sleeps in a chair stating it is more comfortable. Denied chest pain Review of Systems Constitutional: no fever, no chills, no body aches and no malaise Eyes: no problem reported Ear, Nose, Mouth, Throat: + hearing loss Respiratory: + dyspnea on exertion; no cough Cardiovascular: + dyspnea on exertion; no chest pain, no paroxysmal nocturnal dyspnea, no palpitations and no edema Gastrointestinal: no abdominal pain, no nausea, no vomiting, no constipation and no diarrhea/loose stools Genitourinary: no dysuria, no urinary frequency, no urinary urgency and no hematuria Musculoskeletal: no body aches Integumentary: Leg wounds Neurologic: no dizziness, no syncope, no headache(s) and no confusion Psychiatric: no depression and no anxiety Physical Exam Constitutional: + well hydrated and + obese; no acute distress Eyes: PERRL, conjunctivae normal, anicteric sclerae ENMT: Ears: + hearing impairment (Hearing deficit) Respiratory: normal respiratory effort Auscultation: + diminished lung sounds (Lung bases); no crackles and no wheezes Patient got short of breath when bed was flattened to adjust position Cardiovascular: Rate/Rhythm: regular rate and regular rhythm S1-S2 Gastrointestinal (Abdomen): normal bowel sounds, soft, nontender, no hepatosplenomegaly Musculoskeletal: 2 wounds on anterior right leg in different stages of healing one on anterior left leg Trace pedal edema Neurologic: PERRL, EOMI, accommodation nl, no face palsy, no dysarthria Psychiatric: A+Ox3, euthymic affect Results & Data Results & Data ([facility]) Vital Signs (Past 12 Hours) Vital Signs Temp Pulse Pulse Resp BP Pulse Ox 05/25/20 07:28 36.4 C L 69 16 179/85 H 93 05/25/20 04:19 36.7 C 68 18 156/79 H 92 05/24/20 23:00 36.7 C 64 18 150/79 H 92 05/24/20 22:20 60 Laboratory Results Laboratory Results - last 24 hr 05/24/20 05/24/20 05/24/20 09:11 09:11 09:11 WBC RBC Hgb Hct MCV MCH MCHC RDW Std Deviation RDW Coeff of Basil Plt Count MPV VBG pH VBG pCO2 VBG pO2 VBG HCO3 VBG O2 Saturation VBG Base Excess Barometric Pressure Sodium 138 Potassium 4.7 Chloride 105 Carbon Dioxide 28 Anion Gap 5.0 BUN 23 H Creatinine 1.05 Est Cr Clr Drug Dosing 40.6 Est GFR ( Amer) 55.3 Est GFR (Non-Af Amer) 47.7 BUN/Creatinine Ratio 21.5 H Glucose 280 H POC Glucose Estimat Average Glucose Hemoglobin A1c Lactate Calcium 8.5 Phosphorus 3.4 Magnesium 2.0 Total Bilirubin 0.8 Direct Bilirubin 0.3 H AST 11 L ALT 18 Alkaline Phosphatase 66 Troponin I < 0.015 NT-Pro-B Natriuret Pep 1036 Total Protein 6.8 Albumin 3.3 L Globulin 3.5 Albumin/Globulin Ratio 0.9 Procalcitonin < 0.05 TSH 1.560 Urine Color Urine Appearance Urine pH Ur Specific [place] Urine Protein Urine Glucose (UA) Urine Ketones Urine Blood Urine Nitrite Urine Bilirubin Urine Urobilinogen Ur Leukocyte Esterase Urine WBC (Auto) Urine RBC (Auto) U Hyaline Cast (Auto) U Epithel Cells (Auto) Urine Bacteria (Auto) Nasal Screen MRSA (PCR) SARS-CoV-2 (PCR) NEGATIVE Influenza Type A (PCR) Negative Influenza Type B (PCR) Negative RSV (RT-PCR) Negative 05/24/20 05/24/20 05/24/20 09:59 09:59 11:54 WBC RBC Hgb Hct MCV MCH MCHC RDW Std Deviation RDW Coeff of Basil Plt Count MPV VBG pH 7.38 VBG pCO2 41 VBG pO2 43 VBG HCO3 24 VBG O2 Saturation 76.9 VBG Base Excess -1.5 Barometric Pressure 727.1 Sodium Potassium Chloride Carbon Dioxide Anion Gap BUN Creatinine Est Cr Clr Drug Dosing Est GFR ( Amer) Est GFR (Non-Af Amer) BUN/Creatinine Ratio Glucose POC Glucose Estimat Average Glucose Hemoglobin A1c Lactate 2.6 H* 1.4 Calcium Phosphorus Magnesium Total Bilirubin Direct Bilirubin AST ALT Alkaline Phosphatase Troponin I NT-Pro-B Natriuret Pep Total Protein Albumin Globulin Albumin/Globulin Ratio Procalcitonin TSH Urine Color Urine Appearance Urine pH Ur Specific [place] Urine Protein Urine Glucose (UA) Urine Ketones Urine Blood Urine Nitrite Urine Bilirubin Urine Urobilinogen Ur Leukocyte Esterase Urine WBC (Auto) Urine RBC (Auto) U Hyaline Cast (Auto) U Epithel Cells (Auto) Urine Bacteria (Auto) Nasal Screen MRSA (PCR) SARS-CoV-2 (PCR) Influenza Type A (PCR) Influenza Type B (PCR) RSV (RT-PCR) 05/24/20 05/24/20 05/24/20 16:51 17:00 20:36 WBC RBC Hgb Hct MCV MCH MCHC RDW Std Deviation RDW Coeff of Basil Plt Count MPV VBG pH VBG pCO2 VBG pO2 VBG HCO3 VBG O2 Saturation VBG Base Excess Barometric Pressure Sodium Potassium Chloride Carbon Dioxide Anion Gap BUN Creatinine Est Cr Clr Drug Dosing Est GFR ( Amer) Est GFR (Non-Af Amer) BUN/Creatinine Ratio Glucose POC Glucose 210 H 181 H Estimat Average Glucose Hemoglobin A1c Lactate Calcium Phosphorus Magnesium Total Bilirubin Direct Bilirubin AST ALT Alkaline Phosphatase Troponin I NT-Pro-B Natriuret Pep Total Protein Albumin Globulin Albumin/Globulin Ratio Procalcitonin TSH Urine Color Urine Appearance Urine pH Ur Specific [place] Urine Protein Urine Glucose (UA) Urine Ketones Urine Blood Urine Nitrite Urine Bilirubin Urine Urobilinogen Ur Leukocyte Esterase Urine WBC (Auto) Urine RBC (Auto) U Hyaline Cast (Auto) U Epithel Cells (Auto) Urine Bacteria (Auto) Nasal Screen MRSA (PCR) Negative SARS-CoV-2 (PCR) Influenza Type A (PCR) Influenza Type B (PCR) RSV (RT-PCR) 05/25/20 05/25/20 05/25/20 06:55 06:55 06:55 WBC 5.93 RBC 3.94 L Hgb 12.3 Hct 36.6 L MCV 92.9 MCH 31.2 MCHC 33.6 RDW Std Deviation 50.4 H RDW Coeff of Basil 14.8 H Plt Count 168 MPV 9.7 VBG pH VBG pCO2 VBG pO2 VBG HCO3 VBG O2 Saturation VBG Base Excess Barometric Pressure Sodium 137 Potassium 4.3 Chloride 106 Carbon Dioxide 25 Anion Gap 6.0 BUN 16 Creatinine 0.90 Est Cr Clr Drug Dosing 46.7 Est GFR ( Amer) 66.6 Est GFR (Non-Af Amer) 57.5 BUN/Creatinine Ratio 17.5 Glucose 147 H POC Glucose Estimat Average Glucose 143 Hemoglobin A1c 6.6 H Lactate Calcium 8.3 L Phosphorus Magnesium 2.0 Total Bilirubin Direct Bilirubin AST ALT Alkaline Phosphatase Troponin I NT-Pro-B Natriuret Pep Total Protein Albumin Globulin Albumin/Globulin Ratio Procalcitonin TSH Urine Color Urine Appearance Urine pH Ur Specific [place] Urine Protein Urine Glucose (UA) Urine Ketones Urine Blood Urine Nitrite Urine Bilirubin Urine Urobilinogen Ur Leukocyte Esterase Urine WBC (Auto) Urine RBC (Auto) U Hyaline Cast (Auto) U Epithel Cells (Auto) Urine Bacteria (Auto) Nasal Screen MRSA (PCR) SARS-CoV-2 (PCR) Influenza Type A (PCR) Influenza Type B (PCR) RSV (RT-PCR) 05/25/20 05/25/20 07:51 08:45 WBC RBC Hgb Hct MCV MCH MCHC RDW Std Deviation RDW Coeff of Basil Plt Count MPV VBG pH VBG pCO2 VBG pO2 VBG HCO3 VBG O2 Saturation VBG Base Excess Barometric Pressure Sodium Potassium Chloride Carbon Dioxide Anion Gap BUN Creatinine Est Cr Clr Drug Dosing Est GFR ( Amer) Est GFR (Non-Af Amer) BUN/Creatinine Ratio Glucose POC Glucose 169 H Estimat Average Glucose Hemoglobin A1c Lactate Calcium Phosphorus Magnesium Total Bilirubin Direct Bilirubin AST ALT Alkaline Phosphatase Troponin I NT-Pro-B Natriuret Pep Total Protein Albumin Globulin Albumin/Globulin Ratio Procalcitonin TSH Urine Color Yellow Urine Appearance Clear Urine pH 5.0 Ur Specific [place] 1.029 Urine Protein Trace H Urine Glucose (UA) Negative Urine Ketones Negative Urine Blood Negative Urine Nitrite Negative Urine Bilirubin Negative Urine Urobilinogen Negative Ur Leukocyte Esterase Negative Urine WBC (Auto) 1-5 Urine RBC (Auto) 0-4 U Hyaline Cast (Auto) 0 U Epithel Cells (Auto) 10-20 H Urine Bacteria (Auto) Negative Nasal Screen MRSA (PCR) SARS-CoV-2 (PCR) Influenza Type A (PCR) Influenza Type B (PCR) RSV (RT-PCR)
[2020-05-25] MEDS: cefTRIAXone SODIUM 2,000 MG in DEXTROSE 5% 50 ML IV SCH (10:41)
[2020-05-25] MEDS: DOXYCYCLINE HYCLATE 100 MG in DEXTROSE 5% 100 ML IV SCH (11:21)
--- NOTE | 2020-05-25 13:45 | Fluoroscopy Report ---
MODIFIED BARIUM SWALLOW CLINICAL HISTORY: r/o aspiration COMPARISON STUDY: None. FLUOROSCOPY TIME: 2.1 minutes. TECHNIQUE: A modified barium swallow was performed in conjunction with Speech Pathology. The patient ingested varying consistencies of barium containing material. Video fluoroscopy was performed. FINDINGS: No aspiration was identified with thin liquids, nectar thick liquids or pudding consistenci es. Epiglottic inversion was normal. Laryngeal elevation was normal. Moderate esophageal dysmotility was noted. Esophagus is suboptimally assessed on this exam IMPRESSION: 1. Intact swallowing mechanism. No tracheal aspiration. 2. Moderate esophageal dysmotility. 3. Full recommendations by speech pathology to follow. ACT 112: Negative or not required by law. Electronically signed by: Maximino Larson M.D. 05/25/2020 1:43 PM
[2020-05-25] MEDS: ROSUVASTATIN CALCIUM 5 MG TAB PO SCH (20:26)
[2020-05-25] MEDS: INSULIN GLARGINE SOLOSTAR 100 UNITS/ML 3 ML PEN SC SCH (20:27)
[2020-05-25] MEDS: LATANOPROST 0.005% OP SOLN 2.5 ML BTL OPB SCH (20:27)
[2020-05-26] MEDS: DOXYCYCLINE HYCLATE 100 MG in DEXTROSE 5% 100 ML IV SCH (00:24)
--- NOTE | 2020-05-26 06:13 | Electrocardiogram Report ---
Test Reason : Blood Pressure : / mmHG Vent. Rate : 076 BPM Atrial Rate : 076 BPM P-R Int : 180 ms QRS Dur : 086 ms QT Int : 400 ms P-R-T Axes : 038 -39 039 degrees QTc Int : 450 ms Sinus rhythm with occasional Premature ventricular complexes Left axis deviation Low voltage QRS Anteroseptal infarct (cited on or before 04-NOV-2018) Abnormal ECG When compared with ECG of 24-MAY-2020 09:22, Premature ventricular complexes are now Present Premature atrial complexes are no longer Present Questionable change in initial forces of Anterior leads Confirmed by Neo Mackenzie ([id number]) on 05/26/2020 6:12:47 AM Referred By: [facility] Confirmed By:Neo Mackenzie
[2020-05-26] MEDS: HEPARIN SOD 5,000 UNIT/0.5 ML VIAL SQ SCH ×3 (06:17→21:02)
[2020-05-26 07:38] LABS: Hematocrit (blood only) 38.1 % (37-47); Hemoglobin 12.9 g/dL (12.0-16.0); Mean Corpuscular Hemoglobin 31.5 pg (25-34); Mean Corpuscular Hgb Conc 33.9 g/dL (32-36); Mean Corpuscular Volume 92.9 fL (80-100); Platelet Count 180 K/uL (130-400); RDW Coefficient of Variation 14.7 % (11.5-14.5); RDW Standard Deviation 49.7 fL (36.4-46.3); White Blood Count 5.97 K/uL (4.8-10.8)
[2020-05-26 07:56] LABS: BUN Creatinine Ratio 18.2 (10-20); Calcium 8.8 mg/dl (8.5-10.1); Creatinine Clr Calc Pharmacy 49.8 ml/min; Est GFR (African American) 72.4; Est GFR (Non-African American) 62.5; Magnesium 2.1 mg/dl (1.8-2.4); Phosphorus 3.3 mg/dl (2.5-4.9); Potassium 4.2 mmol/L (3.5-5.1)
[2020-05-26] MEDS: SERTRALINE HCL 50 MG TABLET PO SCH (08:22)
[2020-05-26] MEDS: ASPIRIN 81 MG ECTAB PO SCH (08:22)
[2020-05-26] MEDS: CHOLECALCIFEROL 1,000 UNITS 25 MCG TAB PO SCH (08:22)
[2020-05-26] MEDS: lisinopril 20 MG TAB PO SCH (08:23)
[2020-05-26] MEDS: METOPROLOL SUCC 50MG EXT REL TAB PO SCH (08:23)
[2020-05-26] MEDS: amLODIPine BESYLATE 5 MG TAB PO SCH (08:23)
[2020-05-26] MEDS: CLOPIDOGREL BISULFATE 75 MG TAB PO SCH (08:23)
[2020-05-26] MEDS: INSULIN ASPART 100 UNITS/ML 3 ML PEN SC SCH ×4 (09:10→21:00)
[2020-05-26] MEDS: cefTRIAXone SODIUM 2,000 MG in DEXTROSE 5% 50 ML IV SCH (09:13)
--- NOTE | 2020-05-26 09:56 | Hospitalist Progress Note ---
Date of Service May 26, 2020 Assessment & Plan (1) Acute respiratory failure with hypoxia: (2) Multifocal pneumonia: (3) Diabetic ulcer of right heel: (4) Venous stasis ulcers of both lower extremities: (5) Peripheral arterial disease: (6) HTN (hypertension): (7) DM type 2 (diabetes mellitus, type 2): (8) CKD (chronic kidney disease), stage III: (9) Carotid artery disease: 89yo F resident from [facility] with PMH of DM II, HTN, CKD III, carotid stenosis s/p left endarterectomy in August 2018, HLD, chronic venous stasis wounds following with wound care and vascular and other medical problems listed below who presents from wound care clinic with acute hypoxic respiratory failure Acute respiratory failure with hypoxia Lactic acidosis Acute dyspnea on exertion and hypoxia 81% on room air on admission Chest CTA without evidence of pulmonary embolus. Small bilateral pleural effusions. Scattered patchy groundglass and consolidative airspace opacities consistent with a mild multifocal pneumonia Does not meet sepsis criteria and is nontoxic in appearance. Initial lactic acid elevated at 2.6, likely due to Metformin use. Repeat lactic acid within normal limits Negative Covid, flu A/B and RSV test Differentials for acute hypoxic respiratory failure include -Acute diastolic heart failure based on history of exertional dyspnea for the past month; CT findings of small bilateral pleural effusion; echo show EF of 60 to 65%, mild concentric LVH, moderate MS, mild to moderate mitral regurgitation, mild TR, estimated systolic pulmonary pressure of 65 Got iv lasix yesterday Will appreciate Food And Drug Inspector's input -Possible pneumonia/pneumonitis CT chest does show scattered patchy groundglass and consolidative opacities with paratracheal lymphadenopathy Initial procalcitonin yesterday was negative. No fevers, cough. No leukocytosis Procalcitonin is still negative. Blood cultures negative Will hold antibiotics for now and monitor Initial speech eval does not suggest aspiration but planned for vid study Spoke with speech therapist who reports significant esophageal dysmotility on video study and recommends barium swallow Will need to be NPO PMN tomorrow for that on thursday Albuterol nebulizer as needed Wean as tolerated. May need ambulatory pulse ox on discharge Incentive spirometry Chronic venous stasis ulcers of bilateral lower extremity Diabetic ulcer right heel Peripheral arterial disease Continue wound care Follows with Dr. 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 SSI while in-patient. BSG AC HS CKD III Renal function at baseline. Carotid artery disease S/p left endarterectomy in August 2018. Continue aspirin, plavix DVT Ppx: SQ heparin Code status: DNR per daughter/POA PCP: Kerri Cueva Spoke to daughter ulises Pratt and updated her Admission and Anticipated Discharge Date Admission Date: May 24, 2020 Subjective Patient seen and examined today. Denies cough or Chest pain No fevers or chills Reports only exertional dyspnea. Denies nausea, vomiting, abdominal. Reported some abdominal discomfort at breakfast today. Denied diarrhea or constipation Denies dysuria, frequency, urgency Review of Systems Ear, Nose, Mouth, Throat: + hearing loss Respiratory: + dyspnea on exertion; no cough Cardiovascular: + dyspnea on exertion; no chest pain, no paroxysmal nocturnal dyspnea, no palpitations and no edema Gastrointestinal: no nausea, no vomiting and no change in bowel habits Abdominal discomfort Genitourinary: no dysuria, no difficulty urinating and no urinary frequency Integumentary: Leg wounds Neurologic: no dizziness, no headache(s) and no confusion Psychiatric: no depression and no irritability Physical Exam Constitutional: + well hydrated and + obese; no acute distress Eyes: PERRL, conjunctivae normal, anicteric sclerae ENMT: Ears: + hearing impairment (Hearing deficit) Respiratory: normal respiratory effort; no respiratory distress Auscultation: no crackles and no wheezes Cardiovascular: Rate/Rhythm: regular rate and regular rhythm S1 S2 Gastrointestinal (Abdomen): normal bowel sounds, soft, nontender, no hepatosplenomegaly Musculoskeletal: Clean dressing and Pressure stockings over bilateral anterior leg wounds Neurologic: PERRL, EOMI, accommodation nl, no face palsy, no dysarthria Psychiatric: A+Ox3, euthymic affect Results & Data Results & Data ([facility]) Vital Signs (Past 12 Hours) Vital Signs Temp Pulse Pulse Resp BP BP Pulse Ox 05/26/20 07:53 36.7 C 77 18 169/79 H 93 05/26/20 07:45 76 05/26/20 03:39 158/67 H 05/26/20 02:38 36.4 C L 74 24 180/84 H 91 05/26/20 00:13 71 05/25/20 23:21 36.7 C 69 20 166/81 H 91 Laboratory Results Laboratory Results - last 24 hr 05/25/20 05/25/20 05/25/20 12:36 16:21 20:26 WBC RBC Hgb Hct MCV MCH MCHC RDW Std Deviation RDW Coeff of Basil Plt Count MPV Sodium Potassium Chloride Carbon Dioxide Anion Gap BUN Creatinine Est Cr Clr Drug Dosing Est GFR ( Amer) Est GFR (Non-Af Amer) BUN/Creatinine Ratio Glucose POC Glucose 231 H 107 H 137 H Calcium Phosphorus Magnesium Procalcitonin 05/26/20 05/26/20 05/26/20 06:54 06:54 06:54 WBC 5.97 RBC 4.10 L Hgb 12.9 Hct 38.1 MCV 92.9 MCH 31.5 MCHC 33.9 RDW Std Deviation 49.7 H RDW Coeff of Basil 14.7 H Plt Count 180 MPV 10.0 Sodium 141 Potassium 4.2 Chloride 106 Carbon Dioxide 29 Anion Gap 6.0 BUN 15 Creatinine 0.84 Est Cr Clr Drug Dosing 49.8 Est GFR ( Amer) 72.4 Est GFR (Non-Af Amer) 62.5 BUN/Creatinine Ratio 18.2 Glucose 142 H POC Glucose Calcium 8.8 Phosphorus 3.3 Magnesium 2.1 Procalcitonin < 0.05 05/26/20 07:44 WBC RBC Hgb Hct MCV MCH MCHC RDW Std Deviation RDW Coeff of Basil Plt Count MPV Sodium Potassium Chloride Carbon Dioxide Anion Gap BUN Creatinine Est Cr Clr Drug Dosing Est GFR ( Amer) Est GFR (Non-Af Amer) BUN/Creatinine Ratio Glucose POC Glucose 134 H Calcium Phosphorus Magnesium Procalcitonin
[2020-05-26] MEDS ORDERED: FUROSEMIDE 40 MG in SYRINGE 0 ML IV ONE (12:30)
--- NOTE | 2020-05-26 12:52 | Cardiology Consultation ---
Date of Consultation May 26, 2020 Assessment & Plan (1) Acute respiratory failure with hypoxia: Patient is an 89-year-old female with complex history as outlined with known longstanding hypertensive heart disease, senile calcific valvular disease with moderate aortic sclerosis and mild to moderate mitral stenosis, atherosclerotic carotid and peripheral vascular disease as well as chronic renal dysfunction. Patient presents with symptoms of hypoxia and shortness of breath with mixed etiology likely including component of pneumonia with superimposed mild congestive heart failure. Echocardiogram suggests chronicity with elevated pulmonary pressures as well. Patient has received single dose of IV furosemide and initial course of management we will give additional dose this day follow I's and O's closely as well as renal function given recent dye load and underlying risk factors for renal insufficiency Would continue prehospital antihypertensive regimen. Suspect patient will require low-dose diuretic intermittently on discharge given chronic stasis edema, hypertension and diastolic LV dysfunction We will continue to follow patient hospital (2) Multifocal pneumonia: (3) Peripheral arterial disease: (4) Stenosis of carotid artery: (5) CKD (chronic kidney disease), stage III: (6) HTN (hypertension): History of Present Illness Reason for Consultation: Congestive heart failure Requesting Physician: Dr. Barroso Attending Physician: Clare Barroso MD History of Present Illness Patient is a complex 89-year-old female was underlying issues include 1. Longstanding hypertension 2. Atherosclerotic carotid disease status post left carotid arterectomy 2018 3. Atherosclerotic peripheral vascular disease status post angioplasty and stenting right SFA March 2020 for nonhealing right leg wound 4. Hyperlipidemia 5. Senile calcific valvular disease with mild to moderate mitral stenosis 6. CKD stage III 7. Hyperlipidemia on low-dose statin secondary to poor tolerance Patient presents with symptoms of hypoxia shortness of breath and multifocal pulmonary infiltrates on chest x-ray and CT scan. Findings suggestive of possible pneumonia with likely superimposed component of congestive heart failure as well. Patient is referred for further management. She denies any current complaints. Did respond to IV diuretics and single dosing. Weight down 2 kg. Notes no chest pains, tachypalpitations, syncope or near syncope. No fevers chills currently no productive cough. No worsening edema. Patient only fair historian. Notes relatively sedentary about home (personal care facility) due to fall risk lower extremity wounds Has had difficulty with nonhealing right foot ulcer and underwent percutaneous revascularization in March Allergies Allergy/AdvReac Type Severity Reaction Status Date / Time bacitracin Allergy Unknown Unknown Verified 05/24/20 09:32 [From Neosporin ([id number])] neomycin Allergy Unknown Unknown Verified 05/24/20 09:32 [From Neosporin ([id number])] polymyxin B Allergy Unknown Unknown Verified 05/24/20 09:32 [From Neosporin ([id number])] atorvastatin AdvReac Severe RIGID Verified 05/24/20 09:32 MUSCLES ezetimibe AdvReac Severe RIGID Verified 05/24/20 09:32 MUSCLES Home Medications Medication Instructions Recorded Confirmed Type amlodipine 10 mg PO QAM 03/16/18 05/24/20 History metoprolol succinate 100 mg PO QAM 03/16/18 05/24/20 History rosuvastatin 2.5 mg PO HS 03/16/18 05/24/20 History cholecalciferol (vitamin D3) 1,000 unit PO QAM 08/21/18 05/24/20 History latanoprost 1 drp OPB HS 08/21/18 05/24/20 History [place] Cough Drops 7 mg PO Q4H PRN 11/04/18 05/24/20 History acetaminophen 650 mg PO Q4H PRN MDD 3 GM APAP/11/04/18 05/24/20 History HOURS aspirin 81 mg PO QAM 11/04/18 05/24/20 History clopidogrel 75 mg PO QAM 11/04/18 05/24/20 History sertraline 25 mg PO DAILY 11/04/18 05/24/20 History sodium chloride [[place] Nasal] 2 spray INTRANASAL Q8H PRN 11/04/18 05/24/20 History metformin 500 mg tablet 500 mg PO BID tab 01/05/19 05/24/20 History glipizide 5 mg tablet 5 mg PO DAILY 02/06/20 05/24/20 History lisinopril 10 mg tablet 20 mg PO QAM tab 02/17/20 05/24/20 History insulin glargine 100 unit/mL 10 unit SUBCUT HS ml 03/15/20 05/24/20 History subcutaneous solution cadexomer iodine 0.9 % topical gel 10 g TOPICAL Q3D #10 g 04/03/20 05/24/20 Rx Patient History Medical History Blind left eye Carotid artery disease "CTA 03/09/17: high-grade stenoses bilat ICA's" S/p L endarterectomy in August 2018 at [facility] Cataract Chronic venous insufficiency CKD (chronic kidney disease), stage III DM type 2 (diabetes mellitus, type 2) Glaucoma History of DVT (deep vein thrombosis) HLD (hyperlipidemia) HTN (hypertension) Surgical History History of appendectomy History of History of colonoscopy Family History Mother Diabetes Parkinson disease Father , age 94 CHF (congestive heart failure) Brother Myocardial infarction Social History Smoking Status: Never smoker Hx Alcohol Use: No Hx Substance Use: No Preferred Language: Serbian Communication Ability: Effective Student Services Advisor Required: No Beliefs That Will Affect Care: None marital status: / Current Living Situation: Personal Care Facility Current Living Situation Comment: [facility] Other Information That Helps Us Care for You: No Feels Safe at Home: Yes Safety Concerns: Feels Safe At This Time Assistive Devices: Oxygen - Continuous and Walker Physical Exam Constitutional: WD/WN, vitals as above Eyes: PERRL, conjunctivae normal, anicteric sclerae ENMT: external ear and nose normal, oropharynx normal Neck: trachea midline, no thyromegaly Respiratory: Auscultation: + crackles (Few basilar left greater than right) Cardiovascular: Rate/Rhythm: regular rate and regular rhythm Heart Sounds: normal S1, normal S2 and + murmur (Grade 1-2 or 6 systolic no diastolic murmur audible); no gallop Palpation: normal PMI Vessels: normal carotid upstroke and radial pulses present; no JVD and no carotid bruit Extremities: + edema (Mild with both lower extremities bandaged) Gastrointestinal (Abdomen): normal bowel sounds, soft, nontender, no hepatosplenomegaly Musculoskeletal: no cyanosis or clubbing, extremities motor strength 5/5 Skin: no rashes, warm and dry Neurologic: PERRL, EOMI, accommodation nl, no face palsy, no dysarthria Psychiatric: A+Ox3, euthymic affect Results & Data ([facility]) Vital Signs (Past 12 Hours) Vital Signs Temp Pulse Pulse Resp BP BP Pulse Ox 05/26/20 11:53 95 05/26/20 11:29 36.6 C 65 18 145/72 H 97 05/26/20 07:53 36.7 C 77 18 169/79 H 93 05/26/20 07:45 76 05/26/20 03:39 158/67 H 05/26/20 02:38 36.4 C L 74 24 180/84 H 91 Laboratory Results Laboratory Results - last 24 hr 05/25/20 05/25/20 05/26/20 16:21 20:26 06:54 WBC 5.97 RBC 4.10 L Hgb 12.9 Hct 38.1 MCV 92.9 MCH 31.5 MCHC 33.9 RDW Std Deviation 49.7 H RDW Coeff of Basil 14.7 H Plt Count 180 MPV 10.0 Sodium Potassium Chloride Carbon Dioxide Anion Gap BUN Creatinine Est Cr Clr Drug Dosing Est GFR ( Amer) Est GFR (Non-Af Amer) BUN/Creatinine Ratio Glucose POC Glucose 107 H 137 H Calcium Phosphorus Magnesium Procalcitonin 05/26/20 05/26/20 05/26/20 06:54 06:54 07:44 WBC RBC Hgb Hct MCV MCH MCHC RDW Std Deviation RDW Coeff of Basil Plt Count MPV Sodium 141 Potassium 4.2 Chloride 106 Carbon Dioxide 29 Anion Gap 6.0 BUN 15 Creatinine 0.84 Est Cr Clr Drug Dosing 49.8 Est GFR ( Amer) 72.4 Est GFR (Non-Af Amer) 62.5 BUN/Creatinine Ratio 18.2 Glucose 142 H POC Glucose 134 H Calcium 8.8 Phosphorus 3.3 Magnesium 2.1 Procalcitonin < 0.05 05/26/20 11:48 WBC RBC Hgb Hct MCV MCH MCHC RDW Std Deviation RDW Coeff of Basil Plt Count MPV Sodium Potassium Chloride Carbon Dioxide Anion Gap BUN Creatinine Est Cr Clr Drug Dosing Est GFR ( Amer) Est GFR (Non-Af Amer) BUN/Creatinine Ratio Glucose POC Glucose 195 H Calcium Phosphorus Magnesium Procalcitonin ECG Additional Comments: EKGs personally reviewed to reflect sinus rhythm with atrial ectopy left axis deviation and poor progression across and precordial leads without ST segment abnormalities or evolution
[2020-05-26] MEDS: INSULIN GLARGINE SOLOSTAR 100 UNITS/ML 3 ML PEN SC SCH (21:00)
[2020-05-26] MEDS: LATANOPROST 0.005% OP SOLN 2.5 ML BTL OPB SCH (21:00)
[2020-05-26] MEDS: ROSUVASTATIN CALCIUM 5 MG TAB PO SCH (21:01)
[2020-05-27] MEDS: HEPARIN SOD 5,000 UNIT/0.5 ML VIAL SQ SCH ×3 (05:54→21:07)
[2020-05-27 06:26] LABS: Hematocrit (blood only) 36.4 % (37-47); Hemoglobin 11.7 g/dL (12.0-16.0); Mean Corpuscular Hgb Conc 32.1 g/dL (32-36); Mean Corpuscular Volume 93.3 fL (80-100); Mean Platelet Volume 9.9 fL (7.4-10.4); Platelet Count 163 K/uL (130-400); RDW Coefficient of Variation 14.8 % (11.5-14.5); RDW Standard Deviation 49.7 fL (36.4-46.3); White Blood Count 5.77 K/uL (4.8-10.8)
[2020-05-27 06:44] LABS: BUN Creatinine Ratio 24.9 (10-20); Calcium 8.4 mg/dl (8.5-10.1); Creatinine Clr Calc Pharmacy 50.6 ml/min; Est GFR (African American) 73.5; Est GFR (Non-African American) 63.4; Phosphorus 3.7 mg/dl (2.5-4.9); Potassium 3.9 mmol/L (3.5-5.1)
[2020-05-27] MEDS: amLODIPine BESYLATE 5 MG TAB PO SCH (09:02)
[2020-05-27] MEDS: lisinopril 20 MG TAB PO SCH (09:03)
[2020-05-27] MEDS: ASPIRIN 81 MG ECTAB PO SCH (09:03)
[2020-05-27] MEDS: METOPROLOL SUCC 50MG EXT REL TAB PO SCH (09:03)
[2020-05-27] MEDS: CHOLECALCIFEROL 1,000 UNITS 25 MCG TAB PO SCH (09:04)
[2020-05-27] MEDS: CLOPIDOGREL BISULFATE 75 MG TAB PO SCH (09:04)
[2020-05-27] MEDS: SERTRALINE HCL 50 MG TABLET PO SCH (09:04)
[2020-05-27] MEDS: INSULIN ASPART 100 UNITS/ML 3 ML PEN SC SCH ×4 (09:05→21:07)
--- NOTE | 2020-05-27 09:28 | Hospitalist Progress Note ---
Date of Service May 27, 2020 Assessment & Plan (1) Acute respiratory failure with hypoxia: (2) Multifocal pneumonia: (3) Diabetic ulcer of right heel: (4) Venous stasis ulcers of both lower extremities: (5) Peripheral arterial disease: (6) HTN (hypertension): (7) DM type 2 (diabetes mellitus, type 2): (8) CKD (chronic kidney disease), stage III: (9) Carotid artery disease: 89yo F resident from [facility] with PMH of DM II, HTN, CKD III, carotid stenosis s/p left endarterectomy in August 2018, HLD, chronic venous stasis wounds following with wound care and vascular and other medical problems listed below who presents from wound care clinic with acute hypoxic respiratory failure Acute respiratory failure with hypoxia Lactic acidosis Acute dyspnea on exertion and hypoxia 81% on room air on admission Chest CTA without evidence of pulmonary embolus. Small bilateral pleural effusions. Scattered patchy groundglass and consolidative airspace opacities consistent with a mild multifocal pneumonia Does not meet sepsis criteria and is nontoxic in appearance. Initial lactic acid elevated at 2.6, likely due to Metformin use. Repeat lactic acid within normal limits Negative Covid, flu A/B and RSV test Differentials for acute hypoxic respiratory failure include -Acute diastolic heart failure based on history of exertional dyspnea for the past month; CT findings of small bilateral pleural effusion; echo show EF of 60 to 65%, mild concentric LVH, moderate MS, mild to moderate mitral regurgitation, mild TR, estimated systolic pulmonary pressure of 65 Continue IV Lasix and monitor I's and O's Monitor electrolytes Cardiology recommendations appreciated Will likely need p.o. Lasix on discharge -Possible pneumonia/pneumonitis CT chest does show scattered patchy groundglass and consolidative opacities with paratracheal lymphadenopathy Procalcitonin trend is negative. No fevers, cough. No leukocytosis Procalcitonin is still negative. Blood cultures negative Antibiotics had been discontinued Initial speech eval does not suggest aspiration but planned for vid study Esophageal dysmotility on video study and barium study recommended Will need to be NPO PMN for that tomorrow Albuterol nebulizer as needed Wean as tolerated Will need ambulatory pulse ox/ 2 step on discharge Incentive spirometry Chronic venous stasis ulcers of bilateral lower extremity Diabetic ulcer right heel Peripheral arterial disease Continue wound care Follows with Dr. 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 SSI while in-patient. BSG AC HS CKD III Renal function at baseline. Carotid artery disease S/p left endarterectomy in August 2018. Continue aspirin, plavix DVT Ppx: SQ heparin Code status: DNR per daughter/POA PCP: Kerri Cueva Admission and Anticipated Discharge Date Admission Date: May 24, 2020 Subjective Patient seen and examined. Reports only dyspnea on exertion. Review of Systems Constitutional: no fever, no chills and no body aches Ear, Nose, Mouth, Throat: + hearing loss Respiratory: + dyspnea on exertion; no cough Cardiovascular: + dyspnea on exertion; no chest pain, no paroxysmal nocturnal dyspnea, no palpitations and no edema Gastrointestinal: no abdominal pain, no nausea, no vomiting and no diarrhea/loose stools Genitourinary: no dysuria, no difficulty urinating and no urinary frequency Integumentary: Leg wounds Neurologic: no headache(s) and no confusion Psychiatric: no depression and no irritability Physical Exam Constitutional: + well hydrated and + obese; no acute distress Eyes: PERRL, conjunctivae normal, anicteric sclerae ENMT: Ears: + hearing impairment (Hearing deficit) Respiratory: normal respiratory effort; no respiratory distress Auscultation: + crackles (Mild basilar); no wheezes Cardiovascular: Rate/Rhythm: regular rate and regular rhythm S1-S2,+1 pedal edema Gastrointestinal (Abdomen): normal bowel sounds, soft, nontender, no hepatosplenomegaly Musculoskeletal: Clean dressing and Pressure stockings over bilateral anterior leg wounds Neurologic: PERRL, EOMI, accommodation nl, no face palsy, no dysarthria Psychiatric: A+Ox3, euthymic affect Results & Data Results & Data ([facility]) Vital Signs (Past 12 Hours) Vital Signs Temp Pulse Pulse Resp BP BP Pulse Ox 05/27/20 07:29 36.7 C 72 18 163/75 H 96 05/27/20 07:20 61 05/27/20 04:08 36.9 C 68 18 163/73 H 94 05/27/20 00:00 61 05/26/20 23:00 36.6 C 73 18 152/70 H 95 Laboratory Results Laboratory Results - last 24 hr 05/26/20 05/26/20 05/26/20 11:48 16:34 20:03 WBC RBC Hgb Hct MCV MCH MCHC RDW Std Deviation RDW Coeff of Basil Plt Count MPV Sodium Potassium Chloride Carbon Dioxide Anion Gap BUN Creatinine Est Cr Clr Drug Dosing Est GFR ( Amer) Est GFR (Non-Af Amer) BUN/Creatinine Ratio Glucose POC Glucose 195 H 145 H 169 H Calcium Phosphorus Magnesium 05/27/20 05/27/20 05/27/20 05:59 05:59 07:41 WBC 5.77 RBC 3.90 L Hgb 11.7 L Hct 36.4 L MCV 93.3 MCH 30.0 MCHC 32.1 RDW Std Deviation 49.7 H RDW Coeff of Basil 14.8 H Plt Count 163 MPV 9.9 Sodium 140 Potassium 3.9 Chloride 107 Carbon Dioxide 28 Anion Gap 5.0 BUN 21 H Creatinine 0.83 Est Cr Clr Drug Dosing 50.6 Est GFR ( Amer) 73.5 Est GFR (Non-Af Amer) 63.4 BUN/Creatinine Ratio 24.9 H Glucose 123 H POC Glucose 127 H Calcium 8.4 L Phosphorus 3.7 Magnesium 2.0
[2020-05-27] MEDS ORDERED: FUROSEMIDE 40 MG in SYRINGE 0 ML IV ONE (09:30)
--- NOTE | 2020-05-27 12:19 | Cardiology Progress Note ---
Date of Service May 27, 2020 Assessment & Plan (1) Acute respiratory failure with hypoxia: Patient is an 89-year-old female with complex history as outlined with known longstanding hypertensive heart disease, senile calcific valvular disease with moderate aortic sclerosis and mild to moderate mitral stenosis, atherosclerotic carotid and peripheral vascular disease as well as chronic renal dysfunction. Patient presents with symptoms of hypoxia and shortness of breath with mixed etiology likely including component of pneumonia with superimposed mild congestive heart failure. Echocardiogram suggests chronicity with elevated pulmonary pressures as well. Patient responding to IV diuretics and has received additional dose this morning. We will likely switch to oral dose in a.m. We will give dose of potassium today consider use of spironolactone chronically We will add isosorbide 10 mg 3 times daily for blood pressure control Reduce amlodipine to 5 mg/day given chronic peripheral edema Repeat portable chest x-ray in a.m. (2) Multifocal pneumonia: (3) Peripheral arterial disease: (4) Stenosis of carotid artery: (5) CKD (chronic kidney disease), stage III: (6) HTN (hypertension): Admission and Anticipated Discharge Date Admission Date: May 24, 2020 Subjective Patient was seen and examined, chart, medications, telemetry reviewed. No arrhythmias noted on telemetry. Oxygenation slowly improving. No productive cough. No fevers or chills. Lower extremity edema mildly improved. No chest pains or tachypalpitations. Physical Exam Constitutional: WD/WN, vitals as above Eyes: PERRL, conjunctivae normal, anicteric sclerae ENMT: external ear and nose normal, oropharynx normal Neck: trachea midline, no thyromegaly Respiratory: Auscultation: + crackles (Few basilar left greater than right) Cardiovascular: Rate/Rhythm: regular rate and regular rhythm Heart Sounds: normal S1, normal S2 and + murmur (Grade 1-2 or 6 systolic no diastolic murmur audible); no gallop Palpation: normal PMI Vessels: normal carotid upstroke and radial pulses present; no JVD and no carotid bruit Extremities: + edema (Mild with both lower extremities bandaged) Gastrointestinal (Abdomen): normal bowel sounds, soft, nontender, no hepatosplenomegaly Musculoskeletal: no cyanosis or clubbing, extremities motor strength 5/5 Skin: no rashes, warm and dry Neurologic: PERRL, EOMI, accommodation nl, no face palsy, no dysarthria Psychiatric: A+Ox3, euthymic affect Results & Data ([facility]) Vital Signs (Past 12 Hours) Vital Signs Temp Pulse Pulse Resp BP BP Pulse Ox 05/27/20 11:46 36.7 C 74 20 141/75 H 91 05/27/20 07:29 36.7 C 72 18 163/75 H 96 05/27/20 07:20 61 05/27/20 04:08 36.9 C 68 18 163/73 H 94 Laboratory Results Laboratory Results - last 24 hr 05/26/20 05/26/20 05/27/20 16:34 20:03 05:59 WBC 5.77 RBC 3.90 L Hgb 11.7 L Hct 36.4 L MCV 93.3 MCH 30.0 MCHC 32.1 RDW Std Deviation 49.7 H RDW Coeff of Basil 14.8 H Plt Count 163 MPV 9.9 Sodium Potassium Chloride Carbon Dioxide Anion Gap BUN Creatinine Est Cr Clr Drug Dosing Est GFR ( Amer) Est GFR (Non-Af Amer) BUN/Creatinine Ratio Glucose POC Glucose 145 H 169 H Calcium Phosphorus Magnesium 05/27/20 05/27/20 05/27/20 05:59 07:41 11:34 WBC RBC Hgb Hct MCV MCH MCHC RDW Std Deviation RDW Coeff of Basil Plt Count MPV Sodium 140 Potassium 3.9 Chloride 107 Carbon Dioxide 28 Anion Gap 5.0 BUN 21 H Creatinine 0.83 Est Cr Clr Drug Dosing 50.6 Est GFR ( Amer) 73.5 Est GFR (Non-Af Amer) 63.4 BUN/Creatinine Ratio 24.9 H Glucose 123 H POC Glucose 127 H 208 H Calcium 8.4 L Phosphorus 3.7 Magnesium 2.0
[2020-05-27] MEDS ORDERED: POTASSIUM CHLORIDE CRTAB 20 MEQ TABCR PO ONE (12:20)
[2020-05-27] MEDS: ISOSORBIDE DINITRATE 10 MG TAB PO SCH ×2 (14:00→16:44)
[2020-05-27] MEDS: ROSUVASTATIN CALCIUM 5 MG TAB PO SCH (21:05)
[2020-05-27] MEDS: INSULIN GLARGINE SOLOSTAR 100 UNITS/ML 3 ML PEN SC SCH (21:07)
[2020-05-27] MEDS: LATANOPROST 0.005% OP SOLN 2.5 ML BTL OPB SCH (21:08)
[2020-05-28] MEDS: ISOSORBIDE DINITRATE 10 MG TAB PO SCH ×2 (06:27→11:15)
[2020-05-28] MEDS: HEPARIN SOD 5,000 UNIT/0.5 ML VIAL SQ SCH ×3 (06:28→21:13)
[2020-05-28 07:04] LABS: Hematocrit (blood only) 37.7 % (37-47); Hemoglobin 12.5 g/dL (12.0-16.0); Mean Corpuscular Hemoglobin 30.7 pg (25-34); Mean Corpuscular Hgb Conc 33.2 g/dL (32-36); Mean Corpuscular Volume 92.6 fL (80-100); Mean Platelet Volume 9.6 fL (7.4-10.4); Platelet Count 171 K/uL (130-400); RDW Coefficient of Variation 14.6 % (11.5-14.5); RDW Standard Deviation 49.7 fL (36.4-46.3); Red Blood Count 4.07 M/uL (4.2-5.4); White Blood Count 5.88 K/uL (4.8-10.8)
[2020-05-28 07:36] LABS: BUN Creatinine Ratio 23.1 (10-20); Calcium 8.5 mg/dl (8.5-10.1); Creatinine Clr Calc Pharmacy 50.3 ml/min; Est GFR (African American) 73.5; Est GFR (Non-African American) 63.4; Magnesium 2.2 mg/dl (1.8-2.4); Potassium 4.3 mmol/L (3.5-5.1)
[2020-05-28 07:44] LABS: Phosphorus 3.1 mg/dl (2.5-4.9)
[2020-05-28] MEDS: INSULIN ASPART 100 UNITS/ML 3 ML PEN SC SCH ×4 (07:49→21:12)
--- NOTE | 2020-05-28 08:29 | XRay Report ---
XR chest 1V portable HISTORY: Pneumonia, congestive heart failure COMPARISON: Chest 05/24/2020. FINDINGS: No pneumothorax. Small bilateral pleural effusions persist. Hazy bibasilar airspace opaciti es have slightly progressed. The heart remains mildly enlarged. There is mild central pulmonary vascu lar congestion without overt edema. IMPRESSION: 1. Slight progression of the hazy bibasilar airspace opacities. This favors a multifocal pneumonia. 2. Mild congestive change and small bilateral pleural effusions are noted. ACT 112: Negative or not required by law. Electronically signed by: Hardeep Moe M.D. 05/28/2020 8:27 AM
--- NOTE | 2020-05-28 10:39 | Hospitalist Progress Note ---
Date of Service May 28, 2020 Assessment & Plan (1) Acute respiratory failure with hypoxia: (2) Multifocal pneumonia: (3) Diabetic ulcer of right heel: (4) Venous stasis ulcers of both lower extremities: (5) Peripheral arterial disease: (6) HTN (hypertension): (7) DM type 2 (diabetes mellitus, type 2): (8) CKD (chronic kidney disease), stage III: (9) Carotid artery disease: 89yo F resident from [facility] with PMH of DM II, HTN, CKD III, carotid stenosis s/p left endarterectomy in August 2018, HLD, chronic venous stasis wounds following with wound care and vascular and other medical problems listed below who presents from wound care clinic with acute hypoxic respiratory failure Acute respiratory failure with hypoxia Lactic acidosis Acute dyspnea on exertion and hypoxia 81% on room air on admission Chest CTA without evidence of pulmonary embolus. Small bilateral pleural effusions. Scattered patchy groundglass and consolidative airspace opacities consistent with a mild multifocal pneumonia Does not meet sepsis criteria and is nontoxic in appearance. Initial lactic acid elevated at 2.6, likely due to Metformin use. Repeat lactic acid within normal limits Negative Covid, flu A/B and RSV test Differentials for acute hypoxic respiratory failure include -Acute diastolic heart failure based on history of exertional dyspnea for the past month; CT findings of small bilateral pleural effusion; echo show EF of 60 to 65%, mild concentric LVH, moderate MS, mild to moderate mitral regurgitation, mild TR, estimated systolic pulmonary pressure of 65 CXR today show slight progression of hazy bibasilar opacities and congestive changes with small bilateral pleural effusion. We will give IV Lasix 40 today. Discussed extensively with the city auditor. We will start 12.5 mg of spironolactone today as well. Started on imdur per city auditor. Amlodipine reduced to 5mg daily Patient will need diuretics on discharge. Monitor electrolytes -Possible aspiration pneumonitis CT chest does show scattered patchy groundglass and consolidative opacities with paratracheal lymphadenopathy Procalcitonin trend is negative. No fevers, cough. No leukocytosis Procalcitonin is still negative. Blood cultures negative Antibiotics had been discontinued Initial speech eval does not suggest aspiration but planned for vid study Esophageal dysmotility on video study Patient not able to tolerate barium swallow. Patient does not have any cough or chest pain or difficulties eating at this point. We will start PPI and to easy to chew sleepy diet with aspiration precautions for now. Patient educated on this If needed in the future may follow-up with GI and get esophageal manometric studies when able Wean as tolerated Will need ambulatory pulse ox/ 2 step on discharge Incentive spirometry Chronic venous stasis ulcers of bilateral lower extremity Diabetic ulcer right heel Peripheral arterial disease Continue wound care Follows with Dr. 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 SSI while in-patient. BSG AC HS CKD III Renal function at baseline. Carotid artery disease S/p left endarterectomy in August 2018. Continue aspirin, plavix DVT Ppx: SQ heparin Code status: DNR per daughter/POA PCP: Kerri Cueva Admission and Anticipated Discharge Date Admission Date: May 24, 2020 Subjective Patient seen and examined. Has no new complaints Denied cough, chest pain, dysphagia odynophagia No fevers or chills Attempts at weaning off oxygen completely at rest has been unsuccessful Review of Systems Ear, Nose, Mouth, Throat: + hearing loss Respiratory: + dyspnea on exertion; no cough Cardiovascular: + dyspnea on exertion; no chest pain, no paroxysmal nocturnal dyspnea and no palpitations Integumentary: Leg wounds Physical Exam Constitutional: + well hydrated and + obese; no acute distress Eyes: PERRL, conjunctivae normal, anicteric sclerae ENMT: Ears: + hearing impairment (Hearing deficit) Respiratory: normal respiratory effort; no respiratory distress Auscultation: + crackles (Mild basilar); no wheezes Cardiovascular: Rate/Rhythm: regular rate and regular rhythm S1-S2, mild pedal edema Gastrointestinal (Abdomen): normal bowel sounds, soft, nontender, no hepatosplenomegaly Musculoskeletal: Clean dressing on wounds on both legs Neurologic: PERRL, EOMI, accommodation nl, no face palsy, no dysarthria Psychiatric: A+Ox3, euthymic affect Results & Data Results & Data ([facility]) Vital Signs (Past 12 Hours) Vital Signs Temp Pulse Pulse Resp BP Pulse Ox 05/28/20 08:00 75 05/28/20 07:10 36.4 C L 69 16 152/77 H 92 05/28/20 04:04 178/64 H 05/28/20 03:04 36.7 C 77 18 187/80 H 94 05/27/20 23:56 72 Laboratory Results Laboratory Results - last 24 hr 05/27/20 05/27/20 05/27/20 11:34 16:30 20:11 WBC RBC Hgb Hct MCV MCH MCHC RDW Std Deviation RDW Coeff of Basil Plt Count MPV Sodium Potassium Chloride Carbon Dioxide Anion Gap BUN Creatinine Est Cr Clr Drug Dosing Est GFR ( Amer) Est GFR (Non-Af Amer) BUN/Creatinine Ratio Glucose POC Glucose 208 H 148 H 166 H Calcium Phosphorus Magnesium 05/28/20 05/28/20 05/28/20 06:35 06:35 07:24 WBC 5.88 RBC 4.07 L Hgb 12.5 Hct 37.7 MCV 92.6 MCH 30.7 MCHC 33.2 RDW Std Deviation 49.7 H RDW Coeff of Basil 14.6 H Plt Count 171 MPV 9.6 Sodium 139 Potassium 4.3 Chloride 106 Carbon Dioxide 27 Anion Gap 6.0 BUN 19 H Creatinine 0.83 Est Cr Clr Drug Dosing 50.3 Est GFR ( Amer) 73.5 Est GFR (Non-Af Amer) 63.4 BUN/Creatinine Ratio 23.1 H Glucose 174 H POC Glucose 150 H Calcium 8.5 Phosphorus 3.1 Magnesium 2.2
[2020-05-28] MEDS ORDERED: FUROSEMIDE 40 MG in SYRINGE 0 ML IV ONE (11:00)
[2020-05-28] MEDS: CHOLECALCIFEROL 1,000 UNITS 25 MCG TAB PO SCH (11:15)
[2020-05-28] MEDS: amLODIPine BESYLATE 5 MG TAB PO SCH (11:16)
[2020-05-28] MEDS: CLOPIDOGREL BISULFATE 75 MG TAB PO SCH (11:17)
[2020-05-28] MEDS: METOPROLOL SUCC 50MG EXT REL TAB PO SCH (11:17)
[2020-05-28] MEDS: lisinopril 20 MG TAB PO SCH (11:17)
[2020-05-28] MEDS: ASPIRIN 81 MG ECTAB PO SCH (11:18)
[2020-05-28] MEDS: SPIRONOLACTONE 12.5 MG TAB PO SCH (11:18)
[2020-05-28] MEDS: SERTRALINE HCL 50 MG TABLET PO SCH (11:18)
[2020-05-28] MEDS: PANTOprazole 40 MG TAB PO SCH (12:20)
--- NOTE | 2020-05-28 13:35 | Cardiology Progress Note ---
Date of Service May 28, 2020 Assessment & Plan (1) Acute respiratory failure with hypoxia: Patient is an 89-year-old female with complex history as outlined with known longstanding hypertensive heart disease, senile calcific valvular disease with moderate aortic sclerosis and mild to moderate mitral stenosis, atherosclerotic carotid and peripheral vascular disease as well as chronic renal dysfunction. Patient presents with symptoms of hypoxia and shortness of breath with mixed etiology likely including component of pneumonia with superimposed mild congestive heart failure. Echocardiogram suggests chronicity with elevated pulmonary pressures as well. Pulmonary hypertension appears to be secondary to multiple etiology including pulmonary and cardiac issues Chest x-ray still with persistent edema as well as infiltrate Patient responding to IV diuretics by weights and has once again received additional dose this morning. Anticipate need for diuretic on discharge Increase isosorbide dinitrate to 20 mg 3 times daily for further blood pressure control Spironolactone to add to her regimen (2) Multifocal pneumonia: (3) Peripheral arterial disease: (4) Stenosis of carotid artery: (5) CKD (chronic kidney disease), stage III: (6) HTN (hypertension): Admission and Anticipated Discharge Date Admission Date: May 24, 2020 Subjective Patient was seen and examined, chart, medications, telemetry reviewed. Overall no complaints from patient Oxygenation slowly improving although chest x-ray response appears to be lagging Weights suggesting appropriate response to IV diuretics. No arrhythmias noted on telemetry. Physical Exam Constitutional: WD/WN, vitals as above Eyes: PERRL, conjunctivae normal, anicteric sclerae ENMT: external ear and nose normal, oropharynx normal Neck: trachea midline, no thyromegaly Respiratory: Auscultation: + crackles (Few basilar left greater than right) Cardiovascular: Rate/Rhythm: regular rate and regular rhythm Heart Sounds: normal S1, normal S2 and + murmur (Grade 1-2 or 6 systolic no diastolic murmur audible); no gallop Palpation: normal PMI Vessels: normal carotid upstroke and radial pulses present; no JVD and no carotid bruit Extremities: + edema (Mild with both lower extremities bandaged) Gastrointestinal (Abdomen): normal bowel sounds, soft, nontender, no hep atosplenomegaly Musculoskeletal: no cyanosis or clubbing, extremities motor strength 5/5 Skin: no rashes, warm and dry Neurologic: PERRL, EOMI, accommodation nl, no face palsy, no dysarthria Psychiatric: A+Ox3, euthymic affect Results & Data ([facility]) Vital Signs (Past 12 Hours) Vital Signs Temp Pulse Pulse Resp BP Pulse Ox 05/28/20 11:36 36.4 C L 72 16 176/82 H 93 05/28/20 08:00 75 05/28/20 07:10 36.4 C L 69 16 152/77 H 92 05/28/20 04:04 178/64 H 05/28/20 03:04 36.7 C 77 18 187/80 H 94 Laboratory Results Laboratory Results - last 24 hr 05/27/20 05/27/20 05/28/20 16:30 20:11 06:35 WBC 5.88 RBC 4.07 L Hgb 12.5 Hct 37.7 MCV 92.6 MCH 30.7 MCHC 33.2 RDW Std Deviation 49.7 H RDW Coeff of Basil 14.6 H Plt Count 171 MPV 9.6 Sodium Potassium Chloride Carbon Dioxide Anion Gap BUN Creatinine Est Cr Clr Drug Dosing Est GFR ( Amer) Est GFR (Non-Af Amer) BUN/Creatinine Ratio Glucose POC Glucose 148 H 166 H Calcium Phosphorus Magnesium 05/28/20 05/28/20 05/28/20 06:35 07:24 11:18 WBC RBC Hgb Hct MCV MCH MCHC RDW Std Deviation RDW Coeff of Basil Plt Count MPV Sodium 139 Potassium 4.3 Chloride 106 Carbon Dioxide 27 Anion Gap 6.0 BUN 19 H Creatinine 0.83 Est Cr Clr Drug Dosing 50.3 Est GFR ( Amer) 73.5 Est GFR (Non-Af Amer) 63.4 BUN/Creatinine Ratio 23.1 H Glucose 174 H POC Glucose 150 H 167 H Calcium 8.5 Phosphorus 3.1 Magnesium 2.2
[2020-05-28] MEDS: ISOSORBIDE DINITRATE 20 MG TAB PO SCH (17:28)
[2020-05-28] MEDS: ROSUVASTATIN CALCIUM 5 MG TAB PO SCH (21:11)
[2020-05-28] MEDS: INSULIN GLARGINE SOLOSTAR 100 UNITS/ML 3 ML PEN SC SCH (21:12)
[2020-05-28] MEDS: LATANOPROST 0.005% OP SOLN 2.5 ML BTL OPB SCH (21:13)
[2020-05-29] MEDS: HEPARIN SOD 5,000 UNIT/0.5 ML VIAL SQ SCH ×3 (05:55→21:43)
[2020-05-29 06:24] LABS: Hematocrit (blood only) 37.1 % (37-47); Hemoglobin 12.3 g/dL (12.0-16.0); Mean Corpuscular Hemoglobin 30.4 pg (25-34); Mean Corpuscular Hgb Conc 33.2 g/dL (32-36); Mean Corpuscular Volume 91.6 fL (80-100); Mean Platelet Volume 9.9 fL (7.4-10.4); Platelet Count 167 K/uL (130-400); RDW Coefficient of Variation 14.4 % (11.5-14.5); RDW Standard Deviation 48.6 fL (36.4-46.3); Red Blood Count 4.05 M/uL (4.2-5.4); White Blood Count 5.21 K/uL (4.8-10.8)
[2020-05-29 06:52] LABS: BUN Creatinine Ratio 18.5 (10-20); Calcium 8.8 mg/dl (8.5-10.1); Creatinine Clr Calc Pharmacy 46.3 ml/min; Est GFR (African American) 66.6; Est GFR (Non-African American) 57.5; Phosphorus 3.2 mg/dl (2.5-4.9); Potassium 3.8 mmol/L (3.5-5.1)
[2020-05-29] MEDS: ISOSORBIDE DINITRATE 20 MG TAB PO SCH ×2 (07:09→11:24)
[2020-05-29] MEDS: METOPROLOL SUCC 50MG EXT REL TAB PO SCH (07:10)
[2020-05-29] MEDS: amLODIPine BESYLATE 5 MG TAB PO SCH (08:57)
[2020-05-29] MEDS: CLOPIDOGREL BISULFATE 75 MG TAB PO SCH (08:57)
[2020-05-29] MEDS: SERTRALINE HCL 50 MG TABLET PO SCH (08:57)
[2020-05-29] MEDS: PANTOprazole 40 MG TAB PO SCH (08:57)
[2020-05-29] MEDS: CHOLECALCIFEROL 1,000 UNITS 25 MCG TAB PO SCH (08:57)
[2020-05-29] MEDS: SPIRONOLACTONE 12.5 MG TAB PO SCH (08:57)
[2020-05-29] MEDS: lisinopril 20 MG TAB PO SCH (08:58)
[2020-05-29] MEDS: ASPIRIN 81 MG ECTAB PO SCH (08:58)
[2020-05-29] MEDS: INSULIN ASPART 100 UNITS/ML 3 ML PEN SC SCH ×4 (09:00→20:42)
--- NOTE | 2020-05-29 11:51 | Hospitalist Progress Note ---
Date of Service May 29, 2020 Assessment & Plan (1) Acute respiratory failure with hypoxia: (2) Multifocal pneumonia: (3) Diabetic ulcer of right heel: (4) Venous stasis ulcers of both lower extremities: (5) Peripheral arterial disease: (6) HTN (hypertension): (7) DM type 2 (diabetes mellitus, type 2): (8) CKD (chronic kidney disease), stage III: (9) Carotid artery disease: 89yo F resident from [facility] with PMH of DM II, HTN, CKD III, carotid stenosis s/p left endarterectomy in August 2018, HLD, chronic venous stasis wounds following with wound care and vascular and other medical problems listed below who presents from wound care clinic with acute hypoxic respiratory failure Acute respiratory failure with hypoxia Lactic acidosis Acute dyspnea on exertion and hypoxia 81% on room air on admission Chest CTA without evidence of pulmonary embolus. Small bilateral pleural effusions. Scattered patchy groundglass and consolidative airspace opacities consistent with a mild multifocal pneumonia Does not meet sepsis criteria and is nontoxic in appearance. Initial lactic acid elevated at 2.6, likely due to Metformin use. Repeat lactic acid within normal limits Negative Covid, flu A/B and RSV test Differentials for acute hypoxic respiratory failure include -Acute diastolic heart failure based on history of exertional dyspnea for the past month; CT findings of small bilateral pleural effusion; echo show EF of 60 to 65%, mild concentric LVH, moderate MS, mild to moderate mitral regurgitation, mild TR, estimated systolic pulmonary pressure of 65 CXR yesterday show slight progression of hazy bibasilar opacities and congestive changes with small bilateral pleural effusion. Discussed with the network security officer. Recommended discharge on po lasix 40mg daily, spironolactone 12.5mg daily, increase isordil started inpatient to 40mg tid. Amlodipine reduced to 5mg daily Patient needs follow up with Cards outpatient Monitor electrolytes -Possible aspiration pneumonitis CT chest does show scattered patchy groundglass and consolidative opacities with paratracheal lymphadenopathy Procalcitonin trend is negative. No fevers, cough. No leukocytosis Procalcitonin is still negative. Blood cultures negative Antibiotics had been discontinued Initial speech eval does not suggest aspiration Esophageal dysmotility on video study Patient not able to tolerate barium swallow. Patient does not have any cough or chest pain or difficulties eating at this point. We will start PPI and to easy to chew sleepy diet with aspiration precautions for now. Patient educated on this If needed in the future may follow-up with GI and get esophageal manometric studies when able Wean as tolerated at rehab Chronic venous stasis ulcers of bilateral lower extremity Diabetic ulcer right heel Peripheral arterial disease Continue wound care Follows with Dr. 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 SSI while in-patient. BSG AC HS CKD III Renal function at baseline. Carotid artery disease S/p left endarterectomy in August 2018. Continue aspirin, plavix DVT Ppx: SQ heparin Code status: DNR per daughter/POA PCP: Kerri Cueva Admission and Anticipated Discharge Date Admission Date: May 24, 2020 Subjective Patient seen and examined this morning. Denies any cough, chest pain, odynophagia or dysphagia Denies any shortness of breath at rest. Patient desaturates with activity of oxygen. Currently on 2 L/min nasal oxygen. No fevers, chills No nausea, vomiting, abdominal pain, diarrhea No dysuria, frequency, urgency Physical Exam Constitutional: + well hydrated and + obese; no acute distress Eyes: PERRL, conjunctivae normal, anicteric sclerae ENMT: Ears: + hearing impairment (Hearing deficit) Respiratory: normal respiratory effort; no respiratory distress Auscultation: + crackles (Mild basilar); no wheezes Cardiovascular: Rate/Rhythm: regular rate and regular rhythm S1-S2 Gastrointestinal (Abdomen): normal bowel sounds, soft, nontender, no hepatosplenomegaly Musculoskeletal: Clean dressing on wounds on both legs +1 pedal edema Neurologic: PERRL, EOMI, accommodation nl, no face palsy, no dysarthria Psychiatric: A+Ox3, euthymic affect Results & Data Results & Data ([facility]) Vital Signs (Past 12 Hours) Vital Signs Temp Pulse Pulse Resp BP Pulse Ox 05/29/20 11:14 36.6 C 73 18 174/72 H 97 05/29/20 09:00 67 145/71 H 05/29/20 08:24 36.6 C 77 18 195/77 H 95 05/29/20 07:00 64 05/29/20 02:41 36.5 C 65 19 151/71 H 94 05/29/20 00:05 89 Laboratory Results Laboratory Results - last 24 hr 05/28/20 05/28/20 05/29/20 16:22 20:09 05:38 WBC 5.21 RBC 4.05 L Hgb 12.3 Hct 37.1 MCV 91.6 MCH 30.4 MCHC 33.2 RDW Std Deviation 48.6 H RDW Coeff of Basil 14.4 Plt Count 167 MPV 9.9 Sodium Potassium Chloride Carbon Dioxide Anion Gap BUN Creatinine Est Cr Clr Drug Dosing Est GFR ( Amer) Est GFR (Non-Af Amer) BUN/Creatinine Ratio Glucose POC Glucose 150 H 156 H Calcium Phosphorus Magnesium 05/29/20 05/29/20 05/29/20 05:38 07:36 11:27 WBC RBC Hgb Hct MCV MCH MCHC RDW Std Deviation RDW Coeff of Basil Plt Count MPV Sodium 138 Potassium 3.8 Chloride 105 Carbon Dioxide 29 Anion Gap 4.0 BUN 17 Creatinine 0.90 Est Cr Clr Drug Dosing 46.3 Est GFR ( Amer) 66.6 Est GFR (Non-Af Amer) 57.5 BUN/Creatinine Ratio 18.5 Glucose 164 H POC Glucose 174 H 228 H Calcium 8.8 Phosphorus 3.2 Magnesium 2.0
[2020-05-29] MEDS ORDERED: ISOSORBIDE DINITRATE 20 MG TAB PO ONE (12:00)
[2020-05-29] MEDS ORDERED: FUROSEMIDE 40 MG TAB PO ONE (14:40)
--- NOTE | 2020-05-29 15:11 | Cardiology Progress Note ---
Date of Service May 29, 2020 Assessment & Plan (1) Acute respiratory failure with hypoxia: Patient is an 89-year-old female with complex history as outlined with known longstanding hypertensive heart disease, senile calcific valvular disease with moderate aortic sclerosis and mild to moderate mitral stenosis, atherosclerotic carotid and peripheral vascular disease as well as chronic renal dysfunction. Patient presents with symptoms of hypoxia and shortness of breath with mixed etiology likely including component of pneumonia with superimposed mild congestive heart failure. Echocardiogram suggests chronicity with elevated pulmonary pressures as well. Pulmonary hypertension appears to be secondary to multiple etiology including pulmonary and cardiac issues Chest x-ray still with persistent edema as well as infiltrate We will increase isosorbide to 40 mg 3 times daily. Continue furosemide 40 mg/day, spironolactone 12.5 mg/day. (2) Multifocal pneumonia: (3) Peripheral arterial disease: (4) Stenosis of carotid artery: (5) CKD (chronic kidney disease), stage III: (6) HTN (hypertension): Admission and Anticipated Discharge Date Admission Date: May 24, 2020 Subjective Patient was seen and examined, chart, medications, telemetry reviewed. Patient notes no overt changes low-grade cough once this morning but otherwise no complaints. Still requiring oxygen for adequate oxygenation No fevers chills no productive cough. No dizziness or lightheadedness. Physical Exam Constitutional: WD/WN, vitals as above Eyes: PERRL, conjunctivae normal, anicteric sclerae ENMT: external ear and nose normal, oropharynx normal Neck: trachea midline, no thyromegaly Respiratory: Auscultation: + crackles (Few basilar left greater than right) Cardiovascular: Rate/Rhythm: regular rate and regular rhythm Heart Sounds: normal S1, normal S2 and + murmur (Grade 1-2 or 6 systolic no diastolic murmur audible); no gallop Palpation: normal PMI Vessels: normal carotid upstroke and radial pulses present; no JVD and no carotid bruit Extremities: + edema (Mild with both lower extremities bandaged) Gastrointestinal (Abdomen): normal bowel sounds, soft, nontender, no hepatosplenomegaly Musculoskeletal: no cyanosis or clubbing, extremities motor strength 5/5 Skin: no rashes, warm and dry Neurologic: PERRL, EOMI, accommodation nl, no face palsy, no dysarthria Psychiatric: A+Ox3, euthymic affect Results & Data ([facility]) Vital Signs (Past 12 Hours) Vital Signs Temp Pulse Pulse Resp BP Pulse Ox 05/29/20 13:15 65 140/63 05/29/20 11:14 36.6 C 73 18 174/72 H 97 05/29/20 09:00 67 145/71 H 05/29/20 08:24 36.6 C 77 18 195/77 H 95 05/29/20 07:00 64 Laboratory Results Laboratory Results - last 24 hr 05/28/20 05/28/20 05/29/20 16:22 20:09 05:38 WBC 5.21 RBC 4.05 L Hgb 12.3 Hct 37.1 MCV 91.6 MCH 30.4 MCHC 33.2 RDW Std Deviation 48.6 H RDW Coeff of Basil 14.4 Plt Count 167 MPV 9.9 Sodium Potassium Chloride Carbon Dioxide Anion Gap BUN Creatinine Est Cr Clr Drug Dosing Est GFR ( Amer) Est GFR (Non-Af Amer) BUN/Creatinine Ratio Glucose POC Glucose 150 H 156 H Calcium Phosphorus Magnesium 05/29/20 05/29/20 05/29/20 05:38 07:36 11:27 WBC RBC Hgb Hct MCV MCH MCHC RDW Std Deviation RDW Coeff of Basil Plt Count MPV Sodium 138 Potassium 3.8 Chloride 105 Carbon Dioxide 29 Anion Gap 4.0 BUN 17 Creatinine 0.90 Est Cr Clr Drug Dosing 46.3 Est GFR ( Amer) 66.6 Est GFR (Non-Af Amer) 57.5 BUN/Creatinine Ratio 18.5 Glucose 164 H POC Glucose 174 H 228 H Calcium 8.8 Phosphorus 3.2 Magnesium 2.0
[2020-05-29] MEDS: ISOSORBIDE DINITRATE 40 MG TAB PO SCH (17:19)
[2020-05-29] MEDS: LATANOPROST 0.005% OP SOLN 2.5 ML BTL OPB SCH (20:41)
[2020-05-29] MEDS: ROSUVASTATIN CALCIUM 5 MG TAB PO SCH (20:41)
[2020-05-29] MEDS: INSULIN GLARGINE SOLOSTAR 100 UNITS/ML 3 ML PEN SC SCH (20:42)
[2020-05-30] MEDS: ISOSORBIDE DINITRATE 40 MG TAB PO SCH ×3 (06:29→17:18)
[2020-05-30] MEDS: HEPARIN SOD 5,000 UNIT/0.5 ML VIAL SQ SCH ×3 (06:29→21:45)
[2020-05-30] MEDS: CLOPIDOGREL BISULFATE 75 MG TAB PO SCH (08:08)
[2020-05-30] MEDS: SERTRALINE HCL 50 MG TABLET PO SCH (08:13)
[2020-05-30] MEDS: FUROSEMIDE 40 MG TAB PO SCH (08:13)
[2020-05-30] MEDS: CHOLECALCIFEROL 1,000 UNITS 25 MCG TAB PO SCH (08:13)
[2020-05-30] MEDS: PANTOprazole 40 MG TAB PO SCH (08:14)
[2020-05-30] MEDS: SPIRONOLACTONE 12.5 MG TAB PO SCH (08:14)
[2020-05-30] MEDS: amLODIPine BESYLATE 5 MG TAB PO SCH (08:14)
[2020-05-30] MEDS: lisinopril 20 MG TAB PO SCH (08:14)
[2020-05-30] MEDS: ASPIRIN 81 MG ECTAB PO SCH (08:14)
[2020-05-30] MEDS: METOPROLOL SUCC 50MG EXT REL TAB PO SCH (08:15)
[2020-05-30] MEDS: INSULIN ASPART 100 UNITS/ML 3 ML PEN SC SCH ×4 (08:16→20:33)
[2020-05-30 08:30] LABS: Calcium 9.2 mg/dl (8.5-10.1); Creatinine Clr Calc Pharmacy 44.1 ml/min; Est GFR (Non-African American) 55.3; Phosphorus 3.7 mg/dl (2.5-4.9); Potassium 4.3 mmol/L (3.5-5.1)
--- NOTE | 2020-05-30 14:46 | Cardiology Progress Note ---
Date of Service May 30, 2020 Assessment & Plan (1) Acute respiratory failure with hypoxia: Patient is an 89-year-old female with complex history as outlined with known longstanding hypertensive heart disease, senile calcific valvular disease with moderate aortic sclerosis and mild to moderate mitral stenosis, atherosclerotic carotid and peripheral vascular disease as well as chronic renal dysfunction. Patient presents with symptoms of hypoxia and shortness of breath with mixed etiology likely including component of pneumonia with superimposed mild congestive heart failure. Echocardiogram suggests chronicity with elevated pulmonary pressures as well. Pulmonary hypertension appears to be secondary to multiple etiology including pulmonary and cardiac issues Cardiac status appears stable. Would continue current medical therapies on discharge including furosemide 40 mg 5 days/week, spironolactone 12.5 mg daily. Amlodipine reduced to 5 mg once per day and isosorbide dinitrate added at 40 3 times daily (2) Multifocal pneumonia: (3) Peripheral arterial disease: (4) Stenosis of carotid artery: (5) CKD (chronic kidney disease), stage III: (6) HTN (hypertension): Admission and Anticipated Discharge Date Admission Date: May 24, 2020 Subjective Patient was seen and examined, chart, medications, telemetry reviewed. No significant clinical change per patient. Weight still trending downward. No dizziness or lightheadedness. Blood pressure better controlled Physical Exam Constitutional: WD/WN, vitals as above Eyes: PERRL, conjunctivae normal, anicteric sclerae ENMT: external ear and nose normal, oropharynx normal Neck: trachea midline, no thyromegaly Respiratory: Auscultation: + crackles (Few basilar left greater than right) Cardiovascular: Rate/Rhythm: regular rate and regular rhythm Heart Sounds: normal S1, normal S2 and + murmur (Grade 1-2 or 6 systolic no diastolic murmur audible); no gallop Palpation: normal PMI Vessels: normal carotid upstroke and radial pulses present; no JVD and no carotid bruit Extremities: + edema (Mild with both lower extremities bandaged) Gastrointestinal (Abdomen): normal bowel sounds, soft, nontender, no hepatosplenomegaly Musculoskeletal: no cyanosis or clubbing, extremities motor strength 5/5 Skin: no rashes, warm and dry Neurologic: PERRL, EOMI, accommodation nl, no face palsy, no dysarthria Psychiatric: A+Ox3, euthymic affect Results & Data ([facility]) Vital Signs (Past 12 Hours) Vital Signs Temp Pulse Pulse Resp BP Pulse Ox 05/30/20 11:51 36.8 C 65 18 129/72 96 05/30/20 08:06 37.0 C 76 18 169/73 H 94 05/30/20 07:00 61 05/30/20 03:00 36.7 C 73 20 175/78 H 92 Laboratory Results Laboratory Results - last 24 hr 05/29/20 05/29/20 05/30/20 16:21 20:17 07:32 Sodium 136 Potassium 4.3 Chloride 103 Carbon Dioxide 28 Anion Gap 5.0 BUN 16 Creatinine 0.93 Est Cr Clr Drug Dosing 44.1 Est GFR ( Amer) 64.0 Est GFR (Non-Af Amer) 55.3 BUN/Creatinine Ratio 17.0 Glucose 163 H POC Glucose 167 H 197 H Calcium 9.2 Phosphorus 3.7 Magnesium 2.0 05/30/20 05/30/20 05/30/20 07:59 11:44 11:46 Sodium Potassium Chloride Carbon Dioxide Anion Gap BUN Creatinine Est Cr Clr Drug Dosing Est GFR ( Amer) Est GFR (Non-Af Amer) BUN/Creatinine Ratio Glucose POC Glucose 150 H 305 H* 263 H Calcium Phosphorus Magnesium
--- NOTE | 2020-05-30 16:20 | Hospitalist Progress Note ---
Date of Service May 30, 2020 Assessment & Plan (1) Acute respiratory failure with hypoxia: (2) Multifocal pneumonia: (3) Diabetic ulcer of right heel: (4) Venous stasis ulcers of both lower extremities: (5) Peripheral arterial disease: (6) HTN (hypertension): (7) DM type 2 (diabetes mellitus, type 2): (8) CKD (chronic kidney disease), stage III: (9) Carotid artery disease: 89yo F resident from [facility] with PMH of DM II, HTN, CKD III, carotid stenosis s/p left endarterectomy in August 2018, HLD, chronic venous stasis wounds following with wound care and vascular and other medical problems listed below who presents from wound care clinic with acute hypoxic respiratory failure Acute respiratory failure with hypoxia Lactic acidosis Acute dyspnea on exertion and hypoxia 81% on room air on admission Possible related to acute diastolic heart failure Chest CTA without evidence of pulmonary embolus. Small bilateral pleural effusions. Scattered patchy groundglass and consolidative airspace opacities consistent with a mild multifocal pneumonia CXR yesterday show slight progression of hazy bibasilar opacities and congestive changes with small bilateral pleural effusion. Does not meet sepsis criteria and is nontoxic in appearance. Initial lactic acid elevated at 2.6, likely due to Metformin use. Repeat lactic acid within normal limits Negative Covid 19, flu A/B and RSV test Cardiology on board Recommended po lasix 40mg daily 5 days/week, spironolactone 12.5 mg daily and continue isordil 40mg tid Will need outpatient follow up with cardiology Will monitor BMP while on diuretic Possible aspiration pneumonitis CT chest does show scattered patchy groundglass and consolidative opacities with paratracheal lymphadenopathy Procalcitonin trend is negative. No fevers, cough. No leukocytosis Procalcitonin is still negative. Blood cultures negative Antibiotics had been discontinued Initial speech eval does not suggest aspiration Esophageal dysmotility on video study Patient not able to tolerate barium swallow. Patient does not have any cough or chest pain or difficulties eating at this point. Continue PPI and to easy to chew sleepy diet with aspiration precautions for now. Patient educated on this If needed in the future may follow-up with GI and get esophageal manometric studies when able Chronic venous stasis ulcers of bilateral lower extremity Diabetic ulcer right heel Peripheral arterial disease Continue wound care Follows with Dr. Gautam for PAD Continue aspirin, Plavix Hypertension Amlodipine decreased to 5mg daily, lisinopril 20mg and metoprolol succinate Monitor and adjust meds as needed Type 2 diabetes Hold home agents. SSI while in-patient. BSG AC HS CKD III Renal function at baseline. Carotid artery disease S/p left endarterectomy in August 2018. Continue aspirin, plavix DVT Ppx: SQ heparin Code status: DNR per daughter/POA PCP: [facility] Plan to discharge to [facility] tomorrow Admission and Anticipated Discharge Date Admission Date: May 24, 2020 Subjective Pt was seen and examined for follow up of hypoxia Sitting in chair with no distress Pt said that she feels alot better She denies any chest pain, palpitation, dizziness and fever Review of Systems Review of Systems: All systems reviewed & are unremarkable except as noted in Subjective Physical Exam Physical Exam: Constitutional: + well hydrated and + obese; no acute distress Eyes: PERRL, conjunctivae normal, anicteric sclerae ENMT: +decrease hearing function Respiratory: faint coarse BS Cardiovascular: regular rate and regular rhythm S1-S2 Gastrointestinal: normal bowel sounds, soft, nontender, no hepatosplenomegaly Musculoskeletal: Clean dressing on wounds on both legs +1 pedal edema Neurologic: PERRL, EOMI, accommodation nl, no face palsy, no dysarthria Psychiatric: A+Ox3, euthymic affect Results & Data Results & Data ([facility]) Vital Signs (Past 12 Hours) Vital Signs Temp Pulse Pulse Resp BP Pulse Ox 05/30/20 15:00 36.7 C 63 18 129/69 95 05/30/20 14:29 58 L 05/30/20 11:51 36.8 C 65 18 129/72 96 05/30/20 08:06 37.0 C 76 18 169/73 H 94 05/30/20 07:00 61
[2020-05-30] MEDS: ROSUVASTATIN CALCIUM 5 MG TAB PO SCH (20:34)
[2020-05-30] MEDS: LATANOPROST 0.005% OP SOLN 2.5 ML BTL OPB SCH (20:36)
[2020-05-30] MEDS ORDERED: INSULIN GLARGINE SOLOSTAR 100 UNITS/ML 3 ML PEN SC SCH (21:00)
[2020-05-31] MEDS ORDERED: ALBUT/IPRATROP 3MG/0.5MG NEB 3 ML VIAL NEB STA (05:31)
[2020-05-31 06:14] LABS: Basophils # (auto) 0.01 K/uL (0-0.2); Basophils % (auto) 0.2 %; Eosinophils # (auto) 0.32 K/uL (0-0.5); Eosinophils % (auto) 5.5 %; Hematocrit (blood only) 35.7 % (37-47); Hemoglobin 11.7 g/dL (12.0-16.0); Immature Granulocytes # (auto) 0.09 K/uL (0.00-0.02); Immature Granulocytes % (auto) 1.5 %; Lymphocytes # (auto) 1.09 K/uL (1.2-3.4); Lymphocytes % (auto) 18.6 %; Mean Corpuscular Hgb Conc 32.8 g/dL (32-36); Mean Corpuscular Volume 91.5 fL (80-100); Mean Platelet Volume 9.7 fL (7.4-10.4); Monocytes # (auto) 0.87 K/uL (0.11-0.59); Monocytes % (auto) 14.8 %; Neutrophils # (auto) 3.48 K/uL (1.4-6.5); Neutrophils % (auto) 59.4 %; Platelet Count 160 K/uL (130-400); RDW Coefficient of Variation 14.5 % (11.5-14.5); RDW Standard Deviation 48.4 fL (36.4-46.3); White Blood Count 5.86 K/uL (4.8-10.8)
[2020-05-31 06:17] LABS: HCO3 ABG 26 mmol/L (19-24); Oxygen Saturation ABG 96.9 % (90-95); PCO2 ABG 38 mmHg (35-46); PO2 ABG 86 mmHg (80-95); pH ABG 7.46 (7.35-7.45)
[2020-05-31] MEDS: ISOSORBIDE DINITRATE 40 MG TAB PO SCH ×2 (06:17→12:20)
[2020-05-31] MEDS: HEPARIN SOD 5,000 UNIT/0.5 ML VIAL SQ SCH ×2 (06:17→14:52)
[2020-05-31 06:20] LABS: Allen Test Pos (Pos)
[2020-05-31 06:45] LABS: Partial Thromboplastin Ratio 1.3; Partial Thromboplastin Time 33.1 Seconds (21.0-31.0)
[2020-05-31 06:56] LABS: BUN Creatinine Ratio 20.2 (10-20); Calcium 8.9 mg/dl (8.5-10.1); Creatinine Clr Calc Pharmacy 39.4 ml/min; Est GFR (African American) 55.3; Est GFR (Non-African American) 47.7; Magnesium 2.1 mg/dl (1.8-2.4); Potassium 4.4 mmol/L (3.5-5.1)
[2020-05-31] MEDS: lisinopril 20 MG TAB PO SCH (07:59)
[2020-05-31] MEDS: FUROSEMIDE 40 MG TAB PO SCH (07:59)
[2020-05-31] MEDS: CLOPIDOGREL BISULFATE 75 MG TAB PO SCH (07:59)
[2020-05-31] MEDS: METOPROLOL SUCC 50MG EXT REL TAB PO SCH (08:00)
[2020-05-31] MEDS: SERTRALINE HCL 50 MG TABLET PO SCH (08:00)
[2020-05-31] MEDS: CHOLECALCIFEROL 1,000 UNITS 25 MCG TAB PO SCH (08:01)
[2020-05-31] MEDS: SPIRONOLACTONE 12.5 MG TAB PO SCH (08:01)
[2020-05-31] MEDS: amLODIPine BESYLATE 5 MG TAB PO SCH (08:01)
[2020-05-31] MEDS: PANTOprazole 40 MG TAB PO SCH (08:01)
[2020-05-31] MEDS: ASPIRIN 81 MG ECTAB PO SCH (08:01)
--- NOTE | 2020-05-31 08:01 | XRay Report ---
XR chest 1V portable HISTORY: Hypoxia. COMPARISON: Chest 05/28/2020. FINDINGS: No pneumothorax. Small bilateral pleural effusions and left basilar hazy airspace opacity p ersists. There is diffuse interstitial/vascular thickening suggestive of mild congestive change. The heart remains enlarged. There are mitral anus calcifications. IMPRESSION: 1. Slight improved aeration within the left lung base. 2. Mild congestive change and small bilateral pleural effusions are again noted. ACT 112: Negative or not required by law. Electronically signed by: Hardeep Moe M.D. 05/31/2020 8:00 AM
[2020-05-31] MEDS: INSULIN ASPART 100 UNITS/ML 3 ML PEN SC SCH ×2 (08:27→12:19)
[2020-05-31 11:31] VITALS: TEMP 98.2; O2SAT 90
[2020-05-31 13:21] VITALS: BP 141/62
--- NOTE | 2020-05-31 13:48 | Hospitalist Progress Note ---
Date of Service May 31, 2020 Assessment & Plan (1) Acute respiratory failure with hypoxia: (2) Multifocal pneumonia: (3) Diabetic ulcer of right heel: (4) Venous stasis ulcers of both lower extremities: (5) Peripheral arterial disease: (6) HTN (hypertension): (7) DM type 2 (diabetes mellitus, type 2): (8) CKD (chronic kidney disease), stage III: (9) Carotid artery disease: 89yo F resident from [facility] with PMH of DM II, HTN, CKD III, carotid stenosis s/p left endarterectomy in August 2018, HLD, chronic venous stasis wounds following with wound care and vascular and other medical problems listed below who presents from wound care clinic with acute hypoxic respiratory failure Acute respiratory failure with hypoxia Lactic acidosis Acute dyspnea on exertion and hypoxia 81% on room air on admission Possible related to acute diastolic heart failure Chest CTA without evidence of pulmonary embolus. Small bilateral pleural effusions. Scattered patchy groundglass and consolidative airspace opacities consistent with a mild multifocal pneumonia CXR yesterday show slight progression of hazy bibasilar opacities and congestive changes with small bilateral pleural effusion. Does not meet sepsis criteria and is nontoxic in appearance. Initial lactic acid elevated at 2.6, likely due to Metformin use. Repeat lactic acid within normal limits Negative Covid 19, flu A/B and RSV test Cardiology on board Recommended po lasix 40mg daily 5 days/week, spironolactone 12.5 mg daily and continue isordil 40mg tid 2 step exercise done today and pt requires oxygen with activity Will need outpatient follow up with cardiology Check BMP in 1 week Possible aspiration pneumonitis CT chest does show scattered patchy groundglass and consolidative opacities with paratracheal lymphadenopathy Procalcitonin trend is negative. No fevers, cough. No leukocytosis Procalcitonin is still negative. Blood cultures negative Antibiotics had been discontinued Clinically stable Initial speech eval does not suggest aspiration Esophageal dysmotility on video study Patient not able to tolerate barium swallow. Patient does not have any cough or chest pain or difficulties eating at this point. Continue PPI and to easy to chew sleepy diet with aspiration precautions for now. Patient educated on this If needed in the future may follow-up with GI and get esophageal manometric studies when able Chronic venous stasis ulcers of bilateral lower extremity Diabetic ulcer right heel Peripheral arterial disease Continue wound care Follows with Dr. Gautam for PAD Continue aspirin, Plavix Hypertension Amlodipine decreased to 5mg daily, lisinopril 20mg and metoprolol succinate Monitor and adjust meds as needed Type 2 diabetes Hold home agents. Will resume home diabetes meds on discharge SSI while in-patient. BSG AC HS CKD III Renal function at baseline. Carotid artery disease S/p left endarterectomy in August 2018. Continue aspirin, plavix DVT Ppx: SQ heparin Code status: DNR per daughter/POA PCP: [facility] Plan to discharge to [facility] today Admission and Anticipated Discharge Date Admission Date: May 24, 2020 Subjective Pt was seen and examined for follow up of hypoxia Sitting in chair with no distress Pt said that she feels alot better She said that her breathing is fine She had 2 step done that required oxygen with 2L NC on exertion She denies any chest pain, palpitation, dizziness and fever Review of Systems Review of Systems: All systems reviewed & are unremarkable except as noted in Subjective Physical Exam Physical Exam: Constitutional: + well hydrated and + obese; no acute distress Eyes: PERRL, conjunctivae normal, anicteric sclerae ENMT: +decrease hearing function Respiratory: faint coarse BS Cardiovascular: regular rate and regular rhythm S1-S2 Gastrointestinal: normal bowel sounds, soft, nontender, no hepatosplenomegaly Musculoskeletal: Clean dressing on wounds on both legs +1 pedal edema Neurologic: PERRL, EOMI, accommodation nl, no face palsy, no dysarthria Psychiatric: A+Ox3, euthymic affect Results & Data Results & Data ([facility]) Vital Signs (Past 12 Hours) Vital Signs Temp Pulse Pulse Pulse Pulse Pulse Pulse 05/31/20 13:20 36.8 C 69 05/31/20 11:30 36.8 C 69 05/31/20 11:00 65 05/31/20 08:00 85 90 77 75 05/31/20 07:38 36.7 C 75 05/31/20 06:00 83 05/31/20 04:05 36.9 C 74 Resp Resp Resp Resp Resp BP BP 05/31/20 13:20 20 135/71 141/62 H 05/31/20 11:30 20 135/71 05/31/20 11:00 05/31/20 08:00 20 20 18 16 05/31/20 07:38 18 141/62 H 05/31/20 06:00 16 05/31/20 04:05 20 167/79 H Pulse Ox Pulse Ox Pulse Ox Pulse Ox Pulse Ox 05/31/20 13:20 90 05/31/20 11:30 90 05/31/20 11:00 05/31/20 08:00 91 86 L 91 92 05/31/20 07:38 94 05/31/20 06:00 97 05/31/20 04:05 90
[2020-05-31 15:11] VITALS: PULSE 68
--- NOTE | 2020-06-04 09:20 | Discharge Summary ---
Date of Service May 31, 2020 Admission HPI Per Admitting Provider This is an 89yo F resident from [facility] with PMH of DM II, HTN, CKD III, carotid stenosis s/p left endarterectomy in August 2018, HLD, chronic venous stasis wounds following with wound care and vascular and other medical problems listed below who presents from wound care clinic with acute hypoxia. Patient began feeling short of breath today. Denies fever, chills, cough or chest pain. No nausea, vomiting, abdominal pain, dysuria, diarrhea or constipation. Denies history of lung disease of chronic oxygen use. Was found to be hypoxic at 81% at wound clinic after walking a short distance from [place]. Was sent to ED for further evaluation. Denies recent aspiration or choking episode. Has remote history of DVT in RLE. Admission Exam Per Admitting Provider General Appearance: WD/WN, vitals as above, NAD, sitting up in bed, pleasant, conversing easily Head: normocephalic, atraumatic Eyes: + blind L eye, conjunctivae normal, anicteric sclerae ENT: hard of hearing, external ear and nose normal, oropharynx normal Neck: normal visual inspection, trachea midline, no thyromegaly Respiratory: normal respiratory effort, bibasilar crackles, diminished breath sounds at bases. No wheeze or rhonchi. No accessory muscle use Cardiovascular: regular rate, rhythm, no murmur appreciated, normal peripheral pulses. Vessels: no JVD Chest: normal inspection of chest Abdomen/GI: normal bowel sounds, soft, nontender, no hepatosplenomegaly Extremities/Musculoskeletal: no cyanosis or clubbing, extremities motor strength 5/5. + BLE with multiple small well-circumscribed venous stasis lesions on medial aspect of BLE. No purulent drainage. Erythema and trace edema noted bilaterally Neurologic: PERRL, EOMI, accommodation nl, no face palsy, no dysarthria, CN's II-XI intact bilaterally and moves all extremities Psychiatric: A+Ox3, euthymic affect Skin: no rashes, normal color, warm/dry Principal Diagnosis Acute respiratory failure with hypoxia Acute on chronic diastolic heart failure Possible aspiration pneumonitis Esophageal dysmotility Discharge Exam Constitutional: + well hydrated and + obese; no acute distress Eyes: PERRL, conjunctivae normal, anicteric sclerae ENMT: +decrease hearing function Respiratory: faint coarse BS Cardiovascular: regular rate and regular rhythm S1-S2 Gastrointestinal: normal bowel sounds, soft, nontender, no hepatosplenomegaly Musculoskeletal: Clean dressing on wounds on both legs +1 pedal edema Neurologic: PERRL, EOMI, accommodation nl, no face palsy, no dysarthria Psychiatric: A+Ox3, euthymic affect Discharge Data Allergies Allergy/AdvReac Type Severity Reaction Status Date / Time bacitracin Allergy Unknown Unknown Verified 05/24/20 09:32 [From Neosporin ([id number])] neomycin Allergy Unknown Unknown Verified 05/24/20 09:32 [From Neosporin ([id number])] polymyxin B Allergy Unknown Unknown Verified 05/24/20 09:32 [From Neosporin ([id number])] atorvastatin AdvReac Severe RIGID Verified 05/24/20 09:32 MUSCLES ezetimibe AdvReac Severe RIGID Verified 05/24/20 09:32 MUSCLES Consultations 05/24/20 11:27 ED Decision to Admit Stat 05/26/20 07:55 Consult Cardiology Routine Ordered Studies 05/24/20 09:15 CT angio chest PE protocol Stat 05/25/20 13:15 FL video swallow Routine XR chest 1V portable HISTORY: Hypoxia. COMPARISON: Chest 05/28/2020. FINDINGS: No pneumothorax. Small bilateral pleural effusions and left basilar hazy airspace opacity persists. There is diffuse interstitial/vascular thickening suggestive of mild congestive change. The heart remains enlarged. There are mitral anus calcifications. IMPRESSION: 1. Slight improved aeration within the left lung base. 2. Mild congestive change and small bilateral pleural effusions are again noted. ACT 112: Negative or not required by law. Electronically signed by: Hardeep Moe M.D. 05/31/2020 8:00 AM Dictated: 05/31/20 0759Transcribed: 05/31/20 0759 XR chest 1V portable HISTORY: Pneumonia, congestive heart failure COMPARISON: Chest 05/24/2020. FINDINGS: No pneumothorax. Small bilateral pleural effusions persist. Hazy bibasilar airspace opacities have slightly progressed. The heart remains mildly enlarged. There is mild central pulmonary vascular congestion without overt edema. IMPRESSION: 1. Slight progression of the hazy bibasilar airspace opacities. This favors a multifocal pneumonia. 2. Mild congestive change and small bilateral pleural effusions are noted. ACT 112: Negative or not required by law. Electronically signed by: Hardeep oMe M.D. 05/28/2020 8:27 AM Dictated: 05/28/20825Transcribed: 05/28/20825 XR chest 1V portable HISTORY: Pneumonia, congestive heart failure COMPARISON: Chest 05/24/2020. FINDINGS: No pneumothorax. Small bilateral pleural effusions persist. Hazy bibasilar airspace opacities have slightly progressed. The heart remains mildly enlarged. There is mild central pulmonary vascular congestion without overt edema. IMPRESSION: 1. Slight progression of the hazy bibasilar airspace opacities. This favors a multifocal pneumonia. 2. Mild congestive change and small bilateral pleural effusions are noted. ACT 112: Negative or not required by law. Electronically signed by: Hardeep Moe M.D. 05/28/2020 8:27 AM Dictated: 05/28/20825Transcribed: 05/28/20825 XR chest 1V portable CLINICAL HISTORY: Sepsis. COMPARISON STUDY: Chest radiograph November 04, 2018. FINDINGS: Lung volumes are normal. There is no pneumothorax. There are small bilateral pleural effusions with bibasilar opacities. Left midlung opacity is no madeleine. There is also interstitial thickening. Cardiomegaly is noted with mitral annular calcification. IMPRESSION: 1. Small bilateral pleural effusions with bibasilar opacities, greater on the left. The findings may reflect pneumonia or atelectasis. Left midlung opacity favors an infectious process. 2. Suspected pulmonary edema. ACT 112: Negative or not required by law. Electronically signed by: Maximino Larson M.D. 05/24/2020 9:44 AM Dictated: 05/24/2042Transcribed: 05/24/20941 CHEST CTA for PULMONARY ARTERIES CT DOSE: 574.68 mGy.cm HISTORY: hypoxia, h/o dvt, r/o PE TECHNIQUE: Multiaxial CT images of the chest were performed following the intravenous administration of contrast to evaluate the pulmonary arteries. Maximal intensity projection images were also obtained. A dose lowering technique was utilized adhering to the principles of ALARA. COMPARISON STUDY: None. FINDINGS: Normal caliber thoracic aorta with no evidence for dissection. The heart is mildly enlarged. There are small bilateral pleural effusions. Nondiagnostic evaluation of the subsegmental branches of the bilateral lower lobes and right upper lobe due to the respiratory motion artifact. Otherwise, no filling defects within the remaining pulmonary arteries to suggest pulmonary embolus. Retrograde opacification of the hepatic veins. Limited views the upper abdomen demonstrate a normal liver and spleen. Tiny hiatus hernia. There are few mildly enlarged right hilar lymph nodes and a single enlarged upper right paratracheal lymph node. The upper right paratracheal lymph node measures 15 x 10 mm. Dominant right hilar lymph node measures 2.3 x 1.5 cm. There are small bilateral pleural effusions. No suspicious lytic or blastic osseous lesions. No pneumothorax. The central airways are patent. A few scattered patchy groundglass airspace opacities seen within the lungs. There are areas of consolidation within the lower lobes likely represent a combination of atelectasis and pneumonia. Scattered nodular densities also likely represent an infectious process. Dominant nodule within the right upper lobe on image 130 measures 7 mm. IMPRESSION: 1. No evidence for pulmonary embolus with limitations as described above. 2. Small bilateral pleural effusions. 3. Scattered patchy groundglass and consolidative airspace opacities consistent with a mild multifocal pneumonia. 4. Mild right paratracheal and right hilar lymphadenopathy. This could be reactive. 5. Additional findings as described above. ACT 112: Negative or not required by law. Electronically signed by: Hardeep Moe M.D. 05/24/2020 10:25 AM Dictated: 05/24/20 1015Transcribed: 05/24/20 1015 Hospital Course (1) Acute respiratory failure with hypoxia: (2) Multifocal pneumonia: (3) Diabetic ulcer of right heel: (4) Venous stasis ulcers of both lower extremities: (5) Peripheral arterial disease: (6) HTN (hypertension): (7) DM type 2 (diabetes mellitus, type 2): (8) CKD (chronic kidney disease), stage III: (9) Carotid artery disease: 89yo F resident from [facility] with PMH of DM II, HTN, CKD III, carotid stenosis s/p left endarterectomy in August 2018, HLD, chronic venous stasis wounds following with wound care and vascular and other medical problems listed below who presents from wound care clinic with acute hypoxic respiratory failure Acute respiratory failure with hypoxia Lactic acidosis Acute dyspnea on exertion and hypoxia 81% on room air on admission Possible related to acute diastolic heart failure Chest CTA without evidence of pulmonary embolus. Small bilateral pleural effusions. Scattered patchy groundglass and consolidative airspace opacities consistent with a mild multifocal pneumonia CXR yesterday show slight progression of hazy bibasilar opacities and congestive changes with small bilateral pleural effusion. Does not meet sepsis criteria and is nontoxic in appearance. Initial lactic acid elevated at 2.6, likely due to Metformin use. Repeat lactic acid within normal limits Negative Covid 19, flu A/B and RSV test Cardiology on board Recommended po lasix 40mg daily 5 days/week, spironolactone 12.5 mg daily and continue isordil 40mg tid 2 step exercise done today and pt requires oxygen with activity Will need outpatient follow up with cardiology Check BMP in 1 week Possible aspiration pneumonitis CT chest does show scattered patchy groundglass and consolidative opacities with paratracheal lymphadenopathy Procalcitonin trend is negative. No fevers, cough. No leukocytosis Procalcitonin is still negative. Blood cultures negative Antibiotics had been discontinued Clinically stable Initial speech eval does not suggest aspiration Esophageal dysmotility on video study Patient not able to tolerate barium swallow. Patient does not have any cough or chest pain or difficulties eating at this point. Continue PPI and to easy to chew sleepy diet with aspiration precautions for now. Patient educated on this If needed in the future may follow-up with GI and get esophageal manometric studies when able Chronic venous stasis ulcers of bilateral lower extremity Diabetic ulcer right heel Peripheral arterial disease Continue wound care Follows with Dr. Gautam for PAD Continue aspirin, Plavix Hypertension Amlodipine decreased to 5mg daily, lisinopril 20mg and metoprolol succinate Monitor and adjust meds as needed Type 2 diabetes Hold home agents. Will resume home diabetes meds on discharge SSI while in-patient. BSG AC HS CKD III Renal function at baseline. Carotid artery disease S/p left endarterectomy in August 2018. Continue aspirin, plavix DVT Ppx: SQ heparin Code status: DNR per daughter/POA [facility] Plan [facility] to [facility] today Total Time Total Time Spent Total Time Spent (In Minutes): 35 minutes Total Time Includes: Examination of the Patient, Discharge Planning, Medication Reconciliation, Communication With Other Providers and Other Discharge Plan Discharge Items Patient Disposition: Transfer [facility] Reason For Visit: Shortness of breath Discharge Diagnosis: Acute respiratory failure with hypoxia Acute on chronic diastolic heart failure Possible aspiration pneumonitis Esophageal dysmotility Activity: Resume your previous activity Non-emergency contact: Primary Care Provider and Computer Numerical Control Grinder Call non-emergency contact if: you have any medication questions and your symptoms worsen Follow-up/Referrals: Anay Manning at [place] [Primary Care Provider] - Diet: Carb Consistent or DM2 and Heart Healthy Fluids: 1800ml (7 cups) Diet Texture: Easy to Chew Addtl Attending Provider Instructions: Mrs Gonzales. You came to the hospital for shortness of breath. You also reported shortness of breath with exertion. You were extensively evaluated. You have increased fluid in your chest as well as opacities suggestive of multiple etiology including heart failure and possible pneumonitis. You were initially empirically treated with antibiotics which had been discontinued due to no sign of bacterial infection. You were evaluated by geospatial engineer and new medications were started for better management of your heart problems. It is very important that you take these as prescribed. You were also assessed by speech and had a video study which showed some esophageal dysmotility. It is important you follow the diet instructions as above with precautions to avoid food getting into the lungs. You may follow up with [facility] in the future for further evaluation and management. Continue 2L NC oxygen supplement with activity Please monitor oxygen level at night and if desaturates please arrange for a nocturnal pulse oximetry Check BMP in 1 week to monitor your electrolytes and kidney function Continue monitor your blood sugar Follow up with cardiology and your primary care provider. It was a pleasure taking care of you. Pending Studies at Discharge: No Stand-Alone Forms: My [facility] Skilled Items Patient informed of condition?: Yes DNR: Yes Discharge Level of Care: Skilled Communicable Disease: No Discharge Prognosis: Stable Lines: None Urinary Catheter: No Medications and DC Order Prescriptions: New amlodipine [Norvasc] 5 mg Tablet 5 mg PO QAM 30 Days Qty: 30 RF: 0 isosorbide dinitrate [Isordil] 40 mg Tablet 40 mg PO TID@0700,1200,1700 30 Days Qty: 90 RF: 0 spironolactone 25 mg Tablet 12.5 mg PO DAILY Qty: 30 RF: 0 furosemide 40 mg Tablet 40 mg PO QAM Qty: 30 RF: 0 pantoprazole 40 mg Tablet,Delayed Release (Dr/Ec) 40 mg PO QAM 30 Days Qty: 30 RF: 0 Continued Iodosorb 0.9 % gel 10 g topical Q3D Qty: 10 RF: 0 glipizide 5 mg tablet 5 mg PO DAILY RF: 0 Lantus U-100 Insulin 100 unit/mL solution 10 unit subcut HS RF: 0 acetaminophen 325 mg Tablet 650 mg PO Q4H MDD 3 GM APAP/24 HOURS PRN (Reason: Fever Or Pain) RF: 0 clopidogrel 75 mg Tablet 75 mg PO QAM RF: 0 aspirin 81 mg Tablet,Delayed Release (Dr/Ec) 81 mg PO QAM RF: 0 sertraline 25 mg Tablet 25 mg PO DAILY RF: 0 sodium chloride [[place] Nasal] 0.65 % Aerosol,[place] 2 spray INTRANASAL Q8H PRN (Reason: Nasal Dryness) RF: 0 Loman Cough Drops 7.5 mg Lozenge 7 mg PO Q4H PRN (Reason: Laryngitis) RF: 0 metformin 500 mg tablet 500 mg PO BID RF: 0 lisinopril 10 mg tablet 20 mg PO QAM RF: 0 metoprolol succinate 100 mg tablet extended release 24 hr 100 mg PO QAM RF: 0 rosuvastatin 5 mg tablet 2.5 mg PO HS RF: 0 latanoprost 0.005 % drops 1 drp OPB HS RF: 0 cholecalciferol (vitamin D3) 1,000 unit Tablet 1,000 unit PO QAM RF: 0 Discontinued amlodipine 10 mg tablet 10 mg PO QAM RF: 0 Discharge Orders: Discharge Order (Routine); Ordered 05/31/20 Ordered By: Nickolas Hollis Admission Data Admit Date/Time: 05/24/20 11:55 Attending Provider: Nickolas Hollis Admit Provider: Mayito Galo Primary Care Provider: Anay Manning [facility] Other Providers: Mayito Galo ; Archie Becerra ; Clare Barroso I. Other Interventions: Discharge Summary Assessment (RN) Last Done: 05/31/20 13:20
== END 2020-05-31 16:17 | DRG 189 ==
LOC: ED 08:49 → 2N 11:55 → SUATTDRO 11:55 → 2N 14:19

== ENCOUNTER 2020-06-07 09:51 | Inpatient (IN) ==
--- NOTE | 2020-06-07 10:58 | XRay Report ---
XR chest 1V portable HISTORY: 89 years-old Female SEPSIS acute sepsis COMPARISON: Chest radiograph 05/31/2020 TECHNIQUE: Portable AP view of the chest FINDINGS: Cardiac silhouette is mildly enlarged. No pneumothorax. Pulmonary vascular congestion with improved a eration of the lungs. Trace pleural effusions with minimal persistent left lung base opacities. Degen erative changes of the shoulders and spine. IMPRESSION: 1. Cardiomegaly and pulmonary vascular congestion with decreased pulmonary edema. 2. Trace pleural effusions. 3. Minimal left lung base opacities suggestive of atelectasis. A mild pneumonitis considered less lik [place]. ACT 112: Negative or not required by law. The above report was generated using voice recognition software. It may contain grammatical, syntax o r spelling errors. Electronically signed by: Alberto Doss M.D. 06/07/2020 10:57 AM
[2020-06-07 11:16] LABS: Basophils # (auto) 0.01 K/uL (0-0.2); Basophils % (auto) 0.1 %; Eosinophils # (auto) 0.56 K/uL (0-0.5); Eosinophils % (auto) 8.2 %; Hematocrit (blood only) 37.5 % (37-47); Hemoglobin 12.4 g/dL (12.0-16.0); Immature Granulocytes # (auto) 0.02 K/uL (0.00-0.02); Immature Granulocytes % (auto) 0.3 %; Lymphocytes % (auto) 11.8 %; Mean Corpuscular Hemoglobin 30.5 pg (25-34); Mean Corpuscular Hgb Conc 33.1 g/dL (32-36); Mean Corpuscular Volume 92.4 fL (80-100); Monocytes # (auto) 0.95 K/uL (0.11-0.59); Neutrophils # (auto) 4.46 K/uL (1.4-6.5); Neutrophils % (auto) 65.6 %; Platelet Count 209 K/uL (130-400); RDW Coefficient of Variation 14.8 % (11.5-14.5); Red Blood Count 4.06 M/uL (4.2-5.4)
[2020-06-07 11:26] LABS: Partial Thromboplastin Ratio 0.9; Partial Thromboplastin Time 24.1 Seconds (21.0-31.0); Prothrombin Time 10.4 Seconds (9.0-12.0)
[2020-06-07 11:40] LABS: Alanine Aminotransferase 16 U/L (12-78); Albumin Globulin Ratio 0.9 (0.9-2); Albumin Level 3.2 gm/dl (3.4-5.0); Alkaline Phosphatase 66 U/L (45-117); Aspartate Aminotransferase 11 U/L (15-37); BUN Creatinine Ratio 17.2 (10-20); Bilirubin,Total 0.7 mg/dl (0.2-1); Blood Urea Nitrogen 31 mg/dl (7-18); Calcium 9.5 mg/dl (8.5-10.1); Carbon Dioxide 26 mmol/L (21-32); Chloride 103 mmol/L (98-107); Creatinine Clr Calc Pharmacy 22.7 ml/min; Est GFR (African American) 28.6; Est GFR (Non-African American) 24.7; Globulin 3.6 gm/dl (2.5-4.0); Glucose 147 mg/dl (70-99); NT Pro B Type Natriuretic Pept 839 pg/ml (0-1800); Potassium 4.8 mmol/L (3.5-5.1); Sodium 136 mmol/L (136-145); Total Protein 6.8 gm/dl (6.4-8.2); Troponin I < 0.015 ng/ml (0-0.045)
[2020-06-07] MEDS ORDERED: SODIUM CHLORIDE 0.9% 1000ML 500 ML IV ONE (12:54)
[2020-06-07] MEDS ORDERED: SODIUM CHLORIDE 0.9% 1000ML 1,000 ML IV STA (12:54)
--- NOTE | 2020-06-07 13:13 | History & Physical Report ---
Date of Service June 07, 2020 Assessment & Plan (1) Hypotension: (2) Lethargy: (3) Acute kidney injury superimposed on chronic kidney disease: (4) Elevated lactic acid level: (5) Diabetic ulcer of right heel: (6) DM type 2 (diabetes mellitus, type 2): (7) HTN (hypertension): (8) Venous stasis ulcers of both lower extremities: (9) Peripheral arterial disease: (10) Carotid artery disease: This is an 89yo F resident of [facility] with a PMH of DM II, HTN, CKD III, carotid stenosis s/p left endarterectomy in August 2018, HLD, chronic venous stasis wounds following with wound care and vascular and other medical problems listed below who presents from wound care clinic appointment with hypotension and lethargy. Hypertension Dehydration Initial lethargy now resolved Found to be hypotensive at 84/44 with 92% on room air at follow up appt earlier today with associated lethargy and generalized weakness Has received around 2L total NSS resuscitation with improved BP 130/76 Afebrile, no leukocytosis. Lactic acid mildly elevated at 2.1 but repeat wnl. Covid PCR negative. UA without evidence of infection CXR with cardiomegaly and pulmonary vascular congestion with decreased pulmonary edema, trace pleural effusions and minimal left lung base opacities suggestive of atelectasis No evidence of infection, procalcitonin and blood cultures pending but antibiotic not indicated at this time. Does not appear to look toxic or meet sepsis criteria Appears clinically dry, mentation improving with fluid resuscitation. Poor PO intake per daughter in law, along with increased diuretics in setting of heart failure likely contributing to orthostatic hypotension at office Orthostatic vitals pending, holding diuretics, continue metoprolol succinate and Isordil with hold parameters Lactic acidosis Initial mild elevation of 2.1 in setting of dehydration, metformin use. Normalized with IV fluids Acute kidney injury superimposed on chronic kidney disease Cr elevated to 1.8 (baseline ~1), appearing clinically dry Holding diuretics, giving gentle IV fluids Bladder scan as needed, renal ultrasound to r/o obstruction Chronic venous stasis ulcers of bilateral lower extremity Diabetic ulcer right heel Follows with wound care. Dressings changed this morning in clinic, routine wound care nurse consult placed Hypertension Holding amlodipine, lisinopril for now. Continue metoprolol succinate and Isordil with hold parameters Type 2 diabetes Hold home agents. SSI while in-patient. BSG AC HS Peripheral arterial disease Follows with Dr. Gautam. Continue aspirin, Plavix Carotid artery disease S/p left endarterectomy in August 2018. Continue aspirin, plavix DVT Ppx: SQ heparin Code status: DNR per daughter/POA at bedside PCP: Kerri Cueva Dispo: Admitted to [facility]. Discharge planning ordered Patient seen in collaboration with Dr. Galo. Please see addendum. History of Present Illness Chief Complaint: hypotension, lethargy, sent from wound care clinic Primary Care Provider: Kerri Cueva at [place] This is an 89yo F resident of [facility] with a PMH of DM II, HTN, CKD III, carotid stenosis s/p left endarterectomy in August 2018, HLD, chronic venous stasis wounds following with wound care and vascular and other medical problems listed below who presents from wound care clinic appointment with hypotension despite IV fluid resuscitation. Was at follow up appointment for chronic wounds and was found to be hypotensive at 84/44 with 92% on room air. Also notably lethargic and confused, requiring 3 people to help her out of wheelchair room. When asked about this event, patient does not have recollection. History primarily obtained by [id number] at bedside. Was given 30ml IV NSS but remained hypotensive and was sent from clinic to [facility] ED for further evaluation. Was recently admitted from 05/24-05/31 for acute hypoxia with mixed etiology likely including component of pneumonia with superimposed mild congestive heart failure. Concern for possible aspiration pneumonitis but initial speech evaluation did not suggest aspiration. Patient did not tolerate barium swallow so started on PPI and discharged with recommendation for aspiration precautions and potential follow-up with GI for esophageal manometric studies. During hospitalization, was also evaluated by cardiology who recommended Lasix 40mg daily 5 days/week, spironolactone 12.5 mg daily and continue isordil 40mg TID. Amlodipine dose was also decreased to 5 mg daily. TTE on 05/24 showed preserved EF with moderate mitral stenosis, mild TR and mild MR. In ED, patient was initially hypotensive at 84/44. Afebrile, no leukocytosis. Lactic acid mildly elevated at 2.1 with repeat pending. Urine and Covid PCR pending. Chest x-ray with cardiomegaly and pulmonary vascular congestion with decreased pulmonary edema, trace pleural effusions and minimal left lung base opacities suggestive of atelectasis. A mild pneumonitis considered less likely. Creatinine elevated at 1.81 (baseline Cr~1). Has some confusion at baseline with dementia. Currently comfortable. Denies any fever, chills, lightheadedness, headache, chest pain, shortness of breath, nausea, vomiting, abdominal pain, dysuria, diarrhea or constipation. Allergies Allergy/AdvReac Type Severity Reaction Status Date / Time bacitracin Allergy Unknown Unknown Verified 06/07/20 11:48 [From Neosporin ([id number])] neomycin Allergy Unknown Unknown Verified 06/07/20 11:48 [From Neosporin ([id number])] polymyxin B Allergy Unknown Unknown Verified 06/07/20 11:48 [From Neosporin ([id number])] atorvastatin AdvReac Severe RIGID Verified 06/07/20 11:48 MUSCLES ezetimibe AdvReac Severe RIGID Verified 06/07/20 11:48 MUSCLES Home Medications Medication Instructions Recorded Confirmed Type metoprolol succinate 100 mg PO QAM 03/16/18 06/07/20 History rosuvastatin 2.5 mg PO HS 03/16/18 06/07/20 History cholecalciferol (vitamin D3) 1,000 unit PO QAM 08/21/18 06/07/20 History latanoprost 1 drp OPB HS 08/21/18 06/07/20 History acetaminophen 650 mg PO Q4H PRN MDD 3 GM APAP/11/04/18 06/07/20 History HOURS aspirin 81 mg PO QAM 11/04/18 06/07/20 History clopidogrel 75 mg PO QAM 11/04/18 06/07/20 History sertraline 25 mg PO DAILY 11/04/18 06/07/20 History sodium chloride [[place] Nasal] 2 spray INTRANASAL Q8H PRN 11/04/18 06/07/20 History metformin 500 mg tablet 500 mg PO BID tab 01/05/19 06/07/20 History insulin glargine 100 unit/mL 10 unit SUBCUT HS ml 03/15/20 06/07/20 History subcutaneous solution cadexomer iodine 0.9 % topical gel 10 g TOPICAL Q3D #10 g 04/03/20 06/07/20 Rx amlodipine [Norvasc] 5 mg PO QAM 30 Days #30 tab 05/31/20 06/07/20 Rx furosemide 40 mg PO QAM #30 tab 05/31/20 06/07/20 Rx isosorbide dinitrate [Isordil] 40 mg PO TID@0700,1200,1700 30 05/31/20 06/07/20 Rx Days #90 tab pantoprazole 40 mg PO QAM 30 Days #30 tab 05/31/20 06/07/20 Rx spironolactone 12.5 mg PO DAILY #30 tab 05/31/20 06/07/20 Rx docusate sodium 100 mg PO DAILY 06/07/20 06/07/20 History glipizide 5 mg PO DAILY 06/07/20 06/07/20 History lisinopril 20 mg PO DAILY 06/07/20 06/07/20 History polyethylene glycol 3350 17 g PO DAILY 06/07/20 06/07/20 History Past Med/Surg History Medical History Blind left eye Carotid artery disease "CTA 03/09/17: high-grade stenoses bilat ICA's" S/p L endarterectomy in August 2018 at [facility] Cataract Chronic venous insufficiency CKD (chronic kidney disease), stage III DM type 2 (diabetes mellitus, type 2) Glaucoma History of DVT (deep vein thrombosis) HLD (hyperlipidemia) HTN (hypertension) Surgical History History of appendectomy History of History of colonoscopy Family History Mother Diabetes Parkinson disease Father , age 94 CHF (congestive heart failure) Brother Myocardial infarction Social History Smoking Status: Never smoker Second Hand Exposure: No; Do You Dip or Chew Tobacco: No; Tobacco Cessation Education Requested by Patient: No Hx Alcohol Use: No Hx Substance Use: No Preferred Language: Welsh Communication Ability: Effective Molecular Technologist Required: No Beliefs That Will Affect Care: None marital status: / Current Living Situation: Halfway Current Living Situation Comment: [facility] Other Information That Helps Us Care for You: No Feels Safe at Home: Yes Safety Concerns: Feels Safe At This Time Assistive Devices: Glasses and Hearing Aid - Bilateral Assistive Devices Comment: hearing aides not here Review of Systems Review of Systems: At least ten systems reviewed and negative except as noted in the HPI. Physical Exam Physical Exam: Please see Dr. Galo's addendum for physical exam. Results & Data Results & Data ([facility]) Vital Signs (Past 12 Hours) Vital Signs Temp Pulse Resp BP Pulse Ox 06/07/20 13:08 93 06/07/20 13:02 64 17 96/48 L 99 06/07/20 13:01 62 23 99 06/07/20 13:00 61 21 99 06/07/20 12:45 69 16 99 06/07/20 12:31 70 23 119/79 99 06/07/20 12:30 70 25 H 99 06/07/20 12:15 59 L 20 98 06/07/20 12:00 49 L 22 118/48 L 99 06/07/20 11:45 46 L 21 99 06/07/20 11:32 99 06/07/20 11:30 56 L 27 H 127/50 L 98 06/07/20 11:17 68 26 H 142/54 H 88 L 06/07/20 11:15 70 19 06/07/20 11:00 69 25 H 06/07/20 10:45 53 L 22 93 06/07/20 10:30 49 L 20 93 06/07/20 10:15 56 L 15 93 06/07/20 10:13 58 L 21 92 06/07/20 10:11 36.8 C 71 20 125/53 L 92 06/07/20 10:02 67 23 125/53 L 92 Laboratory Results Short CBC 06/07/20 06/07/20 06/07/20 Range/Units 11:04 11:04 11:04 WBC 6.80 (4.8-10.8) K/uL Hgb 12.4 (12.0-16.0) g/dL Hct 37.5 (37-47) % Plt Count 209 (130-400) K/uL Creatinine 1.81 H (0.6-1.2) mg/dl Lactate 2.1 H* (0.4-2.0) mmol/L BMP 06/07/20 11:04 Sodium 136 Potassium 4.8 Chloride 103 Carbon Dioxide 26 BUN 31 H Creatinine 1.81 H Glucose 147 H Calcium 9.5 Cardiac Enzymes 06/07/20 Range/Units 11:04 Troponin I < 0.015 (0-0.045) ng/ml Liver Function 06/07/20 Range/Units 11:04 Total Bilirubin 0.7 (0.2-1) mg/dl AST 11 L (15-37) U/L ALT 16 (12-78) U/L Alkaline Phosphatase 66 (45-117) U/L Albumin 3.2 L (3.4-5.0) gm/dl Diagnostic Findings Chest X-Ray 06/07/20 10:44 XR chest 1V portable HISTORY: 89 years-old Female SEPSIS acute sepsis COMPARISON: Chest radiograph 05/31/2020 TECHNIQUE: Portable AP view of the chest FINDINGS: Cardiac silhouette is mildly enlarged. No pneumothorax. Pulmonary vascular congestion with improved aeration of the lungs. Trace pleural effusions with minimal persistent left lung base opacities. Degenerative changes of the shoulders and spine. IMPRESSION: 1. Cardiomegaly and pulmonary vascular congestion with decreased pulmonary edema. 2. Trace pleural effusions. 3. Minimal left lung base opacities suggestive of atelectasis. A mild pneumonitis considered less likely. ACT 112: Negative or not required by law. The above report was generated using voice recognition software. It may contain grammatical, syntax or spelling errors. Electronically signed by: Alberto Doss M.D. 06/07/2020 10:57 AM Supervising Physician Co-Signing Physician Notes Patient is an 89-year-old female with history of diabetes mellitus, hypertension, CKD and other medical problems presents on referral from wound clinic for evaluation of hypertension, lethargy. Patient was recently admitted at [facility] and was treated for acute respiratory failure with hypoxia secondary to acute on chronic diastolic heart failure and possible aspiration pneumonitis. Patient has chronic short-term memory issues and currently is oriented while in ED. She was found to be hypotensive which improved with IV fluids while in ED. Patient's daughter informs that she has been eating poorly since last hospitalization. Please review HPI for complete details of presentation. Physical Exam: Vitals signs as noted above General Appearance:Obese, no apparent distress Head: normocephalic, Atraumatic Eyes: normal inspection, EOMI, Left eye blindness Neck: supple, Trachea midline Respiratory/Chest: Normal breath sounds, CTA Cardiovascular: S1, S2, No murmur Abdomen/GI:Soft, Non tender, Bowel sounds present Extremities/Musculoskeletal:normal inspection, no edema, + B/L LE wounds in dressing Neurologic/Psych:AAOX3, grossly no focal neurological deficits, +Short term memory issues Skin: normal color, warm Patient is admitted for management of hypotension, dehydration, lactic acidosis, acute kidney injury, lethargy. Likely prerenal, medications induced. Will hold antihypertensives, check renal ultrasound and avoid any nephrotoxic agents including Metformin, furosemide, spironolactone, lisinopril. We will give her IV fluids and monitor volume status closely. Will consider nephrology evaluation if renal function does not improve. No obvious source of infection. Lactate levels normalized with IV fluids. Negative procalcitonin. Blood cultures obtained. I's and O's, daily weight. Will likely need medication adjustment based on further work-up. PT/OT prior to discharge. I personally reviewed the record. Patient is interviewed and examined at bedside. Patient's care is coordinated with Fatimah Elliott PA-C. Please refer to the documentation above for details of patient's presentation and for discussion of other issues.
[2020-06-07 13:38] LABS: Appearance Urine Clear (Clear); Bilirubin Urine Negative (Negative); Blood Urine Negative (Negative); Color Urine Yellow; Glucose Urine UA Negative (Negative); Ketones Urine Negative (Negative); Leukocyte Esterase Urine Negative (Negative); Nitrite Urine Negative (Negative); Protein Urine Negative (Negative); Specific Gravity Urine 1.012 (1.000-1.030); Urobilinogen Urine Negative (Negative); pH Urine 5.5 (4.5-7.5)
[2020-06-07 14:00] LABS: Influenza A virus by PCR Negative (Neg); Influenza B virus by PCR Negative (Neg); RSV by PCR Negative (Neg); SARS CoV2 RNA(COVID-19) InHosp NEGATIVE (Negative)
--- NOTE | 2020-06-07 14:51 | Ultrasound Report ---
EXAMINATION: RENAL ULTRASOUND CLINICAL HISTORY: Acute renal insufficiency COMPARISON STUDY: CT scan performed March 2018 FINDINGS: The right kidney measures 10.6 cm. The left kidney measures 11.7 cm. There is no evidence of hydronephrosis. There are no renal masses. There is bilateral renal cortical thinning. No bladder lesions are visualized. Neither ureteral jet was visualized. IMPRESSION : 1. Bilateral renal cortical thinning 2. No evidence of hydronephrosis ACT 112: Negative or not required by law. Electronically signed by: Brett Thompson M.D. 06/07/2020 2:50 PM
--- NOTE | 2020-06-07 15:43 | Emergency Department Note ---
Impression & Plan Acute hypotension, Hypoxia ED Provider Note INFORMANT: Patient, her friend ED PROVIDER(S): Brian Lugo MD CHIEF COMPLAINT: Hypotension PLAN: Disposition: Admitted Condition: Good Outpatient prescription management: none Referral: None MEDICAL DECISION MAKING: Patient presented because of hypotension. Her oxygen saturation was noted to be mildly low. She was weak. Chest x-ray does not reveal any acute findings. ECG showed left axis deviation and anteroseptal Q waves. No ST elevation. Patient's blood work showed a negative CBC, chemistry panel, coags except for an elevated creatinine. When compared to prior her creatinine has increased moderately. Troponin and BNP were negative. Findings are concerning for prerenal state, likely acute kidney injury and dehydration. Patient's urinalysis was unremarkable. Patient's lactate was mildly elevated. I do not find a source of infection. She has no cellulitis or abnormal findings on her wounds. The patient will need further management in the hospital. She was gently hydrated. The oxygen and blood pressure measurements stayed within normal limits. I did consider CT PE study however her kidney function would p reclude the use of contrast at this moment. Consultation was made with Fatimah Elliott PA-C of the [facility]. Case was discussed. Patient will be admitted for further management by Dr. Galo. Triage Nursing notes reviewed and agree them. Vital Signs: reviewed and remarkable for mild hypotension Differential diagnosis: Infection, dehydration, metabolic abnormality, hypo/hyperglycemia, electrolyte disturbance, anemia, hypoxia, cardiac sources, intracerebral event, toxicologic, neurologic, as well as other pathologies. Diagnostics interpreted by me: ECG: Twelve-lead ECG reveals a normal sinus rhythm at 65 bpm. PACs, left axis deviation and anteroseptal Q waves present. No ST elevation. Cardiac Monitoring: Cardiac monitoring ordered by me: The patient was placed on continuous cardiac monitoring and observed. It revealed a normal sinus rhythm at 60 beats per minute without ectopy or evidence of dysrhythmia. Imaging studies: Chest x-ray:1. Cardiomegaly and pulmonary vascular congestion with decreased pulmonary edema. 2. Trace pleural effusions. 3. Minimal left lung base opacities suggestive of atelectasis. A mild pneumonitis considered less likely. HPI: The patient is a 89 year old female who presents to the Emergency Room with complaints of hypotension. This started prior to arrival and doing relatively well prior to the appointment. Was noted when the patient was in the wound clinic. She was hypotensive. Her oxygen saturation was 88%. Her friend noted that she was when she was trying to get up out of the wheelchair she was very weak. She was found to be hypotensive. EMS was summoned. She was given 300 mL of normal saline in route. Was recently admitted to the hospital for pneumonia. She was at the wound center because of ulcers on her legs. There was no reported cellulitis or concerning findings of the ulcers. Patient denies any current pain. Pt denies LOC, headache, fevers, chills, diaphoresis, visual changes, neck pain, chest pain, breathing difficulties, nausea, vomiting, abdominal pain, back pain, melena, hematochezia, urinary symptoms, numbness, lymphadenopathy, rash, or other complaints. ROS: See above HPI for pertinent positives & negatives. A total of 10 systems reviewed and were otherwise negative. PAST MEDICAL HISTORY:See Below , diabetes, pneumonia, hypertension PAST SURGICAL HISTORY:See Below, FAMILY HISTORY:See Below SOCIAL HISTORY:See Below, retired HOME MEDICATIONS:See Below ALLERGIES:See Below VITALS:See Below PHYSICAL EXAMINATION: GENERAL: Awake, tired-appearing, in no distress HENT: Normocephalic, atraumatic. Oropharynx unremarkable. EYES: Normal conjunctiva. Sclera non-icteric. NECK: Inspection normal. Non-tender. Supple. No nuchal rigidity. FROM. No masses. RESPIRATORY: Clear to auscultation. No wheezes. No rales. Normal respiratory effort. CARDIAC: Normal rate. Normal rhythm. No murmurs. No rubs. Extremities warm and well perfused. Pulses equal. No JVD. GI: Soft, non-distended. No tenderness to palpation. No rebound or guarding. No masses. RECTAL: Deferred. MUSCULOSKELETAL: Atraumatic. Chest examination reveals no tenderness. The back is symmetrical on inspection without obvious abnormality. There is no CVA tenderness to palpation. No joint edema. LOWER EXTREMITIES: Calves are equal size bilaterally and non-tender. 1+ edema. No discoloration. Few scattered ulcerations noted. These are dressed with clean dry bandages without any signs of cellulitis or abscess. No crepitus. NEURO: Normal sensorium. No sensory or motor deficits noted. SKIN: No rash or jaundice noted. Brian Lugo MD Past Med/Surg History Medical History Blind left eye Carotid artery disease "CTA 03/09/17: high-grade stenoses bilat ICA's" S/p L endarterectomy in August 2018 at [facility] Cataract Chronic venous insufficiency CKD (chronic kidney disease), stage III DM type 2 (diabetes mellitus, type 2) Glaucoma History of DVT (deep vein thrombosis) HLD (hyperlipidemia) HTN (hypertension) Surgical History History of appendectomy History of History of colonoscopy Family History Mother Diabetes Parkinson disease Father , age 94 CHF (congestive heart failure) Brother Myocardial infarction Social History Smoking Status: Never smoker Hx Alcohol Use: No Hx Substance Use: No Preferred Language: Belarusian Communication Ability: Effective 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 Beliefs That Will Affect Care: None marital status: / Current Living Situation: Personal Care Facility Current Living Situation Comment: days[facility] Feels Safe at Home: Yes Assistive Devices: Hearing Aid - Bilateral and Walker Allergies Allergies Allergy/AdvReac Type Severity Reaction Status Date / Time bacitracin Allergy Unknown Unknown Verified 06/07/20 11:48 [From Neosporin ([id number])] neomycin Allergy Unknown Unknown Verified 06/07/20 11:48 [From Neosporin ([id number])] polymyxin B Allergy Unknown Unknown Verified 06/07/20 11:48 [From Neosporin ([id number])] atorvastatin AdvReac Severe RIGID Verified 06/07/20 11:48 MUSCLES ezetimibe AdvReac Severe RIGID Verified 06/07/20 11:48 MUSCLES Home Meds Home Medications Medication Instructions Recorded Confirmed metoprolol succinate 100 mg PO QAM 03/16/18 06/07/20 rosuvastatin 2.5 mg PO HS 03/16/18 06/07/20 cholecalciferol (vitamin D3) 1,000 unit PO QAM 08/21/18 06/07/20 latanoprost 1 drp OPB HS 08/21/18 06/07/20 acetaminophen 650 mg PO Q4H PRN MDD 3 GM APAP/11/04/18 06/07/20 HOURS aspirin 81 mg PO QAM 11/04/18 06/07/20 clopidogrel 75 mg PO QAM 11/04/18 06/07/20 sertraline 25 mg PO DAILY 11/04/18 06/07/20 sodium chloride [Kemper Nasal] 2 spray INTRANASAL Q8H PRN 11/04/18 06/07/20 metformin 500 mg tablet 500 mg PO BID tab 01/05/19 06/07/20 insulin glargine 100 unit/mL 10 unit SUBCUT HS ml 03/15/20 06/07/20 subcutaneous solution docusate sodium 100 mg PO DAILY 06/07/20 06/07/20 glipizide 5 mg PO DAILY 06/07/20 06/07/20 lisinopril 20 mg PO DAILY 06/07/20 06/07/20 polyethylene glycol 3350 17 g PO DAILY 06/07/20 06/07/20 Previous Rx's Medication Instructions Recorded cadexomer iodine 0.9 % topical gel 10 g TOPICAL Q3D #10 g 04/03/20 amlodipine [Norvasc] 5 mg PO QAM 30 Days #30 tab 05/31/20 furosemide 40 mg PO QAM #30 tab 05/31/20 isosorbide dinitrate [Isordil] 40 mg PO TID@0700,1200,1700 30 05/31/20 Days #90 tab pantoprazole 40 mg PO QAM 30 Days #30 tab 05/31/20 spironolactone 12.5 mg PO DAILY #30 tab 05/31/20 Results & Data (ED) Vital Signs Vital Signs - 24 hr 06/07/20 10:02 06/07/20 10:11 06/07/20 10:13 Temperature 36.8 C Temperature Source Oral Pulse Rate 67 71 58 L Pulse Rate from SpO2 Sensor 68 67 Respiratory Rate 23 20 21 Respiratory Effort / Characteristics Blood Pressure 125/53 L 125/53 L Blood Pressure Mean 77 77 Pulse Oximetry 92 92 92 Oxygen Delivery Method Room Air Oxygen Flow Rate Sepsis Recent Fever Within 48 Hours No Sepsis New/Unexplained Change in Mental Status No Sepsis Action Taken by Nursing No Action Required 06/07/20 10:15 06/07/20 10:30 06/07/20 10:45 Temperature Temperature Source Pulse Rate 56 L 49 L 53 L Pulse Rate from SpO2 Sensor 66 71 70 Respiratory Rate 15 20 22 Respiratory Effort / Characteristics Blood Pressure Blood Pressure Mean Pulse Oximetry 93 93 93 Oxygen Delivery Method Oxygen Flow Rate Sepsis Recent Fever Within 48 Hours Sepsis New/Unexplained Change in Mental Status Sepsis Action Taken by Nursing 06/07/20 11:00 06/07/20 11:15 06/07/20 11:17 Temperature Temperature Source Pulse Rate 69 70 68 Pulse Rate from SpO2 Sensor 68 Respiratory Rate 25 H 19 26 H Respiratory Effort / Characteristics Blood Pressure 142/54 H Blood Pressure Mean 83 Pulse Oximetry 88 L Oxygen Delivery Method Oxygen Flow Rate Sepsis Recent Fever Within 48 Hours Sepsis New/Unexplained Change in Mental Status Sepsis Action Taken by Nursing 06/07/20 11:30 06/07/20 11:32 06/07/20 11:45 Temperature Temperature Source Pulse Rate 56 L 46 L Pulse Rate from SpO2 Sensor 67 65 Respiratory Rate 27 H 21 Respiratory Effort / Characteristics Non-Labored Blood Pressure 127/50 L Blood Pressure Mean 75 Pulse Oximetry 98 99 99 Oxygen Delivery Method Nasal Cannula Oxygen Flow Rate 2 Sepsis Recent Fever Within 48 Hours Sepsis New/Unexplained Change in Mental Status Sepsis Action Taken by Nursing 06/07/20 12:00 06/07/20 12:15 06/07/20 12:30 Temperature Temperature Source Pulse Rate 49 L 59 L 70 Pulse Rate from SpO2 Sensor 61 59 L 70 Respiratory Rate 22 20 25 H Respiratory Effort / Characteristics Blood Pressure 118/48 L Blood Pressure Mean 71 Pulse Oximetry 99 98 99 Oxygen Delivery Method Oxygen Flow Rate Sepsis Recent Fever Within 48 Hours Sepsis New/Unexplained Change in Mental Status Sepsis Action Taken by Nursing 06/07/20 12:31 06/07/20 12:45 06/07/20 13:00 Temperature Temperature Source Pulse Rate 70 69 61 Pulse Rate from SpO2 Sensor 70 69 61 Respiratory Rate 23 16 21 Respiratory Effort / Characteristics Blood Pressure 119/79 Blood Pressure Mean 92 Pulse Oximetry 99 99 99 Oxygen Delivery Method Oxygen Flow Rate Sepsis Recent Fever Within 48 Hours Sepsis New/Unexplained Change in Mental Status Sepsis Action Taken by Nursing 06/07/20 13:01 06/07/20 13:02 06/07/20 13:08 Temperature Temperature Source Pulse Rate 62 64 Pulse Rate from SpO2 Sensor 62 64 Respiratory Rate 23 17 Respiratory Effort / Characteristics Blood Pressure 96/48 L Blood Pressure Mean 107 64 Pulse Oximetry 99 99 93 Oxygen Delivery Method Nasal Cannula Room Air Oxygen Flow Rate 2 Sepsis Recent Fever Within 48 Hours Sepsis New/Unexplained Change in Mental Status Sepsis Action Taken by Nursing 06/07/20 13:30 06/07/20 14:01 06/07/20 15:09 Temperature Temperature Source Pulse Rate 60 63 60 Pulse Rate from SpO2 Sensor 63 63 Respiratory Rate 20 24 Respiratory Effort / Characteristics Blood Pressure 141/55 H 130/76 118/87 Blood Pressure Mean 83 94 97 Pulse Oximetry 92 94 98 Oxygen Delivery Method Oxygen Flow Rate Sepsis Recent Fever Within 48 Hours Sepsis New/Unexplained Change in Mental Status Sepsis Action Taken by Nursing Laboratory Data Result diagrams: 06/07/20 11:04 06/07/20 11:04 Lab Results 06/07/20 06/07/20 06/07/20 Range/Units 11:04 11:04 11:04 WBC 6.80 (4.8-10.8) K/uL RBC 4.06 L (4.2-5.4) M/uL Hgb 12.4 (12.0-16.0) g/dL Hct 37.5 (37-47) % MCV 92.4 (80-100) fL MCH 30.5 (25-34) pg MCHC 33.1 (32-36) g/dL RDW Std Deviation 50.0 H (36.4-46.3) fL RDW Coeff of Basil 14.8 H (11.5-14.5) % Plt Count 209 (130-400) K/uL MPV 10.0 (7.4-10.4) fL Immature Gran % (Auto) 0.3 % Neut % (Auto) 65.6 % Lymph % (Auto) 11.8 % [place] % (Auto) 14.0 % Eos % (Auto) 8.2 % Baso % (Auto) 0.1 % Neut # (Auto) 4.46 (1.4-6.5) K/uL Lymph # (Auto) 0.80 L (1.2-3.4) K/uL [place] # (Auto) 0.95 H (0.11-0.59) K/uL Eos # (Auto) 0.56 H (0-0.5) K/uL Baso # (Auto) 0.01 (0-0.2) K/uL Immature Gran # (Auto) 0.02 (0.00-0.02) K/uL PT 10.4 (9.0-12.0) Seconds INR 1.0 (0.9-1.1) APTT 24.1 (21.0-31.0) Seconds PTT Ratio 0.9 Sodium 136 (136-145) mmol/L Potassium 4.8 (3.5-5.1) mmol/L Chloride 103 (98-107) mmol/L Carbon Dioxide 26 (21-32) mmol/L Anion Gap 6.0 (3-11) BUN 31 H (7-18) mg/dl Creatinine 1.81 H (0.6-1.2) mg/dl Est Cr Clr Drug Dosing 22.7 ml/min Est GFR ( Amer) 28.6 Est GFR (Non-Af Amer) 24.7 BUN/Creatinine Ratio 17.2 (10-20) Glucose 147 H (70-99) mg/dl Lactate (0.4-2.0) mmol/L Calcium 9.5 (8.5-10.1) mg/dl Magnesium 2.0 (1.8-2.4) mg/dl Total Bilirubin 0.7 (0.2-1) mg/dl AST 11 L (15-37) U/L ALT 16 (12-78) U/L Alkaline Phosphatase 66 (45-117) U/L Troponin I < 0.015 (0-0.045) ng/ml NT-Pro-B Natriuret Pep 839 (0-1800) pg/ml Total Protein 6.8 (6.4-8.2) gm/dl Albumin 3.2 L (3.4-5.0) gm/dl Globulin 3.6 (2.5-4.0) gm/dl Albumin/Globulin Ratio 0.9 (0.9-2) Procalcitonin (0-0.5) ng/ml Urine Color Urine Appearance (Clear) Urine pH (4.5-7.5) Ur Specific [place] (1.000-1.030) Urine Protein (Negative) Urine Glucose (UA) (Negative) Urine Ketones (Negative) Urine Blood (Negative) Urine Nitrite (Negative) Urine Bilirubin (Negative) Urine Urobilinogen (Negative) Ur Leukocyte Esterase (Negative) COVID-19 Eval Order SARS-CoV-2 (PCR) (Negative) Influenza Type A (PCR) (Neg) Influenza Type B (PCR) (Neg) RSV (RT-PCR) (Neg) 06/07/20 06/07/20 06/07/20 Range/Units 11:04 11:04 13:06 WBC (4.8-10.8) K/uL RBC (4.2-5.4) M/uL Hgb (12.0-16.0) g/dL Hct (37-47) % MCV (80-100) fL MCH (25-34) pg MCHC (32-36) g/dL RDW Std Deviation (36.4-46.3) fL RDW Coeff of Basil (11.5-14.5) % Plt Count (130-400) K/uL MPV (7.4-10.4) fL Immature Gran % (Auto) % Neut % (Auto) % Lymph % (Auto) % [place] % (Auto) % Eos % (Auto) % Baso % (Auto) % Neut # (Auto) (1.4-6.5) K/uL Lymph # (Auto) (1.2-3.4) K/uL [place] # (Auto) (0.11-0.59) K/uL Eos # (Auto) (0-0.5) K/uL Baso # (Auto) (0-0.2) K/uL Immature Gran # (Auto) (0.00-0.02) K/uL PT (9.0-12.0) Seconds INR (0.9-1.1) APTT (21.0-31.0) Seconds PTT Ratio Sodium (136-145) mmol/L Potassium (3.5-5.1) mmol/L Chloride (98-107) mmol/L Carbon Dioxide (21-32) mmol/L Anion Gap (3-11) BUN (7-18) mg/dl Creatinine (0.6-1.2) mg/dl Est Cr Clr Drug Dosing ml/min Est GFR ( Amer) Est GFR (Non-Af Amer) BUN/Creatinine Ratio (10-20) Glucose (70-99) mg/dl Lactate 2.1 H* (0.4-2.0) mmol/L Calcium (8.5-10.1) mg/dl Magnesium (1.8-2.4) mg/dl Total Bilirubin (0.2-1) mg/dl AST (15-37) U/L ALT (12-78) U/L Alkaline Phosphatase (45-117) U/L Troponin I (0-0.045) ng/ml NT-Pro-B Natriuret Pep (0-1800) pg/ml Total Protein (6.4-8.2) gm/dl Albumin (3.4-5.0) gm/dl Globulin (2.5-4.0) gm/dl Albumin/Globulin Ratio (0.9-2) Procalcitonin < 0.05 (0-0.5) ng/ml Urine Color Urine Appearance (Clear) Urine pH (4.5-7.5) Ur Specific [place] (1.000-1.030) Urine Protein (Negative) Urine Glucose (UA) (Negative) Urine Ketones (Negative) Urine Blood (Negative) Urine Nitrite (Negative) Urine Bilirubin (Negative) Urine Urobilinogen (Negative) Ur Leukocyte Esterase (Negative) COVID-19 Eval Order CovFluRsv at [facility] SARS-CoV-2 (PCR) (Negative) Influenza Type A (PCR) (Neg) Influenza Type B (PCR) (Neg) RSV (RT-PCR) (Neg) 06/07/20 06/07/20 06/07/20 Range/Units 13:06 13:11 13:19 WBC (4.8-10.8) K/uL RBC (4.2-5.4) M/uL Hgb (12.0-16.0) g/dL Hct (37-47) % MCV (80-100) fL MCH (25-34) pg MCHC (32-36) g/dL RDW Std Deviation (36.4-46.3) fL RDW Coeff of Basil (11.5-14.5) % Plt Count (130-400) K/uL MPV (7.4-10.4) fL Immature Gran % (Auto) % Neut % (Auto) % Lymph % (Auto) % [place] % (Auto) % Eos % (Auto) % Baso % (Auto) % Neut # (Auto) (1.4-6.5) K/uL Lymph # (Auto) (1.2-3.4) K/uL [place] # (Auto) (0.11-0.59) K/uL Eos # (Auto) (0-0.5) K/uL Baso # (Auto) (0-0.2) K/uL Immature Gran # (Auto) (0.00-0.02) K/uL PT (9.0-12.0) Seconds INR (0.9-1.1) APTT (21.0-31.0) Seconds PTT Ratio Sodium (136-145) mmol/L Potassium (3.5-5.1) mmol/L Chloride (98-107) mmol/L Carbon Dioxide (21-32) mmol/L Anion Gap (3-11) BUN (7-18) mg/dl Creatinine (0.6-1.2) mg/dl Est Cr Clr Drug Dosing ml/min Est GFR ( Amer) Est GFR (Non-Af Amer) BUN/Creatinine Ratio (10-20) Glucose (70-99) mg/dl Lactate 1.9 (0.4-2.0) mmol/L Calcium (8.5-10.1) mg/dl Magnesium (1.8-2.4) mg/dl Total Bilirubin (0.2-1) mg/dl AST (15-37) U/L ALT (12-78) U/L Alkaline Phosphatase (45-117) U/L Troponin I (0-0.045) ng/ml NT-Pro-B Natriuret Pep (0-1800) pg/ml Total Protein (6.4-8.2) gm/dl Albumin (3.4-5.0) gm/dl Globulin (2.5-4.0) gm/dl Albumin/Globulin Ratio (0.9-2) Procalcitonin (0-0.5) ng/ml Urine Color Yellow Urine Appearance Clear (Clear) Urine pH 5.5 (4.5-7.5) Ur Specific [place] 1.012 (1.000-1.030) Urine Protein Negative (Negative) Urine Glucose (UA) Negative (Negative) Urine Ketones Negative (Negative) Urine Blood Negative (Negative) Urine Nitrite Negative (Negative) Urine Bilirubin Negative (Negative) Urine Urobilinogen Negative (Negative) Ur Leukocyte Esterase Negative (Negative) COVID-19 Eval Order SARS-CoV-2 (PCR) NEGATIVE (Negative) Influenza Type A (PCR) Negative (Neg) Influenza Type B (PCR) Negative (Neg) RSV (RT-PCR) Negative (Neg) Administered Medications Sodium Chloride (Nss 1000ml) 1,000 mls @ 125 mls/hr IV .Q8H STA Stop: 06/07/20 20:53 Last Admin: 06/07/20 14:19 Dose: 125 mls/hr Documented by: [id number] Discontinued Medications Sodium Chloride (Nss 1000ml) 500 mls @ 999 mls/hr IV .Q31M ONE Stop: 06/07/20 13:24 Last Infusion: 06/07/20 13:36 Dose: 0 mls/hr Documented by: [id number] Admin: 06/07/20 13:05 Dose: 999 mls/hr Documented by: [id number] Imaging Data Radiologist's Impression: Chest X-Ray 06/07/20 10:44 XR chest 1V portable HISTORY: 89 years-old Female SEPSIS acute sepsis COMPARISON: Chest radiograph 05/31/2020 TECHNIQUE: Portable AP view of the chest FINDINGS: Cardiac silhouette is mildly enlarged. No pneumothorax. Pulmonary vascular congestion with improved aeration of the lungs. Trace pleural effusions with mi nimal persistent left lung base opacities. Degenerative changes of the shoulders and spine. IMPRESSION: 1. Cardiomegaly and pulmonary vascular congestion with decreased pulmonary edema. 2. Trace pleural effusions. 3. Minimal left lung base opacities suggestive of atelectasis. A mild pneumonitis considered less likely. ACT 112: Negative or not required by law. The above report was generated using voice recognition software. It may contain grammatical, syntax or spelling errors. Electronically signed by: Alberto Doss M.D. 06/07/2020 10:57 AM Renal Ultrasound 06/07/20 13:49 EXAMINATION: RENAL ULTRASOUND CLINICAL HISTORY: Acute renal insufficiency COMPARISON STUDY: CT scan performed March 2018 FINDINGS: The right kidney measures 10.6 cm. The left kidney measures 11.7 cm. There is no evidence of hydronephrosis. There are no renal masses. There is bilateral renal cortical thinning. No bladder lesions are visualized. Neither ureteral jet was visualized. IMPRESSION : 1. Bilateral renal cortical thinning 2. No evidence of hydronephrosis ACT 112: Negative or not required by law. Electronically signed by: Brett Thompson M.D. 06/07/2020 2:50 PM Discharge Plan Visit Data Chief Complaint: Hypotension Stated Complaint: HYPOTENSION, AMS ED Provider: Brian Lugo Discharge Problem: Acute hypotension, Hypoxia Forms Stand Alone Forms: My [facility] Prescriptions Prescriptions: No Action Iodosorb 0.9 % gel 10 g topical Q3D Qty: 10 RF: 0 Lantus U-100 Insulin 100 unit/mL solution 10 unit subcut HS RF: 0 acetaminophen 325 mg Tablet 650 mg PO Q4H MDD 3 GM APAP/24 HOURS PRN (Reason: Fever Or Pain) RF: 0 clopidogrel 75 mg Tablet 75 mg PO QAM RF: 0 aspirin 81 mg Tablet,Delayed Release (Dr/Ec) 81 mg PO QAM RF: 0 sertraline 25 mg Tablet 25 mg PO DAILY RF: 0 sodium chloride [Kemper Nasal] 0.65 % Aerosol,[place] 2 spray INTRANASAL Q8H PRN (Reason: Nasal Dryness) RF: 0 metformin 500 mg tablet 500 mg PO BID RF: 0 metoprolol succinate 100 mg tablet extended release 24 hr 100 mg PO QAM RF: 0 rosuvastatin 5 mg tablet 2.5 mg PO HS RF: 0 latanoprost 0.005 % drops 1 drp OPB HS RF: 0 cholecalciferol (vitamin D3) 1,000 unit Tablet 1,000 unit PO QAM RF: 0 amlodipine [Norvasc] 5 mg Tablet 5 mg PO QAM 30 Days Qty: 30 RF: 0 isosorbide dinitrate [Isordil] 40 mg Tablet 40 mg PO TID@0700,1200,1700 30 Days Qty: 90 RF: 0 spironolactone 25 mg Tablet 12.5 mg PO DAILY Qty: 30 RF: 0 furosemide 40 mg Tablet 40 mg PO QAM Qty: 30 RF: 0 pantoprazole 40 mg Tablet,Delayed Release (Dr/Ec) 40 mg PO QAM 30 Days Qty: 30 RF: 0 polyethylene glycol 3350 17 gram Powder In Packet 17 g PO DAILY RF: 0 lisinopril 20 mg tablet 20 mg PO DAILY RF: 0 glipizide 5 mg tablet extended release 24hr 5 mg PO DAILY RF: 0 docusate sodium 100 mg Capsule 100 mg PO DAILY RF: 0
[2020-06-07] MEDS ORDERED: SODIUM CHLORIDE 0.65% NA SOLN 45 ML (OCEAN) NAE PRN (17:07)
[2020-06-07] MEDS ORDERED: POLYETHYLENE (MIRALAX) 17 GM PACK PO PRN (17:07)
[2020-06-07] MEDS ORDERED: CARBOHYDRATES FOR HYPOGLYCEMIA PO PRN (17:07)
[2020-06-07] MEDS ORDERED: ONDANSETRON INJ 2 MG/ML 2 ML VIAL IV PRN (17:07)
[2020-06-07] MEDS ORDERED: GLUCOSE 10 TABS/TUBE PO PRN (17:07)
[2020-06-07] MEDS ORDERED: GLUCAGON FOR INJ 1 MG VIAL SQ PRN (17:07)
[2020-06-07] MEDS ORDERED: DEXTROSE 50% 50 ML SYRINGE IV PRN (17:07)
[2020-06-07] MEDS ORDERED: GLUCOSE 40% GEL 15 GM TUBE PO PRN (17:07)
[2020-06-07] MEDS ORDERED: ACETAMINOPHEN 325 MG TAB PO PRN (17:07)
[2020-06-07] MEDS: SODIUM CHLORIDE 0.9% 1000ML 1,000 ML IV SCH (17:18)
[2020-06-07] MEDS: ISOSORBIDE DINITRATE 40 MG TAB PO SCH (18:15)
[2020-06-07] MEDS: INSULIN ASPART 100 UNITS/ML 3 ML PEN SC SCH ×2 (18:17→20:14)
[2020-06-07] MEDS: LATANOPROST 0.005% OP SOLN 2.5 ML BTL OPB SCH (20:10)
[2020-06-07] MEDS: ROSUVASTATIN CALCIUM 5 MG TAB PO SCH (20:10)
[2020-06-07] MEDS: HEPARIN SOD 5,000 UNIT/0.5 ML VIAL SQ SCH (20:11)
[2020-06-07] MEDS: INSULIN GLARGINE SOLOSTAR 100 UNITS/ML 3 ML PEN SC SCH (20:15)
[2020-06-08] MEDS: SODIUM CHLORIDE 0.9% 1000ML 1,000 ML IV SCH (02:41)
[2020-06-08 05:59] LABS: Hematocrit (blood only) 35.8 % (37-47); Hemoglobin 11.5 g/dL (12.0-16.0); Mean Corpuscular Hemoglobin 29.9 pg (25-34); Mean Corpuscular Hgb Conc 32.1 g/dL (32-36); Mean Platelet Volume 9.7 fL (7.4-10.4); Platelet Count 165 K/uL (130-400); RDW Coefficient of Variation 14.8 % (11.5-14.5); RDW Standard Deviation 50.5 fL (36.4-46.3); Red Blood Count 3.85 M/uL (4.2-5.4); White Blood Count 5.37 K/uL (4.8-10.8)
[2020-06-08] MEDS: ISOSORBIDE DINITRATE 40 MG TAB PO SCH (06:18)
[2020-06-08] MEDS: HEPARIN SOD 5,000 UNIT/0.5 ML VIAL SQ SCH ×3 (06:18→20:37)
[2020-06-08 06:36] LABS: BUN Creatinine Ratio 20.3 (10-20); Calcium 9.1 mg/dl (8.5-10.1); Creatinine Clr Calc Pharmacy 31.8 ml/min; Est GFR (African American) 41.9; Est GFR (Non-African American) 36.2; Potassium 4.4 mmol/L (3.5-5.1)
--- NOTE | 2020-06-08 06:51 | Electrocardiogram Report ---
Test Reason : Blood Pressure : / mmHG Vent. Rate : 065 BPM Atrial Rate : 065 BPM P-R Int : 186 ms QRS Dur : 086 ms QT Int : 422 ms P-R-T Axes : 042 -31 027 degrees QTc Int : 438 ms Sinus rhythm with Premature atrial complexes Left axis deviation Anteroseptal infarct (cited on or before 04-NOV-2018) Abnormal ECG When compared with ECG of 25-MAY-2020 04:57, Premature ventricular complexes are no longer Present Premature atrial complexes are now Present Confirmed by Neo Mackenzie ([id number]) on 06/08/2020 6:50:57 AM Referred By: Anay stauffer [facility] Confirmed By:Neo Mackenzie
--- NOTE | 2020-06-08 08:09 | XRay Report ---
XR chest 1V portable HISTORY: Shortness of breath. Pulmonary vacular congestion COMPARISON: Chest 06/07/2020. FINDINGS: No pneumothorax. Small bilateral pleural effusions persist. The heart remains mildly enlarg ed. Slight progression of the interstitial/vascular thickening consistent with mild pulmonary edema. No new focal lung consolidations. No acute rib fractures. IMPRESSION: Cardiomegaly with interval progression of the mild interstitial pulmonary edema. ACT 112: Negative or not required by law. Electronically signed by: Hardeep Moe M.D. 06/08/2020 8:07 AM
[2020-06-08] MEDS: SERTRALINE HCL 50 MG TABLET PO SCH (08:51)
[2020-06-08] MEDS: INSULIN ASPART 100 UNITS/ML 3 ML PEN SC SCH ×4 (08:51→20:36)
[2020-06-08] MEDS: CHOLECALCIFEROL 1,000 UNITS 25 MCG TAB PO SCH (08:52)
[2020-06-08] MEDS: CLOPIDOGREL BISULFATE 75 MG TAB PO SCH (08:52)
[2020-06-08] MEDS: PANTOprazole 40 MG TAB PO SCH (08:52)
[2020-06-08] MEDS: ASPIRIN 81 MG ECTAB PO SCH (08:52)
[2020-06-08] MEDS: METOPROLOL SUCC 50MG EXT REL TAB PO SCH (08:53)
[2020-06-08] MEDS: DOCUSATE SODIUM 100 MG CAP PO SCH (08:55)
[2020-06-08] MEDS: INSULIN GLARGINE SOLOSTAR 100 UNITS/ML 3 ML PEN SC SCH ×2 (08:56→20:36)
[2020-06-08] MEDS: POLYETHYLENE (MIRALAX) 17 GM PACK PO SCH (08:59)
--- NOTE | 2020-06-08 10:37 | Hospitalist Progress Note ---
Date of Service June 08, 2020 Assessment & Plan (1) Hypotension: (2) Lethargy: (3) Acute kidney injury superimposed on chronic kidney disease: (4) Elevated lactic acid level: (5) Diabetic ulcer of right heel: (6) DM type 2 (diabetes mellitus, type 2): (7) HTN (hypertension): (8) Venous stasis ulcers of both lower extremities: (9) Peripheral arterial disease: (10) Carotid artery disease: This is an 89yo F resident of [facility] with a PMH of DM II, HTN, CKD III, carotid stenosis s/p left endarterectomy in August 2018, HLD, chronic venous stasis wounds following with wound care and vascular and other medical problems listed below who presents from wound care clinic appointment with hypotension and lethargy. Hypotension Dehydration Initial lethargy --> resolved Found to be hypotensive at 84/44 with 92% on room air at follow up appt earlier today with associated lethargy and generalized weakness Has received around 2L total NSS resuscitation with improved BP 130/76 Afebrile, no leukocytosis. Lactic acid mildly elevated at 2.1 but repeat wnl. Covid PCR negative. UA without evidence of infection CXR with cardiomegaly and pulmonary vascular congestion with decreased pulmonary edema, trace pleural effusions and minimal left lung base opacities suggestive of atelectasis No evidence of infection, procalcitonin negative and blood cultures negative to date. Antibiotic not indicated at this time Patient received gentle IV fluids with diuretics held overnight - clinically improved since admission Repeat CXR with cardiomegaly with interval progression of the mild interstitial pulmonary edema Discontinuing fluids at this time and giving Lasix 40mg PO x 1. Discontinuing spironolactone. Continue to monitor I&O closely with medication adjustments Continue metoprolol succinate with hold parameters. Holding Isordil Continuous pulse ox due to increased SOB, expect improvement with diuresis Chronic diastolic CHF: Diuretics kept on hold for dehydration, hypotension Lactic acidosis --> resolved Initial mild elevation of 2.1 in setting of dehydration, metformin use. Normalized with IV fluids Acute kidney injury superimposed on chronic kidney disease --> improving Cr initially elevated to 1.8 (baseline ~1), appearing clinically dry Cr 1.3 today Will resume Lasix 40mg x 1 Repeat BMP in AM Bladder scan as needed, renal ultrasound without evidence of obstruction Chronic venous stasis ulcers of bilateral lower extremity Diabetic ulcer right heel Follows with wound care. Dressings changed this morning in clinic, routine wound care nurse consult placed Hypertension Holding amlodipine, lisinopril, and Isordil for now. Continue metoprolol succinate with hold parameters Type 2 diabetes Hold home agents. SSI while in-patient. BSG AC HS Peripheral arterial disease Follows with Dr. Gautam. Continue aspirin, Plavix Carotid artery disease S/p left endarterectomy in August 2018. Continue aspirin, plavix DVT Ppx: SQ heparin Code status: DNR per daughter/POA at bedside PCP: Kerri Cueva Dispo: Admitted to [facility]. Discharge planning ordered Patient seen in collaboration with Dr. Sarkar. Please see addendum. Admission and Anticipated Discharge Date Admission Date: June 07, 2020 Supervising Physician Co-Signing Physician Notes Patient seen and examined, care coordinated with Fatimah Elliott PA-C. Patient is alert and oriented today sitting up on chair, denies of any discomfort No dizzy spell or lightheadedness, blood pressure appears to be stable No fever or chills Patient with low blood pressure/lethargy: Possible secondary to new diuretics regimen, Patient found to be intravascularly volume depleted, responded well to IV fluids, creatinine improved to proximate baseline Continue to hold Aldactone, resume Lasix with prior dose Continue to monitor in telemetry, PT OT eval requested Gayle Sarkar MD Subjective Seen and examined in 285-1. Patient feeling more short of breath today. Denies lightheadedness, chest pain or palpitations. No abdominal pain. Denies dysuria, diarrhea or constipation. Review of Systems Review of Systems: At least ten systems reviewed and negative except as noted in the HPI. Physical Exam Physical Exam: General Appearance: WD/WN, vitals as above, NAD, sitting up in bed, pleasant, conversing easily Head: normocephalic, atraumatic Eyes: normal inspection, + L eye blindness PERRL, conjunctivae normal, anicteric sclerae ENT: external ear and nose normal, oropharynx normal Neck: normal visual inspection, trachea midline, no thyromegaly Respiratory: normal respiratory effort, bibasilar rales, no wheeze or rhonchi. No accessory muscle use Cardiovascular: regular rate, rhythm, no murmur appreciated, normal peripheral pulses, no BLE edema. Vessels: no JVD Chest: normal inspection of chest Abdomen/GI: normal bowel sounds, soft, nontender, no hepatosplenomegaly Extremities/Musculoskeletal: no cyanosis or clubbing, extremities motor strength 5/5, BLE dressings in place Neurologic: PERRL, EOMI, accommodation nl, no face palsy, no dysarthria, CN's II-XI intact bilaterally and moves all extremities Psychiatric: A+Ox3, euthymic affect Skin: no rashes, normal color, warm/dry Results & Data Results & Data ([facility]) Vital Signs (Past 12 Hours) Vital Signs Temp Pulse Pulse Resp BP Pulse Ox 06/08/20 08:00 16 06/08/20 07:49 66 06/08/20 07:12 36.9 C 62 20 115/57 L 98 06/08/20 03:00 36.6 C 65 20 164/68 H 98 Laboratory Results Short CBC 06/08/20 Range/Units 05:43 WBC 5.37 (4.8-10.8) K/uL Hgb 11.5 L (12.0-16.0) g/dL Hct 35.8 L (37-47) % Plt Count 165 (130-400) K/uL BMP 06/07/20 06/08/20 11:04 05:43 Sodium 136 139 Potassium 4.8 4.4 Chloride 103 107 Carbon Dioxide 26 28 BUN 31 H 27 H Creatinine 1.81 H 1.32 H D Glucose 147 H 88 Calcium 9.5 9.1 Cardiac Enzymes 06/07/20 Range/Units 11:04 Troponin I < 0.015 (0-0.045) ng/ml Liver Function 06/07/20 Range/Units 11:04 Total Bilirubin 0.7 (0.2-1) mg/dl AST 11 L (15-37) U/L ALT 16 (12-78) U/L Alkaline Phosphatase 66 (45-117) U/L Albumin 3.2 L (3.4-5.0) gm/dl Urine 06/07/20 Range/Units 13:19 Urine Color Yellow Urine Appearance Clear (Clear) Urine pH 5.5 (4.5-7.5) Ur Specific [place] 1.012 (1.000-1.030) Urine Protein Negative (Negative) Urine Glucose (UA) Negative (Negative) Diagnostic Findings Chest X-Ray 06/07/20 10:44 XR chest 1V portable HISTORY: 89 years-old Female SEPSIS acute sepsis COMPARISON: Chest radiograph 05/31/2020 TECHNIQUE: Portable AP view of the chest FINDINGS: Cardiac silhouette is mildly enlarged. No pneumothorax. Pulmonary vascular congestion with improved aeration of the lungs. Trace pleural effusions with minimal persistent left lung base opacities. Degenerative changes of the shoulders and spine. IMPRESSION: 1. Cardiomegaly and pulmonary vascular congestion with decreased pulmonary edema. 2. Trace pleural effusions. 3. Minimal left lung base opacities suggestive of atelectasis. A mild pneumonitis considered less likely. ACT 112: Negative or not required by law. The above report was generated using voice recognition software. It may contain grammatical, syntax or spelling errors. Electronically signed by: Alberto Doss M.D. 06/07/2020 10:57 AM Renal Ultrasound 06/07/20 13:49 EXAMINATION: RENAL ULTRASOUND CLINICAL HISTORY: Acute renal insufficiency COMPARISON STUDY: CT scan performed March 2018 FINDINGS: The right kidney measures 10.6 cm. The left kidney measures 11.7 cm. There is no evidence of hydronephrosis. There are no renal masses. There is bilateral renal cortical thinning. No bladder lesions are visualized. Neither ureteral jet was visualized. IMPRESSION : 1. Bilateral renal cortical thinning 2. No evidence of hydronephrosis ACT 112: Negative or not required by law. Electronically signed by: Brett Thompson M.D. 06/07/2020 2:50 PM Chest X-Ray 06/08/20 07:00 XR chest 1V portable HISTORY: Shortness of breath. Pulmonary vacular congestion COMPARISON: Chest 06/07/2020. FINDINGS: No pneumothorax. Small bilateral pleural effusions persist. The heart remains mildly enlarged. Slight progression of the interstitial/vascular thickening consistent with mild pulmonary edema. No new focal lung consoli dations. No acute rib fractures. IMPRESSION: Cardiomegaly with interval progression of the mild interstitial pulmonary edema. ACT 112: Negative or not required by law. Electronically signed by: Hardeep Moe M.D. 06/08/2020 8:07 AM
[2020-06-08] MEDS ORDERED: FUROSEMIDE 40 MG TAB PO ONE (11:13)
[2020-06-08] MEDS: LATANOPROST 0.005% OP SOLN 2.5 ML BTL OPB SCH (20:36)
[2020-06-08] MEDS: ROSUVASTATIN CALCIUM 5 MG TAB PO SCH (20:37)
[2020-06-09 06:04] LABS: Hematocrit (blood only) 36.7 % (37-47); Hemoglobin 11.9 g/dL (12.0-16.0); Mean Corpuscular Hemoglobin 29.9 pg (25-34); Mean Corpuscular Hgb Conc 32.4 g/dL (32-36); Mean Corpuscular Volume 92.2 fL (80-100); Mean Platelet Volume 9.5 fL (7.4-10.4); Platelet Count 176 K/uL (130-400); RDW Coefficient of Variation 14.3 % (11.5-14.5); RDW Standard Deviation 48.7 fL (36.4-46.3); Red Blood Count 3.98 M/uL (4.2-5.4); White Blood Count 6.03 K/uL (4.8-10.8)
[2020-06-09] MEDS: HEPARIN SOD 5,000 UNIT/0.5 ML VIAL SQ SCH ×3 (06:24→20:54)
[2020-06-09 06:31] LABS: BUN Creatinine Ratio 20.5 (10-20); Creatinine Clr Calc Pharmacy 32.2 ml/min; Est GFR (African American) 43.1; Est GFR (Non-African American) 37.2; Potassium 4.2 mmol/L (3.5-5.1)
[2020-06-09] MEDS: INSULIN ASPART 100 UNITS/ML 3 ML PEN SC SCH ×4 (08:09→20:51)
[2020-06-09] MEDS: CHOLECALCIFEROL 1,000 UNITS 25 MCG TAB PO SCH (08:10)
[2020-06-09] MEDS: SERTRALINE HCL 50 MG TABLET PO SCH (08:10)
[2020-06-09] MEDS: PANTOprazole 40 MG TAB PO SCH (08:10)
[2020-06-09] MEDS: ASPIRIN 81 MG ECTAB PO SCH (08:10)
[2020-06-09] MEDS: CLOPIDOGREL BISULFATE 75 MG TAB PO SCH (08:10)
[2020-06-09] MEDS: INSULIN GLARGINE SOLOSTAR 100 UNITS/ML 3 ML PEN SC SCH ×2 (08:11→20:52)
[2020-06-09] MEDS: METOPROLOL SUCC 50MG EXT REL TAB PO SCH (08:11)
[2020-06-09] MEDS: POLYETHYLENE (MIRALAX) 17 GM PACK PO SCH (08:11)
[2020-06-09] MEDS: DOCUSATE SODIUM 100 MG CAP PO SCH (08:12)
[2020-06-09] MEDS: FUROSEMIDE 40 MG TAB PO SCH (08:29)
[2020-06-09] MEDS: ISOSORBIDE DINITRATE 40 MG TAB PO SCH ×2 (08:30→20:52)
--- NOTE | 2020-06-09 13:28 | Hospitalist Progress Note ---
Date of Service June 09, 2020 Assessment & Plan (1) Hypotension: (2) Lethargy: (3) Acute kidney injury superimposed on chronic kidney disease: (4) Elevated lactic acid level: (5) Diabetic ulcer of right heel: (6) DM type 2 (diabetes mellitus, type 2): (7) HTN (hypertension): (8) Venous stasis ulcers of both lower extremities: (9) Peripheral arterial disease: (10) Carotid artery disease: This is an 89yo F resident of [facility] with a PMH of DM II, HTN, CKD III, carotid stenosis s/p left endarterectomy in August 2018, HLD, chronic venous stasis wounds following with wound care and vascular and other medical problems listed below who presents from wound care clinic appointment with hypotension and lethargy. Hypotension Dehydration Initial lethargy --> due to hypotension Found to be hypotensive at 84/44 with 92% on room air at wound care clinic ; with associated lethargy and generalized weakness Has received around 2L total NSS resuscitation with improved BP 130/76 mental status improved to baseline , alert and oriented possible cause of hypotension -pt been on multiple antihypertensives ( beta qing , isosorbide , lisinopril , norvasc , lasix , Aldactone added in last admission ) No evidence of infection, procalcitonin negative and blood cultures negative to date. Antibiotic not indicated Patient received gentle IV fluids with diuretics held overnight - clinically improved since admission Repeat CXR with cardiomegaly with interval progression of the mild interstitial pulmonary edema Discontinuing fluids /got Lasix 40mg PO x 1. cont to hold Aldactone , Isosorbide dose reduced to BID cont to hold ACEI and norvasc beta qing with holding parameters Chronic diastolic CHF: Lasix resumed , cont to hold aldactone and ACEI Lactic acidosis --> resolved Initial mild elevation of 2.1 in setting of dehydration, metformin use. Normalized with IV fluids Acute kidney injury superimposed on chronic kidney disease --> improving Cr initially elevated to 1.8 (baseline ~1), appearing clinically dry Cr 1.3 -> 1.2 Lasix 40mg daily resumed , hold aldactone and ACEI Repeat BMP in AM Chronic venous stasis ulcers of bilateral lower extremity Diabetic ulcer right heel Follows with wound care. Dressings in wound care clinic, routine wound care nurse consult placed Hypertension Holding amlodipine, lisinopril,aldactone and Isordil resumed with lower dose Continue metoprolol succinate with hold parameters Type 2 diabetes Hold home agents. SSI while in-patient. BSG AC HS Peripheral arterial disease Follows with Dr. Gautam. Continue aspirin, Plavix Carotid artery disease S/p left endarterectomy in August 2018. Continue aspirin, plavix DVT Ppx: SQ heparin Code status: DNR per daughter/POA at bedside PCP: [facility] Dispo: PT/OT eval requested plan to dischage to [facility] on thursday if BP remains stable daughter updated over phone Admission and Anticipated Discharge Date Admission Date: June 07, 2020 Subjective pt sitting on chair , no supplemental 02 requirement in room air , says she feels fine , no cough or SOB no dizzy spell or lightheadedness no fever or chills pt reports she feels like back to her own self , wondering about going back to [facility] for rehab Review of Systems Review of Systems: All systems reviewed & are unremarkable except as noted in Subjective Physical Exam Physical Exam: Physical exam: General: No acute distress, alert awake oriented x3 HEENT: PERRLA, EOMI, Heart: Regular S1-S2, no carotid bruit, no JVD, no lower extremity edema Lungs: Clear to auscultate, no wheeze or rales Abdomen: Soft nontender, no organomegaly Extremity: No cyanosis, no deformity, normal strength 5 out of 5 with upper and lower Neuro: No focal neurological deficit normal speech, normal visual field, Motor strength : normal both upper and lower extremity, sensation intact Psych: Alert awake oriented x3, normal affect Results & Data Results & Data ([facility]) Vital Signs (Past 12 Hours) Vital Signs Temp Pulse Pulse Resp BP BP Pulse Ox 06/09/20 11:33 36.8 C 56 L 18 132/79 94 06/09/20 08:00 57 L 06/09/20 07:50 36.6 C 69 18 188/90 H 98 06/09/20 03:19 36.8 C 74 18 164/76 H 99
[2020-06-09] MEDS: LATANOPROST 0.005% OP SOLN 2.5 ML BTL OPB SCH (20:52)
[2020-06-09] MEDS: ROSUVASTATIN CALCIUM 5 MG TAB PO SCH (20:53)
[2020-06-10] MEDS: CLOPIDOGREL BISULFATE 75 MG TAB PO SCH (07:55)
[2020-06-10] MEDS: SERTRALINE HCL 50 MG TABLET PO SCH (07:56)
[2020-06-10] MEDS: PANTOprazole 40 MG TAB PO SCH (07:56)
[2020-06-10] MEDS: METOPROLOL SUCC 50MG EXT REL TAB PO SCH (07:56)
[2020-06-10] MEDS: DOCUSATE SODIUM 100 MG CAP PO SCH (07:56)
[2020-06-10] MEDS: CHOLECALCIFEROL 1,000 UNITS 25 MCG TAB PO SCH (07:56)
[2020-06-10] MEDS: FUROSEMIDE 40 MG TAB PO SCH (07:56)
[2020-06-10] MEDS: ASPIRIN 81 MG ECTAB PO SCH (07:56)
[2020-06-10] MEDS: HEPARIN SOD 5,000 UNIT/0.5 ML VIAL SQ SCH ×3 (07:56→19:38)
[2020-06-10] MEDS: POLYETHYLENE (MIRALAX) 17 GM PACK PO SCH (07:57)
[2020-06-10] MEDS: ISOSORBIDE DINITRATE 40 MG TAB PO SCH ×2 (07:57→19:38)
[2020-06-10 08:06] LABS: BUN Creatinine Ratio 24.6 (10-20); Calcium 9.3 mg/dl (8.5-10.1); Creatinine Clr Calc Pharmacy 38.9 ml/min; Est GFR (African American) 54.1; Est GFR (Non-African American) 46.6; Potassium 4.6 mmol/L (3.5-5.1)
[2020-06-10] MEDS: INSULIN GLARGINE SOLOSTAR 100 UNITS/ML 3 ML PEN SC SCH ×2 (08:54→20:40)
[2020-06-10] MEDS: INSULIN ASPART 100 UNITS/ML 3 ML PEN SC SCH ×4 (08:55→20:38)
[2020-06-10] MEDS: lisinopril 20 MG TAB PO SCH (08:55)
[2020-06-10] MEDS ORDERED: FUROSEMIDE 20 MG TAB PO SCH (09:00)
--- NOTE | 2020-06-10 12:28 | Hospitalist Progress Note ---
Date of Service June 10, 2020 Assessment & Plan (1) Hypotension: (2) Lethargy: (3) Acute kidney injury superimposed on chronic kidney disease: (4) Elevated lactic acid level: (5) Diabetic ulcer of right heel: (6) DM type 2 (diabetes mellitus, type 2): (7) HTN (hypertension): (8) Venous stasis ulcers of both lower extremities: (9) Peripheral arterial disease: (10) Carotid artery disease: This is an 89yo F resident of [facility] with a PMH of DM II, HTN, CKD III, carotid stenosis s/p left endarterectomy in August 2018, HLD, chronic venous stasis wounds following with wound care and vascular and other medical problems listed below who presents from wound care clinic appointment with hypotension and lethargy. Hypotension Dehydration Initial lethargy --> Symptoms has completely resolved, blood pressure improved after adjustment of BP meds: History of hypertensive cardiomyopathy, with valvular heart disease Follows with cardiology Dr. Steven Gautam Patient was on multiple antihypertensives/diuretics: * Toprol-XL 100 mg daily * Lasix 40 mg daily * Lisinopril 20 mg daily * Aldactone 12.5 mg daily * Norvasc 5 mg daily * Isordil 40 mg 3 times daily Aldactone-discontinued secondary to significant hypotension/acute renal failure Rest of the medications slowly introduced as blood pressure stabilized Patient is now on Toprol-XL 100 mg daily/Lasix 40 mg daily/lisinopril 20 mg daily/Isordil dose reduced to 40 mg twice daily/Norvasc 5 mg daily Patient will be seen by her cardiology next week for further monitoring of blood pressure and medication adjustment if indicated On admission Found to be hypotensive at 84/44 with 92% on room air at wound care clinic ; with associated lethargy and generalized weakness Has received around 2L total NSS resuscitation with improved BP 130/76 mental status improved to baseline , alert and oriented No evidence of infection, procalcitonin negative and blood cultures negative to date. Antibiotic not indicated Allergic reaction: Lower extremity ankle/foot rash, itching noted possible secondary to socks, Patient reports worsening symptoms of itching while have them on Nursing asked to avoid socks on patient, ordered as needed Benadryl cream Chronic diastolic CHF: Volume status stable, Lasix and lisinopril resumed, Continue to hold Aldactone Chronic hypoxemic respiratory failure: Possible secondary to chronic diastolic CHF Patient was sent to [facility] on 2 L oxygen with ambulation prior two-step exercise Currently now requiring 2 L oxygen continuous, Repeat chest x-ray in a.m. Given current deconditioning, would recommend continued liters oxygen 24/ Lactic acidosis --> resolved Initial mild elevation of 2.1 in setting of dehydration-possible due to excess elizabeth diuresis, resolved with IV hydration Acute kidney injury superimposed on chronic kidney disease --> resolved, renal function back to baseline Cr initially elevated to 1.8 (baseline ~1), appearing clinically dry Cr 1.3 -> 1.2 -1 .07 Diuretics dose adjusted as above, Outpatient lab in 1 week Chronic venous stasis ulcers of bilateral lower extremity Diabetic ulcer right heel Peripheral vascular disease On Plavix, follows with Dr. Steven Gautam Follows with wound care . 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 SSI while in-patient. BSG AC HS Peripheral arterial disease Follows with Dr. Gautam. Continue aspirin, Plavix Carotid artery disease S/p left endarterectomy in August 2018. Continue aspirin, plavix DVT Ppx: SQ heparin Code status: DNR per daughter/POA at bedside PCP: [facility] Dispo: PT/OT ani requested Possible discharge back to [facility] tomorrow/Thursday Daughter Lesley updated over phone Admission and Anticipated Discharge Date Admission Date: June 07, 2020 Subjective Follow-up visit for acute hypotension, acute renal failure: Patient is back to baseline, states she feels fine, no dizzy spells no lightheadedness Appetite, energy level fair No fever or chills, no shortness of breath, no cough On 2 L oxygen via nasal cannula, prior record/discharge summary on 05/31/2020: Two-step exercise showed 2 L oxygen on ambulation Given current deconditioning will keep on 2 L oxygen continuous No fever or chills Complaints of burning/itchiness on both ankles and lower leg, started today, worse when putting the socks on Review of Systems Review of Systems: All systems reviewed & are unremarkable except as noted in Subjective Physical Exam Physical Exam: Physical exam: General: No acute distress, alert awake oriented x3 HEENT: PERRLA, EOMI, Heart: Regular S1-S2, no carotid bruit, no JVD, no lower extremity edema Lungs: Clear to auscultate, no wheeze or rales Abdomen: Soft nontender, Extremity: Bilateral ankle/lower foot: Socks distribution area, marked erythema, hives/rash noted, with patient's reporting of burning sensation and itching Neuro: No focal neurological deficit normal speech, normal visual field, Motor strength : normal both upper and lower extremity, sensation intact Psych: Alert awake oriented x3, normal affect Results & Data Results & Data ([facility]) Vital Signs (Past 12 Hours) Vital Signs Temp Pulse Resp BP Pulse Ox 06/10/20 11:48 165/65 H 94 06/10/20 07:51 36.6 C 65 18 180/80 H 95 06/10/20 03:59 36.7 C 74 16 183/79 H 93
[2020-06-10] MEDS ORDERED: amLODIPine BESYLATE 5 MG TAB PO ONE (12:30)
[2020-06-10] MEDS: LATANOPROST 0.005% OP SOLN 2.5 ML BTL OPB SCH (19:38)
[2020-06-10] MEDS: ROSUVASTATIN CALCIUM 5 MG TAB PO SCH (19:38)
[2020-06-11] MEDS: HEPARIN SOD 5,000 UNIT/0.5 ML VIAL SQ SCH ×3 (05:14→19:27)
[2020-06-11 08:11] LABS: BUN Creatinine Ratio 22.9 (10-20); Calcium 8.9 mg/dl (8.5-10.1); Creatinine Clr Calc Pharmacy 37.1 ml/min; Est GFR (African American) 51.2; Est GFR (Non-African American) 44.1; Potassium 4.4 mmol/L (3.5-5.1)
[2020-06-11] MEDS: SERTRALINE HCL 50 MG TABLET PO SCH (08:40)
[2020-06-11] MEDS: PANTOprazole 40 MG TAB PO SCH (08:40)
[2020-06-11] MEDS: POLYETHYLENE (MIRALAX) 17 GM PACK PO SCH (08:40)
[2020-06-11] MEDS: ASPIRIN 81 MG ECTAB PO SCH (08:40)
[2020-06-11] MEDS: CHOLECALCIFEROL 1,000 UNITS 25 MCG TAB PO SCH (08:41)
[2020-06-11] MEDS: ISOSORBIDE DINITRATE 40 MG TAB PO SCH ×2 (08:41→19:26)
[2020-06-11] MEDS: METOPROLOL SUCC 50MG EXT REL TAB PO SCH (08:41)
[2020-06-11] MEDS: lisinopril 20 MG TAB PO SCH (08:41)
[2020-06-11] MEDS: CLOPIDOGREL BISULFATE 75 MG TAB PO SCH (08:42)
[2020-06-11] MEDS: FUROSEMIDE 40 MG TAB PO SCH (08:42)
[2020-06-11] MEDS: INSULIN GLARGINE SOLOSTAR 100 UNITS/ML 3 ML PEN SC SCH ×2 (08:44→20:40)
[2020-06-11] MEDS: INSULIN ASPART 100 UNITS/ML 3 ML PEN SC SCH ×4 (08:46→20:40)
[2020-06-11] MEDS: DOCUSATE SODIUM 100 MG CAP PO SCH (08:50)
[2020-06-11] MEDS ORDERED: amLODIPine BESYLATE 5 MG TAB PO SCH (09:00)
--- NOTE | 2020-06-11 09:14 | XRay Report ---
XR chest 1V portable HISTORY: 89 years-old Female CHF acute shortness of breath COMPARISON: Chest radiograph 06/08/2020 TECHNIQUE: Portable AP view of the chest FINDINGS: Cardiomegaly. Mitral annular calcifications. Calcific plaque of the thoracic aorta. Trace pleural eff usions. No pneumothorax. Mildly improved pulmonary edema. Mild left lung base opacities suggest proba ble atelectasis. Degenerative changes of the shoulders and spine. IMPRESSION: 1. Cardiomegaly with mildly improved pulmonary edema. 2. Trace pleural effusions. ACT 112: Negative or not required by law. The above report was generated using voice recognition software. It may contain grammatical, syntax o r spelling errors. Electronically signed by: Alberto Doss M.D. 06/11/2020 9:13 AM
[2020-06-11] MEDS: ROSUVASTATIN CALCIUM 5 MG TAB PO SCH (19:26)
[2020-06-11] MEDS: LATANOPROST 0.005% OP SOLN 2.5 ML BTL OPB SCH (21:10)
--- NOTE | 2020-06-11 23:25 | Hospitalist Progress Note ---
Date of Service June 11, 2020 Assessment & Plan (1) Hypotension: (2) Lethargy: (3) Acute kidney injury superimposed on chronic kidney disease: (4) Elevated lactic acid level: (5) Diabetic ulcer of right heel: (6) DM type 2 (diabetes mellitus, type 2): (7) HTN (hypertension): (8) Venous stasis ulcers of both lower extremities: (9) Peripheral arterial disease: (10) Carotid artery disease: This is an 89yo F resident of [facility] with a PMH of DM II, HTN, CKD III, carotid stenosis s/p left endarterectomy in August 2018, HLD, chronic venous stasis wounds following with wound care and vascular and other medical problems listed below who presents from wound care clinic appointment with hypotension and lethargy. Hypotension Dehydration Initial lethargy --> Symptoms has completely resolved, blood pressure improved after adjustment of BP meds: History of hypertensive cardiomyopathy, with valvular heart disease Follows with cardiology Dr. Steven Gautam Patient was on multiple antihypertensives/diuretics: * Toprol-XL 100 mg daily * Lasix 40 mg daily * Lisinopril 20 mg daily * Aldactone 12.5 mg daily * Norvasc 5 mg daily * Isordil 40 mg 3 times daily Aldactone-discontinued secondary to significant hypotension/acute renal failure/Norvasc discontinued for hypotension Rest of the medications slowly introduced as blood pressure stabilized Patient is now on Toprol-XL 100 mg daily/Lasix 40 mg daily/lisinopril 20 mg daily/Isordil dose reduced to 40 mg twice daily/ Patient will be seen by her cardiology next week for further monitoring of blood pressure and medication adjustment if indicated On admission Found to be hypotensive at 84/44 with 92% on room air at wound care clinic ; with associated lethargy and generalized weakness Has received around 2L total NSS resuscitation with improved BP 130/76 mental status improved to baseline , alert and oriented No evidence of infection, procalcitonin negative and blood cultures negative to date. Antibiotic not indicated Allergic reaction: Lower extremity ankle/foot rash, itching noted possible secondary to socks, Improved after as needed Benadryl cream Chronic diastolic CHF: Volume status stable, Lasix and lisinopril resumed, Continue to hold Aldactone Chronic hypoxemic respiratory failure: Possible secondary to chronic diastolic CHF Patient was sent to [facility] on 2 L oxygen with ambulation prior two-step exercise Continue supplemental oxygen Given current deconditioning, would recommend continued liters oxygen 24/ Lactic acidosis --> resolved Initial mild elevation of 2.1 in setting of dehydration-possible due to excessive diuresis, resolved with IV hydration Acute kidney injury superimposed on chronic kidney disease --> resolved, renal function back to baseline Cr initially elevated to 1.8 (baseline ~1), appearing clinically dry Cr 1.3 -> 1.2 -1 .07 Diuretics dose adjusted as above, Outpatient lab in 1 week Chronic venous stasis ulcers of bilateral lower extremity Diabetic ulcer right heel Peripheral vascular disease On Plavix, follows with Dr. Steven Gautam Follows with wound care . 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 SSI while in-patient. BSG AC HS Peripheral arterial disease Follows with Dr. Gautam. Continue aspirin, Plavix Carotid artery disease S/p left endarterectomy in August 2018. Continue aspirin, plavix DVT Ppx: SQ heparin Code status: DNR per daughter/POA at bedside PCP: [facility] Dispo: PT/OT eval requested Plan for return back to [facility] for continued rehab Admission and Anticipated Discharge Date Admission Date: June 07, 2020 Subjective Follow-up visit for acute hypotension, acute renal failure: Patient offers no new complaint, no complaint of shortness of breath, no discomfort Blood pressure has been stable, no fever or chills, Waiting to be transferred to [facility] Review of Systems Review of Systems: All systems reviewed & are unremarkable except as noted in Subjective Physical Exam Physical Exam: Physical exam: General: No acute distress, alert awake oriented x3 HEENT: PERRLA, EOMI, Heart: Regular S1-S2, no carotid bruit, no JVD, no lower extremity edema Lungs: Clear to auscultate, no wheeze or rales Abdomen: Soft nontender, Extremity: Rash on ankle has improved, no lower extremity edema Neuro: No focal neurological deficit normal speech, normal visual field, Motor strength : normal both upper and lower extremity, sensation intact Psych: Alert awake oriented x3, normal affect Results & Data Results & Data ([facility]) Vital Signs (Past 12 Hours) Vital Signs Temp Pulse Resp BP Pulse Ox 06/11/20 22:35 36.5 C 71 17 174/74 H 95 06/11/20 15:13 36.7 C 66 19 127/69 97
[2020-06-12] MEDS: HEPARIN SOD 5,000 UNIT/0.5 ML VIAL SQ SCH (05:13)
[2020-06-12] MEDS: ASPIRIN 81 MG ECTAB PO SCH (09:14)
[2020-06-12] MEDS: lisinopril 20 MG TAB PO SCH (09:14)
[2020-06-12] MEDS: ISOSORBIDE DINITRATE 40 MG TAB PO SCH (09:14)
[2020-06-12] MEDS: FUROSEMIDE 40 MG TAB PO SCH (09:15)
[2020-06-12] MEDS: CLOPIDOGREL BISULFATE 75 MG TAB PO SCH (09:15)
[2020-06-12] MEDS: PANTOprazole 40 MG TAB PO SCH (09:15)
[2020-06-12] MEDS: CHOLECALCIFEROL 1,000 UNITS 25 MCG TAB PO SCH (09:15)
[2020-06-12] MEDS: METOPROLOL SUCC 50MG EXT REL TAB PO SCH (09:16)
[2020-06-12] MEDS: SERTRALINE HCL 50 MG TABLET PO SCH (09:16)
[2020-06-12] MEDS: DOCUSATE SODIUM 100 MG CAP PO SCH (09:16)
[2020-06-12] MEDS: POLYETHYLENE (MIRALAX) 17 GM PACK PO SCH (09:17)
[2020-06-12] MEDS: INSULIN ASPART 100 UNITS/ML 3 ML PEN SC SCH ×2 (09:18→12:00)
[2020-06-12] MEDS: INSULIN GLARGINE SOLOSTAR 100 UNITS/ML 3 ML PEN SC SCH (09:18)
--- NOTE | 2020-06-12 11:18 | Discharge Summary ---
Date of Service June 12, 2020 Admission HPI Per Admitting Provider This is an 89yo F resident of [facility] with a PMH of DM II, HTN, CKD III, carotid stenosis s/p left endarterectomy in August 2018, HLD, chronic venous stasis wounds following with wound care and vascular and other medical problems listed below who presents from wound care clinic appointment with hypotension despite IV fluid resuscitation. Was at follow up appointment for chronic wounds and was found to be hypotensive at 84/44 with 92% on room air. Also notably lethargic and confused, requiring 3 people to help her out of wheelchair room. When asked about this event, patient does not have recollection. History primarily obtained by [id number] at bedside. Was given 30ml IV NSS but remained hypotensive and was sent from clinic to [facility] ED for further evaluation. Was recently admitted from 05/24-05/31 for acute hypoxia with mixed etiology likely including component of pneumonia with superimposed mild congestive heart failure. Concern for possible aspiration pneumonitis but initial speech evaluation did not suggest aspiration. Patient did not tolerate barium swallow so started on PPI and discharged with recommendation for aspiration precautions and potential follow-up with GI for esophageal manometric studies. During hospitalization, was also evaluated by cardiology who recommended Lasix 40mg daily 5 days/week, spironolactone 12.5 mg daily and continue isordil 40mg TID. Amlodipine dose was also decreased to 5 mg daily. TTE on 05/24 showed preserved EF with moderate mitral stenosis, mild TR and mild MR. In ED, patient was initially hypotensive at 84/44. Afebrile, no leukocytosis. Lactic acid mildly elevated at 2.1 with repeat pending. Urine and Covid PCR pending. Chest x-ray with cardiomegaly and pulmonary vascular congestion with decreased pulmonary edema, trace pleural effusions and minimal left lung base opacities suggestive of atelectasis. A mild pneumonitis considered less likely. Creatinine elevated at 1.81 (baseline Cr~1). Has some confusion at baseline with dementia. Currently comfortable. Denies any fever, chills, lightheadedness, headache, chest pain, shortness of breath, nausea, vomiting, abdominal pain, dysuria, diarrhea or constipation. Principal Diagnosis Hypotension -resolved Acute renal failure History of hypertensive cardiomyopathy Chronic diastolic heart failure Discharge Exam Constitutional: + well hydrated and + obese; no acute distress Eyes: PERRL, conjunctivae normal, anicteric sclerae ENMT: +decrease hearing function Respiratory: faint coarse BS Cardiovascular: regular rate and regular rhythm S1-S2 Gastrointestinal: normal bowel sounds, soft, nontender, no hepatosplenomegaly Musculoskeletal: No lower extremity edema Neurologic: PERRL, EOMI, accommodation nl, no face palsy, no dysarthria Psychiatric: A+Ox3, euthymic affect Discharge Data Allergies Allergy/AdvReac Type Severity Reaction Status Date / Time bacitracin Allergy Unknown Unknown Verified 06/07/20 11:48 [From Neosporin ([id number])] neomycin Allergy Unknown Unknown Verified 06/07/20 11:48 [From Neosporin ([id number])] polymyxin B Allergy Unknown Unknown Verified 06/07/20 11:48 [From Neosporin ([id number])] atorvastatin AdvReac Severe RIGID Verified 06/07/20 11:48 MUSCLES ezetimibe AdvReac Severe RIGID Verified 06/07/20 11:48 MUSCLES Ordered Studies 06/07/20 13:49 US renal/blad retro comp Routine Hospital Course (1) Hypotension: (2) Lethargy: (3) Acute kidney injury superimposed on chronic kidney disease: (4) Elevated lactic acid level: (5) Diabetic ulcer of right heel: (6) DM type 2 (diabetes mellitus, type 2): (7) HTN (hypertension): (8) Venous stasis ulcers of both lower extremities: (9) Peripheral arterial disease: (10) Carotid artery disease: This is an 89yo F resident of [facility] with a PMH of DM II, HTN, CKD III, carotid stenosis s/p left endarterectomy in August 2018, HLD, chronic venous stasis wounds following with wound care and vascular and other medical problems listed below who presents from wound care clinic appointment with hypotension and lethargy. Hypotension Dehydration Initial lethargy --> Blood pressure improved after adjustment of BP meds Symptoms has completely resolved, blood pressure improved after adjustment of BP meds: History of hypertensive cardiomyopathy, with valvular heart disease Follows with cardiology Dr. Steven Gautam Patient was on multiple antihypertensives/diuretics: * Toprol-XL 100 mg daily * Lasix 40 mg daily * Lisinopril 20 mg daily * Aldactone 12.5 mg daily-discontinued * Norvasc 5 mg daily-discontinued * Isordil 40 mg 3 times daily-dose reduced to twice daily Aldactone-discontinued secondary to significant hypotension/acute renal failure/Norvasc discontinued for hypotension Rest of the medications slowly introduced as blood pressure stabilized Patient will be discharged on Toprol-XL 100 mg daily/Lasix 40 mg daily/lisinopril 20 mg daily/Isordil dose reduced to 40 mg twice daily/ Patient will be seen by her cardiology next week for further monitoring of blood pressure and medication adjustment if indicated On admission Found to be hypotensive at 84/44 with 92% on room air at wound care clinic ; with associated lethargy and generalized weakness Has received around 2L total NSS resuscitation with improved BP 130/76 mental status improved to baseline , alert and oriented No evidence of infection, procalcitonin negative and blood cultures negative to date. Antibiotic not indicated Allergic reaction: Lower extremity ankle/foot rash, itching noted possible secondary to socks, Improved after as needed Benadryl cream Chronic diastolic CHF: Volume status stable, Lasix and lisinopril resumed, Aldactone discontinued for renal failure, hypotension Chronic hypoxemic respiratory failure: Possible secondary to chronic diastolic CHF Patient was sent to [facility] on 2 L oxygen with ambulation prior two-step exercise Continue supplemental oxygen Given current deconditioning, would recommend continued liters oxygen 24/ Lactic acidosis --> resolved Initial mild elevation of 2.1 in setting of dehydration-possible due to excessive diuresis, resolved with IV hydration Acute kidney injury superimposed on chronic kidney disease --> resolved, renal function back to baseline Cr initially elevated to 1.8 (baseline ~1), appearing clinically dry Resolved, creatinine back to baseline, diuretics dose adjustment/Aldactone discontinued as discussed above Chronic venous stasis ulcers of bilateral lower extremity Diabetic ulcer right heel Peripheral vascular disease On Plavix, follows with Dr. Steven Gautam Follows with wound care . 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 SSI while in-patient. BSG AC HS Peripheral arterial disease Follows with Dr. Gautam. Continue aspirin, Plavix Carotid artery disease S/p left endarterectomy in August 2018. Continue aspirin, plavix DVT Ppx: SQ heparin Code status: DNR per daughter/POA at bedside PCP: [facility] Dispo: PT/OT eval requested Plan to return back to [facility] for continued rehab Total Time Total Time Spent Total Time Spent (In Minutes): 35 minutes Total Time Includes: Examination of the Patient, Discharge Planning and Medica tion Reconciliation Discharge Plan Discharge Items Patient Disposition: Transfer [facility] Reason For Visit: LETHARGY, HYPOTENSION Discharge Diagnosis: Hypotension -resolved Acute renal failure History of hypertensive cardiomyopathy Chronic diastolic heart failure Activity: Resume your previous activity Non-emergency contact: Primary Care Provider Call non-emergency contact if: you have any medication questions Follow-up/Referrals: Neal Gautam MD [Physician] - 06/13/20 Anay Manning [facility] [Primary Care Provider] - Diet: Heart Healthy Daniel Attending Provider Instructions: Please take all medications as instructed on discharge list below. It is recommended that you follow-up with your primary care physician within 1-2 weeks of hospital discharge to ensure you are still doing well. Please call if you have any questions or problems. You can reach a [facility] hospitalist on duty at [facility] 24 hours a day by calling [phone] [employer] Strategy Manager Provider Instructions: Lab work: Basic metabolic panel in 1 week Continue to use oxygen 2 L with activity/ambulation Follow up with Cardiology Dr Steven Gautam in clinic as scheduled Call your Primary Care doctor if any of the following symptoms or problems start or get worse: * Shortness of breath or difficulty breathing * Wake up at night short of breath * Chest pain * Cough * Swelling of your hands, feet, or legs * More fatigued or tired with your normal activity * Palpitations - sudden fast heart beats WEIGHT * Weigh yourself every morning after using the bathroom. * Use the same scale. * Wear the same amount of clothing. * Write your weight down on a chart. * Call your Primary Care doctor if you gain more than 2-3 pounds in 1-2 days. MEDICATIONS * Use this discharge instruction sheet for medication instructions. * Take your medications at the time your doctor ordered. * Do not skip a dose of your medicines. * If you miss a dose of medicine, take it as soon as possible, but DO NOT DOUBLE A DOSE. * Read your medicine information when you get home. * Know all of the side effects of your medicine. If in doubt, ask your pharmacist * Call your Primary Care doctor's office if you have any side effects. * Be sure all of your doctors know what medicine and herbs you take (including cold, flu, and herbal medicine). Take the following with you to your follow-up doctor appointments: * Weight Chart * Medication List * List of questions Do not drink excessive alcohol, beer or wine. Pending Studies at Discharge: No Stand-Alone Forms: My [facility] Skilled Items Patient informed of condition?: Yes DNR: Yes Discharge Level of Care: Skilled Communicable Disease: No Discharge Prognosis: Stable Lines: None Urinary Catheter: No Medications and DC Order Prescriptions: Continued Iodosorb 0.9 % gel 10 g topical Q3D Qty: 10 RF: 0 Lantus U-100 Insulin 100 unit/mL solution 10 unit subcut HS RF: 0 acetaminophen 325 mg Tablet 650 mg PO Q4H MDD 3 GM APAP/24 HOURS PRN (Reason: Fever Or Pain) RF: 0 clopidogrel 75 mg Tablet 75 mg PO QAM RF: 0 aspirin 81 mg Tablet,Delayed Release (Dr/Ec) 81 mg PO QAM RF: 0 sertraline 25 mg Tablet 25 mg PO DAILY RF: 0 sodium chloride [[place] Nasal] 0.65 % Aerosol,[place] 2 spray INTRANASAL Q8H PRN (Reason: Nasal Dryness) RF: 0 metformin 500 mg tablet 500 mg PO BID RF: 0 metoprolol succinate 100 mg tablet extended release 24 hr 100 mg PO QAM RF: 0 rosuvastatin 5 mg tablet 2.5 mg PO HS RF: 0 latanoprost 0.005 % drops 1 drp OPB HS RF: 0 cholecalciferol (vitamin D3) 1,000 unit Tablet 1,000 unit PO QAM RF: 0 furosemide 40 mg Tablet 40 mg PO QAM Qty: 30 RF: 0 pantoprazole 40 mg Tablet,Delayed Release (Dr/Ec) 40 mg PO QAM 30 Days Qty: 30 RF: 0 polyethylene glycol 3350 17 gram Powder In Packet 17 g PO DAILY RF: 0 lisinopril 20 mg tablet 20 mg PO DAILY RF: 0 glipizide 5 mg tablet extended release 24hr 5 mg PO DAILY RF: 0 docusate sodium 100 mg Capsule 100 mg PO DAILY RF: 0 Changed isosorbide dinitrate [Isordil] 40 mg Tablet 40 mg PO BID 30 Days Qty: 90 RF: 0 Discontinued amlodipine [Norvasc] 5 mg Tablet 5 mg PO QAM 30 Days Qty: 30 RF: 0 spironolactone 25 mg Tablet 12.5 mg PO DAILY Qty: 30 RF: 0 Discharge Orders: Discharge Order (Routine); Ordered 06/12/20 Ordered By: Gayle Sarkar Admission Data Admit Date/Time: 06/07/20 13:48 Attending Provider: Gayle Sarkar Admit Provider: Mayito Galo Primary Care Provider: Anay Manning [place] Other Providers: Mayito Galo
== END 2020-06-12 12:30 | DRG 312 ==
LOC: ED 09:51 → SUATTDRO 13:48 → 2N 13:48 → 3N 06-10 03:45

== ENCOUNTER 2021-10-07 00:15 | Inpatient (IN) ==
--- NOTE | 2021-10-07 00:37 | Emergency Department Note ---
History of Present Illness General Chief complaint: Stroke Alert Time Seen by Provider: 10/07/21 00:21 History of Present Illness 89-year-old female presents from [facility] with approximate 1 hour history of left-sided weakness slurred speech and right-sided gaze. Patient of note was recently transferred to [facility] with a subdural hematoma after a fall. Patient at that time was on Plavix and aspirin. Patient is a DO NOT RESUSCITATE according to the chart and family. Patient complains of left- sided weakness. Patient denies headache. There are no other mitigating or alleviating factors Home Medications Medication Instructions Recorded Confirmed Type metoprolol succinate 100 mg 100 mg PO DAILY 03/16/18 10/07/21 History tablet,extended release 24 hr rosuvastatin 5 mg tablet 2.5 mg PO HS 03/16/18 10/07/21 History latanoprost 0.005 % eye drops 1 drp OPB QPM 08/21/18 10/07/21 History acetaminophen 325 mg tablet 650 mg PO Q4H PRN Pain, Mild 1-3 11/04/18 10/07/21 History sertraline 25 mg tablet 25 mg PO QAM 11/04/18 10/07/21 History docusate sodium 100 mg capsule 100 mg PO .EVERY 24 HOURS PRN 06/07/20 10/07/21 History Constipation polyethylene glycol 3350 17 gram 17 g PO .EVERY 24 HOURS PRN 06/07/20 10/07/21 History oral powder packet Constipation diphenhydramine HCl 25 mg capsule 25 mg PO Q6 PRN Itching 09/17/21 10/07/21 History (Benadryl) linagliptin 5 mg tablet (Tradjenta) 5 mg PO DAILY 09/17/21 10/07/21 History ohehkymy-lfi-iitri5 250 mg-dha 90 1 cap PO DAILY 09/17/21 10/07/21 History mg-epa 160 gn-apwe-gzqx-zeax capsule (Ocuvite Adult 50 Plus) pantoprazole 40 mg tablet,delayed 40 mg PO DAILY 09/17/21 10/07/21 History release acetaminophen 325 mg tablet 975 mg PO TID 10/07/21 10/07/21 History (Tylenol) bisacodyl 10 mg rectal suppository [address] .EVERY 24 HOURS PRN 10/07/21 10/07/21 History (Dulcolax (bisacodyl)) Constipation cholecalciferol (vitamin D3) 25 25 mcg PO DAILY 10/07/21 10/07/21 History mcg (1,000 unit) tablet (Vitamin D3) furosemide 40 mg tablet 40 mg PO DAILY 10/07/21 10/07/21 History insulin aspart U-100 100 unit/mL 1 sliding scale dose subcut ACHS 10/07/21 10/07/21 History (3 mL) subcutaneous pen (Novolog Flexpen U-100 Insulin aspart) insulin glargine 100 unit/mL (3 35 unit subcut HS 10/07/21 10/07/21 History mL) subcutaneous pen (Lantus Solostar U-100 Insulin) isosorbide dinitrate 20 mg tablet 40 mg PO AMHS 10/07/21 10/07/21 History loperamide 2 mg tablet 2 mg PO Q4H PRN after each loose 10/07/21 10/07/21 History stool triamcinolone acetonide 0.1 % 1 applic topical BID 10/07/21 10/07/21 History topical cream Allergies Allergy/AdvReac Type Severity Reaction Status Date / Time bacitracin Allergy Unknown Unknown Verified 10/07/21 01:14 [From Neosporin ([id number])] neomycin Allergy Unknown Unknown Verified 10/07/21 01:14 [From Neosporin ([id number]-[id number])] polymyxin B Allergy Unknown Unknown Verified 10/07/21 01:14 [From Neosporin (lzc-ebu-iztvz)] atorvastatin AdvReac Severe RIGID Verified 10/07/21 01:14 MUSCLES ezetimibe AdvReac Severe RIGID Verified 10/07/21 01:14 MUSCLES Past Med/Surg History Medical History Blind left eye Carotid artery disease "CTA 03/09/17: high-grade stenoses bilat ICA's" S/p L endarterectomy in August 2018 at [facility] Cataract Chronic venous insufficiency CKD (chronic kidney disease), stage III DM type 2 (diabetes mellitus, type 2) Glaucoma History of DVT (deep vein thrombosis) HLD (hyperlipidemia) HTN (hypertension) Surgical History History of appendectomy History of History of colonoscopy Family History Mother Diabetes Parkinson disease Father , age 94 CHF (congestive heart failure) Brother Myocardial infarction Social History Smoking Status: Never smoker Second Hand Exposure: No; Hx Alcohol Use: No Hx Substance Use: No Preferred Language: Citizen Of [place] Communication Ability: Effective Waste Recycler Required: No Beliefs That Will Affect Care: None marital status: / Current Living Situation: [facility] Current Living Situation Comment: daysi Feels Safe at Home: Yes Assistive Devices: Glasses, Hearing Aid - Bilateral, Hearing Aid - Left, Oxygen - Continuous and Walker Review of Systems A total of 10 systems reviewed and were otherwise negative Constitutional: no fever Respiratory: no cough Cardiovascular: no chest pain Neurologic: + localized weakness, + lack of coordination, + abnormal movements and + abnormal speech Physical Exam Vital Signs Vital Signs - 24 hr 10/07/21 00:30 10/07/21 00:50 10/07/21 01:12 Temperature 36.8 C Temperature Source Oral Pulse Rate 67 66 Respiratory Rate 20 18 Respiratory Depth Normal Blood Pressure 181/74 H 182/71 H Blood Pressure Mean 109 108 Pulse Oximetry 92 89 L 99 Oxygen Delivery Method Room Air Nasal Cannula Nasal Cannula Oxygen Flow Rate 2 2 Sepsis New/Unexplained Change in Mental Status N/A Sepsis Action Taken by Nursing No Action Required Pulse Oximetry Post Tiitration 94 VITAL SIGNS - Vital signs and nursing notes were reviewed. GENERAL - mild acute distress. Left-sided facial droop SKIN - Without rashes. HEAD - NC/AT. EYES - PERRL with EOMI bilaterally. Sclera anicteric. Palpebral conjunctiva pink and moist with no injection noted. EARS - No deformities of external structures noted on gross examination bilaterally. . NOSE - Midline and without cyanosis. No epistaxis or purulent drainage noted. Septum midline without deviation or septal hematoma noted. MOUTH/OROPHARYNX - Without perioral cyanosis. Buccal mucosa pink and moist NECK - Neck with FROM. Supple to palpation. LUNGS - Chest wall symmetric without accessory muscle use, intercostals retractions, or central cyanosis. Normal vesicular breath sounds CTA B/L. No wheezes, rales, or rhonchi appreciated. CARDIAC - RRR with S1/S2. No murmur, rubs, or gallops appreciated. ABDOMEN - Abdominal contour soft without pulsations or visible masses. BS normoactive all four quadrants. No tenderness, palpable masses, hepatosplenomegaly, or ascites noted. EXTREMITIES - No clubbing or peripheral cyanosis. No pretibial edema present. NEUROLOGIC -left-sided facial droop, mild dysarthria; left-sided hemiplegia; 4 out of 5 strength right upper and right lower extremities PSYCH - A&Ox3 and cooperates fully with examiner. Pt is very pleasant and interacts well with examiner; mild dysarthric speech. Course Reevaluation(s) Reevaluation #1: Spoke with family at bedside, patient is a has a DNR. Patient would like antibiotics. Patient is not a tPA candidate. Patient has a subdural hematoma. Patient has no intracranial bleed, patient's exam is a CVA. I discussed the evaluation with the [facility] accepts the patient for admission Time: 01:42 Medical Decision Making Medical Records Attestation: I reviewed the patient's medical records. Home Medications Current Medication List: was personally reviewed by me Laboratory Data Attestation: I reviewed the patient's lab results. Result diagrams: 10/07/21 00:39 10/07/21 00:39 Lab Results 10/07/21 10/07/21 10/07/21 Range/Units 00:39 00:39 00:39 WBC 6.67 (4.8-10.8) K/ul RBC 4.62 (3.93-5.22) M/uL Hgb 13.5 (12.0-16.0) g/dl Hct 41.6 (34.1-44.9) % MCV 90.0 (80.0-100.0) fL MCH 29.2 (25.0-34.0) pg MCHC 32.5 (32.0-36.0) g/dL RDW Std Deviation 53.5 H (36.4-46.3) fL RDW Coeff of Basil 16.6 H (11.5-14.5) % Plt Count 158 (130-400) K/uL MPV 10.6 (9.4-12.3) fL Immature Gran % (Auto) 2.1 % Neut % (Auto) 57.8 % Lymph % (Auto) 20.5 % Gem % (Auto) 14.1 % Eos % (Auto) 5.5 % Baso % (Auto) 0.0 % Neut # (Auto) 3.85 (1.4-6.5) K/uL Lymph # (Auto) 1.37 (1.2-3.4) K/uL Gem # (Auto) 0.94 H (0.24-0.82) K/uL Eos # (Auto) 0.37 (0-0.50) K/uL Baso # (Auto) 0.00 (0-0.2) K/uL Immature Gran # (Auto) 0.14 H (0.00-0.02) K/uL PT 10.5 (9.0-12.0) Seconds INR 1.0 (0.9-1.1) APTT 25.2 (21.0-31.0) Seconds PTT Ratio 0.9 Sodium (136-145) mmol/L Potassium (3.5-5.1) mmol/L Chloride (98-107) mmol/L Carbon Dioxide (21-32) mmol/L Anion Gap (3-11) BUN (6-23) mg/dl Creatinine (0.6-1.2) mg/dl Est Cr Clr Drug Dosing ml/min Est GFR ( Amer) ml/min Est GFR (Non-Af Amer) ml/min BUN/Creatinine Ratio (10-20) Glucose (70-99(Fasting)) mg/dl Calcium (8.5-10.1) mg/dl Magnesium (1.7-2.4) mg/dl Total Bilirubin (0.2-1.0) mg/dl AST (13-39) U/L ALT (7-52) U/L Alkaline Phosphatase (34-104) U/L Troponin I High Sens (0-14) pg/ml Total Protein (6.0-8.3) gm/dl Albumin (3.4-5.0) gm/dl Globulin (2.5-4.0) gm/dl Albumin/Globulin Ratio (0.9-2) SARS-CoV-2, RNA, NAAT (NEGATIVE) Blood Type A Negative Antibody Screen NEGATIVE 10/07/21 10/07/21 Range/Units 00:39 01:27 WBC (4.8-10.8) K/ul RBC (3.93-5.22) M/uL Hgb (12.0-16.0) g/dl Hct (34.1-44.9) % MCV (80.0-100.0) fL MCH (25.0-34.0) pg MCHC (32.0-36.0) g/dL RDW Std Deviation (36.4-46.3) fL RDW Coeff of Basil (11.5-14.5) % Plt Count (130-400) K/uL MPV (9.4-12.3) fL Immature Gran % (Auto) % Neut % (Auto) % Lymph % (Auto) % Gem % (Auto) % Eos % (Auto) % Baso % (Auto) % Neut # (Auto) (1.4-6.5) K/uL Lymph # (Auto) (1.2-3.4) K/uL Gem # (Auto) (0.24-0.82) K/uL Eos # (Auto) (0-0.50) K/uL Baso # (Auto) (0-0.2) K/uL Immature Gran # (Auto) (0.00-0.02) K/uL PT (9.0-12.0) Seconds INR (0.9-1.1) APTT (21.0-31.0) Seconds PTT Ratio Sodium 140 (136-145) mmol/L Potassium 4.1 (3.5-5.1) mmol/L Chloride 108 H (98-107) mmol/L Carbon Dioxide 21 (21-32) mmol/L Anion Gap 11 (3-11) BUN 31 H (6-23) mg/dl Creatinine 1.44 H (0.6-1.2) mg/dl Est Cr Clr Drug Dosing 28.2 ml/min Est GFR ( Amer) 37.5 ml/min Est GFR (Non-Af Amer) 32.3 ml/min BUN/Creatinine Ratio 21.5 H (10-20) Glucose 125 H (70-99(Fasting)) mg/dl Calcium 9.3 (8.5-10.1) mg/dl Magnesium 1.9 (1.7-2.4) mg/dl Total Bilirubin 0.6 (0.2-1.0) mg/dl AST 14 (13-39) U/L ALT 14 (7-52) U/L Alkaline Phosphatase 54 (34-104) U/L Troponin I High Sens 6.4 (0-14) pg/ml Total Protein 6.7 (6.0-8.3) gm/dl Albumin 4.1 (3.4-5.0) gm/dl Globulin 2.6 (2.5-4.0) gm/dl Albumin/Globulin Ratio 1.6 (0.9-2) SARS-CoV-2, RNA, NAAT NEGATIVE (NEGATIVE) Blood Type Antibody Screen Imaging Data Radiologist's Impression: * Preliminary Findings Only See Final Report For Complete Findings ADDENDUM - Added by Gilda Ragsdale MD on 10/07/2021 12:49 AM (-07:00) In addition, there is a mild stenosis of the proximal cervical spine at the level of the atlantoaxial joint measuring 9 mm in AP diameter. CT HEAD: There is a low- attenuation chronic epidural fluid collection over the left posterior parietal convexity measuring 14 mm with mild mass-effect on the underlying cortex. No evidence of vasogenic edema in the underlying cortex. No evidence of acute hemorrhage. No evidence of midline shift. Moderate nonspecific white matter changes. Small left choroidal fissure cyst. Comparison made to prior head CT from September 17, 2021. Radiologist: Gilda Ragsdale MD Study ready at 00:29 and initial results transmitted at 00:35 Communications: Clear Time Type Notes 10/07/21 00:48 Call Doctor Regarding Stroke, called Dr. Case on 10/07 00:48 (-04:00)12:50 AM10 days leftPatient: ISABELLA KAT I (Female) : 34 Status: ER12:50 AM10 days left ECG Data Attestation: I personally reviewed and interpreted this ECG as follows: Additional Comments: EKG interpreted by me normal sinus rhythm left axis deviation incomplete right bundle branch block poor R wave progression the precordium no obvious ST segment elevation or depression rate of 67 MDM Narrative Medical decision making differential diagnosis includes CVA, TIA, subdural hematoma, metabolic derangement, Daly's palsy. Review of patient's old records the patient was recently transferred within this past month to [facility] for a subdural hematoma on the left side. I have spoken to family at bedside the patient is a DO NOT RESUSCITATE, she would take antibiotics if needed however. Patient is not a candidate at this time for tPA administration. Impression & Plan Acute CVA (cerebrovascular accident), Chronic subdural hematoma Discharge Plan Visit Data Chief Complaint: Stroke Alert ED Provider: Judah Case Discharge Problem: Acute CVA (cerebrovascular accident), Chronic subdural hematoma Patient Disposition: Being Evaluated by Hospitalist Forms Stand Alone Forms: My [facility] Prescriptions Prescriptions: No Action acetaminophen 325 mg Tablet 650 mg PO Q4H MDD 3g PRN (Reason: Pain, Mild 1-3) sertraline 25 mg Tablet 25 mg PO QAM metoprolol succinate 100 mg tablet extended release 24 hr 100 mg PO DAILY rosuvastatin 5 mg tablet 2.5 mg PO HS Rx Instructions: 1/2 tablet dose latanoprost 0.005 % drops 1 drp OPB QPM Rx Instructions: should be administered in the evening due to intraocular pressure peaks at night polyethylene glycol 3350 17 gram Powder In Packet 17 g PO .EVERY 24 HOURS PRN (Reason: Constipation) Rx Instructions: GIVE in 8 oz of water/juice on the 3rd day of no BM docusate sodium 100 mg Capsule 100 mg PO .EVERY 24 HOURS PRN (Reason: Constipation) Rx Instructions: GIVE ON DAY 2 OF NO BOWEL MOVEMENT IN THE MORNING pantoprazole 40 mg tablet,delayed release (DR/EC) 40 mg PO DAILY Tradjenta 5 mg tablet 5 mg PO DAILY Ocuvite Adult 50 Plus 250 mg (90 mg-160 mg) Capsule 1 cap PO DAILY diphenhydramine HCl [Benadryl] 25 mg Capsule 25 mg PO Q6 PRN (Reason: Itching) furosemide 40 mg tablet 40 mg PO DAILY isosorbide dinitrate 20 mg tablet 40 mg PO AMHS insulin glargine [Lantus Solostar U-100 Insulin] 100 unit/mL (3 mL) insulin pen 35 unit SUBCUT HS acetaminophen [Tylenol] 325 mg Tablet 975 mg PO TID Rx Instructions: give 3 tablet dose 3 times a day loperamide 2 mg Tablet 2 mg PO Q4H PRN (Reason: after each loose stool) cholecalciferol (vitamin D3) [Vitamin D3] 25 mcg (1,000 unit) Tablet 25 mcg PO DAILY triamcinolone acetonide 0.1 % cream 1 applic TOPICAL BID Rx Instructions: apply to lower legs for dermatitis bisacodyl [Dulcolax (bisacodyl)] 10 mg Suppository [address] .EVERY 24 HOURS PRN (Reason: Constipation) Rx Instructions: give on the 4th day of no BM. if does not move bowels call MD for further instruction insulin aspart U-100 [Novolog Flexpen U-100 Insulin] 100 unit/mL (3 mL) insulin pen 1 sliding scale dose SUBCUT ACHS Rx Instructions: inject as per sliding scale: if 0-150=0 units,151-200=2 units,201-250=4 units,251-300=6 units,301-350=8 units,351-400=10 units,401+=12 units and call MD Referrals Referrals: PCP,NO [Physician] -
[2021-10-07 01:01] LABS: Eosinophils # (auto) 0.37 K/uL (0-0.50); Eosinophils % (auto) 5.5 %; Hematocrit (blood only) 41.6 % (34.1-44.9); Hemoglobin 13.5 g/dl (12.0-16.0); Immature Granulocytes # (auto) 0.14 K/uL (0.00-0.02); Immature Granulocytes % (auto) 2.1 %; Lymphocytes # (auto) 1.37 K/uL (1.2-3.4); Lymphocytes % (auto) 20.5 %; Mean Corpuscular Hemoglobin 29.2 pg (25.0-34.0); Mean Corpuscular Hgb Conc 32.5 g/dL (32.0-36.0); Mean Platelet Volume 10.6 fL (9.4-12.3); Monocytes # (auto) 0.94 K/uL (0.24-0.82); Monocytes % (auto) 14.1 %; Neutrophils # (auto) 3.85 K/uL (1.4-6.5); Neutrophils % (auto) 57.8 %; Platelet Count 158 K/uL (130-400); RDW Coefficient of Variation 16.6 % (11.5-14.5); RDW Standard Deviation 53.5 fL (36.4-46.3); Red Blood Count 4.62 M/uL (3.93-5.22); White Blood Count 6.67 K/ul (4.8-10.8)
[2021-10-07 01:15] LABS: Partial Thromboplastin Ratio 0.9; Partial Thromboplastin Time 25.2 Seconds (21.0-31.0); Prothrombin Time 10.5 Seconds (9.0-12.0)
[2021-10-07 01:30] LABS: Troponin I High Sensitivity 6.4 pg/ml (0-14)
--- NOTE | 2021-10-07 01:55 | History & Physical Report ---
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 SCDs Re: Recent traumatic subdural hematoma DNR as per patient's prior directives as per family. Patient [id number] requesting updates for providers. Lesley Lesly, contact #[phone]. Text document was generated using [employer] voice recognition software. It may contain grammatical or spelling errors. Kindly contact undersigned for clarification of any documentation item in question. History of Present Illness Chief Complaint: Stroke as per records Primary Care Provider: Dr. Mai History obtained from patient, family, and records. Limited history from patient secondary to lethargy and hearing impairment. 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 Last [facility] confinement June 2020 for hypotension. Recent confinement [facility] September 18-2021 for traumatic subdural hematoma and left ear laceration secondary to fall at the custodial. Patient transferred from [facility] ER with note of CT head findings of density along left parietal region compatible with subdural hematoma with midline shift and mass effect but no evidence of herniation. No surgical intervention. Patient discharged back to custodial to complete 5-day course of Keppra for seizure prophylaxis. Around 11:30 PM last night, patient noted by custodial staff to have left- sided weakness, facial droop, slurred speech, and gazing more to the right. Patient denies headache, chest pain, SOB. Patient brought to the ER for evaluation. 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, custodial resident Allergies Allergy/AdvReac Type Severity Reaction Status Date / Time bacitracin Allergy Unknown Unknown Verified 10/07/21 01:14 [From Neosporin (hdz-pzk-[id number])] neomycin Allergy Unknown Unknown Verified 10/07/21 01:14 [From Neosporin ([id number]-[id number])] polymyxin B Allergy Unknown Unknown Verified 10/07/21 01:14 [From Neosporin (irq-pik-kphhq)] atorvastatin AdvReac Severe RIGID Verified 10/07/21 01:14 MUSCLES ezetimibe AdvReac Severe RIGID Verified 10/07/21 01:14 MUSCLES Home Medications Medication Instructions Recorded Confirmed Type metoprolol succinate 100 mg 100 mg PO DAILY 03/16/18 10/07/21 History tablet,extended release 24 hr rosuvastatin 5 mg tablet 2.5 mg PO HS 03/16/18 10/07/21 History latanoprost 0.005 % eye drops 1 drp OPB QPM 08/21/18 10/07/21 History acetaminophen 325 mg tablet 650 mg PO Q4H PRN Pain, Mild 1-3 11/04/18 10/07/21 History sertraline 25 mg tablet 25 mg PO QAM 11/04/18 10/07/21 History docusate sodium 100 mg capsule 100 mg PO .EVERY 24 HOURS PRN 06/07/20 10/07/21 History Constipation polyethylene glycol 3350 17 gram 17 g PO .EVERY 24 HOURS PRN 06/07/20 10/07/21 History oral powder packet Constipation diphenhydramine HCl 25 mg capsule 25 mg PO Q6 PRN Itching 09/17/21 10/07/21 History (Benadryl) linagliptin 5 mg tablet (Tradjenta) 5 mg PO DAILY 09/17/21 10/07/21 History kwzrmlzn-lam-dakbl1 250 mg-dha 90 1 cap PO DAILY 09/17/21 10/07/21 History mg-epa 160 oz-efat-cxid-zeax capsule (Ocuvite Adult 50 Plus) pantoprazole 40 mg tablet,delayed 40 mg PO DAILY 09/17/21 10/07/21 History release acetaminophen 325 mg tablet 975 mg PO TID 10/07/21 10/07/21 History (Tylenol) bisacodyl 10 mg rectal suppository 10 mg DC .EVERY 24 HOURS PRN 10/07/21 10/07/21 History (Dulcolax (bisacodyl)) Constipation cholecalciferol (vitamin D3) 25 25 mcg PO DAILY 10/07/21 10/07/21 History mcg (1,000 unit) tablet (Vitamin D3) furosemide 40 mg tablet 40 mg PO DAILY 10/07/21 10/07/21 History insulin aspart U-100 100 unit/mL 1 sliding scale dose subcut ACHS 10/07/21 10/07/21 History (3 mL) subcutaneous pen (Novolog Flexpen U-100 Insulin aspart) insulin glargine 100 unit/mL (3 35 unit subcut HS 10/07/21 10/07/21 History mL) subcutaneous pen (Lantus Solostar U-100 Insulin) isosorbide dinitrate 20 mg tablet 40 mg PO AMHS 10/07/21 10/07/21 History loperamide 2 mg tablet 2 mg PO Q4H PRN after each loose 10/07/21 10/07/21 History stool triamcinolone acetonide 0.1 % 1 applic topical BID 10/07/21 10/07/21 History topical cream Past Med/Surg History Medical History Blind left eye Carotid artery disease "CTA 03/09/17: high-grade stenoses bilat ICA's" S/p L endarterectomy in August 2018 at [facility] Cataract Chronic venous insufficiency CKD (chronic kidney disease), stage III DM type 2 (diabetes mellitus, type 2) Glaucoma History of DVT (deep vein thrombosis) HLD (hyperlipidemia) HTN (hypertension) Surgical History History of appendectomy History of History of colonoscopy Family History Mother Diabetes Parkinson disease Father , age 94 CHF (congestive heart failure) Brother Myocardial infarction Social History Smoking Status: Never smoker Second Hand Exposure: No; Hx Alcohol Use: No Hx Substance Use: No Preferred Language: Faroese Communication Ability: Effective 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: No Beliefs That Will Affect Care: None marital status: / Current Living Situation: Intermediate Current Living Situation Comment: daysi Feels Safe at Home: Yes Safety Concerns: Feels Safe At This Time Assistive Devices: Glasses, Hearing Aid - Bilateral, Hearing Aid - Left, Oxygen - Continuous and Walker Review of Systems Review of Systems: Could not be reliably obtained secondary to marked hearing impairment Physical Exam Physical Exam: GENERAL: Comfortable, lethargic, obese, hard of hearing, dysarthric, no respiratory distress SKIN: Normal color, warm HEENT: [place] palpebral conjunctivae, left nasolabial fold flattening, dry buccal mucosa NECK : Supple, short neck, no tenderness CHEST : Decreased breath sounds, no tenderness HEART : RRR, systolic murmur ABDOMEN: Some distention, nontender EXTREMITIES : Minimal l LE swelling, no LE tenderness, no other conspicuous deformities noted NEUROLOGIC : Coherent, flattened left nasolabial fold, dysarthric, left hemiparesis Results & Data Results & Data ([facility]) Vital Signs (Past 12 Hours) Vital Signs Temp Pulse Resp BP Pulse Ox O2 Del Method O2 Flow Rate 10/07/21 01:12 66 18 182/71 H 99 Nasal Cannula 2 10/07/21 00:50 89 L Nasal Cannula 2 10/07/21 00:30 36.8 C 67 20 181/74 H 92 Room Air Laboratory Results Laboratory Results WBC 6.67 K/ul (4.8-10.8) 10/07/21 00:39 RBC 4.62 M/uL (3.93-5.22) 10/07/21 00:39 Hgb 13.5 g/dl (12.0-16.0) 10/07/21 00:39 Hct 41.6 % (34.1-44.9) 10/07/21 00:39 MCV 90.0 fL (80.0-100.0) 10/07/21 00:39 MCH 29.2 pg (25.0-34.0) 10/07/21 00:39 MCHC 32.5 g/dL (32.0-36.0) 10/07/21 00:39 RDW Std Deviation 53.5 fL (36.4-46.3) H 10/07/21 00:39 RDW Coeff of Basil 16.6 % (11.5-14.5) H 10/07/21 00:39 Plt Count 158 K/uL (130-400) 10/07/21 00:39 MPV 10.6 fL (9.4-12.3) 10/07/21 00:39 Immature Gran % (Auto) 2.1 % 10/07/21 00:39 Neut % (Auto) 57.8 % 10/07/21 00:39 Lymph % (Auto) 20.5 % 10/07/21 00:39 [place] % (Auto) 14.1 % 10/07/21 00:39 Eos % (Auto) 5.5 % 10/07/21 00:39 Baso % (Auto) 0.0 % 10/07/21 00:39 Neut # (Auto) 3.85 K/uL (1.4-6.5) 10/07/21 00:39 Lymph # (Auto) 1.37 K/uL (1.2-3.4) 10/07/21 00:39 [place] # (Auto) 0.94 K/uL (0.24-0.82) H 10/07/21 00:39 Eos # (Auto) 0.37 K/uL (0-0.50) 10/07/21 00:39 Baso # (Auto) 0.00 K/uL (0-0.2) 10/07/21 00:39 Immature Gran # (Auto) 0.14 K/uL (0.00-0.02) H 10/07/21 00:39 PT 10.5 Seconds (9.0-12.0) 10/07/21 00:39 INR 1.0 (0.9-1.1) 10/07/21 00:39 APTT 25.2 Seconds (21.0-31.0) 10/07/21 00:39 PTT Ratio 0.9 10/07/21 00:39 Troponin I High Sens 6.4 pg/ml (0-14) 10/07/21 00:39 SARS-CoV-2, RNA, NAAT NEGATIVE (NEGATIVE) 10/07/21 01:27 Blood Type A Negative 10/07/21 00:39 Antibody Screen NEGATIVE 10/07/21 00:[address] head initial read: There is a low-attenuation chronic epidural fluid collection over the left posterior parietal convexity measuring 14 mmwith mild mass-effect on the underlying cortex. No evidence of vasogenic edema in the underlying cortex. No evidence of acute hemorrhage. No evidence of midline shift. Moderate nonspecificwhite matter changes. Small left choroidal fissure cyst. [place] ADDENDUM - Added byGilda Ragsdale MD on 10/07/2021 12:49 AM (-07:00) In addition, there is a mild stenosis of the proximal cervical spine at the level of the atlantoaxial joint measuring 9 mmin AP diameter. EKG as per my interpretation : Rate 65, NSR, LAD, LAFB, incomplete RBBB, no ischemia
[2021-10-07 02:15] LABS: Albumin Globulin Ratio 1.6 (0.9-2); Albumin Level 4.1 gm/dl (3.4-5.0); BUN Creatinine Ratio 21.5 (10-20); Bilirubin,Total 0.6 mg/dl (0.2-1.0); Calcium 9.3 mg/dl (8.5-10.1); Creatinine Clr Calc Pharmacy 28.2 ml/min; Est GFR (African American) 37.5 ml/min; Est GFR (Non-African American) 32.3 ml/min; Globulin 2.6 gm/dl (2.5-4.0); Magnesium 1.9 mg/dl (1.7-2.4); Potassium 4.1 mmol/L (3.5-5.1); Total Protein 6.7 gm/dl (6.0-8.3)
[2021-10-07] MEDS ORDERED: LACTATED RINGER'S 1,000 ML IV ONE (02:45)
[2021-10-07] MEDS ORDERED: DOCUSATE SODIUM 100 MG CAP PO PRN (04:17)
[2021-10-07] MEDS ORDERED: GLUCOSE 10 TAB/TUBE PO PRN (04:17)
[2021-10-07] MEDS ORDERED: DEXTROSE 50% 50 ML SYRINGE IV PRN (04:17)
[2021-10-07] MEDS ORDERED: GLUCOSE 40% GEL 15 GM TUBE PO PRN (04:17)
[2021-10-07] MEDS ORDERED: PHARMACIST DISCHARGE MED REC CONSULT PRN (04:17)
[2021-10-07] MEDS ORDERED: CARBOHYDRATES FOR HYPOGLYCEMIA PO PRN (04:17)
[2021-10-07] MEDS ORDERED: POLYETHYLENE (MIRALAX) 17 GM PACK PO PRN (04:17)
[2021-10-07] MEDS ORDERED: GLUCAGON FOR INJ 1 MG VIAL SQ PRN (04:17)
[2021-10-07] MEDS ORDERED: ASPIRIN 300 MG SUPP PR ONE (04:48)
[2021-10-07] MEDS: INSULIN ASPART PER UNIT SC SCH ×4 (05:51→20:37)
--- NOTE | 2021-10-07 07:42 | CT Scan Report ---
CT SCAN OF THE BRAIN WITHOUT IV CONTRAST CLINICAL HISTORY: Strokelike symptoms. Left-sided weakness. COMPARISON STUDY: CT of the brain dated 09/17/2021. TECHNIQUE: Unenhanced axial CT scan of the brain is performed from the vertex to the skull base. A do se lowering technique was utilized adhering to the principles of ALARA. CT DOSE: 1228.53 mGy.cm FINDINGS: Brain parenchyma: There is an acute on chronic appearing extra-axial hemorrhage along the left corn picker ior convexity. This measures up to 1.7 cm in maximum dimension and effaces the subjacent cortical sul ci. No midline shift is seen. There is age-related involutional change noting moderate subcortical an d periventricular microangiopathic disease. There is no parenchymal hematoma, mass effect, or evidenc e of acute territorial ischemia by CT criteria. Alvarado-white matter differentiation is preserved. A chr onic lacunar infarct is noted in left basal ganglia. Mineralization is noted in the basal ganglia. Ventricles, sulci, cisterns: Prominent secondary to involutional change. Intracranial vasculature: There is atherosclerotic calcification of the cavernous carotid and vertebr al arteries. Calvarium: Unremarkable. Sinuses and mastoids: There is trace mucosal thickening in the left maxillary antrum. The remaining p aranasal sinuses are clear. The mastoid air cells are well pneumatized. Orbits: The bony orbits are grossly intact. IMPRESSION: 1. Acute on chronic appearing extra-axial hemorrhage along the left posterior convexity, which could be subdural or epidural in location. This causes mild mass effect on the subjacent cortical sulci. 2. No additional foci of hemorrhage identified. There is no midline shift or evidence of acute territ orial ischemia by CT criteria. ACT 112: Negative or not required by law. Electronically signed by: Geoff Cazares M.D. 10/07/2021 7:40 AM
[2021-10-07] MEDS: PANTOprazole 40 MG TAB PO SCH (10:06)
[2021-10-07] MEDS: METOPROLOL SUCC 25MG EXT REL TAB PO SCH (10:06)
[2021-10-07] MEDS: SERTRALINE HCL 50 MG TABLET PO SCH (10:07)
--- NOTE | 2021-10-07 12:54 | Ultrasound Report ---
ULTRASOUND OF THE CAROTID ARTERIES CLINICAL HISTORY: Stroke. COMPARISON STUDY: Carotid artery ultrasound dated 08/21/2018. TECHNIQUE: Real-time, grayscale, and color Doppler sonography of the carotid arteries is performed. I mages are reviewed in the transverse and longitudinal planes. FINDINGS: The left carotid arteries are patent and demonstrate antegrade flow. There is atherosclerotic plaque seen bilaterally. The right internal carotid artery is occluded with a possible collateral vessel. Th ere is 47 atherosclerotic plaque seen. Velocity measurements are listed below. Common carotid peak systolic velocity (cm/sec): RIGHT: 47 LEFT: 78 ICA proximal peak systolic velocity (cm/sec): RIGHT: XX LEFT: 446 ICA mid peak systolic velocity (cm/sec): RIGHT: XX LEFT: 395 ICA distal peak systolic velocity (cm/sec): RIGHT: XX LEFT: 129 ICA/CC peak systolic ratio: RIGHT: LEFT: 5.7 The right vertebral artery was not well visualized. The left vertebral artery appears patent with ant egrade flow. The external carotid arteries are patent. IMPRESSION: 1. Occlusion of the right internal carotid artery. 2. There is evidence of 80-99% stenosis of the proximal to mid portions of left internal carotid noah ry. 3. Antegrade flow is shown in the left vertebral artery. 4. The right vertebral artery was not well visualized. ACT 112: Negative or not required by law. Electronically signed by: Geoff Cazares M.D. 10/07/2021 12:52 PM
--- NOTE | 2021-10-07 12:57 | Magnetic Resonance Report ---
Brain MRI WITHOUT CONTRAST HISTORY: Left-sided weakness. Slurred speech. Facial droop. Left-sided subdural hematoma. TECHNIQUE: Multiplanar multisequence MRI of the brain was performed without the use of contrast. COMPARISON STUDY: Head CT 10/07/2021. FINDINGS: There is a 3.6 cm area of restricted diffusion involving the majority the right basal gangl ia and right medial temporal lobe consistent with an acute infarct. A few punctate foci of restricted diffusion within the bilateral posterior occipital lobes suggesting acute punctate infarcts. Mild mo tion artifact. The midline structures appear intact. There is again noted a left posterolateral acute or chronic subdural hematoma. This extends along the posterior left interhemispheric and left tentor ium locations. This measures a maximal thickness of 1.7 cm, unchanged. There is mild mass effect chasity g the left cerebral hemisphere and left lateral ventricle with 2 mm of right midline shift. This cooper ins unchanged. The paranasal sinuses and mastoid air cells are clear. Loss of the normal flow-void wi thin the right intracranial internal carotid artery consistent with occlusion/thrombus. Old lacunar i nfarcts seen within the left cerebellar hemisphere. Periventricular white matter T2 hyperintensity is nonspecific but favors microvascular ischemic change. IMPRESSION: 1. A 3.6 cm acute infarct in the majority of the right basal ganglia and right medial temporal lobe. 2. There are few punctate foci of restricted diffusion within the bilateral posterior occipital lobe suggesting additional acute punctate infarcts. 3. Occluded right intracranial internal carotid artery. 4. No change in the left-sided acute on chronic subdural hematoma. This results in 2 mm of right midl ine shift. 5. Additional findings as described above. ACT 112: Negative or not required by law. Electronically signed by: Hardeep Moe M.D. 10/07/2021 12:55 PM
[2021-10-07] MEDS: ACETAMINOPHEN 325 MG TAB PO PRN (14:32)
--- NOTE | 2021-10-07 15:53 | Electrocardiogram Report ---
Test Reason : Blood Pressure : / mmHG Vent. Rate : 067 BPM Atrial Rate : 067 BPM P-R Int : 190 ms QRS Dur : 092 ms QT Int : 428 ms P-R-T Axes : 049 -50 036 degrees QTc Int : 452 ms Normal sinus rhythm Possible Left atrial enlargement Left axis deviation Low voltage QRS Incomplete right bundle branch block Cannot rule out Anteroseptal infarct (cited on or before 04-NOV-2018) Abnormal ECG When compared with ECG of 17-SEP-2021 22:15, Criteria for Inferior infarct are no longer Present Nonspecific T wave abnormality, improved in Inferior leads Confirmed by Neo Mackenzie ([id number]) on 10/07/2021 3:52:55 PM Referred By: REFERRED SELF Confirmed By:Neo Mackenzie
--- NOTE | 2021-10-07 16:00 | Neurology Consultation ---
Date of Consultation October 07, 2021 Assessment & Plan (1) Acute CVA (cerebrovascular accident): (2) Chronic subdural hematoma: (3) ICAO (internal carotid artery occlusion): (4) Left-sided extracranial carotid artery stenosis: Plan ASSESSMENT and PLAN/RECOMMENDATIONS: 1. Acute ischemic stroke, multifocal, involving right basal ganglia, temporal lobe, with additional small, bilateral posterior cerebral artery lacunar ischemic strokes. Impression: The patient has severe atherosclerotic bilateral carotid artery disease, with probably recent total occlusion of right internal carotid artery. She is critically stenotic left internal carotid artery with history of carotid endarterectomy. The patient and family inclined toward comfort care. They do not consider surgery, antiplatelet treatment, anticoagulation, additional work- up based on the patient's current critical condition. Plan: Palliative care consultation. We should avoid hypotension as the patient has significant carotid artery disorder. We should keep patient's systolic blood pressure between 150-170. If they want to proceed with full care, we will follow the patient with you with additional recommendations. 2. Right internal carotid artery total occlusion, and the left internal carotid artery critical stenosis Impression: As seen above. 3. Traumatic subdural hematoma Impression: After the patient fell down, left subdural hematoma was noticed, and the patient was recently discharged from [facility] to jail. Aspirin Plavix were stopped after having subdural hematoma. Plan: Even though there is no definitive contraindication for antiplatelet treatment, but the patient and family do not want to start on antiplatelet treatment at this time. Thank you for the consultation. History of Present Illness Reason for Consultation: CVA Requesting Physician: Carlos Aviles MD Attending Physician: Carlos Aviles MD History of Present Illness The patient is a very pleasant, 89-year-old right-handed female, who was brought to emergency department from jail, because of sudden onset right-sided weakness, lethargy, and eye deviation toward the right. Apparently, the patient had left subdural hematoma status post fall recently. She was admitted to [facility] in [place]. Aspirin and Plavix were stopped after subdural hematoma, and the patient was eventually discharged to jail 10 days ago. In emergency department, the patient was found not a candidate for thrombolytic treatment because of recent intracranial hemorrhage. She was admitted to hospital for further evaluation. Head CT was negative for acute hemorrhage but showed left subdural hematoma, without obvious change of size. The patient had a brain MRI today, which showed moderate size right MCA territ ory ischemic infarct, involving basal ganglia and right temporal lobe. This study also showed acute/subacute small, multifocal ischemic lesions, involving bilateral occipital lobes. Based on MRI findings oh total occlusion of right internal carotid artery, carotid ultrasound study was done, which showed total occlusion of right internal carotid artery, and very critical stenosis of left internal carotid artery. Patient has history of bilateral carotid artery disorder, status post left carotid endarterectomy. The patient has not had any seizure or seizure-like activity since discharge from hospital after having subdural hematoma. She is not on antiepileptic medication at this time. The case is discussed with the patient and family. They do not proceed with any intervention, or additional treatment including antiplatelet agents and they are inclined toward comfort care. I have talked about our options, risk and benefits old different treatment modalities including vascular surgery. They understood my explanations. They requested palliative care consultation. I have reviewed the patient's chart including imaging studies and visualized them personally. I have discussed the case with the patient and family, and I have answered their questions in detail. Allergies Allergy/AdvReac Type Severity Reaction Status Date / Time bacitracin Allergy Unknown Unknown Verified 10/07/21 01:14 [From Neosporin ([id number])] neomycin Allergy Unknown Unknown Verified 10/07/21 01:14 [From Neosporin ([id number])] polymyxin B Allergy Unknown Unknown Verified 10/07/21 01:14 [From Neosporin ([id number])] atorvastatin AdvReac Severe RIGID Verified 10/07/21 01:14 MUSCLES ezetimibe AdvReac Severe RIGID Verified 10/07/21 01:14 MUSCLES Home Medications Medication Instructions Recorded Confirmed Type metoprolol succinate 100 mg 100 mg PO DAILY 03/16/18 10/07/21 History tablet,extended release 24 hr rosuvastatin 5 mg tablet 2.5 mg PO HS 03/16/18 10/07/21 History latanoprost 0.005 % eye drops 1 drp OPB QPM 08/21/18 10/07/21 History acetaminophen 325 mg tablet 650 mg PO Q4H PRN Pain, Mild 1-3 11/04/18 10/07/21 History sertraline 25 mg tablet 25 mg PO QAM 11/04/18 10/07/21 History docusate sodium 100 mg capsule 100 mg PO .EVERY 24 HOURS PRN 06/07/20 10/07/21 History Constipation polyethylene glycol 3350 17 gram 17 g PO .EVERY 24 HOURS PRN 06/07/20 10/07/21 History oral powder packet Constipation diphenhydramine HCl 25 mg capsule 25 mg PO Q6 PRN Itching 09/17/21 10/07/21 History (Benadryl) linagliptin 5 mg tablet (Tradjenta) 5 mg PO DAILY 09/17/21 10/07/21 History adfgdwys-gko- 250 mg-dha 90 1 cap PO DAILY 09/17/21 10/07/21 History mg-epa 160 [id number]-mnpx-idmq-zeax capsule (Ocuvite Adult 50 Plus) pantoprazole 40 mg tablet,delayed 40 mg PO DAILY 09/17/21 10/07/21 History release acetaminophen 325 mg tablet 975 mg PO TID 10/07/21 10/07/21 History (Tylenol) bisacodyl 10 mg rectal suppository 10 mg NM .EVERY 24 HOURS PRN 10/07/21 10/07/21 History (Dulcolax (bisacodyl)) Constipation cholecalciferol (vitamin D3) 25 25 mcg PO DAILY 10/07/21 10/07/21 History mcg (1,000 unit) tablet (Vitamin D3) furosemide 40 mg tablet 40 mg PO DAILY 10/07/21 10/07/21 History insulin aspart U-100 100 unit/mL 1 sliding scale dose subcut ACHS 10/07/21 10/07/21 History (3 mL) subcutaneous pen (Novolog Flexpen U-100 Insulin aspart) insulin glargine 100 unit/mL (3 35 unit subcut HS 10/07/21 10/07/21 History mL) subcutaneous pen (Lantus Solostar U-100 Insulin) isosorbide dinitrate 20 mg tablet 40 mg PO AMHS 10/07/21 10/07/21 History loperamide 2 mg tablet 2 mg PO Q4H PRN after each loose 10/07/21 10/07/21 History stool triamcinolone acetonide 0.1 % 1 applic topical BID 10/07/21 10/07/21 History topical cream Patient History Medical History Blind left eye Carotid artery disease "CTA 03/09/17: high-grade stenoses bilat ICA's" S/p L endarterectomy in August 2018 at [facility] Cataract Chronic venous insufficiency CKD (chronic kidney disease), stage III DM type 2 (diabetes mellitus, type 2) Glaucoma History of DVT (deep vein thrombosis) HLD (hyperlipidemia) HTN (hypertension) Surgical History History of appendectomy History of History of colonoscopy Family History Mother Diabetes Parkinson disease Father , age 94 CHF (congestive heart failure) Brother Myocardial infarction Social History Smoking Status: Never smoker Second Hand Exposure: No; Hx Alcohol Use: No Hx Substance Use: No Preferred Language: Slovak Communication Ability: Effective Floorhand Required: No Beliefs That Will Affect Care: None marital status: / Current Living Situation: Shelter Current Living Situation Comment: daysi How many Children do You have: 3 Feels Safe at Home: Yes Safety Concerns: Feels Safe At This Time Assistive Devices: Walker Review of Systems Review of Systems: All systems reviewed & are unremarkable except as noted in HPI & below Physical Exam Physical Exam: General Examination: Constitutional: Well developed overweight elderly person in no acute distress. HENT: Normal exam with inspection. Left eye blindness which is chronic. Left exotrophia is also noticed CV: Hearth rhtyhm is regular. Neck: Supple, ? left carotid bruits. Lungs: Non-labored and comfortable breathing. Abdomen: Soft, non-tender, non-distended. Skin: No rash or ecchymosis. Extremities: No edema or cyanosis NEUROLOGICAL EXAMINATION: Mental Status: Alert but somnolent and oriented to place, person and time. Cranial Nerves: II-XII are intact except SNHI and left eye blindness Funduscopy: Unable to visualize Motor: Right arm is 5/5, left arm is 2/5, leg examination is limited but less strength in left lower extremity DTRs: decreased in legs and 1+ in arms with left Babinsky Tone: without spasticity or rigidity. Sensory: Decreased sensation in left arm and leg Coordination: Not assessed Speech: Fluent. Comprehension is intact. Gait: Unable to assess Musculoskeletal: Normal muscle bulk, no atrophy. Results & Data ([facility]) Vital Signs (Past 12 Hours) Vital Signs Temp Pulse Pulse Resp BP Pulse Ox O2 Del Method 10/07/21 15:39 36.6 C 65 19 177/76 H 100 Nasal Cannula 10/07/21 12:53 36.6 C 72 19 198/76 H 98 Nasal Cannula 10/07/21 09:13 64 10/07/21 07:37 36.3 C L 65 19 175/79 H 100 Nasal Cannula 10/07/21 04:52 Nasal Cannula 10/07/21 04:37 36.2 C L 71 14 188/97 H 99 Nasal Cannula O2 Flow Rate 10/07/21 15:39 3 10/07/21 12:53 3 10/07/21 09:13 10/07/21 07:37 3 10/07/21 04:52 2 10/07/21 04:37 2 Laboratory Results Laboratory Results - last 24 hr 10/07/21 10/07/21 10/07/21 00:39 00:39 00:39 WBC 6.67 RBC 4.62 Hgb 13.5 Hct 41.6 MCV 90.0 MCH 29.2 MCHC 32.5 RDW Std Deviation 53.5 H RDW Coeff of Basil 16.6 H Plt Count 158 MPV 10.6 Immature Gran % (Auto) 2.1 Neut % (Auto) 57.8 Lymph % (Auto) 20.5 [place] % (Auto) 14.1 Eos % (Auto) 5.5 Baso % (Auto) 0.0 Neut # (Auto) 3.85 Lymph # (Auto) 1.37 [place] # (Auto) 0.94 H Eos # (Auto) 0.37 Baso # (Auto) 0.00 Immature Gran # (Auto) 0.14 H PT 10.5 INR 1.0 APTT 25.2 PTT Ratio 0.9 Sodium Potassium Chloride Carbon Dioxide Anion Gap BUN Creatinine Est Cr Clr Drug Dosing Est GFR ( Amer) Est GFR (Non-Af Amer) BUN/Creatinine Ratio Glucose POC Glucose Calcium Magnesium Total Bilirubin AST ALT Alkaline Phosphatase Troponin I High Sens Total Protein Albumin Globulin Albumin/Globulin Ratio SARS-CoV-2, RNA, NAAT Blood Type A Negative Antibody Screen NEGATIVE 10/07/21 10/07/21 10/07/21 00:39 01:27 04:24 WBC RBC Hgb Hct MCV MCH MCHC RDW Std Deviation RDW Coeff of Basil Plt Count MPV Immature Gran % (Auto) Neut % (Auto) Lymph % (Auto) [place] % (Auto) Eos % (Auto) Baso % (Auto) Neut # (Auto) Lymph # (Auto) [place] # (Auto) Eos # (Auto) Baso # (Auto) Immature Gran # (Auto) PT INR APTT PTT Ratio Sodium 140 Potassium 4.1 Chloride 108 H Carbon Dioxide 21 Anion Gap 11 BUN 31 H Creatinine 1.44 H Est Cr Clr Drug Dosing 28.2 Est GFR ( Amer) 37.5 Est GFR (Non-Af Amer) 32.3 BUN/Creatinine Ratio 21.5 H Glucose 125 H POC Glucose 168 H Calcium 9.3 Magnesium 1.9 Total Bilirubin 0.6 AST 14 ALT 14 Alkaline Phosphatase 54 Troponin I High Sens 6.4 Total Protein 6.7 Albumin 4.1 Globulin 2.6 Albumin/Globulin Ratio 1.6 SARS-CoV-2, RNA, NAAT NEGATIVE Blood Type Antibody Screen 10/07/21 12:45 WBC RBC Hgb Hct MCV MCH MCHC RDW Std Deviation RDW Coeff of Basil Plt Count MPV Immature Gran % (Auto) Neut % (Auto) Lymph % (Auto) [place] % (Auto) Eos % (Auto) Baso % (Auto) Neut # (Auto) Lymph # (Auto) [place] # (Auto) Eos # (Auto) Baso # (Auto) Immature Gran # (Auto) PT INR APTT PTT Ratio Sodium Potassium Chloride Carbon Dioxide Anion Gap BUN Creatinine Est Cr Clr Drug Dosing Est GFR ( Amer) Est GFR (Non-Af Amer) BUN/Creatinine Ratio Glucose POC Glucose 110 H Calcium Magnesium Total Bilirubin AST ALT Alkaline Phosphatase Troponin I High Sens Total Protein Albumin Globulin Albumin/Globulin Ratio SARS-CoV-2, RNA, NAAT Blood Type Antibody Screen Diagnostic Findings Head CT 10/07/21 00:10 CT SCAN OF THE BRAIN WITHOUT IV CONTRAST CLINICAL HISTORY: Strokelike symptoms. Left-sided weakness. COMPARISON STUDY: CT of the brain dated 09/17/2021. TECHNIQUE: Unenhanced axial CT scan of the brain is performed from the vertex to the skull base. A dose lowering technique was utilized adhering to the principles of ALARA. CT DOSE: 1228.53 mGy.cm FINDINGS: Brain parenchyma: There is an acute on chronic appearing extra-axial hemorrhage along the left posterior convexity. This measures up to 1.7 cm in maximum dimension and effaces the subjacent cortical sulci. No midline shift is seen. There is age-related involutional change noting moderate subcortical and periventricular microangiopathic disease. There is no parenchymal hematoma, mass effect, or evidence of acute territorial ischemia by CT criteria. Alvarado-white matter differentiation is preserved. A chronic lacunar infarct is noted in left basal ganglia. Mineralization is noted in the basal ganglia. Ventricles, sulci, cisterns: Prominent secondary to involutional change. Intracranial vasculature: There is atherosclerotic calcification of the cavernous carotid and vertebral arteries. Calvarium: Unremarkable. Sinuses and mastoids: There is trace mucosal thickening in the left maxillary antrum. The remaining paranasal sinuses are clear. The mastoid air cells are well pneumatized. Orbits: The bony orbits are grossly intact. IMPRESSION: 1. Acute on chronic appearing extra-axial hemorrhage along the left posterior convexity, which could be subdural or epidural in location. This causes mild mass effect on the subjacent cortical sulci. 2. No additional foci of hemorrhage identified. There is no midline shift or evidence of acute territorial ischemia by CT criteria. ACT 112: Negative or not required by law. Electronically signed by: Geoff Cazares M.D. 10/07/2021 7:40 AM Brain MRI 10/07/21 04:17 Brain MRI WITHOUT CONTRAST HISTORY: Left-sided weakness. Slurred speech. Facial droop. Left-sided subdural hematoma. TECHNIQUE: Multiplanar multisequence MRI of the brain was performed without the use of contrast. COMPARISON STUDY: Head CT 10/07/2021. FINDINGS: There is a 3.6 cm area of restricted diffusion involving the majority the right basal ganglia and right medial temporal lobe consistent with an acute infarct. A few punctate foci of restricted diffusion within the bilateral posterior occipital lobes suggesting acute punctate infarcts. Mild motion artifact. The midline structures appear intact. There is again noted a left posterolateral acute or chronic subdural hematoma. This extends along the posterior left interhemispheric and left tentorium locations. This measures a maximal thickness of 1.7 cm, unchanged. There is mild mass effect along the left cerebral hemisphere and left lateral ventricle with 2 mm of right midline shift. This remains unchanged. The paranasal sinuses and mastoid air cells are clear. Loss of the normal flow-void within the right intracranial internal carotid artery consistent with occlusion/thrombus. Old lacunar infarcts seen within the left cerebellar hemisphere. Periventricular white matter T2 hyperintensity is nonspecific but favors microvascular ischemic change. IMPRESSION: 1. A 3.6 cm acute infarct in the majority of the right basal ganglia and right medial temporal lobe. 2. There are few punctate foci of restricted diffusion within the bilateral posterior occipital lobe suggesting additional acute punctate infarcts. 3. Occluded right intracranial internal carotid artery. 4. No change in the left-sided acute on chronic subdural hematoma. This results in 2 mm of right midline shift. 5. Additional findings as described above. ACT 112: Negative or not required by law. Electronically signed by: Hardeep Moe M.D. 10/07/2021 12:55 PM Carotid Doppler Study 10/07/21 04:17 ULTRASOUND OF THE CAROTID ARTERIES CLINICAL HISTORY: Stroke. COMPARISON STUDY: Carotid artery ultrasound dated 08/21/2018. TECHNIQUE: Real-time, grayscale, and color Doppler sonography of the carotid arteries is performed. Images are reviewed in the transverse and longitudinal planes. FINDINGS: The left carotid arteries are patent and demonstrate antegrade flow. There is atherosclerotic plaque seen bilaterally. The right internal carotid artery is occluded with a possible collateral vessel. There is 47 atherosclerotic plaque seen. Velocity measurements are listed below. Common carotid peak systolic velocity (cm/sec): RIGHT: 47 LEFT: 78 ICA proximal peak systolic velocity (cm/sec): RIGHT: XX LEFT: 446 ICA mid peak systolic velocity (cm/sec): RIGHT: XX LEFT: 395 ICA distal peak systolic velocity (cm/sec): RIGHT: XX LEFT: 129 ICA/CC peak systolic ratio: RIGHT: LEFT: 5.7 The right vertebral artery was not well visualized. The left vertebral artery appears patent with antegrade flow. The external carotid arteries are patent. IMPRESSION: 1. Occlusion of the right internal carotid artery. 2. There is evidence of 80-99% stenosis of the proximal to mid portions of left internal carotid artery. 3. Antegrade flow is shown in the left vertebral artery. 4. The right vertebral artery was not well visualized. ACT 112: Negative or not required by law. Electronically signed by: Geoff Cazares M.D. 10/07/2021 12:52 PM
[2021-10-07] MEDS ORDERED: hydrALAZINE HCL 20 MG/ML VIAL IV PRN (17:11)
--- NOTE | 2021-10-07 17:58 | Hospitalist Progress Note ---
Date of Service October 07, 2021 Assessment & Plan (1) Acute CVA (cerebrovascular accident): Plan: Acute CVA, right basal ganglia, right medial temporal lobe, bilateral posterior occipital lobes Right carotid artery occlusion Brain MRI: 1. A 3.6 cm acute infarct in the majority of the right basal ganglia and right medial temporal lobe. 2. There are few punctate foci of restricted diffusion within the bilateral posterior occipital lobe suggesting additional acute punctate infarcts. 3. Occluded right intracranial internal carotid artery. 4. No change in the left-sided acute on chronic subdural hematoma. This results in 2 mm of right midline shift. 5. Additional findings as described above. Carotid Doppler: 1. Occlusion of the right internal carotid artery. 2. There is evidence of 80-99% stenosis of the proximal to mid portions of left internal carotid artery. 3. Antegrade flow is shown in the left vertebral artery. 4. The right vertebral artery was not well visualized. Discussed with neurologist Dr Mendez, at this point, patient's family prefers no surgery, antiplatelets, anticoagulation Maintain blood pressure 150 to 170 Neurologist recommending palliative care consultation Continue supportive care Hypertension Goal BP 1 50-1 70 systolic Recent traumatic subdural hematoma left, patient's family not interested in neurosurgical intervention if subsequent imaging shows progression Brain MRI confirming subdural hematoma 1.7 cm, slightly increased compared to CAT scan September 18, 2021 revealing 1.0 cm subdural hematoma Patient's family does not prefer surgical intervention chronic diastolic heart failure (EF 60 to 65%, TTE 2020), euvolemic to dry hx valvular heart disease (moderate MS/MR, mild TR), pulmonary hypertension hyperlipidemia on statin Rx history DVT --not on anticoagulation at this point secondary to possibly increasing subdural hematoma PVD status post surgery DM2 insulin requiring, suboptimal control as of recent hemoglobin A1c of 8.6 last July 2021 ARF on CKD --creatinine 1.4, on gentle IV fluids anxiety/mood disorder DVT prophylaxis. SCDs Re: Recent traumatic subdural hematoma DNR as per patient's prior directives as per family. Admission and Anticipated Discharge Date Admission Date: October 07, 2021 Subjective ff up for acute CVA, etc seen resting in bed, comfortable on o2 daughter in law at bedside Patient sleeping but easily awakened Oriented x2, answers most questions appropriately, but also becomes tangential with her thoughts Denies dizziness, headache, nausea vomiting Denies focal weakness or numbness, although cannot raise the left arm No recollection of events yesterday No other symptoms Review of Systems Review of Systems: all noted and negative except for above Physical Exam Physical Exam: General- oriented x 2, not in distress, speaks in sentences with no effort or accessory muscle use Appears drowsy, on the weak side Head- atraumatic Eyes- PERRL, EOMI, anicteric ENT- oropharynx clear Healing laceration left ear lobe Neck- supple, no JVD, no adenopathy, no thyromegaly; carotids +2/2, no bruits appreciated Lungs- clear to auscultation bilaterally, no rales/wheezes Heart- normal rate, regular rhythm; no murmur, no gallop, no rub appreciated Abdomen- normal bowel sounds, nondistended, soft, nontender, no masses or hepatosplenomegaly Extremities- no pretibial edema, no calf tenderness; peripheral pulses intact Neuro- alert, oriented x 2; positive left-sided facial droop, mild dysarthria; left upper extremity 0-1 out of 5 motor strength No other focal neurologic deficits noted Skin- warm & dry Results & Data Results & Data ([facility]) Vital Signs (Past 12 Hours) Vital Signs Temp Pulse Pulse Resp BP Pulse Ox O2 Del Method 10/07/21 15:39 36.6 C 65 19 177/76 H 100 Nasal Cannula 10/07/21 12:53 36.6 C 72 19 198/76 H 98 Nasal Cannula 10/07/21 09:13 64 10/07/21 07:37 36.3 C L 65 19 175/79 H 100 Nasal Cannula O2 Flow Rate 10/07/21 15:39 3 10/07/21 12:53 3 10/07/21 09:13 10/07/21 07:37 3 all noted and reviewed including below
[2021-10-07] MEDS ORDERED: LANTUS PER UNIT CHARGE SQ SCH (21:00)
[2021-10-07] MEDS ORDERED: ROSUVASTATIN CALCIUM 5 MG TAB PO SCH (21:00)
[2021-10-07] MEDS ORDERED: LATANOPROST 0.005% OP SOLN 2.5 ML BTL OPB SCH (21:00)
[2021-10-07 22:15] LABS: Appearance Urine Clear (Clear); Bacteria Urine Automated Negative (Negative); Bilirubin Urine Negative (Negative); Blood Urine Trace (Negative); Cast Urine Automated 0 /lpf (0-5); Color Urine Yellow; Epithelial Cell Urine Auto >30 /lpf (0-5); Glucose Urine UA Negative (Negative); Ketones Urine Negative (Negative); Leukocyte Esterase Urine Negative (Negative); Nitrite Urine Negative (Negative); Protein Urine 1+ (Negative); RBC Urine Automated 0-4 /hpf (0-4); Specific Gravity Urine 1.027 (1.000-1.030); Urobilinogen Urine Negative (Negative)
[2021-10-08 07:06] LABS: BUN Creatinine Ratio 20.6 (10-20); Calcium 9.3 mg/dl (8.5-10.1); Chol HDL Ratio 3.8 (0-5); Creatinine Clr Calc Pharmacy 42.4 ml/min; Est GFR (African American) 60.4 ml/min; Est GFR (Non-African American) 52.1 ml/min; Potassium 4.2 mmol/L (3.5-5.1)
[2021-10-08 07:11] LABS: Hemoglobin 13.9 g/dl (12.0-16.0); Mean Corpuscular Hemoglobin 28.9 pg (25.0-34.0); Mean Corpuscular Hgb Conc 31.6 g/dL (32.0-36.0); Mean Corpuscular Volume 91.5 fL (80.0-100.0); Mean Platelet Volume 10.3 fL (9.4-12.3); Platelet Count 142 K/uL (130-400); RDW Coefficient of Variation 16.1 % (11.5-14.5); RDW Standard Deviation 53.3 fL (36.4-46.3); Red Blood Count 4.81 M/uL (3.93-5.22); White Blood Count 6.25 K/ul (4.8-10.8)
[2021-10-08 07:34] LABS: Basophils # (auto) 0.01 K/uL (0-0.2); Basophils % (auto) 0.2 %; Eosinophils # (auto) 0.25 K/uL (0-0.50); Immature Granulocytes # (auto) 0.08 K/uL (0.00-0.02); Immature Granulocytes % (auto) 1.3 %; Lymphocytes # (auto) 0.71 K/uL (1.2-3.4); Lymphocytes % (auto) 11.4 %; Monocytes # (auto) 0.67 K/uL (0.24-0.82); Monocytes % (auto) 10.7 %; Neutrophils # (auto) 4.53 K/uL (1.4-6.5); Neutrophils % (auto) 72.4 %; Toxic Vacuolation 1+
[2021-10-08] MEDS: INSULIN ASPART PER UNIT SC SCH ×2 (08:13→20:22)
[2021-10-08] MEDS: ACETAMINOPHEN 325 MG TAB PO PRN (08:14)
[2021-10-08] MEDS: SERTRALINE HCL 50 MG TABLET PO SCH (08:14)
[2021-10-08] MEDS: PANTOprazole 40 MG TAB PO SCH (08:15)
[2021-10-08] MEDS: METOPROLOL SUCC 25MG EXT REL TAB PO SCH (08:15)
[2021-10-08] MEDS ORDERED: ASPIRIN 81 MG ECTAB PO SCH (09:00)
--- NOTE | 2021-10-08 13:14 | Palliative Care Consultation ---
Date of Consultation October 08, 2021 Assessment & Plan (1) Knee pain: She has a heating pad and tylenol. Would also add topical diclofenac gel. (2) Palliative care encounter: I met with daughter's in law, Polina. Lesley and her Judah, who is Zoe's son, are POAs. Lesley tells me that Zoe has specifically said that she would not want resuscitation or life sustaining treatments if she were in a situation like she is now. They specifically mentioned that she would not want artificial feeding. Lesley and Tatum are confident that Zoe would want the focus of her care to be comfort and symptom management rather than disease management. Lesley is a speech pathologist and aware of the potential risk of aspiration. Their wish is for Zoe to have food and fluids if she requests them with permissive aspiration. We discussed review of medications and tailoring med list to focus on medications contributing to her comfort. We also discussed concern for hypoglycemia with her limited po intake and routine insulin. They are in agreement with stopping insulin as well as other non comfort medications. Plan would be for her to return to [facility] with hospice care. Dr. Aviles and case management aware. (3) Confusion: (4) Acute CVA (cerebrovascular accident): (5) Left-sided extracranial carotid artery stenosis: History of Present Illness Reason for Consultation: goals of care Requesting Physician: Dr. Aviles Attending Physician: Carlos Aviles MD History of Present Illness 89 yo with history of diastolic heart failure, valvular heart disease and pulmonary hypertension as weell as diabetes and PAD. She was residing in an apartment at [facility] until a fall earlier this month. She was found to have a traumatic subdural hematoma and was transferred to [facility] for management. She returned to skilled care at [facility] and presented yesterday with dysarthria and left sided weakness. Imaging shows a 3.6 cm acute infarct involving the right basal ganglia and right medial temporal lobe. Residual left hematoma is noted with 2mm shift which appears stable from prior studies. She is noted to have right ICA total occlusion and critically stenosis in left ICA. She is sleeping but arouses with stimulation and answers questions, though not always appropriately. She is oriented to person only. She asked me the day of the week and when I told her Thursday, she replied "next comes Thursday, , Thursday, Thursday, Thursday". She has left sided weakness and was evaluated by speech and has been recommended for easy to chew diet with aspiration precautions. She is able to take some of her medications. She was witnessed by a family member to have a "coughing episode" after sips of water. Mrs. Gonzales complains of pain in her right knee and has chronic osteoarthritis. She denies other pain, dyspnea, nausea. Allergies Allergy/AdvReac Type Severity Reaction Status Date / Time bacitracin Allergy Unknown Unknown Verified 10/07/21 01:14 [From Neosporin ([id number])] neomycin Allergy Unknown Unknown Verified 10/07/21 01:14 [From Neosporin ([id number])] polymyxin B Allergy Unknown Unknown Verified 10/07/21 01:14 [From Neosporin ([id number])] atorvastatin AdvReac Severe RIGID Verified 10/07/21 01:14 MUSCLES ezetimibe AdvReac Severe RIGID Verified 10/07/21 01:14 MUSCLES Home Medications Medication Instructions Recorded Confirmed Type metoprolol succinate 100 mg 100 mg PO DAILY 03/16/18 10/07/21 History tablet,extended release 24 hr rosuvastatin 5 mg tablet 2.5 mg PO HS 03/16/18 10/07/21 History latanoprost 0.005 % eye drops 1 drp OPB QPM 08/21/18 10/07/21 History acetaminophen 325 mg tablet 650 mg PO Q4H PRN Pain, Mild 1-3 11/04/18 10/07/21 History sertraline 25 mg tablet 25 mg PO QAM 11/04/18 10/07/21 History docusate sodium 100 mg capsule 100 mg PO .EVERY 24 HOURS PRN 06/07/20 10/07/21 History Constipation polyethylene glycol 3350 17 gram 17 g PO .EVERY 24 HOURS PRN 06/07/20 10/07/21 History oral powder packet Constipation diphenhydramine HCl 25 mg capsule 25 mg PO Q6 PRN Itching 09/17/21 10/07/21 History (Benadryl) linagliptin 5 mg tablet (Tradjenta) 5 mg PO DAILY 09/17/21 10/07/21 History [id number]-mtl-[id number] 250 mg-dha 90 1 cap PO DAILY 09/17/21 10/07/21 History mg-epa 160 [id number]-xlfg-ciij-zeax capsule (Ocuvite Adult 50 Plus) pantoprazole 40 mg tablet,delayed 40 mg PO DAILY 09/17/21 10/07/21 History release acetaminophen 325 mg tablet 975 mg PO TID 10/07/21 10/07/21 History (Tylenol) bisacodyl 10 mg rectal suppository 10 mg PA .EVERY 24 HOURS PRN 10/07/21 10/07/21 History (Dulcolax (bisacodyl)) Constipation cholecalciferol (vitamin D3) 25 25 mcg PO DAILY 10/07/21 10/07/21 History mcg (1,000 unit) tablet (Vitamin D3) furosemide 40 mg tablet 40 mg PO DAILY 10/07/21 10/07/21 History insulin aspart U-100 100 unit/mL 1 sliding scale dose subcut ACHS 10/07/21 10/07/21 History (3 mL) subcutaneous pen (Novolog Flexpen U-100 Insulin aspart) insulin glargine 100 unit/mL (3 35 unit subcut HS 10/07/21 10/07/21 History mL) subcutaneous pen (Lantus Solostar U-100 Insulin) isosorbide dinitrate 20 mg tablet 40 mg PO AMHS 10/07/21 10/07/21 History loperamide 2 mg tablet 2 mg PO Q4H PRN after each loose 10/07/21 10/07/21 History stool triamcinolone acetonide 0.1 % 1 applic topical BID 10/07/21 10/07/21 History topical cream Patient History Medical History Blind left eye Carotid artery disease "CTA 03/09/17: high-grade stenoses bilat ICA's" S/p L endarterectomy in August 2018 at [facility] Cataract Chronic venous insufficiency CKD (chronic kidney disease), stage III DM type 2 (diabetes mellitus, type 2) Glaucoma History of DVT (deep vein thrombosis) HLD (hyperlipidemia) HTN (hypertension) Surgical History History of appendectomy History of History of colonoscopy Family History Mother Diabetes Parkinson disease Father , age 94 CHF (congestive heart failure) Brother Myocardial infarction Social History Smoking Status: Never smoker Second Hand Exposure: No; Hx Alcohol Use: No Hx Substance Use: No Preferred Language: Norwegian Communication Ability: Effective Vice President Risk Management Required: No Beliefs That Will Affect Care: None marital status: / Current Living Situation: Long-Term Current Living Situation Comment: daysi How many Children do You have: 3 Feels Safe at Home: Yes Safety Concerns: Feels Safe At This Time Assistive Devices: Walker Review of Systems Review of Systems: ESAS Pain 2/3 Dyspnea 0/3 Anxiety 0/3 Nausea 0/3 Drowsiness 1/3 PPS 30% Physical Exam Constitutional: no acute distress ENMT: Mouth: oral mucous membranes not dry Respiratory: normal respiratory effort; no labored breathing Cardiovascular: Extremities: no edema Musculoskeletal: Extremities: + muscle atrophy Skin: warm and dry Neurologic: left hemiparesis Results & Data ([facility]) Vital Signs (Past 12 Hours) Vital Signs Temp Pulse Pulse Resp BP Pulse Ox O2 Del Method 10/08/21 10:37 98.1 F 81 18 196/97 H 94 Room Air 10/08/21 08:00 91 H 10/08/21 07:31 98.6 F 82 18 193/78 H 95 Room Air 10/08/21 03:54 99.3 F 88 18 130/79 92 Room Air PG Care Time/CCT Total # of Minutes Spent Total Time Spent: 70 Total Time Spent with Patient: Total time spent is greater than 50% in coordination of care (as documented) at patient's floor/unit and/or counseling patient: goals of care, symptom management, hospice, family education and support, coordination of care Coding Level of Care Code 22729 Initial Inpt Care Lvl 3 Diagnoses Knee pain M25.569 Palliative care encounter Z51.5 Confusion R41.0 Acute CVA (cerebrovascular accident) I63.9 Left-sided extracranial carotid artery stenosis I65.22
[2021-10-08] MEDS ORDERED: MoRPHine SULFATE 5 MG/0.25 ML UDP PO PRN (13:19)
[2021-10-08] MEDS ORDERED: LORazepam 0.5 MG TAB SL PRN (13:19)
[2021-10-08] MEDS ORDERED: ONDANSETRON INJ 2 MG/ML 2 ML VIAL IV PRN (13:19)
[2021-10-08] MEDS ORDERED: HYOSCYAMINE SULFATE 0.125 MG TAB SL PRN (13:19)
[2021-10-08] MEDS ORDERED: LORazepam 0.5 MG in SYRINGE 0.25 ML IV PRN (13:19)
[2021-10-08] MEDS ORDERED: ONDANSETRON 4 MG OD TAB SL PRN (13:19)
[2021-10-08] MEDS ORDERED: SENNA 8.6 MG TAB PO PRN (13:25)
--- NOTE | 2021-10-08 18:39 | Hospitalist Progress Note ---
Date of Service October 08, 2021 Assessment & Plan (1) Acute CVA (cerebrovascular accident): Plan: Acute CVA, right basal ganglia, right medial temporal lobe, bilateral posterior occipital lobes Right carotid artery occlusion Brain MRI: 1. A 3.6 cm acute infarct in the majority of the right basal ganglia and right medial temporal lobe. 2. There are few punctate foci of restricted diffusion within the bilateral posterior occipital lobe suggesting additional acute punctate infarcts. 3. Occluded right intracranial internal carotid artery. 4. No change in the left-sided acute on chronic subdural hematoma. This results in 2 mm of right midline shift. 5. Additional findings as described above. Carotid Doppler: 1. Occlusion of the right internal carotid artery. 2. There is evidence of 80-99% stenosis of the proximal to mid portions of left internal carotid artery. 3. Antegrade flow is shown in the left vertebral artery. 4. The right vertebral artery was not well visualized. Discussed with neurologist Dr Mendez, at this point, patient's family prefers no surgery, antiplatelets, anticoagulation Maintain blood pressure 150 to 170 Neurologist recommending palliative care consultation Continue supportive care 10/08 Patient's family has decided to transition patient to comfort measures Continue as needed morphine, Ativan Hypertension Recent traumatic subdural hematoma left, patient's family not interested in neurosurgical intervention if subsequent imaging shows progression Brain MRI confirming subdural hematoma 1.7 cm, slightly increased compared to CAT scan September 18, 2021 revealing 1.0 cm subdural hematoma Patient's family does not prefer surgical intervention chronic diastolic heart failure (EF 60 to 65%, TTE 2020), euvolemic to dry hx valvular heart disease (moderate MS/MR, mild TR), pulmonary hypertension hyperlipidemia on statin Rx history DVT --not on anticoagulation at this point secondary to possibly increasing subdural hematoma PVD status post surgery DM2 insulin requiring, suboptimal control as of recent hemoglobin A1c of 8.6 last July 2021 ARF on CKD --creatinine 1.4 anxiety/mood disorder DVT prophylaxis. SCDs Re: Recent traumatic subdural hematoma DNR as per patient's prior directives as per family. Transition to [facility] with hospice care services plan of care discussed with patient's family at the bedside in detail and at length all questions answered they are understanding, agreeable, comfortable with the plan of care Admission and Anticipated Discharge Date Admission Date: October 07, 2021 Subjective Follow-up for acute CVA, subdural hemorrhage, etc. Seen with family at the bedside Sitting up, not in distress, somewhat drowsy Able to speak some sentences Somewhat confused Reports right hand pain over IV site, no other pain No other symptoms Per family, patient mostly comfortable today Review of Systems Review of Systems: all noted and negative except for above Physical Exam Physical Exam: General- not oriented, not in distress, speaks in sentences with no effort or accessory muscle use weak Eyes- anicteric Neck- no JVD Lungs- clear breath sounds bilaterally, no rales/wheezes Heart- normal rate, regular rhythm; no murmurs Abdomen- normal bowel sounds, nondistended, soft, nontender Extremities- no pretibial edema, no calf tenderness Neuro- confused L sided weakness L sided facial droop Skin- warm & dry Results & Data Results & Data ([facility]) Vital Signs (Past 12 Hours) Vital Signs Temp Pulse Pulse Resp BP Pulse Ox O2 Del Method 10/08/21 10:37 36.7 C 81 18 196/97 H 94 Room Air 10/08/21 08:00 91 H 10/08/21 07:31 37.0 C 82 18 193/78 H 95 Room Air all noted and reviewed including below
[2021-10-08] MEDS: DICLOFENAC SOD 1% GEL 100 GM TUBE EXT SCH (19:51)
--- NOTE | 2021-10-09 07:58 | Discharge Summary ---
Date of Service October 09, 2021 Admission HPI Per Admitting Provider History obtained from patient, family, and records. Limited history from patient secondary to lethargy and hearing impairment. 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 Last [facility] confinement June 2020 for hypotension. Recent confinement [facility] September 18-2021 for traumatic subdural hematoma and left ear laceration secondary to fall at the group home. Patient transferred from [facility] ER with note of CT head findings of density along left parietal region compatible with subdural hematoma with midline shift and mass effect but no evidence of herniation. No surgical intervention. Patient discharged back to group home to complete 5-day course of Keppra for seizure prophylaxis. Around 11:30 PM last night, patient noted by group home staff to have left- sided weakness, facial droop, slurred speech, and gazing more to the right. Patient denies headache, chest pain, SOB. Patient brought to the ER for evaluation. 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 home resident Admission Exam Per Admitting Provider GENERAL: Comfortable, lethargic, obese, hard of hearing, dysarthric, no respiratory distress SKIN: Normal color, warm HEENT: [place] palpebral conjunctivae, left nasolabial fold flattening, dry buccal mucosa NECK : Supple, short neck, no tenderness CHEST : Decreased breath sounds, no tenderness HEART : RRR, systolic murmur ABDOMEN: Some distention, nontender EXTREMITIES : Minimal l LE swelling, no LE tenderness, no other conspicuous deformities noted NEUROLOGIC : Coherent, flattened left nasolabial fold, dysarthric, left hemip aresis Principal Diagnosis ACUTE CVA Discharge Exam General- not oriented, not in distress, speaks in sentences with no effort or accessory muscle use weak Eyes- anicteric Neck- no JVD Lungs- clear breath sounds bilaterally, no rales/wheezes Heart- normal rate, regular rhythm; no murmurs Abdomen- normal bowel sounds, nondistended, soft, nontender Extremities- no pretibial edema, no calf tenderness Neuro- confused L sided weakness L sided facial droop Skin- warm & dry Discharge Data Allergies Allergy/AdvReac Type Severity Reaction Status Date / Time bacitracin Allergy Unknown Unknown Verified 10/07/21 01:14 [From Neosporin ([id number])] neomycin Allergy Unknown Unknown Verified 10/07/21 01:14 [From Neosporin ([id number])] polymyxin B Allergy Unknown Unknown Verified 10/07/21 01:14 [From Neosporin ([id number])] atorvastatin AdvReac Severe RIGID Verified 10/07/21 01:14 MUSCLES ezetimibe AdvReac Severe RIGID Verified 10/07/21 01:14 MUSCLES Consultations 10/07/21 01:36 ED Decision to Admit Stat 10/07/21 04:17 Consult Neurology Routine 10/07/21 17:10 Consult Palliative Care Routine 10/08/21 13:19 Consult Palliative Care Routine Ordered Studies 10/07/21 00:10 CT head/brain wo con Stat 10/07/21 04:17 MR brain wo con Routine COMPARISON STUDY: Head CT 10/07/2021. FINDINGS: There is a 3.6 cm area of restricted diffusion involving the majority the right basal ganglia and right medial temporal lobe consistent with an acute infarct. A few punctate foci of restricted diffusion within the bilateral posterior occipital lobes suggesting acute punctate infarcts. Mild motion artifact. The midline structures appear intact. There is again noted a left posterolateral acute or chronic subdural hematoma. This extends along the posterior left interhemispheric and left tentorium locations. This measures a maximal thickness of 1.7 cm, unchanged. There is mild mass effect along the left cerebral hemisphere and left lateral ventricle with 2 mm of right midline shift. This remains unchanged. The paranasal sinuses and mastoid air cells are clear. Loss of the normal flow-void within the right intracranial internal carotid artery consistent with occlusion/thrombus. Old lacunar infarcts seen within the left cerebellar hemisphere. Periventricular white matter T2 hyperintensity is nonspecific but favors microvascular ischemic change. IMPRESSION: 1. A 3.6 cm acute infarct in the majority of the right basal ganglia and right medial temporal lobe. 2. There are few punctate foci of restricted diffusion within the bilateral posterior occipital lobe suggesting additional acute punctate infarcts. 3. Occluded right intracranial internal carotid artery. 4. No change in the left-sided acute on chronic subdural hematoma. This results in 2 mm of right midline shift. 5. Additional findings as described above. ACT 112: Negative or not required by law. US carotid doppler BI Routine COMPARISON STUDY: Carotid artery ultrasound dated 08/21/2018. TECHNIQUE: Real-time, grayscale, and color Doppler sonography of the carotid arteries is performed. Images are reviewed in the transverse and longitudinal planes. FINDINGS: The left carotid arteries are patent and demonstrate antegrade flow. There is atherosclerotic plaque seen bilaterally. The right internal carotid artery is occluded with a possible collateral vessel. There is 47 atherosclerotic plaque seen. Velocity measurements are listed below. Common carotid peak systolic velocity (cm/sec): RIGHT: 47 LEFT: 78 ICA proximal peak systolic velocity (cm/sec): RIGHT: XX LEFT: 446 ICA mid peak systolic velocity (cm/sec): RIGHT: XX LEFT: 395 ICA distal peak systolic velocity (cm/sec): RIGHT: XX LEFT: 129 ICA/CC peak systolic ratio: RIGHT: LEFT: 5.7 The right vertebral artery was not well visualized. The left vertebral artery appears patent with antegrade flow. The external carotid arteries are patent. IMPRESSION: 1. Occlusion of the right internal carotid artery. 2. There is evidence of 80-99% stenosis of the proximal to mid portions of left internal carotid artery. 3. Antegrade flow is shown in the left vertebral artery. 4. The right vertebral artery was not well visualized. ACT 112: Negative or not required by law. Hospital Course (1) Acute CVA (cerebrovascular accident): Acute CVA, right basal ganglia, right medial temporal lobe, bilateral posterior occipital lobes Right carotid artery occlusion Brain MRI: 1. A 3.6 cm acute infarct in the majority of the right basal ganglia and right medial temporal lobe. 2. There are few punctate foci of restricted diffusion within the bilateral posterior occipital lobe suggesting additional acute punctate infarcts. 3. Occluded right intracranial internal carotid artery. 4. No change in the left-sided acute on chronic subdural hematoma. This results in 2 mm of right midline shift. 5. Additional findings as described above. Carotid Doppler: 1. Occlusion of the right internal carotid artery. 2. There is evidence of 80-99% stenosis of the proximal to mid portions of left internal carotid artery. 3. Antegrade flow is shown in the left vertebral artery. 4. The right vertebral artery was not well visualized. Discussed with neurologist Dr Mendez, at this point, patient's family prefers no surgery, antiplatelets, anticoagulation Maintain blood pressure 150 to 170 Neurologist recommending palliative care consultation Continue supportive care 10/09 Patient's family has decided to transition patient to comfort measures patient comfortable,, peaceful Continue as needed morphine, Ativan Hypertension Recent traumatic subdural hematoma left, patient's family not interested in neurosurgical intervention if subsequent imaging shows progression Brain MRI confirming subdural hematoma 1.7 cm, slightly increased compared to CAT scan September 18, 2021 revealing 1.0 cm subdural hematoma Patient's family does not prefer surgical intervention chronic diastolic heart failure (EF 60 to 65%, TTE 2020), euvolemic to dry hx valvular heart disease (moderate MS/MR, mild TR), pulmonary hypertension hyperlipidemia on statin Rx history DVT --not on anticoagulation at this point secondary to possibly increasing subdural hematoma PVD status post surgery DM2 insulin requiring, suboptimal control as of recent hemoglobin A1c of 8.6 last July 2021 ARF on CKD --creatinine 1.4 anxiety/mood disorder DVT prophylaxis. SCDs Re: Recent traumatic subdural hematoma DNR as per patient's prior directives as per family. Transition to [facility] with hospice care services plan of care discussed with patient's family at the bedside in detail and at length all questions answered they are understanding, agreeable, comfortable with the plan of care Total Time Total Time Spent Total Time Spent (In Minutes): >30 minutes Discharge Plan Discharge Items Patient Disposition[facility] Reason For Visit: CVA Discharge Diagnosis: ACUTE CVA Activity: As commented below Activity Comment: COMFORT MEASURES ONLY, HOSPICE CARE Non-emergency contact: Primary Care Provider Call non-emergency contact if: you have any medication questions and your symptoms worsen Follow-up/Referrals: Samir Mai, DO [Primary Care Provider] - Diet: Other - See Diet Comment Diet Comment: FEEDING IF PATIENT REQUESTS Addtl Attending Provider Instructions: CONTINUE HOSPICE CARE SERVICES. Pending Studies at Discharge: No Stand-Alone Forms: myhub Skilled Items Patient informed of condition?: Yes DNR: Yes Discharge Level of Care: Skilled Communicable Disease: No Discharge Prognosis: Deteriorating Lines: None Urinary Catheter: No Medications and DC Order Prescriptions: New hyoscyamine sulfate [Levsin] 0.125 mg Tablet 0.125 mg sublingual Q4H PRN (Reason: INCREASED SECRETIONS) Qty: 20 0RF metoprolol succinate 25 mg Tablet Extended Release 24 Hr 25 mg PO DAILY Qty: 10 0RF lorazepam 0.5 mg Tablet 0.5 mg sublingual Q4H PRN (Reason: agitation) Qty: 20 0RF morphine concentrate 100 mg/5 mL (20 mg/mL) Solution 5 mg PO Q3H PRN (Reason: SHORTNESS OF BREATH, PAIN) Qty: 15 0RF Discontinued acetaminophen 325 mg Tablet 650 mg PO Q4H MDD 3g PRN (Reason: Pain, Mild 1-3) sertraline 25 mg Tablet 25 mg PO QAM metoprolol succinate 100 mg tablet extended release 24 hr 100 mg PO DAILY rosuvastatin 5 mg tablet 2.5 mg PO HS Rx Instructions: 1/2 tablet dose latanoprost 0.005 % drops 1 drp OPB QPM Rx Instructions: should be administered in the evening due to intraocular pressure peaks at night polyethylene glycol 3350 17 gram Powder In Packet 17 g PO .EVERY 24 HOURS PRN (Reason: Constipation) Rx Instructions: GIVE in 8 oz of water/juice on the 3rd day of no BM docusate sodium 100 mg Capsule 100 mg PO .EVERY 24 HOURS PRN (Reason: Constipation) Rx Instructions: GIVE ON DAY 2 OF NO BOWEL MOVEMENT IN THE MORNING pantoprazole 40 mg tablet,delayed release (DR/EC) 40 mg PO DAILY Tradjenta 5 mg tablet 5 mg PO DAILY Ocuvite Adult 50 Plus 250 mg (90 mg-160 mg) Capsule 1 cap PO DAILY diphenhydramine HCl [Benadryl] 25 mg Capsule 25 mg PO Q6 PRN (Reason: Itching) furosemide 40 mg tablet 40 mg PO DAILY isosorbide dinitrate 20 mg tablet 40 mg PO AMHS insulin glargine [Lantus Solostar U-100 Insulin] 100 unit/mL (3 mL) insulin pen 35 unit SUBCUT HS acetaminophen [Tylenol] 325 mg Tablet 975 mg PO TID Rx Instructions: give 3 tablet dose 3 times a day loperamide 2 mg Tablet 2 mg PO Q4H PRN (Reason: after each loose stool) cholecalciferol (vitamin D3) [Vitamin D3] 25 mcg (1,000 unit) Tablet 25 mcg PO DAILY triamcinolone acetonide 0.1 % cream 1 applic TOPICAL BID Rx Instructions: apply to lower legs for dermatitis bisacodyl [Dulcolax (bisacodyl)] 10 mg Suppository 10 mg AK .EVERY 24 HOURS PRN (Reason: Constipation) Rx Instructions: give on the 4th day of no BM. if does not move bowels call MD for further instruction insulin aspart U-100 [Novolog Flexpen U-100 Insulin] 100 unit/mL (3 mL) insulin pen 1 sliding scale dose SUBCUT ACHS Rx Instructions: inject as per sliding scale: if 0-150=0 units,151-200=2 units,201-250=4 units,251-300=6 units,301-350=8 units,351-400=10 units,401+=12 units and call MD Discharge Orders: Discharge Order (Routine); Ordered 10/09/21 Ordered By: Carlos Aviles Admission Data Admit Date/Time: 10/07/21 02:41 Attending Provider: Romeo Tesfaye Admit Provider: Raheel Antoine Primary Care Provider: Samir Mai Other Providers: Raheel Antoine ; Javier Mendez ; Anay Manning at [place] ; Shilpa Jama ; Carlos Aviles
[2021-10-09] MEDS: PANTOprazole 40 MG TAB PO SCH (10:35)
[2021-10-09] MEDS: DICLOFENAC SOD 1% GEL 100 GM TUBE EXT SCH (10:35)
[2021-10-09] MEDS: METOPROLOL SUCC 25MG EXT REL TAB PO SCH (10:35)
--- NOTE | 2021-10-18 08:15 | Coding Query ---
CODING QUERY To promote full compliance with coding requirements relating to patient care, provider participation is requested in all cases of remote medical coder uncertainty. Please assist us with the question(s) below: Coding Question(s): The 10/07 Progress Note Addendum documents, "pls add to a/p> possible Compression of brain management per below". Please clarify below, in your clinical opinion, the etiology of the possible Compression of brain. ( X ) likely due to the traumatic subdural hematoma ( ) likely due to the Acute CVA ( ) likely due to Other: Please Specify ( ) unknown likely cause Physician's Response(s): Thank you Ciera Ordoñez Principal Diagnosis: "that condition established after study, to be chiefly responsible for occasioning the admission of the patient to the hospital for care." Co-Existing Principal Diagnosis: "when two or more diagnoses equally meet the criteria for principal diagnosis as determined by the circumstances of admission, diagnostic work up, and/or therapy provided, and the Alphabetic Index, Tabular List, or another coding guideline does not provide sequencing direction, any one of the diagnoses may be sequenced first." "When the physician has documented what appears to be a current diagnosis in the body of the record, but has not included the diagnosis in the final diagnostic statement, the physician should be asked whether the diagnosis should be added." (Source Coding [facility] 2 QTR90. p3-4) SANDY
== END 2021-10-09 11:49 | disposition hospice, inpatient (51) | DRG 64 ==
LOC: ED 00:15 → SUATTDRO 02:41 → 2S 02:41